=== PATIENT | female | born 1995 | race Caucasian/White ===

== ENCOUNTER 2019-04-23 22:15 | Inpatient (IN) | payer OTHER, SELFPAY ==
--- NOTE | ~2019-04-23 | US_ITS ---
EXAMINATION: US pelvic complete w TV DATE: 04/24/2019 02:03 INDICATION: Left adnexal pain, possible tubo-ovarian abscess on CT TECHNIQUE: Multiple transabdominal and endovaginal sonographic images of the pelvis were obtained. COMPARISON: 04/21/2019 FINDINGS: The uterus measures 8.2 x 3.7 x 5.3 cm. The endometrial complex measures 4 mm. The right ov misbah measures 3.0 x 1.6 x 1.6 cm. The left ovary measures 3.6 x 2.1 x 2.2 cm. There is an approximatel y 5.3 x 3.5 cm complex cystic and solid area in the region of the left ovary which has an appearance similar to the recent comparison ultrasound and CT from today. There is a moderate amount of free fl uid in the pelvis. IMPRESSION: 1. Complex cystic and solid lesion in the left adnexa not significantly changed since the recent comp arison. Findings likely reflect tubo-ovarian abscess given the patient's clinical presentation. Reviewed, dictated and finalized at location A. SURGEON IMPRESSION: 1. Complex cystic and solid lesion in the left adnexa not significantly changed since the recent comparison. Findings likely reflect tubo-ovarian abscess give n the patient's clinical presentation.
--- NOTE | ~2019-04-23 | CT_ITS ---
EXAMINATION: CT abdomen pelvis w con INDICATION: Left lower quadrant pelvic pain TECHNIQUE: Computed tomographic images of the abdomen and pelvis were obtained after the administrati on of 100 cc of Omnipaque 350 intravenous contrast. The dose-length product (DLP) was 288.27 mGy-cm. Automated exposure control and iterative reconstruction technique were employed. COMPARISON: 06/17/2016 FINDINGS: The lung bases are clear. The heart size is normal. The liver, spleen, pancreas, gallbladde r, and adrenal glands are normal. The kidneys are unremarkable. No pathologically enlarged abdominal or pelvic lymph nodes are identified. There is an approximately 7.0 x 3.0 cm complex cystic area of t he left adnexa which appears to enhance at its anterior aspect. A small volume of free fluid is prese nt in the pelvis. There is a curvilinear metallic density in the cecum of unclear origin, possibly in gested foreign body. There is no free intraperitoneal gas or evidence of bowel obstruction. There is mild lumbar spondylosis at L5-S1 with bilateral L5 pars defects. IMPRESSION: 1. Complex cystic area of the left adnexa with some contrast enhancement in the anterior portion whic h could reflect tubo-ovarian abscess given patient's clinical presentation and leukocytosis. These findings were discussed with Dr. Gilberto Noyola MD in the Emergency Department at 0118 hour s on 04/24/2019 by the [employer] Radiologist. Reviewed, dictated and finalized at location A. A SALES CONSULTANT IMPRESSION: 1. Complex cystic area of the left adnexa with some contrast enhancement in the anterior portion which could reflect tubo-ovarian abscess given patient's clin ical presentation and leukocytosis. These findings were discussed with Dr. Gilberto Noyola MD in the Emergency D epartment at 0118 hours on 04/24/2019 by the [employer] Radiologist.
[2019-04-23 22:21] VITALS: BP 132/62; PULSE 116; RESP 16; TEMP 36.4; O2SAT 100
--- NOTE | 2019-04-23 22:45 | PC.NURSE ---
[facility] [employer] CALLED TO LET US KNOW THAT THE PATIENTS BOYFRIEND CALLED, STATED WE WOULD NOT SEE HER AND WANTED TRANSPORT TO [facility]. I EXPLAINED TO THEM THAT WE HAVE A WAIT AT THIS TIME, PATIENT WAS INFORMED AND THAT SHE IS NEXT TO GO BACK, BUT AFTER SHE WAS TRIAGED, SHE WAS PLACED BACK INTO THE WAITING ROOM. WE WILL SEE HER WHEN WE HAVE AN AVAILABLE ROOM. PATIENT IS IN THE WAITING ROOM CRYING.
--- NOTE | 2019-04-23 23:39 | ED.ABDPAIN ---
HPI - Abdominal Pain General Chief Complaint: Abdominal Pain Stated Complaint: ovary problems Time Seen by Provider: 04/23/19 23:08 Source: patient and RN notes reviewed Mode of arrival: ambulatory Limitations: no limitations History of Present Illness HPI narrative: Pt is a 23 y/o female who presents to the ED with c/o LLQ ABD pain which radiates to her epigastric ABD. She states she was seen at the ED 2 days ago and was diagnosed with PID. She states she has been taking antibiotics as it has been prescribed to her. She reports she was sitting when the pain suddenly worsened. She reports the pain worsened 30 minutes ago. Pt states her Hydrocodone medication has not been alleviating her pain. She reports diaphoresis, dizziness, and vaginal discharge, but denies a fever, chills, nausea, vomiting, chest pain, or chest pressure. She states her test was negative the last time she was seen in the ED. MD elicited complaint: abdominal pain (LLQ) Pertinent past history: other (PID) Onset (ago): day(s) (2 days ago) Pain Consistency: constant Location: LLQ Radiation: epigastric Migration to: no migration Relieving factors: nothing (has tried pain medication with no relief) Associated symptoms: other (diaphoresis; dizziness; vaginal discharge) Related Data Home Medications Medication Instructions Recorded Confirmed escitalopram oxalate 10 mg HS 02/24/19 04/24/19 lamotrigine 200 mg PO BID 02/24/19 04/24/19 trazodone 50 mg HS 02/24/19 04/24/19 hydroxyzine HCl 25 mg PO TID 04/24/19 04/24/19 Allergies Allergy/AdvReac Type Severity Reaction Status Date / Time No Known Allergies Allergy Verified 04/21/19 14:43 Review of Systems Review of Systems: All systems reviewed & are unremarkable except as noted in HPI and below Constitutional: Constitutional: Denies chills and Denies fever(s) Cardiovascular: Cardiovascular: Denies chest pain (chest pressure) and Reports diaphoresis Gastrointestinal: Gastrointestinal: Reports abdominal pain (LLQ ABD pain), Denies nausea and Denies vomiting Genitourinary: Genitourinary: Reports vaginal discharge Neurologic: Reports dizziness PMFSH Past Medical History Medical History (Updated 04/24/19 @ 06:32 by Gilberto Noyola MD) ADD (attention deficit disorder) Anxiety Asthma Bipolar disorder Depression Ovarian cyst 2014 with week-long hospitalization before resolving, no surgery Schizoaffective disorder, unspecified condition Tonsillitis Surgical History Surgical History (Updated 04/21/19 @ 13:05 by Mary Carmen Barrera) History of adenoidectomy History of tonsillectomy Social History Social History Smoking packs per day: 0.1 Smoking cigarettes per day: 2.0 Years smoked: 8 Smoking pack-years: 0.80 Smoking status: Current every day smoker Tobacco type: cigarettes Second hand tobacco smoke exposure: Yes Alcohol intake: never Substance use: current Substance use type: marijuana Gender identity (if verbalized by the patient): Female Spiritual care concerns: No Agree to blood products: Yes Exam Narrative: Exam Narrative: GENERAL: Uncomfortable-appearing, tearful, well-nourished, and in mild distress. HEAD: Normocephalic, atraumatic. ENT: Mucous membranes moist. NECK: Supple. CHEST: Clear to auscultation. No respiratory distress. HEART: Tachycardic and regular normal peripheral pulses. ABDOMEN: Soft, tender palpation left lower quadrant with guarding, nondistended, normal active bowel sounds. EXTREMITIES: Normal range of motion. No edema. SKIN: Warm, dry, no rash. NEURO: Alert and oriented x3. Course Course Emergency Course: Admit to gynecology. We will started on IV doxycycline. Regarding the metallic object on the CT scan, patient lost her septal nose ring and it is likely that she swallowed it. Vital Signs Vital signs: Vital Signs Temperature 97.6 F 04/23/19 22:21 Pulse Rate 116
[2019-04-23] MEDS: SODIUM CHLORIDE 0.9% IV 1,000 ML 999 ML IV CONT (23:54)
[2019-04-23] MEDS: ONDANSETRON INJ 4 MG/2 ML VIAL IV PUSH (23:55)
[2019-04-23] MEDS: MORPHINE SULFATE 4 MG/ML INJ IV PUSH (23:55)
[2019-04-23 23:57] VITALS: BP 127/74; PULSE 94; RESP 20; O2SAT 98
[2019-04-23 23:58] LABS: Basophils Absolute Auto 0.1 K/mm3 (0.0-0.1); Basophils Percent Auto 0.5 % (0.2-1.2); Eosinophils Absolute Auto 0.2 K/mm3 (0-0.3); Eosinophils Percent Auto 1.2 % (0-4.4); Hematocrit 40.9 % (37.0-47.0); Hemoglobin 13.2 g/dL (12.0-15.0); Immature Granulocyte Absolute 0.07 K/mm3 (0.00-0.031); Immature Granulocyte Percent A 0.5 % (0-0.5); Lymphocytes Percent Auto 28.5 % (18.3-44.2); Mean Corpuscular HGB Conc 32.3 g/dl (32-36); Mean Corpuscular Hemoglobin 28.6 pg (26-34); Mean Corpuscular Volume 88.7 fl (80-100); Mean Platelet Volume 9.9 fl (7.4-10.4); Monocytes Absolute Auto 1.1 K/mm3 (0.1-0.6); Monocytes Percent Auto 8.7 % (2.6-8.5); Neutrophils Absolute Auto 7.9 K/mm3 (1.3-6.7); Neutrophils Percent Auto 60.6 % (45.5-73.1); Platelet Count Result 437 k/mm3 (150-375); Red Blood Count 4.61 M/mm3 (4.2-5.4); Red Cell Distribution Width 13.2 % (11.5-14.5)
--- NOTE | 2019-04-24 | PC.NURSE ---
Before administering medications, pt was crying, hyperventilating and very restless in bed. When administering IV zofran pt stopped and stated wow, this pain medication works fast . At that point pt stopped crying and relaxed.
[2019-04-24 00:08] LABS: Alanine Aminotransferase 16 U/L (4-35); Albumin Level 4.6 g/dL (3.5-5.1); Alkaline Phosphatase 83 U/L (38-126); Aspartate Amino Transferase 27 U/L (14-36); Bilirubin,Total 0.1 mg/dL (0.2-1.3); Blood Urea Nitrogen 15 mg/dL (7-17); Calcium 9.7 mg/dL (8.4-10.2); Carbon Dioxide 27 mmol/L (22-30); Chloride 102 mmol/L (98-107); Estimated Glomerular Filt Rate > 60; Glucose 94 mg/dL (65-105); Lipase 71 U/L (23-300); Potassium 4.2 mmol/L (3.4-5.0); Sodium 141 mmol/L (137-145)
[2019-04-24 00:53] LABS: Add Urine Microscopic? YES; Appearance Urine Clear (Clear); Bilirubin Urine Negative (Negative); Blood Urine 1+ (Negative); Color Urine Yellow (Yellow); Glucose Urine UA Negative (Negative); Ketones Urine Trace mg/dL (Negative); Leukocyte Esterase Ur 1+ LEU/UL (Negative); Mucus Urine Rare /lpf; Nitrate Urine Negative (Negative); Protein Urine 1+ mg/dL (Negative); RBC Urine 21-50 /hpf (0-2); Specific Grav Ur 1.027 (1.001-1.035); Squamous Epithelial Cell Urine Many /hpf (Few); Urobilinogen Urine Negative mg/dL (<2.0)
[2019-04-24 01:16] VITALS: BP 110/71; PULSE 78; RESP 18; O2SAT 99
[2019-04-24] MEDS: MORPHINE SULFATE 4 MG/ML INJ IV PUSH ×4 (03:12→08:30)
[2019-04-24 03:13] VITALS: BP 114/76; PULSE 84; RESP 18; O2SAT 99
[2019-04-24 03:50] VITALS: BP 106/64; PULSE 72; RESP 16; TEMP 36.6; O2SAT 99; BMI 23.3
[2019-04-24] MEDS: SODIUM CHLORIDE 0.9% IV 1,000 ML 125 ML IV CONT ×3 (04:51→23:28)
[2019-04-24 09:53] LABS: Beta HCG Quantitative < 2.39 mIU/ML
--- NOTE | 2019-04-24 12:00 | PM.IMHP ---
H&P: HPI History of Present Illness Chief complaint: pid left pelvic pain Narrative: Chief complaint: Abdominal pain. (the chief complaint listed above is not accurate, but cannot be changed by me) 23 y/o nulligravida with a 3 day history of crampy, intermittent pain in the low abdomen, worse on the left than the right. She describes the pain as shooting. Her last menstrual period began 04/12/2019. She does not practice contraception. Her last sexual contact was 04/05/2019. She typically has monthly menses lasting 3 days each. She felt feverish on the day of admission, but has not documented a fever. She had been seen a couple of days previously in the emergency department. She had been diagnosed with pelvic inflammatory disease and was given antibiotics. She was sent home on Flagyl and doxycycline. She says she did fill those prescriptions and has been taking them. She says this pain is intermittent and resembles the pain she had that was associated with an ovarian cyst several years ago. She has no dysuria. She has no hematuria. She has no increasing urinary frequency. She has no urinary hesitancy. She has no constipation or diarrhea and says her last bowel movement was on the last day or so. She has had no sick contacts. Testing for gonorrhea and chlamydia from the first ED visit is still pending. She does not have a reliable place to live at this moment. A male friend is with her today. She says she just ended a relationship with a boyfriend last week. Review of Systems Review of Systems: All systems reviewed & are unremarkable except as noted in HPI and below PMFSH Past Medical History Medical History ADD (attention deficit disorder) Anxiety Asthma Bipolar disorder Depression Ovarian cyst 2014 with week-long hospitalization before resolving, no surgery Tonsillitis Surgical History Surgical History History of adenoidectomy History of tonsillectomy Family History Family History Mother Hypertension Family history of type 2 diabetes mellitus Other Diabetes mellitus Family history of arthritis Family history of kidney disease Ovarian cancer Social History Social History Smoking packs per day: 0.1 Smoking cigarettes per day: 2.0 Years smoked: 8 Smoking pack-years: 0.80 Smoking status: Current every day smoker Tobacco type: cigarettes Second hand tobacco smoke exposure: Yes Alcohol intake: never Substance use: current Substance use type: marijuana Gender identity (if verbalized by the patient): Female Spiritual care concerns: No Agree to blood products: Yes Comments Past OB History: None 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 Menarche at 14 y/o. Social History: Currently homeless. 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 Tells me she smokes 3-5 cigarettes a day and smokes marijuana. Additional Family History: Father and maternal grandmother with schizophrenia. Allergies: NKDA Additional medication information: She says the hydroxyzine is actually dosed at 10 mg in the morning, 10 in afternoon, 25 mg at bedtime. Meds Home Medications and Allergies Home Medications Medication Instructions Recorded Confirmed Type escitalopram oxalate 10 mg HS 02/24/19 04/24/19 History lamotrigine 200 mg PO BID 02/24/19 04/24/19 History trazodone 50 mg HS 02/24/19 04/24/19 History doxycycline monohydrate 100 mg PO BID #28 cap 04/21/19 04/24/19 Rx hydrocodone-acetaminophen [[place]] 1 tablet PO Q6H PRN #20 tablet 04/21/19 04/24/19 Rx metronidazole [Flagyl] 500 mg PO Q12H #28 tablet 04/21/19 04/24/19 Rx hydroxyzine HCl 25 mg PO TID 04/24/19 04/24/19 History Allergies Allergy/AdvReac Type Severity Reaction Status Date / Time No Known Allergies Allergy Verified 04/21/19 14
[2019-04-24] MEDS: cefoTEtan DISODIUM INJ 2 GM in DEXTROSE 5% IN WATER 50 ML IVPB ×2 (13:00→20:13)
[2019-04-24] MEDS: KETOROLAC 30 MG/ML VIAL (*BKC) IV PUSH (13:58)
[2019-04-24] MEDS: MORPHINE SULFATE 2 MG/ML INJ IV PUSH ×3 (14:58→20:07)
[2019-04-24 15:31] VITALS: BP 121/72; PULSE 82; RESP 18; TEMP 36.3; O2SAT 98
[2019-04-24] MEDS: DOXYCYCLINE HYCLATE 100 MG TABLET PO (18:34)
[2019-04-24] MEDS: lamoTRIgine 100 MG TABLET 200 MG PO (20:15)
[2019-04-24] MEDS: TRAZODONE HCL 50 MG TABLET 100 MG PO (20:16)
[2019-04-24] MEDS: ESCITALOPRAM OXALATE 10 MG TABLET PO (20:17)
[2019-04-24 22:00] VITALS: BP 131/64; PULSE 83; RESP 18; TEMP 36.4; O2SAT 100
[2019-04-25] MEDS: MORPHINE SULFATE 2 MG/ML INJ IV PUSH ×4 (04:59→14:59)
[2019-04-25 05:56] VITALS: BP 100/64; PULSE 67; RESP 18; TEMP 37; O2SAT 97
[2019-04-25] MEDS: SODIUM CHLORIDE 0.9% IV 1,000 ML 125 ML IV CONT ×2 (08:13→16:35)
[2019-04-25] MEDS: DOXYCYCLINE HYCLATE 100 MG TABLET PO ×2 (08:14→16:45)
[2019-04-25] MEDS: lamoTRIgine 100 MG TABLET 200 MG PO ×2 (08:14→21:12)
[2019-04-25] MEDS: cefoTEtan DISODIUM INJ 2 GM in DEXTROSE 5% IN WATER 50 ML IVPB ×2 (08:44→21:13)
[2019-04-25 11:11] LABS: Basophils Percent Auto 0.4 % (0.2-1.2); Eosinophils Absolute Auto 0.4 K/mm3 (0-0.3); Eosinophils Percent Auto 4.2 % (0-4.4); Hematocrit 34.7 % (37.0-47.0); Hemoglobin 11.3 g/dL (12.0-15.0); Immature Granulocyte Absolute 0.03 K/mm3 (0.00-0.031); Immature Granulocyte Percent A 0.4 % (0-0.5); Lymphocytes Absolute Auto 3.33 K/mm3 (0.9-3.2); Lymphocytes Percent Auto 40.3 % (18.3-44.2); Mean Corpuscular HGB Conc 32.6 g/dl (32-36); Mean Corpuscular Hemoglobin 29.2 pg (26-34); Mean Corpuscular Volume 89.7 fl (80-100); Mean Platelet Volume 9.8 fl (7.4-10.4); Monocytes Absolute Auto 0.7 K/mm3 (0.1-0.6); Neutrophils Absolute Auto 3.9 K/mm3 (1.3-6.7); Neutrophils Percent Auto 46.7 % (45.5-73.1); Platelet Count Result 361 k/mm3 (150-375); Red Blood Count 3.87 M/mm3 (4.2-5.4); Red Cell Distribution Width 13.5 % (11.5-14.5); White Blood Count 8.3 K/mm3 (4.5-10.0)
--- NOTE | 2019-04-25 11:50 | PM.GYNPNOP ---
TROMMEL TENDER - A/P Assessment and plan (1) Acute pelvic inflammatory disease (PID): Code(s): N73.0 - Acute parametritis and pelvic cellulitis Status: Acute Assessment and Plan: A: Clinically, she seems to be getting better. She has remained afebrile. Her white blood cell count, which has returned since I spoke with her this morning, has normalized. Her abdominal exam has improved. She still complains of pain intermittently. P: When she asked about another test, I told her that the next test would be a laparoscopy. My concern in this situation is that laparoscopy sometimes leads to salpingo-oophorectomy. In her case, I think it is much better if antibiotics and pain medication can be allowed to work, in an effort to avoid surgery. The patient indicates understanding and would like to hold off on surgery for now. She agreed to a CBC, as above. I agreed to let her keep having a regular diet. We also agreed to try oral pain medications today. Our goal will be to get her home perhaps tomorrow on oral antibiotics and oral pain medications. Time Spent With Patient Time with patient: 15 - 25 minutes TROMMEL TENDER- PN:Jaye Post-Op Subjective Date/time seen: 04/25/19 11:50 Interval history: She continues to have intermittent pain. We tried using Percocet and Motrin on an alternating basis yesterday. However, I received several phone calls from nursing informing me that the patient was having pain and was tearful. We wound up giving her parenteral morphine and Toradol. Overnight she says she had times when she was pain-free and other times when she had a stabbing pain in the left lower quadrant. She has not had a bowel movement since arrival. She says she is passing flatus. She is eating a muffin at the time of my interview this morning. She has no dysuria. She has not felt feverish. She tells me she thinks she needs another test. She refused a blood draw this morning. However, after I explained that I was wanting to keep an eye on her white blood cell count, she says it would be okay. Review of Systems Review of Systems: All systems reviewed & are unremarkable except as noted in HPI and below Exam Narrative: Exam Narrative: AVSS GEN: She has a hard time keeping her eyes open and is slurring her speech a little. ABD: Soft, nondistended. Bowel sounds normoactive in all 4 quadrants. There is some mild tenderness on deep palpation in the left lower quadrant. There is no guarding or rebound tenderness. EXT: Nontender, no edema. TROMMEL TENDER - PN: Obj Data Vital Signs Vital Signs: Vital Signs - 24 hr 04/24/19 15:31 04/24/19 22:00 04/25/19 05:56 Temperature 36.3 C L 36.4 C 37.0 C Pulse Rate 82 83 67 Respiratory Rate 18 18 18 Blood Pressure 121/72 131/64 100/64 Pulse Oximetry 98 100 97 Intake/Output Intake/Output: Intake & Output 04/22/19 04/23/19 04/24/19 04/25/19 23:59 23:59 23:59 23:59 Intake Total 3940 1760 Output Total 0 Balance 3940 1760 Meds/Results Medications: Active Medications Generic Name Dose Route Start Last Admin Trade Name Freq PRN Reason Stop Dose Admin Doxycycline Hyclate 100 mg 04/24/19 17:00 04/25/19 08:14 Vibramycin Tab PO 100 mg BID OREN Administration Escitalopram Oxalate 10 mg 04/24/19 21:00 04/24/19 20:17 Lexapro PO 10 mg HS OREN Administration Sodium Chloride 1,000 mls @ 125 mls/hr 04/24/19 03:15 04/25/19 08:13 Normal Saline Iv IV CONT 125 mls/hr .Q8H OREN Administration Cefotetan Disodium 2 gm/ 50 mls @ 100 mls/hr 04/24/19 12:00 04/25/19 08:44 Dextrose IVPB 100 mls/hr Q12HR OREN Administration Ketorolac Tromethamine 30 mg 04/24/19 13:46 04/24/19 13:58 Toradol Inj IV PUSH 30 mg Q6H PRN Administration Pain Rated 4-6 Lamotrigine 200 mg 04/24/19 21:00 04/25/19 08:14 Lamictal PO 200 mg Q12HR OREN Administration Morphine Sulfate 2 mg 04/24/19 14:48 04/25/19 08:16 Morphine Sulfate Inj IV PUSH 2 mg Q
[2019-04-25 14:21] VITALS: BP 112/62; PULSE 82; RESP 18; TEMP 37.1; O2SAT 99
[2019-04-25] MEDS: ESCITALOPRAM OXALATE 10 MG TABLET PO (21:12)
[2019-04-25] MEDS: TRAZODONE HCL 50 MG TABLET 100 MG PO (21:12)
[2019-04-25] MEDS: DOCUSATE SODIUM 100 MG CAPSULE PO (21:12)
[2019-04-25 22:00] VITALS: BP 124/70; PULSE 77; RESP 18; TEMP 36.9; O2SAT 97
[2019-04-26] VITALS (9 sets, daily range): BP systolic 106–124; BP diastolic 53–78; PULSE 73–119; RESP 12–21; TEMP 36.1–37.3; O2SAT 91–100
[2019-04-26] MEDS: SODIUM CHLORIDE 0.9% IV 1,000 ML 125 ML IV CONT ×2 (01:17→09:08)
[2019-04-26 06:27] LABS: Basophils Absolute Auto 0.1 K/mm3 (0.0-0.1); Basophils Percent Auto 0.5 % (0.2-1.2); Eosinophils Absolute Auto 0.3 K/mm3 (0-0.3); Eosinophils Percent Auto 3.4 % (0-4.4); Hematocrit 35.4 % (37.0-47.0); Hemoglobin 11.4 g/dL (12.0-15.0); Immature Granulocyte Absolute 0.04 K/mm3 (0.00-0.031); Immature Granulocyte Percent A 0.4 % (0-0.5); Lymphocytes Absolute Auto 3.28 K/mm3 (0.9-3.2); Lymphocytes Percent Auto 34.5 % (18.3-44.2); Mean Corpuscular HGB Conc 32.2 g/dl (32-36); Mean Corpuscular Hemoglobin 28.8 pg (26-34); Mean Corpuscular Volume 89.4 fl (80-100); Mean Platelet Volume 9.8 fl (7.4-10.4); Monocytes Absolute Auto 0.9 K/mm3 (0.1-0.6); Monocytes Percent Auto 9.3 % (2.6-8.5); Neutrophils Absolute Auto 4.9 K/mm3 (1.3-6.7); Neutrophils Percent Auto 51.9 % (45.5-73.1); Platelet Count Result 374 k/mm3 (150-375); Red Blood Count 3.96 M/mm3 (4.2-5.4); Red Cell Distribution Width 13.4 % (11.5-14.5); White Blood Count 9.5 K/mm3 (4.5-10.0)
[2019-04-26] MEDS: cefoTEtan DISODIUM INJ 2 GM in DEXTROSE 5% IN WATER 50 ML IVPB ×2 (09:06→21:50)
[2019-04-26] MEDS: DOXYCYCLINE HYCLATE 100 MG TABLET PO (09:07)
[2019-04-26] MEDS: DOCUSATE SODIUM 100 MG CAPSULE PO ×2 (09:07→21:50)
[2019-04-26] MEDS: lamoTRIgine 100 MG TABLET 200 MG PO ×2 (09:07→21:50)
--- NOTE | 2019-04-26 11:34 | WPDANESEPP ---
Anes - Eval Pre Procedure Procedure: Operation Date: 04/26/19 15:30 Proposed Procedures p Diagnostic Laparoscopy, Possible Left Salpingo-Oophorectomy - Wayne Ruano MD Date/Time: 04/26/19 11:34 Pre Op Diagnosis: pid left pelvic pain Patient Data Age: 23 Gender: F Height: 1.63 m Weight: 61.7 kg Last Vital Signs Temp 37.2 C 04/26/19 06:00 Pulse 73 04/26/19 06:00 Resp 18 04/26/19 06:00 BP 110/53 L 04/26/19 06:00 Pulse Ox 96 04/26/19 06:00 Allergies Allergy/AdvReac Type Severity Reaction Status Date / Time No Known Allergies Allergy Verified 04/21/19 14:43 Home Medications Medication Instructions Recorded Confirmed Type escitalopram oxalate 10 mg HS 02/24/19 04/24/19 History lamotrigine 200 mg PO BID 02/24/19 04/24/19 History trazodone 50 mg HS 02/24/19 04/24/19 History doxycycline monohydrate 100 mg PO BID #28 cap 04/21/19 04/24/19 Rx hydrocodone-acetaminophen [[place]] 1 tablet PO Q6H PRN #20 tablet 04/21/19 04/24/19 Rx metronidazole [Flagyl] 500 mg PO Q12H #28 tablet 04/21/19 04/24/19 Rx hydroxyzine HCl 25 mg PO TID 04/24/19 04/24/19 History Laboratory Tests 04/26/19 06:10 WBC 9.5 K/mm3 K/mm3 (4.5-10.0) RBC 3.96 M/mm3 L M/mm3 (4.2-5.4) Hgb 11.4 g/dL L g/dL (12.0-15.0) Hct 35.4 % L % (37.0-47.0) MCV 89.4 fl fl (80-100) MCH 28.8 pg pg (26-34) MCHC 32.2 g/dl g/dl (32-36) RDW 13.4 % % (11.5-14.5) Plt Count 374 k/mm3 k/mm3 (150-375) MPV 9.8 fl fl (7.4-10.4) Immature Gran % (Auto) 0.4 % % (0-0.5) Neut % (Auto) 51.9 % % (45.5-73.1) Lymph % (Auto) 34.5 % % (18.3-44.2) [place] % (Auto) 9.3 % H % (2.6-8.5) Eos % (Auto) 3.4 % % (0-4.4) Baso % (Auto) 0.5 % % (0.2-1.2) Lymph # (Auto) 3.28 K/mm3 H K/mm3 (0.9-3.2) [place] # (Auto) 0.9 K/mm3 H K/mm3 (0.1-0.6) Eos # (Auto) 0.3 K/mm3 K/mm3 (0-0.3) Baso # (Auto) 0.1 K/mm3 K/mm3 (0.0-0.1) Abs Immat Gran (auto) 0.04 K/mm3 H K/mm3 (0.00-0.031) Absolute Neuts (auto) 4.9 K/mm3 K/mm3 (1.3-6.7) Absolute Nucleated RBC 0.0 K/mm3 K/mm3 (0.0-0.012) Nucleated RBC % 0.0 % % (0.0-0.2) Patient hx anesthesia problems: none Family hx anesthesia problems: none PMFSH Past Medical History Medical History (Updated 04/26/19 @ 11:36 by Patel Armenta MD) ADD (attention deficit disorder) Anxiety Asthma Attention deficit disorder Bipolar disorder Depression Ovarian cyst 2014 with week-long hospitalization before resolving, no surgery Tobacco abuse Tonsillitis Surgical History Surgical History History of adenoidectomy History of tonsillectomy Family History Family History Mother Hypertension Family history of type 2 diabetes mellitus Other Diabetes mellitus Family history of arthritis Family history of kidney disease Ovarian cancer Social History Social History Smoking packs per day: 0.1 Smoking cigarettes per day: 2.0 Years smoked: 8 Smoking pack-years: 0.80 Smoking status: Current every day smoker Tobacco type: cigarettes Second hand tobacco smoke exposure: Yes Alcohol intake: never Substance use: current Substance use type: marijuana Gender identity (if verbalized by the patient): Female Spiritual care concerns: No Agree to blood products: Yes Exam Day of Procedure 04/26/19 11:34
--- NOTE | 2019-04-26 12:03 | PM.GYNPNOP ---
MANAGER SALES AND MARKETING - A/P Postoperative Procedures: Procedures Operation Date: 04/26/19 15:30 <No data on this case meets the specified criteria> A: Left-sided tuboovarian abscess. Her WBC has normalized and she is afebrile, but her pain has been difficult to control. She is requesting surgical management. P: Offered diagnostic laparoscopy with possible LSO. She understands risks of surgery to include risks of anesthesia, risks of pain, infection, bleeding, blood products, thromboembolic phenomena and damage to adjacent structures such as bowel, bladder, ureters, blood vessels and nerves. She understands that, should LSO prove necessary, there could be an impact on her fertility. She understands there is a risk of conversion to laparotomy. She understands all these risks and elects to proceed with surgery. Time Spent With Patient Time with patient: 15 - 25 minutes MANAGER SALES AND MARKETING- PN:Subj Post-Op Subjective Date/time seen: 04/26/19 12:03 Interval history: Nursing phoned yesterday reporting pain poorly controlled. 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 She has used 8 mg of morphine in the last 5 hours, for a total of 45 mg in the last 20 hours. The patient is requesting surgical evaluation and treatment. Also she is hungry. The man who was in the room previously is lying in the bed next to her today. His name is Jn and she now identifies him as her boyfriend. I am instructed to talk with him after the surgery with an update. Review of Systems Review of Systems: All systems reviewed & are unremarkable except as noted in HPI and below Exam Narrative: Exam Narrative: ABD soft, tender in LLQ. No guarding or rebound tenderness. Nondistended. MANAGER SALES AND MARKETING - PN: Obj Data Vital Signs Vital Signs: Vital Signs - 24 hr 04/25/19 14:21 04/25/19 22:00 04/26/19 06:00 Temperature 37.1 C 36.9 C 37.2 C Pulse Rate 82 77 73 Respiratory Rate 18 18 18 Blood Pressure 112/62 124/70 110/53 L Pulse Oximetry 99 97 96 Intake/Output Intake/Output: Intake & Output 04/23/19 04/24/19 04/25/19 04/26/19 23:59 23:59 23:59 23:59 Intake Total 3940 3700 3030 Output Total 0 Balance 3940 3700 3030 Meds/Results Medications: Active Medications Generic Name Dose Route Start Last Admin Trade Name Freq PRN Reason Stop Dose Admin Docusate Sodium 100 mg 04/25/19 21:00 04/26/19 09:07 Colace Capsule PO 100 mg Q12HR OREN Administration Doxycycline Hyclate 100 mg 04/24/19 17:00 04/26/19 09:07 Vibramycin Tab PO 100 mg BID OREN Administration Escitalopram Oxalate 10 mg 04/24/19 21:00 04/25/19 21:12 Lexapro PO 10 mg HS OREN Administration Fentanyl Citrate 25 mcg 04/26/19 09:38 Sublimaze IV PUSH Q2M PRN Pain Hydromorphone HCl 0.25 mg 04/26/19 09:38 Dilaudid Inj IV PUSH Q5M PRN Pain Sodium Chloride 1,000 mls @ 125 mls/hr 04/24/19 03:15 04/26/19 09:08 Normal Saline Iv IV CONT 125 mls/hr .Q8H [facility] Administration Cefotetan Disodium 2 gm/ 50 mls @ 100 mls/hr 04/24/19 12:00 04/26/19 10:00 Dextrose IVPB Infused Q12HR [facility] Infusion Morphine Sulfate 30 mg in 30 mls @ 1 mls/hr 04/25/19 16:17 04/26/19 10:00 Morphine Sulfate Security Operations Analyst IV CONT 1 mls/hr .Q24H PRN Titration BEAMING MACHINE OPERATOR Management Protocol Lactated Ringer's 1,000 mls @ 30 mls/hr 04/26/19 09:40 Lr - Lactated Ringers Iv IV CONT .Q24H [facility] Lactated Ringer's 1,000 mls @ 30 mls/hr 04/26/19 09:40 Lr - Lactated Ringers Iv IV CONT .Q24H [facility] Ketorolac Tromethamine 30 mg 04/24/19 13:46 04/24/19 13:58 Toradol Inj IV PUSH 30 mg Q6H PRN Administration Pain Rated 4-6 Lamotrigine 200 mg 04/24/19 21:00 04/26/19 09:07 Lamictal PO 200 mg Q12HR OREN Administration Morphine Sulfate 2 mg 04/24/19 14:48 04/25/19 14:59 Morphine Sulfate Inj IV PUSH 2 mg Q2H PRN Administration Pain Rated 7-10 Ondansetron HCl 4 mg 04/26/19 09:38 Zofran Inj IV PUSH ONCE PRN Nausea Oxy
[2019-04-26] MEDS: LACTATED RINGERS 1,000 ML 30 ML IV CONT ×2 (14:35→16:57)
--- NOTE | 2019-04-26 15:03 | P.PNAN_ITS ---
Anes - Eval Final PreProcedure Day of Procedure 04/26/19 15:03 Patient weight: normal Heart: regular rate and rhythm Lungs: clear to auscultation and normal air movement Airway: Mallampati scale class II Neurological: alert and oriented Last oral intake: >/= 8 hours ASA classification: III Emergent: no Anesthetic plan: proceed Anesthesia type and monitoring: general ETT Informed Consent: The patient's anesthetic plan and its attendant risks and b enefits were discussed with the patient/family/POA. Questions were solicited and answers provided to the satisfaction of the patient/family/POA.
--- NOTE | 2019-04-26 15:18 | SUR.PREOP ---
1420-ARRIVED PER BED TO PREOP AREA, BOYFRIEND WITH PT. 1440-PT VERY AGITATED, CURSING WHILE STAFF ATTEMPTING TO CARE FOR PT AND EXPLAINING PRE, INTRA, AND POST OP ROUTINE. REQUESTED PT REMOVE EAR PIERCING AND/OR SIGN REFUSAL WAIVER. 1450-WAIVER SIGNED AFTER BOYFRIEND UNABLE TO REMOVE PIERCING. 1500-PT REMOVED PIERCING HERSELF, WAIVER DISCARDED. MOM AND STEP DAD NOW HERE WITH PT.
--- NOTE | 2019-04-26 16:53 | PM.PROC ---
Procedure Note - Detailed Date of procedure: 04/26/19 Pre-op diagnosis: pid left pelvic pain Preop Diagnosis: Left tubo-ovarian abscess Pain Post-op diagnosis: same Procedure performed: Laparoscopic left salpingectomy Description of procedure: The patient was taken to the operating room where she was prepared and draped in the usual sterile fashion in the dorsal lithotomy position. The bladder was drained with a red rubber catheter. A sterile speculum was placed in the vagina and the anterior lip of the cervix was grasped with a single-tooth tenaculum. The acorn uterine manipulator was placed. The speculum was withdrawn. Gloves were changed and attention was turned to the abdomen. An infraumbilical skin incision was made with a scalpel. The abdomen was tented and a 5mm bladeless trocar was advanced under direct laparoscopic visualization. Pneumoperitoneum was administered using carbon dioxide gas. A 2nd 5mm skin incision was made in the right lower quadrant and bladeless trocar was advanced here as well. An 11/12 mm port was placed in the left lower quadrant similarly. A survey of the pelvis and abdomen revealed the findings noted above. The left fallopian tube was bluntly dissected off the bowel. The tube was then transected using LigaSure. The tube was placed in an endobag and passed off to be sent to pathology. The pelvis was irrigated copiously with warmed normal saline. Hemostasis was excellent. The fascial incision in the left lower quadrant was reapproximated with a single interrupted suture of 0 Vicryl. The ports were withdrawn and the gas was allowed to escape. Skin incisions were reapproximated using 4 0 Vicryl in interrupted subcuticular fashion. Dermaflex was applied externally. The vaginal instrumentation was withdrawn and hemostasis was excellent here as well. Sponge, lap, needle and instrument counts were correct. The patient was awakened and taken to recovery room in stable condition. I was present and scrubbed for the entire procedure. Implants: None Anesthesia: GETA Surgeon: Wayne Ruano MD Estimated blood loss (mL): 5 Drains: No Packing: No Pathology: yes (Left Fallopian tube) Complications: None Condition: stable Disposition: PACU Findings: Uterus, right tube and bilateral ovaries unremarkable. The left Fallopian tube was distally dilated and adherent to surrounding bowel. The anterior and posterior cul de sac were unremarkable. The right upper quadrant anatomy was unremarkable. The vermiform appendix was partially visualized and appeared unremarkable.
[2019-04-26] MEDS: HYDROMORPHONE HCL 1 MG/ML INJ 0.25 MG IV PUSH ×4 (17:30→17:52)
[2019-04-26] MEDS: hydrOXYzine HCL 25 MG TABLET PO (18:34)
[2019-04-26] MEDS: DEXTROSE 5%/LACTATED RINGERS 1,000 ML 125 ML IV CONT (18:34)
[2019-04-26] MEDS: metroNIDAZOLE 250 MG TABLET 500 MG PO (21:00)
[2019-04-26] MEDS: TRAZODONE HCL 50 MG TABLET 100 MG PO (21:50)
[2019-04-26] MEDS: ESCITALOPRAM OXALATE 10 MG TABLET PO (21:50)
[2019-04-27 04:00] VITALS: BP 105/57; PULSE 86; RESP 16; TEMP 36.8; O2SAT 97
[2019-04-27 06:00] VITALS: BP 111/60; PULSE 78; RESP 16; TEMP 37; O2SAT 99
[2019-04-27] MEDS: DEXTROSE 5%/LACTATED RINGERS 1,000 ML 125 ML IV CONT (06:17)
[2019-04-27 08:00] VITALS: PULSE 78; RESP 16; O2SAT 99
--- NOTE | 2019-04-27 08:12 | PM.GYNPNOP ---
LAP MAKER - A/P Postoperative Procedures: Procedures Operation Date: 04/26/19 15:30 Actual Procedures Side Surgeon p Diagnostic Laparoscopy, Possible Left Salpingo-Oophorectomy Left Wyane Ruano MD Postoperative day: 1 Postoperative status: doing well Postoperative plan: ambulate, advance diet and discharge (plan for d/c later today) Time Spent With Patient Time: Total time spent is greater than 50% in coordination of care (as documented) at patient's floor/unit and/or counseling patient: Time with patient: less than 15 minutes LAP MAKER- PN:Subj Post-Op Subjective Date/time seen: 04/27/19 08:12 Interval history: patient resting in bed with boyfriend lying next to year. pt comfortable when I entered the room. 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 pt states she was tearful for several hours befor her pain was controlled. She ambulated minimally. She denies N/V. she reports minimal spotting after her procedure. She is tolerating PO. Discussed plan for d/c home today. 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 Exam Const: General: no acute distress Resp: Auscultation: clear to auscultation bilaterally Cardio: Rate: regular rate Rhythm: regular rhythm GI: Inspection: non-distended Auscultation: normal bowel sounds Other: Tender to palpation throughout the abdomen, no rebound, no guarding Extrem: General: normal to inspection and full ROM Psych: Affect: normal affect LAP MAKER - PN: Obj Data Vital Signs Vital Signs: Vital Signs - 24 hr 04/26/19 15:02 04/26/19 16:56 04/26/19 17:10 Temperature 37.3 C 36.1 C L Pulse Rate 77 99 84 Respiratory Rate 16 21 H 18 Blood Pressure 121/78 110/63 109/70 Pulse Oximetry 100 99 100 04/26/19 17:25 04/26/19 17:40 04/26/19 17:55 Temperature Pulse Rate 89 91 91 Respiratory Rate 18 15 12 Blood Pressure 116/67 106/66 106/71 Pulse Oximetry 100 100 100 04/26/19 18:10 04/26/19 21:00 04/27/19 04:00 Temperature 37.2 C 36.8 C Pulse Rate 88 119 H 86 Respiratory Rate 12 20 16 Blood Pressure 106/67 124/72 105/57 L Pulse Oximetry 100 91 97 Intake/Output Intake/Output: Intake & Output 04/24/19 04/25/19 04/26/19 04/27/19 23:59 23:59 23:59 23:59 Intake Total 3940 3700 3555 1520 Output Total 0 1500 Balance 3940 3700 3555 20 Meds/Results Medications: Active Medications Generic Name Dose Route Start Last Admin Trade Name Freq PRN Reason Stop Dose Admin Hydrocodone Bitart/Acetaminophen 1 tab 04/26/19 18:20 [place] 5-325 Mg PO Q3H PRN Pain Rated 5 or Less Hydrocodone Bitart/Acetaminophen 1 tab 04/26/19 18:20 04/26/19 22:28 [place] 10-325 Mg PO 1 tab Q3H PRN Administration Pain Rated 6 or Greater Docusate Sodium 100 mg 04/25/19 21:00 04/26/19 21:50 Colace Capsule PO 100 mg Q12HR OREN Administration Doxycycline Hyclate 100 mg 04/24/19 17:00 04/26/19 18:47 Vibramycin Tab PO Not Given BID OREN Escitalopram Oxalate 10 mg 04/24/19 21:00 04/26/19 21:50 Lexapro PO 10 mg HS OREN Administration Hydroxyzine HCl 25 mg 04/26/19 18:20 04/26/19 18:34 Atarax Tablet PO 25 mg TID OREN Administration Cefotetan Disodium 2 gm/ 50 mls @ 100 mls/hr 04/24/19 12:00 04/26/19 22:20 Dextrose IVPB Infused Q12HR OREN Infusion Dextrose/Lactated Ringer's 1,000 mls @ 125 mls/hr 04/26/19 18:20 04/27/19 06:17 Dextrose 5%/Lactated Ringers IV CONT 125 mls/hr .Q8H OREN Administration Ibuprofen 600 mg 04/26/19 18:20 Motrin PO Q6H PRN Cramping Lamotrigine 200 mg 04/24/19 21:00 04/26/19 21:50 Lamictal PO 200 mg Q12HR OREN Administration Metronidazole 500 mg 04/26/19 21:00 04/26/19 21:00 Flagyl PO 500 mg Q12HR OREN Administration Naloxone HCl 0.1 mg 04/26/19 18:20 Narcan IV PUSH Q2M PRN Respiratory rate less than 10 Ondansetron HCl 4 mg 04/26/19 20:51 Zofran Inj IV PUSH Q8H PRN Nausea
[2019-04-27] MEDS: cefoTEtan DISODIUM INJ 2 GM in DEXTROSE 5% IN WATER 50 ML IVPB (09:00)
[2019-04-27] MEDS: metroNIDAZOLE 250 MG TABLET 500 MG PO (09:46)
[2019-04-27] MEDS: lamoTRIgine 100 MG TABLET 200 MG PO (09:49)
[2019-04-27] MEDS: DOCUSATE SODIUM 100 MG CAPSULE PO (09:49)
[2019-04-27] MEDS: DOXYCYCLINE HYCLATE 100 MG TABLET PO (09:49)
[2019-04-27] MEDS: hydrOXYzine HCL 25 MG TABLET PO ×2 (09:54→13:34)
--- NOTE | 2019-04-27 09:57 | WPDANESPN ---
Anes - Prog Note Post-Op Date/Time: 04/27/19 09:57 Cardiovascular status: normal Respiratory status: normal Airway patency: baseline Mental status: baseline Post-Op hydration status: normal Vital Signs: Last Vital Signs Temp 37.0 C 04/27/19 06:00 Pulse 78 04/27/19 06:00 Resp 16 04/27/19 06:00 BP 111/60 04/27/19 06:00 Pulse Ox 99 04/27/19 06:00 I/O: Intake & Output 04/26/19 04/27/19 04/27/19 23:59 07:59 15:59 Intake Total 500 1520 Output Total 1500 Balance 500 20 Laboratory Tests 04/26/19 06:10 04/23/19 23:51 Post-procedural complaints: none Patient Feedback: Patient satisfied with anesthetic care.
--- NOTE | 2019-04-27 11:24 | P.DS_ITS ---
DS: Diagnosis Admitting Diagnosis Admitting Diagnosis: Acute parametritis and pelvic cellulitis DS: Summary Hospital Course Reason for hospitalization: patient is a 23 yo F who presented with acute onset lower abdominal pain. CT imaging showed a left pelvic mass suspicious for tubal ovarian abscess. Pt was treated with antibiotics and pain medications. Pt leukocytosis improved but her pain symptoms worsened. Pt then underwent diagnostic laparoscopic with left salpingectomy for TOA. The procedure was uncomplicated. Pt was doing well post operatively. Her pain was adequately controlled this AM. She was able to ambulated and void spontaneously. She is tolerating PO without N/V. Status at Discharge Functional status at discharge: independent ambulation Overall status at discharge: patient is progressing back to baseline Time Spent with Patient Time attestation: Total time spent providing and/or coordinating discharge services: Time spent: Less than 30 minutes Exam Const: General: comfortable and no acute distress Eyes: General: appearance normal, both eyes and all related structures Resp: Effort & Inspection: normal respiratory effort Auscultation: clear to auscultation bilaterally Cardio: Rate: regular rate Rhythm: regular rhythm GI: Inspection: non-distended GI Palp: Yes Soft to palpation, Yes Tenderness to palpation present (GI) (mildly tender to palpation throughout) and No Guarding due to palpation present (GI) Other: Incisions C/D/I, no erythema or induration Skin: General skin exam: normal color Extrem: General: normal to inspection Psych: Mental Status: mental status grossly normal Affect: normal affect DS: Data Data Completed and Pending Pending studies at discharge: Pending at discharge 04/26/19 16:29 Surgical [PTH] Routine Discharge Plan Discharge Attending physician on discharge: Wayne Ruano Discharging Clinician: Eduar Warner Anticipated Discharge Date/Time: 04/27/19 11:28 Patient Disposition: Home, Self-Care Activity: may shower, may drive after 2 weeks and pelvic rest Diet: regular Wound Care Instructions: incision open to air Discharge Instructions: Call or return if temperature above 100.4? F, increased abdominal pain, increased vaginal bleeding or any new problems. Patient Instructions: Antibiotic Form, How to Stop Smoking (DC) Stand Alone Forms: General Discharge Information Follow-up/Referrals: Wayne Ruano MD [Physician] - (2 weeks) Discharge Medications: New hydrocodone-acetaminophen [[place]] 10-325 mg Tablet 1 tablet PO Q6H PRN (Reason: Pain Rated 6 Or Greater) Qty: 30 RF: 0 ibuprofen 600 mg Tablet 600 mg PO Q6H PRN (Reason: Cramping) Qty: 30 RF: 0 Continued lamotrigine 200 mg tablet 200 mg PO BID RF: 0 trazodone 50 mg tablet 50 mg HS RF: 0 escitalopram oxalate 10 mg tablet 10 mg HS RF: 0 doxycycline monohydrate 100 mg capsule 100 mg PO BID Qty: 28 RF: 0 metronidazole [Flagyl] 500 mg tablet 500 mg PO Q12H Qty: 28 RF: 0 hydroxyzine HCl 25 mg tablet 25 mg PO TID RF: 0 Discontinued hydrocodone-acetaminophen [[place]] 5-325 mg tablet 1 tablet PO Q6H PRN (Reason: pain) Qty: 20 RF: 0 Date of admission: 04/24/19 09:58 Primary Care Provider: UNKNOWN,DOCTOR Admitting Provider: Wayne Ruano Attending physician on admission: Wayne Ruano Condition: Stable
--- NOTE | 2019-05-02 13:43 | P.DS_ITS ---
DS: Diagnosis Admitting Diagnosis Admitting Diagnosis: Pelvic inflammatory disease Discharge Diagnosis (1) Acute pelvic inflammatory disease (PID): Code(s): N73.0 - Acute parametritis and pelvic cellulitis Status: Acute DS: Data Data Completed and Pending Completed studies during hospitalization: Pending at discharge 04/26/19 16:29 Surgical [PTH] Routine Discharge Plan Discharge Attending physician on discharge: Wayne Ruano Consulting providers: Gigi Tinajero Discharging Clinician: Eduar Warner Anticipated Discharge Date/Time: 04/27/19 11:28 Patient Disposition: Home, Self-Care Activity: may shower, may drive after 2 weeks and pelvic rest Diet: regular Wound Care Instructions: incision open to air Discharge Instructions: Call or return if temperature above 100.4? F, increased abdominal pain, increased vaginal bleeding or any new problems. Patient Instructions: Antibiotic Form, How to Stop Smoking (DC) Stand Alone Forms: General Discharge Information Follow-up/Referrals: Wayne Ruaon MD [Physician] - (2 weeks) Discharge Medications: New hydrocodone-acetaminophen [[place]] 10-325 mg Tablet 1 tablet PO Q6H PRN (Reason: Pain Rated 6 Or Greater) Qty: 30 RF: 0 ibuprofen 600 mg Tablet 600 mg PO Q6H PRN (Reason: Cramping) Qty: 30 RF: 0 Continued lamotrigine 200 mg tablet 200 mg PO BID RF: 0 trazodone 50 mg tablet 50 mg HS RF: 0 escitalopram oxalate 10 mg tablet 10 mg HS RF: 0 doxycycline monohydrate 100 mg capsule 100 mg PO BID Qty: 28 RF: 0 metronidazole [Flagyl] 500 mg tablet 500 mg PO Q12H Qty: 28 RF: 0 hydroxyzine HCl 25 mg tablet 25 mg PO TID RF: 0 Discontinued hydrocodone-acetaminophen [[place]] 5-325 mg tablet 1 tablet PO Q6H PRN (Reason: pain) Qty: 20 RF: 0 Date of admission: 04/24/19 09:58 Primary Care Provider: UNKNOWN,DOCTOR Admitting Provider: Wayne Ruano Discharge Date/Time: 04/27/19 14:15 Attending physician on admission: Eduar Warner Condition: Stable
== END 2019-04-27 14:15 | disposition home or self-care (01) | DRG 743 ==
LOC: ANHED 23:24 → ANH3MEDSUR 04-24 04:10
PROVIDERS: Admitting Provider Obstetrics & Gynecology; Emergency Provider Emergency Medicine; Visit Provider Student in an Organized Health Care Education/Training Program
PROC: 0UT64ZZ Resection of Left Fallopian Tube, Percutaneous Endoscopic Approach (ICD-10-PCS; CPT 49320; principal; 2019-04-26 15:30)
DX: N70.93 Salpingitis and oophoritis, unspecified (principal); F98.8 Other specified behavioral and emotional disorders with onset usually occurring in childhood and adolescence; F41.8 Other specified anxiety disorders; F17.210 Nicotine dependence, cigarettes, uncomplicated
CPT/HCPCS: 36415; 74177; 76830; 76856; 80053; 81001; 81025; 83690; 84702; 85025; 87086; 88302; 96361; 96365; 96374; 96375; 96376; 99285; A9270; G0378; J0131; J1170; J1885; J2250; J2270; J2405; J2704; J3010; J7030; J7120; J7121; Q9967; Q9968

== ENCOUNTER 2019-05-09 01:01 | Observation (INO) | payer OTHER, SELFPAY ==
[2019-05-09] VITALS (10 sets, daily range): BP systolic 101–158; BP diastolic 53–98; PULSE 51–104; RESP 16–25; TEMP 36.5–37.1; O2SAT 97–100; BMI 23.5
--- NOTE | ~2019-05-09 | US_ITS ---
EXAMINATION: US pelvic complete w TV DATE: 05/09/2019 05:17 INDICATION: Severe left pelvic pain TECHNIQUE: Multiple transabdominal and endovaginal sonographic images of the pelvis were obtained. COMPARISON: Ultrasound dated 04/24/[address] dated 05/09/2019 FINDINGS: The uterus measures 8.1 x 5.8 x 3.8 cm. Small anechoic Nabothian cysts at the cervix. The endometrial complex measures 13 mm in thickness. The right ovary measures 3.6 x 3.1 x 2.3 cm. The left ovary rogelio sures 2.5 x 2.6 x 3.0 cm. 2.7 x 1.4 x 1.3 cm thick-walled centrally hypoechoic likely corpus luteum c yst in the left ovary. There a few small anechoic follicles in both ovaries, the largest in the right ovary measuring up to 11 mm. Normal vascular flow with both arterial and venous waveforms identified at both ovaries on color Doppler. Small amount of hypoechoic likely hemoperitoneum in the cul-de-sac with subtle layering hematocrit level evident on the prior CT likely related to recent left salpinge ctomy. The fluid collection measures 3.7 x 1.8 cm. IMPRESSION: 1. Small amount of likely hemoperitoneum at the cul-de-sac, likely related to recent left salpingecto my. Reviewed, dictated and finalized at location A. UP MACHINE OPERATOR IMPRESSION: 1. Small amount of likely hemoperitoneum at the cul-de-sac, likely related to r ecent left salpingectomy.
--- NOTE | ~2019-05-09 | CT_ITS ---
EXAMINATION: CT abdomen pelvis w con DATE: 05/09/2019 03:16 INDICATION: Low abdominal pain. TECHNIQUE: Computed tomography (CT) of the abdomen and pelvis was performed with 100 mL Omnipaque 350 intravenous contrast. Automated exposure control and iterative reconstruction technique were employe d. The dose-length product was 331.36 mGy-cm. COMPARISON: CT abdomen and pelvis 04/24/2019 FINDINGS: The visualized portions of the lung bases demonstrate minimal atelectasis. No pleural effus ion. The heart size is normal. No pericardial effusion. The liver, gallbladder, spleen, pancreas, adr enal glands, and kidneys are normal. There are no dilated loops of bowel. The appendix is normal. The re are no pathologically enlarged lymph nodes. There is trace ascites in the pelvis and inferior to t he liver. There are chronic bilateral L5 pars defects. There is 3 mm anterolisthesis of L5 on S1. The re is mild lumbar spondylosis. IMPRESSION: 1. Trace ascites, which may be physiologic. Reviewed, dictated and finalized at location A. IGERATING ENGINEER HEAD
--- NOTE | 2019-05-09 01:26 | ED.ABDPAIN ---
HPI - Abdominal Pain General Chief Complaint: Abdominal Pain Stated Complaint: abd pain Time Seen by Provider: 05/09/19 01:22 Source: patient and RN notes reviewed Mode of arrival: other Limitations: no limitations History of Present Illness HPI narrative: Pt is a 23 y/o female who presents to the ED with c/o severe LLQ tenderness that began yesterday (05/08/19), but has worsened today. Pt had a normal BM yesterday. She denies the BM alleviating her sx. Pt notes that she ran out of pain medication she was prescribed last week while seen at the ED. Pt took an Ibuprofen an hour ago, but with no relief of her sx. She notes that she planned to call today to make a follow up appointment for her recent surgery. Pt reports dizziness and sharp pinching back pain, but denies vaginal bleeding, vaginal discharge, nausea, and vomiting. MD elicited complaint: abdominal pain Onset (ago): day(s) (1) Pain Consistency: other (progressively worsening) Location: LLQ Severity: severe Relieving factors: nothing Context: confirms recent surgery/procedure Associated symptoms: other (dizziness, sharp pinching back pain) Treatments prior to arrival: NSAIDs (Ibuprofen) Related Data Home Medications Medication Instructions Recorded Confirmed escitalopram oxalate 10 mg HS 02/24/19 04/24/19 lamotrigine 200 mg PO BID 02/24/19 04/24/19 trazodone 50 mg HS 02/24/19 04/24/19 hydroxyzine HCl 25 mg PO TID 04/24/19 04/24/19 Allergies Allergy/AdvReac Type Severity Reaction Status Date / Time No Known Allergies Allergy Verified 04/21/19 14:43 Review of Systems Review of Systems: All systems reviewed & are unremarkable except as noted in HPI and below Gastrointestinal: Gastrointestinal: Reports abdominal pain (LLQ), Denies nausea and Denies vomiting Genitourinary: Genitourinary: Denies abnormal vaginal bleeding and Denies vaginal discharge Musculoskeletal: Musculoskeletal: Reports back pain (sharp pinching) Neurologic: Reports dizziness PMFSH Past Medical History Medical History (Updated 05/09/19 @ 06:42 by Margo Cedeno MD) ADD (attention deficit disorder) Anxiety Asthma Attention deficit disorder Bipolar disorder Depression Ovarian cyst 2014 with week-long hospitalization before resolving, no surgery Tobacco abuse Tonsillitis Surgical History Surgical History History of adenoidectomy History of tonsillectomy Social History Social History Smoking packs per day: 0.1 Smoking cigarettes per day: 2.0 Years smoked: 8 Smoking pack-years: 0.80 Smoking status: Current every day smoker Tobacco type: cigarettes Second hand tobacco smoke exposure: Yes Alcohol intake: never Substance use: current Substance use type: marijuana Gender identity (if verbalized by the patient): Female Spiritual care concerns: No Agree to blood products: Yes Exam Narrative: Exam Narrative: GENERAL:well-nourished, patient crying and screaming in pain HEAD: Normocephalic, atraumatic EYES: PERRLA and EOMI, conjunctiva clear without discharge THROAT:Mucous membranes moist, Oropharynx normal without erythema, exudate, peritonsillar swelling or fluctuance NECK: Supple, without lymphadenopathy or mass RESPIRATORY: No respiratory distress, Airway patent, Respirations non-labored, Clear to auscultation without rales, rhonchi or wheeze HEART: Regular rate and rhythm. No murmur heard. Normal peripheral pulses. ABDOMEN: Soft, Diffuse with worse in left lower, nondistended, normal active bowel sounds. No masses. No rebound or guarding, No organomegaly. EXTREMITIES: No edema, normal strength with full range of motion. SKIN: Warm, dry, normal color without rash NEURO: Alert and oriented x3. CN 2-12 grossly intact. No focal deficits. PSYCH: patient crying. : Speculum Exam - Vagina: abnormal vaginal discharge (brown discha
[2019-05-09] MEDS: ONDANSETRON INJ 4 MG/2 ML VIAL IV PUSH ×2 (01:42→08:17)
[2019-05-09] MEDS: LACTATED RINGERS 1,000 ML 999 ML IV CONT (01:42)
[2019-05-09] MEDS: HYDROMORPHONE HCL 1 MG/ML INJ IV PUSH ×2 (01:42→04:45)
[2019-05-09 01:52] LABS: Basophils Absolute Auto 0.1 K/mm3 (0.0-0.1); Basophils Percent Auto 0.8 % (0.2-1.2); Eosinophils Absolute Auto 0.3 K/mm3 (0-0.3); Eosinophils Percent Auto 2.3 % (0-4.4); Hematocrit 38.6 % (37.0-47.0); Hemoglobin 12.8 g/dL (12.0-15.0); Immature Granulocyte Absolute 0.03 K/mm3 (0.00-0.031); Immature Granulocyte Percent A 0.3 % (0-0.5); Lymphocytes Absolute Auto 3.92 K/mm3 (0.9-3.2); Lymphocytes Percent Auto 33.5 % (18.3-44.2); Mean Corpuscular HGB Conc 33.2 g/dl (32-36); Mean Corpuscular Hemoglobin 29.1 pg (26-34); Mean Corpuscular Volume 87.7 fl (80-100); Mean Platelet Volume 10.8 fl (7.4-10.4); Monocytes Absolute Auto 1.1 K/mm3 (0.1-0.6); Monocytes Percent Auto 9.6 % (2.6-8.5); Neutrophils Absolute Auto 6.3 K/mm3 (1.3-6.7); Neutrophils Percent Auto 53.5 % (45.5-73.1); Platelet Count Result 399 k/mm3 (150-375); Red Cell Distribution Width 13.9 % (11.5-14.5); White Blood Count 11.7 K/mm3 (4.5-10.0)
[2019-05-09 01:57] LABS: Alanine Aminotransferase 24 U/L (4-35); Albumin Level 4.5 g/dL (3.5-5.1); Alkaline Phosphatase 64 U/L (38-126); Aspartate Amino Transferase 33 U/L (14-36); Bilirubin,Total 0.4 mg/dL (0.2-1.3); Blood Urea Nitrogen 12 mg/dL (7-17); Calcium 9.3 mg/dL (8.4-10.2); Carbon Dioxide 25 mmol/L (22-30); Chloride 103 mmol/L (98-107); Estimated CRCL calculation 95 ml/min; Estimated Glomerular Filt Rate > 60; Glucose 80 mg/dL (65-105); Lipase 151 U/L (23-300); Potassium 4.1 mmol/L (3.4-5.0); Sodium 139 mmol/L (137-145)
[2019-05-09 03:01] LABS: Add Urine Microscopic? YES; Appearance Urine Clear (Clear); Bacteria Urine Trace /hpf; Bilirubin Urine Negative (Negative); Blood Urine Negative (Negative); Color Urine Yellow (Yellow); Glucose Urine UA Negative (Negative); Ketones Urine Negative (Negative); Leukocyte Esterase Ur 1+ LEU/UL (Negative); Mucus Urine Rare /lpf; Nitrate Urine Negative (Negative); Protein Urine Negative (Negative); Specific Grav Ur 1.023 (1.001-1.035); Squamous Epithelial Cell Urine Occasional /hpf (Few); Urobilinogen Urine Negative mg/dL (<2.0)
[2019-05-09] MEDS: KETOROLAC 30 MG/ML VIAL (*BKC) IV PUSH (04:27)
--- NOTE | 2019-05-09 04:27 | PC.NURSE ---
pt states that toradol isnt going to do anything for me md notified. no new orders.
--- NOTE | 2019-05-09 04:50 | PC.NURSE ---
pt refusing to go to ultrasound until she receives more pain medication. md notified. 1 mg of dilaudid ordered.
--- NOTE | 2019-05-09 05:30 | PC.NURSE ---
pt back from ultrasound at this time.
--- NOTE | 2019-05-09 07:59 | ADMGEN ---
This patient, Mariam Rivera, was admitted to Medical Room 261-01. Patient/family oriented to hospital policies and general routines including ID bracelet, bed and alarms, visiting hours, pain management, procedures, bathroom and other care routines, personal items, smoking policy, room service/diet, and visiting hours. Valuables list has been completed. Information on how to activate the Rapid Response Team has been discussed. Patient/Family are encouraged to report perceived risks to care and to ask questions if they do not understand what they are told or what they should do.
[2019-05-09] MEDS: MORPHINE SULFATE 4 MG/ML INJ IV PUSH ×2 (08:17→10:48)
[2019-05-09] MEDS: LACTATED RINGERS 1,000 ML 125 ML IV CONT ×2 (10:19→18:40)
--- NOTE | 2019-05-09 13:27 | PCCCNOTE ---
On 05/09/19, the student, [Sonia Portillo ], provided care and completed [facility] on this patient. I have reviewed the student's documentation and agree with the findings.
--- NOTE | 2019-05-09 14:41 | PM.IMHP ---
H&P: HPI History of Present Illness Chief complaint: Left adnexal pain/left ovarion cyst PID Narrative: 23 y/o nulligravida who was hospitalized for PID / TOA two weeks ago. She is POD#13 after laparoscopic left salpingectomy. Pathology report showed a tubal abscess. She was sent home to finish a two week course of doxycycline and metronidazole, though she says she has a week of medication left to take. She felt fine until last night when her pain really increased. She had been taking ibuprofen for pain. ED physician said she was crying and writhing in the ED, and we decided it would be best to admit her for observation and pain control. Of note, she displayed intermittent crying and writhing during her last hospitalization. She does not have a steady place to live, and is sleeping at her friend, Joesph, house currently. She has no fever, no dysuria. Loose bowel movements, last BM yesterday. No nausea or vomiting. She indicates her pain is bilateral, along the lower abdomen, worse on the left. She says she just tries to sleep in between pain medication doses. Review of Systems Review of Systems: All systems reviewed & are unremarkable except as noted in HPI and below Constitutional: Constitutional: Reports as per HPI PMFSH Past Medical History Medical History (Updated 05/09/19 @ 14:58 by Wayne Ruano MD) Acute pelvic inflammatory disease (PID) ADD (attention deficit disorder) Anxiety Asthma Attention deficit disorder Bipolar disorder Cyst of left ovary Depression Left tubo-ovarian abscess Treated with antibiotics, laparoscopic left salpingectomy Ovarian cyst 2014 with week-long hospitalization before resolving, no surgery Tobacco abuse Tonsillitis Upper respiratory infection Surgical History Surgical History (Updated 05/09/19 @ 14:58 by Wayne Ruano MD) History of adenoidectomy History of tonsillectomy History of unilateral salpingectomy Laparoscopic left salpingectomy for tuboovarian abscess / PID. Family History Family History Mother Family history of type 2 diabetes mellitus Hypertension Bipolar 1 disorder Father Schizophrenia Other Diabetes mellitus Family history of arthritis Family history of kidney disease Ovarian cancer Social History Social History Smoking packs per day: 0.25 Smoking cigarettes per day: 5.0 Years smoked: 9 Smoking pack-years: 2.25 Smoking status: Current every day smoker Tobacco type: cigarettes Second hand tobacco smoke exposure: Yes Alcohol intake: current Substance use: current Substance use type: marijuana Other substance usage details: rare alcohol use, marijuana weekly Gender identity (if verbalized by the patient): Female Spiritual care concerns: No Agree to blood products: Yes Meds Home Medications and Allergies Home Medications Medication Instructions Recorded Confirmed Type escitalopram oxalate 10 mg HS 02/24/19 05/09/19 History lamotrigine 200 mg PO BID 02/24/19 05/09/19 History trazodone 50 - 100 mg PO HS 02/24/19 05/09/19 History doxycycline monohydrate 100 mg PO BID #28 cap 04/21/19 05/09/19 Rx metronidazole [Flagyl] 500 mg PO Q12H #28 tablet 04/21/19 05/09/19 Rx hydroxyzine HCl 25 mg PO TID 04/24/19 05/09/19 History hydrocodone-acetaminophen [[place]] 1 tablet PO Q6H PRN #30 tablet 04/27/19 05/09/19 Rx ibuprofen 600 mg PO Q6H PRN #30 tablet 04/27/19 05/09/19 Rx Allergies Allergy/AdvReac Type Severity Reaction Status Date / Time No Known Allergies Allergy Verified 04/21/19 14:43 Vital Signs Vital Signs - 24 hr 05/09/19 01:05 05/09/19 01:26 05/09/19 02:11 Temperature 36.8 C 37.0 C Pulse Rate 104 H 104 H 64 Respiratory Rate 20 25 H 18 Blood Pressure 119/90 158/98 H 116/78 Pulse Oximetry 98 100 100 05/09/19 04:17 05/09/19 06:40 05/09/19 07:20 Temperature 36.8 C 36.8 C
--- NOTE | 2019-05-09 15:05 | PM.DS ---
DS: Diagnosis Admitting Diagnosis Admitting Diagnosis: Pelvic pain, POD#13 after laparoscopic left salpingectomy for tuboovarian abscess. Discharge Diagnosis (1) Pelvic pain: Code(s): R10.2 - Pelvic and perineal pain Status: Acute Assessment and Plan: Finish antibiotic course. Home on oral pain medication. DS: Data Data Completed and Pending Labs on day of discharge: Labs from last 24 hours 05/09/19 05/09/19 05/09/19 02:39 01:36 01:36 WBC 11.7 H RBC 4.40 Hgb 12.8 Hct 38.6 MCV 87.7 MCH 29.1 MCHC 33.2 RDW 13.9 Plt Count 399 H MPV 10.8 H Immature Gran % (Auto) 0.3 Neut % (Auto) 53.5 Lymph % (Auto) 33.5 [place] % (Auto) 9.6 H Eos % (Auto) 2.3 Baso % (Auto) 0.8 Lymph # (Auto) 3.92 H [place] # (Auto) 1.1 H Eos # (Auto) 0.3 Baso # (Auto) 0.1 Abs Immat Gran (auto) 0.03 Absolute Neuts (auto) 6.3 Absolute Nucleated RBC 0.0 Nucleated RBC % 0.0 Sodium 139 Potassium 4.1 Chloride 103 Carbon Dioxide 25 BUN 12 Creatinine 0.70 Estim Creat Clear Calc 95 Estimated GFR > 60 Glucose 80 Calcium 9.3 Total Bilirubin 0.4 AST 33 ALT 24 Alkaline Phosphatase 64 Total Protein 8.0 Albumin 4.5 Lipase 151 Urine Color Yellow Urine Appearance Clear Urine pH 6.0 Ur Specific [place] 1.023 Urine Protein Negative Urine Glucose (UA) Negative Urine Ketones Negative Ur Blood (Man) Negative Urine Nitrate Negative Urine Bilirubin Negative Urine Urobilinogen Negative Leukocyte Esterase Rfl 1+ H Urine RBC 3-5 H Urine WBC 7-9 H Ur Squamous Epith Cells Occasional Urine Bacteria Trace Urine Mucus Rare Discharge Plan Discharge Attending physician on discharge: Wayne Ruano Discharging Clinician: Wayne Ruano Patient Disposition: Home, Self-Care Activity: pelvic rest Diet: regular Wound Care Instructions: incision open to air Discharge Instructions: Call or return if temperature above 100.4? F, increased abdominal pain, increased vaginal bleeding or any new problems. Patient Instructions: Antibiotic Form, Pain Management (DC) Stand Alone Forms: General Discharge Information Follow-up/Referrals: Wayne Ruano MD [Physician] - (follow up 1 week) Discharge Medications: New oxycodone-acetaminophen [[place]] 5-325 mg tablet 1 - 2 tablet PO Q4H PRN (Reason: pain) Qty: 30 RF: 0 Continued ibuprofen 600 mg Tablet 600 mg PO Q6H PRN (Reason: Cramping) Qty: 30 RF: 0 No Action lamotrigine 200 mg tablet 200 mg PO BID RF: 0 trazodone 50 mg tablet 50 - 100 mg PO HS RF: 0 escitalopram oxalate 10 mg tablet 10 mg HS RF: 0 doxycycline monohydrate 100 mg capsule 100 mg PO BID Qty: 28 RF: 0 metronidazole [Flagyl] 500 mg tablet 500 mg PO Q12H Qty: 28 RF: 0 hydroxyzine HCl 25 mg tablet 25 mg PO TID RF: 0 hydrocodone-acetaminophen [[place]] 10-325 mg Tablet 1 tablet PO Q6H PRN (Reason: Pain Rated 6 Or Greater) Qty: 30 RF: 0 Date of admission: 05/09/19 06:18 Primary Care Provider: UNKNOWN,DOCTOR Admitting Provider: Wayne Ruano Attending physician on admission: Wayne Ruano Condition: Stable
[2019-05-09] MEDS: IBUPROFEN 600 MG TABLET PO (16:39)
[2019-05-09] MEDS: hydrOXYzine HCL 25 MG TABLET PO (18:41)
--- NOTE | 2019-05-09 19:42 | PC.NURSE ---
PT STATES IM IN TERRIBLE PAIN YOURE FELICITA IM NOT SCREAMING. PERCOCET GIVEN
[2019-05-09] MEDS: DOXYCYCLINE HYCLATE 100 MG TABLET PO (21:26)
[2019-05-09] MEDS: lamoTRIgine 100 MG TABLET 200 MG PO (21:26)
[2019-05-09] MEDS: ESCITALOPRAM OXALATE 10 MG TABLET PO (21:26)
[2019-05-10 06:00] VITALS: BP 104/48; PULSE 67; RESP 20; TEMP 36.1; O2SAT 98
[2019-05-10] MEDS: lamoTRIgine 100 MG TABLET 200 MG PO (09:27)
[2019-05-10] MEDS: DOXYCYCLINE HYCLATE 100 MG TABLET PO (09:28)
[2019-05-10] MEDS: hydrOXYzine HCL 25 MG TABLET PO (09:28)
--- NOTE | 2019-05-10 11:18 | P.PNOB_ITS ---
BEVERAGE MANAGER - A/P Assessment and plan (1) Pelvic pain: Code(s): R10.2 - Pelvic and perineal pain Status: Acute Assessment and Plan: A: Pain much improved. P: Home to finish course of doxycycline, metronidazole. Switch to Percocet / ibuprofen for pain. F/u 1-2 weeks with me as scheduled. Time Spent With Patient Time with patient: less than 15 minutes BEVERAGE MANAGER- PN:Subj Post-Op Subjective Date/time seen: 05/10/19 11:18 Interval history: Pain much better today. Tolerating diet. Would like to go home. Review of Systems Review of Systems: All systems reviewed & are unremarkable except as noted in HPI and below Exam GI: Other: Abdomen soft, nontender, nondistended. Incisions c/d/i. Extrem: Other: Nontender, no edema BEVERAGE MANAGER - PN: Obj Data Vital Signs Vital Signs: Vital Signs - 24 hr 05/09/19 14:00 05/09/19 22:00 05/10/19 06:00 Temperature 37.1 C 36.8 C 36.1 C L Pulse Rate 64 58 L 67 Respiratory Rate 16 18 20 Blood Pressure 113/63 106/53 L 104/48 L Pulse Oximetry 100 100 98 Intake/Output Intake/Output: Intake & Output 05/07/19 05/08/19 05/09/19 05/10/19 23:59 23:59 23:59 23:59 Intake Total 2440 510 Output Total 800 Balance 2440 -290 Meds/Results Medications: Active Medications Generic Name Dose Route Start Last Admin Trade Name Freq PRN Reason Stop Dose Admin Doxycycline Hyclate 100 mg 05/09/19 21:00 05/10/19 09:28 Vibramycin Tab PO 100 mg Q12HR OREN Administration Escitalopram Oxalate 10 mg 05/09/19 21:00 05/09/19 21:26 Lexapro PO 10 mg HS OREN Administration Hydroxyzine HCl 25 mg 05/09/19 17:00 05/10/19 09:28 Atarax Tablet PO 25 mg TID OREN Administration Lactated Ringer's 1,000 mls @ 125 mls/hr 05/09/19 06:20 05/09/19 18:40 Lr - Lactated Ringers Iv IV CONT 125 mls/hr .Q8H OREN Administration Ibuprofen 600 mg 05/09/19 15:04 05/09/19 16:39 Motrin PO 600 mg Q6H PRN Administration Cramping Lamotrigine 200 mg 05/09/19 21:00 05/10/19 09:27 Lamictal PO 200 mg Q12HR OREN Administration Morphine Sulfate 4 mg 05/09/19 06:17 05/09/19 10:48 Morphine Sulfate Inj IV PUSH 4 mg Q2H PRN Administration Pain Rated 7-10 Oxycodone/Acetaminophen 1 tablet 05/09/19 17:27 05/10/19 03:00 Percocet 5-325 Mg PO 1 tablet Q4H PRN Administration Pain Rated 7-10 Trazodone HCl 100 mg 05/09/19 21:00 05/10/19 03:04 Desyrel PO Not Given HS OREN Radiology Results: ITS Impressions Abdomen/Pelvis CT 05/09/19 08:21 IMPRESSION: 1. Trace ascites, which may be physiologic. Pelvic/Transvag US 05/09/19 08:24 IMPRESSION: 1. Small amount of likely hemoperitoneum at the cul-de-sac, likely related to recent left salpingectomy. Labs CBC & Chem 7: 05/09/19 01:36 05/09/19 01:36
== END 2019-05-10 15:12 | disposition home or self-care (01) ==
LOC: ANHED 06:42 → ANH2MED 06:55
PROVIDERS: Admitting Provider Obstetrics & Gynecology; Emergency Provider General Practice; Visit Provider Obstetrics & Gynecology
DX: R10.2 Pelvic and perineal pain (principal); Z90.79 Acquired absence of other genital organ(s); Z98.890 Other specified postprocedural states; N83.202 Unspecified ovarian cyst, left side; F17.210 Nicotine dependence, cigarettes, uncomplicated
CPT/HCPCS: 36415; 74177; 76830; 76856; 80053; 81001; 81025; 83690; 85025; 87086; 96361; 96365; 96375; 96376; 99285; A9270; G0378; J0131; J1170; J1885; J2270; J2405; J7120; Q9967

== ENCOUNTER 2019-09-06 16:53 | Emergency (ER) | payer OTHER, SELFPAY ==
--- NOTE | ~2019-09-06 | CT_ITS ---
EXAMINATION: CT abdomen pelvis w con DATE: 09/06/2019 18:32 INDICATION: Right lower quadrant abdominal pain. TECHNIQUE: Computed tomography (CT) of the abdomen and pelvis was performed with 100 mL Omnipaque 350 intravenous contrast. Automated exposure control and iterative reconstruction technique were employe d. The dose-length product was 345.49 mGy-cm. COMPARISON: CT abdomen and pelvis 05/09/2019 FINDINGS: The visualized portions of the lung bases are clear without pneumonia or pleural effusion. The heart size is normal. No pericardial effusion. The liver, gallbladder, spleen, pancreas, adrenal glands, and kidneys are normal. There are no dilated loops of bowel. The appendix is normal. There ar e no pathologically enlarged lymph nodes. There is a small volume of pelvic ascites, likely physiolog ic. There are chronic bilateral L5 pars defects. No spondylolisthesis. IMPRESSION: 1. No etiology for the patient's symptoms. Reviewed, dictated and finalized at location A.
--- NOTE | ~2019-09-06 | US_ITS ---
EXAMINATION: US pelvic complete w TV DATE: 09/06/2019 21:12 INDICATION: Pelvic pain. TECHNIQUE: Multiple transabdominal and transvaginal sonographic images of the pelvis were obtained. COMPARISON: Pelvis ultrasound 05/09/2019, CT abdomen and pelvis 09/06/2019 FINDINGS: TRANSABDOMINAL ULTRASOUND: There is trace free fluid in the pelvis. TRANSVAGINAL ULTRASOUND: The uterus measures 7.2 x 3.4 x 4.0 cm. The endometrial complex measures 7 mm in thickness. The right ovary measures 2.9 x 2.0 x 1.9 cm. The left ovary measures 3.0 x 1.8 x 1.9 cm. There is normal vascu lar flow in the ovaries. IMPRESSION: 1. Normal pelvis. Reviewed, dictated and finalized at location A. IMPRESSION: 1. Normal pelvis.
[2019-09-06 16:58] VITALS: BP 153/120; PULSE 87; RESP 16; TEMP 36.1; O2SAT 100
--- NOTE | 2019-09-06 17:02 | ED.GENADULT ---
HPI - General Adult General Chief complaint: Abdominal Pain Stated complaint: ABD PAIN Time Seen by Provider: 09/06/19 17:02 Source: patient Mode of arrival: ambulatory Limitations: no limitations History of Present Illness HPI narrative: 23-year-old female patient [facility] of abdominal pain. Patient states that the pain is been going on for the past 2 weeks however got significantly worse today. Patient states that she did call her primary doctor and they did order her a CT of her abdomen. Patient states that her doctor thinks it could be cysts on her ovaries. Patient states that she was in so much pain down in radiology and she was not able to do the CT. Radiology brought her up to the ER for evaluation. Patient denies stating that she is not sexually active. Patient states that she is currently being treated for BV. Patient denies any nausea, vomiting or diarrhea but states that the pain in her abdomen is gotten increasingly worse and feels very cramping. Patient rates her pain 10 out of 10. Patient states that her last period was earlier this month and started on August 28. Patient denies any low back pain. Patient states she does have pain with urination at times. Related Data Home Medications Medication Instructions Recorded Confirmed escitalopram oxalate 10 mg HS 02/24/19 09/06/19 lamotrigine 200 mg PO BID 02/24/19 09/06/19 trazodone 50 - 100 mg PO HS 02/24/19 09/06/19 hydroxyzine HCl 25 mg PO TID 04/24/19 09/06/19 Allergies Allergy/AdvReac Type Severity Reaction Status Date / Time No Known Allergies Allergy Verified 09/06/19 17:03 Review of Systems Review of Systems: Narrative: CONSTITUTIONAL: Denies fever, chills, or sweats. EYES: Denies visual changes, redness, or discharge. ENT: Denies rhinorrhea, congestion, sore throat, or otalgia. CARDIOVASCULAR: Denies chest pain, palpitations, or edema. RESPIRATORY: Denies cough or dyspnea. GASTROINTESTINAL: Positive abdominal pain, nausea, denies vomiting, or diarrhea. GENITOURINARY: Denies dysuria or hematuria. Positive pain with urination SKIN: Denies rash or itching. MUSCULOSKELETAL: Denies back pain, joint pain, or myalgia. NEUROLOGIC: Denies headache, numbness, or weakness. PSYCHIATRIC: Denies anxiety or depression. [facility] Past Medical History Medical History Acute pelvic inflammatory disease (PID) ADD (attention deficit disorder) Anxiety Asthma Attention deficit disorder Bipolar disorder Cyst of left ovary Depression Left tubo-ovarian abscess Treated with antibiotics, laparoscopic left salpingectomy Ovarian cyst 2014 with week-long hospitalization before resolving, no surgery Tobacco abuse Tonsillitis Upper respiratory infection Surgical History Surgical History History of adenoidectomy History of tonsillectomy History of unilateral salpingectomy Laparoscopic left salpingectomy for tuboovarian abscess / PID. Family History Family History Mother Family history of type 2 diabetes mellitus Hypertension Bipolar 1 disorder Father Schizophrenia Other Diabetes mellitus Family history of arthritis Family history of kidney disease Ovarian cancer Social History Social History Smoking packs per day: 0.25 Smoking cigarettes per day: 5.0 Years smoked: 9 Smoking pack-years: 2.25 Smoking status: Current every day smoker Tobacco type: cigarettes Second hand tobacco smoke exposure: Yes Alcohol intake: current Substance use: current Substance use type: marijuana Other substance usage details: rare alcohol use, marijuana weekly Gender identity (if verbalized by the patient): Female Spiritual care concerns: No Agree to blood products: Yes Comments At the
[2019-09-06 17:19] LABS: Basophils Absolute Auto 0.1 K/mm3 (0.0-0.1); Basophils Percent Auto 0.5 % (0.2-1.2); Eosinophils Absolute Auto 0.2 K/mm3 (0-0.3); Eosinophils Percent Auto 1.2 % (0-4.4); Hematocrit 40.8 % (37.0-47.0); Hemoglobin 13.4 g/dL (12.0-15.0); Immature Granulocyte Absolute 0.06 K/mm3 (0.00-0.031); Immature Granulocyte Percent A 0.5 % (0-0.5); Lymphocytes Absolute Auto 4.31 K/mm3 (0.9-3.2); Mean Corpuscular HGB Conc 32.8 g/dl (32-36); Mean Corpuscular Hemoglobin 28.5 pg (26-34); Mean Corpuscular Volume 86.6 fl (80-100); Mean Platelet Volume 10.1 fl (7.4-10.4); Monocytes Absolute Auto 0.8 K/mm3 (0.1-0.6); Monocytes Percent Auto 6.4 % (2.6-8.5); Neutrophils Absolute Auto 7.6 K/mm3 (1.3-6.7); Neutrophils Percent Auto 58.4 % (45.5-73.1); Platelet Count Result 322 k/mm3 (150-375); Red Blood Count 4.71 M/mm3 (4.2-5.4); Red Cell Distribution Width 13.9 % (11.5-14.5); White Blood Count 13.1 K/mm3 (4.5-10.0)
[2019-09-06 17:30] LABS: Alanine Aminotransferase 13 U/L (4-35); Albumin Level 4.9 g/dL (3.5-5.1); Alkaline Phosphatase 74 U/L (38-126); Aspartate Amino Transferase 29 U/L (14-36); Bilirubin,Total 0.3 mg/dL (0.2-1.3); Blood Urea Nitrogen 11 mg/dL (7-17); Calcium 9.5 mg/dL (8.4-10.2); Carbon Dioxide 31 mmol/L (22-30); Chloride 100 mmol/L (98-107); Estimated Glomerular Filt Rate > 60; Glucose 80 mg/dL (65-105); Lipase 87 U/L (23-300); Potassium 3.8 mmol/L (3.4-5.0); Sodium 138 mmol/L (137-145)
[2019-09-06] MEDS: ONDANSETRON INJ 4 MG/2 ML VIAL IV PUSH (17:32)
[2019-09-06] MEDS: SODIUM CHLORIDE 0.9% IV 1,000 ML 999 ML IV CONT ×2 (17:33→20:29)
[2019-09-06] MEDS: MORPHINE SULFATE 4 MG/ML INJ IV PUSH (17:33)
[2019-09-06 18:15] LABS: Add Urine Microscopic? YES; Appearance Urine Clear (Clear); Bilirubin Urine Negative (Negative); Blood Urine Negative (Negative); Color Urine Red (Yellow); Glucose Urine UA Negative (Negative); Ketones Urine Negative (Negative); Leukocyte Esterase Ur 2+ LEU/UL (Negative); Mucus Urine Rare /lpf; Nitrate Urine Negative (Negative); Protein Urine Negative (Negative); RBC Urine 0-2 /hpf (0-2); Squamous Epithelial Cell Urine Many /hpf (Few); Urobilinogen Urine Negative mg/dL (<2.0)
[2019-09-06] MEDS: KETOROLAC 30 MG/ML VIAL (*BKC) IV PUSH (19:02)
[2019-09-06] MEDS: NITROFURANTOIN MONOHYD MACROCR 100 MG CAP PO (19:02)
[2019-09-06 19:07] VITALS: BP 122/64; RESP 65; O2SAT 100
[2019-09-06] MEDS: PHENAZOPYRIDINE HCL 100 MG TABLET 200 MG PO (19:29)
[2019-09-06 19:33] VITALS: BP 134/88; PULSE 89; RESP 22; O2SAT 98
--- NOTE | 2019-09-06 20:28 | PC.NURSE ---
2020*-carlito fuentes xy notified of us, she will call us in.
[2019-09-06 21:59] VITALS: BP 122/75; PULSE 66; RESP 16; TEMP 37; O2SAT 100
== END 2019-09-06 22:07 | disposition home or self-care (01) ==
PROVIDERS: General Practice; Emergency Provider Nurse Practitioner Family; PCP Family Medicine
DX: N30.01 Acute cystitis with hematuria (principal); J45.909 Unspecified asthma, uncomplicated; F98.8 Other specified behavioral and emotional disorders with onset usually occurring in childhood and adolescence; F41.9 Anxiety disorder, unspecified; F31.9 Bipolar disorder, unspecified; F17.210 Nicotine dependence, cigarettes, uncomplicated
CPT/HCPCS: 36415; 74177; 76830; 76856; 80053; 81001; 81025; 83690; 85025; 96361; 96365; 96375; 99284; A9270; J0696; J1885; J2270; J2405; J3010; J7030; Q9967

== ENCOUNTER 2019-12-19 19:38 | Emergency (ER) | payer OTHER, SELFPAY ==
--- NOTE | ~2019-12-19 | US_ITS ---
EXAMINATION: US pelvic complete w TV DATE: 12/19/2019 23:15 INDICATION: Pelvic pain during first trimester , concern for ectopic TECHNIQUE: Real-time pelvic transabdominal and transvaginal ultrasound was performed. COMPARISON: 09/06/2019 FINDINGS: The uterus measures 8.1 x 4.2 x 6.3 cm. There is a nabothian cyst of the cervix. The endome trial thickness measures 13 mm. There is a 3 mm fluid collection in the endometrial canal. The right ovary is not visualized however no right adnexal abnormality is seen. The left ovary measures 1.8 x 1.7 x 1.4 cm. There is normal vascular flow to the left ovary. There is a small amount of free fluid in the pelvis. IMPRESSION: 1. Small fluid collection in the endometrial canal which could reflect an early gestational sac. If t he patient is clinically stable, recommend followup with serial beta-hCG and ultrasound. 2. No ectopic identified. Reviewed, dictated and finalized at location A. IMPRESSION: 1. Small fluid collection in the endometrial canal which could reflect an early gestational sac. If the patient is clinically stable, recommend followup with serial beta-hCG and ultrasound. 2. No ectopic identified.
[2019-12-19 19:39] VITALS: BP 132/80; PULSE 90; RESP 19; TEMP 36.7; O2SAT 100
[2019-12-19 20:20] LABS: Basophils Absolute Auto 0.1 K/mm3 (0.0-0.1); Basophils Percent Auto 0.4 % (0.2-1.2); Eosinophils Absolute Auto 0.2 K/mm3 (0-0.3); Eosinophils Percent Auto 1.5 % (0-4.4); Hematocrit 38.6 % (37.0-47.0); Hemoglobin 13.2 g/dL (12.0-15.0); Immature Granulocyte Absolute 0.05 K/mm3 (0.00-0.031); Immature Granulocyte Percent A 0.4 % (0-0.5); Lymphocytes Absolute Auto 3.04 K/mm3 (0.9-3.2); Lymphocytes Percent Auto 22.5 % (18.3-44.2); Mean Corpuscular HGB Conc 34.2 g/dl (32-36); Mean Corpuscular Hemoglobin 29.3 pg (26-34); Mean Corpuscular Volume 85.8 fl (80-100); Mean Platelet Volume 10.7 fl (7.4-10.4); Monocytes Absolute Auto 1.1 K/mm3 (0.1-0.6); Monocytes Percent Auto 7.9 % (2.6-8.5); Neutrophils Absolute Auto 9.1 K/mm3 (1.3-6.7); Neutrophils Percent Auto 67.3 % (45.5-73.1); Platelet Count Result 295 k/mm3 (150-375); Red Cell Distribution Width 13.9 % (11.5-14.5); White Blood Count 13.5 K/mm3 (4.5-10.0)
[2019-12-19 20:31] LABS: Alanine Aminotransferase 14 U/L (4-35); Albumin Level 4.6 g/dL (3.5-5.1); Alkaline Phosphatase 55 U/L (38-126); Anion Gap 6 mmol/L (8-16); Aspartate Amino Transferase 26 U/L (14-36); Bilirubin,Total 0.1 mg/dL (0.2-1.3); Blood Urea Nitrogen 10 mg/dL (7-17); Calcium 9.1 mg/dL (8.4-10.2); Carbon Dioxide 27 mmol/L (22-30); Chloride 102 mmol/L (98-107); Estimated Glomerular Filt Rate > 60; Glucose 88 mg/dL (65-105); Potassium 3.8 mmol/L (3.4-5.0); Sodium 135 mmol/L (137-145)
--- NOTE | 2019-12-19 20:36 | ED.GENADULT ---
HPI - General Adult General Chief complaint: Unspecified Stated complaint: possible ? Time Seen by Provider: 12/19/19 20:05 Source: patient Mode of arrival: ambulatory History of Present Illness HPI narrative: 23 years old white female presents with intermittent suprapubic cramps started yesterday, with frequent urination. Last menstrual period less than 4 weeks ago. Patient denies any vaginal bleeding or discharge. History of Fallopian tube removal with chronic intermittent pain left lower quadrant. Patient denies any fever, chills, nausea, vomiting, or any previous . Related Data Home Medications Medication Instructions Recorded Confirmed trazodone 50 - 100 mg PO HS 02/24/19 09/06/19 Allergies Allergy/AdvReac Type Severity Reaction Status Date / Time No Known Allergies Allergy Verified 09/06/19 17:03 Review of Systems Review of Systems: Narrative: CONSTITUTIONAL: Denies fever, chills, or sweats. EYES: Denies visual changes, redness, or discharge. ENT: Denies rhinorrhea, congestion, sore throat, or otalgia. CARDIOVASCULAR: Denies chest pain, palpitations, or edema. RESPIRATORY: Denies cough or dyspnea. GASTROINTESTINAL: Denies abdominal pain, nausea, vomiting, or diarrhea. GENITOURINARY: Denies dysuria or hematuria. SKIN: Denies rash or itching. MUSCULOSKELETAL: Denies back pain, joint pain, or myalgia. NEUROLOGIC: Denies headache, numbness, or weakness. PSYCHIATRIC: Denies anxiety or depression. [facility] Past Medical History Medical History Acute pelvic inflammatory disease (PID) ADD (attention deficit disorder) Anxiety Asthma Attention deficit disorder Bipolar disorder Cyst of left ovary Depression Left tubo-ovarian abscess Treated with antibiotics, laparoscopic left salpingectomy Ovarian cyst 2014 with week-long hospitalization before resolving, no surgery Tobacco abuse Tonsillitis Upper respiratory infection Surgical History Surgical History History of adenoidectomy History of tonsillectomy History of unilateral salpingectomy Laparoscopic left salpingectomy for tuboovarian abscess / PID. Family History Family History Mother Family history of type 2 diabetes mellitus Hypertension Bipolar 1 disorder Father Schizophrenia Other Diabetes mellitus Family history of arthritis Family history of kidney disease Ovarian cancer Social History Social History Smoking packs per day: 0.25 Smoking cigarettes per day: 5.0 Years smoked: 9 Smoking pack-years: 2.25 Smoking status: Current every day smoker Tobacco type: cigarettes Second hand tobacco smoke exposure: Yes Alcohol intake: current Substance use: current Substance use type: marijuana Other substance usage details: rare alcohol use, marijuana weekly Gender identity (if verbalized by the patient): Female Spiritual care concerns: No Agree to blood products: Yes Exam Narrative: Exam Narrative: General appearance: Well-developed, well-nourished Skin: Normal color Head: Normocephalic, nontraumatic Eyes: Clear conjunctiva ENT: Oropharynx normal, ears normal, nose normal Neck: Supple, nontender Chest and respiratory: Airway patent, no respiratory distress, no accessory muscle use Heart: Regular rate/rhythm Abdomen: Soft, nontender, no organomegaly, quiet bowel sounds Vascular: Normal peripheral pulses, normal capillary refill. 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
[2019-12-19 20:49] LABS: Add Urine Microscopic? NO; Appearance Urine Clear (Clear); Bilirubin Urine Negative (Negative); Blood Urine Negative (Negative); Color Urine Colorless (Yellow); Glucose Urine UA Negative (Negative); Ketones Urine Negative (Negative); Leukocyte Esterase Ur Negative LEU/UL (Negative); Nitrate Urine Negative (Negative); Protein Urine Negative (Negative); Urobilinogen Urine Negative mg/dL (<2.0)
[2019-12-19 20:58] LABS: Specific Grav Ur 1.002 (1.001-1.035)
[2019-12-19 21:00] LABS: SPREG INTERNAL CONTROL Positive; Serum Qual hCG Positive
[2019-12-19 23:08] VITALS: BP 127/63; PULSE 72; RESP 18; O2SAT 99
[2019-12-19 23:58] VITALS: BP 118/75; PULSE 74; RESP 16; TEMP 36.8; O2SAT 98
== END 2019-12-20 | disposition home or self-care (01) ==
PROVIDERS: Emergency Medicine Emergency Medical Services; Emergency Provider Emergency Medicine; PCP Family Medicine
DX: O26.891 Other specified pregnancy related conditions, first trimester (principal); R10.2 Pelvic and perineal pain; O99.330 Smoking (tobacco) complicating pregnancy, unspecified trimester; F17.210 Nicotine dependence, cigarettes, uncomplicated; Z3A.01 Less than 8 weeks gestation of pregnancy
CPT/HCPCS: 36415; 76830; 76856; 80053; 81003; 81025; 84702; 84703; 85025; 99284

== ENCOUNTER 2020-02-12 19:06 | Observation (INO) | payer OTHER, SELFPAY ==
[2020-02-12] VITALS (7 sets, daily range): BP systolic 105–143; BP diastolic 62–76; PULSE 71–102; RESP 14–16; TEMP 37.7; O2SAT 96–100
--- NOTE | ~2020-02-12 | US_ITS ---
EXAMINATION: US pelvic complete w TV DATE: 02/12/2020 22:23 INDICATION: Right ovarian cyst with possible torsion presenting with right pelvic pain TECHNIQUE: Multiple transabdominal and endovaginal sonographic images of the pelvis were obtained. COMPARISON: None. FINDINGS: The uterus measures 8.0 x 4.1 x 5.7 cm. 5 mm anechoic nabothian cyst at the cervix. The endometrial c omplex measures 5 mm in thickness. The right ovary measures 5.9 x 5.4 x 4.8 cm and contains a 4.8 cm nearly anechoic right ovarian cyst which measured simple fluid attenuation on prior CT. Both arterial and venous waveforms are identified in the right ovary at the periphery of the cyst. The left ovary is not visualized. There is a small amount of free fluid in the pelvis. IMPRESSION: 1. Normal arterial and venous waveforms are seen in the right ovary at the periphery of a 4.8 cm cyst . Reviewed, dictated and finalized at [facility]. RVISOR SOAKERS IMPRESSION: 1. Normal arterial and venous waveforms are seen in the right ovary at the gissell phery of a 4.8 cm cyst.
--- NOTE | ~2020-02-12 | XR_ITS ---
EXAMINATION: XR chest 1V portable DATE: 02/12/2020 22:29 INDICATION: Fever. Possible ovarian torsion. TECHNIQUE: frontal view of the chest was obtained. COMPARISON: None FINDINGS: The lungs are clear with no focal airspace opacities, pulmonary edema, pleural effusion or pneumothor ax. The cardiomediastinal silhouette is normal. Visualized bones and soft tissues are unremarkable. IMPRESSION: 1. Normal chest radiograph. Reviewed, dictated and finalized at location H. UCT DEVELOPMENT WORKER IMPRESSION: 1. Normal chest radiograph.
--- NOTE | ~2020-02-12 | CT_ITS ---
EXAMINATION: CT abdomen pelvis w con DATE: 02/12/2020 21:09 INDICATION: Right lower quadrant abdominal pain and fever TECHNIQUE: Computed tomography (CT) of the abdomen and pelvis was performed without intravenous contr ast. Automated exposure control and iterative reconstruction technique were employed. The dose-length product was 420.18 mGy-cm. COMPARISON: 09/06/2019 FINDINGS: Lung bases are clear. Heart size is normal. No pericardial or pleural effusion. Focal hepatic steatos is at the ligamentum teres. Gallbladder, spleen with a couple small anterior splenules, pancreas and bilateral adrenal glands are normal. A couple 1-2 mm stones at lower pole calyces of the right kidney . No ureteral stones. Bowels including the appendix are normal. 4.9 cm cyst in the right ovary which is displaced from previously posterolateral to the right uterus to currently anterolateral raising co ncern for ovarian torsion. Bladder, uterus and left adnexa are unremarkable. Small amount of likely p hysiologic free fluid in the pelvis. No pathologically enlarged abdominal or pelvic lymphadenopathy. Bones are unremarkable. IMPRESSION: 1. 4.9 cm right ovarian cyst with interval anterior displacement of the ovary which raises concern fo r ovarian torsion. Dr. Vallecillo discussed these findings with Dr. Gutierrez at 9:27 PM. 2. Couple nonobstructing 1-2 mm right renal stones. Reviewed, dictated and finalized at [facility]. ERY SUPERVISOR IMPRESSION: 1. 4.9 cm right ovarian cyst with interval anterior displacement of the ovary w hich raises concern for ovarian torsion. Dr. Vallecillo discussed these findings with Dr. Gutierrez at 9:27 PM. 2. Couple nonobstructing 1-2 mm right renal stones.
[2020-02-12 19:27] LABS: Basophils Percent Auto 0.3 % (0.2-1.2); Eosinophils Absolute Auto 0.2 K/mm3 (0-0.3); Hematocrit 39.7 % (37.0-47.0); Hemoglobin 13.3 g/dL (12.0-15.0); Immature Granulocyte Absolute 0.01 K/mm3 (0.00-0.031); Immature Granulocyte Percent A 0.1 % (0-0.5); Lymphocytes Absolute Auto 2.66 K/mm3 (0.9-3.2); Lymphocytes Percent Auto 29.5 % (18.3-44.2); Mean Corpuscular HGB Conc 33.5 g/dl (32-36); Mean Corpuscular Hemoglobin 29.7 pg (26-34); Mean Corpuscular Volume 88.6 fl (80-100); Mean Platelet Volume 10.5 fl (7.4-10.4); Monocytes Absolute Auto 0.8 K/mm3 (0.1-0.6); Monocytes Percent Auto 8.3 % (2.6-8.5); Neutrophils Absolute Auto 5.4 K/mm3 (1.3-6.7); Neutrophils Percent Auto 59.8 % (45.5-73.1); Platelet Count Result 263 k/mm3 (150-375); Red Blood Count 4.48 M/mm3 (4.2-5.4); Red Cell Distribution Width 13.6 % (11.5-14.5)
[2020-02-12 19:38] LABS: Alanine Aminotransferase 15 U/L (4-35); Albumin Level 4.1 g/dL (3.5-5.1); Alkaline Phosphatase 43 U/L (38-126); Anion Gap 6 mmol/L (8-16); Aspartate Amino Transferase 25 U/L (14-36); Bilirubin,Total 0.2 mg/dL (0.2-1.3); Blood Urea Nitrogen 10 mg/dL (7-17); Calcium 8.7 mg/dL (8.4-10.2); Carbon Dioxide 26 mmol/L (22-30); Chloride 108 mmol/L (98-107); Estimated Glomerular Filt Rate > 60; Glucose 102 mg/dL (65-105); Lipase 109 U/L (23-300); Potassium 4.5 mmol/L (3.4-5.0); Sodium 140 mmol/L (137-145)
[2020-02-12 19:45] LABS: Add Urine Microscopic? NO; Appearance Urine Clear (Clear); Bilirubin Urine Negative (Negative); Blood Urine Negative (Negative); Color Urine Yellow (Yellow); Glucose Urine UA Negative (Negative); Ketones Urine Negative (Negative); Leukocyte Esterase Ur Negative LEU/UL (Negative); Nitrate Urine Negative (Negative); Protein Urine Negative (Negative); Specific Grav Ur 1.028 (1.001-1.035); Urobilinogen Urine Negative mg/dL (<2.0)
--- NOTE | 2020-02-12 19:56 | ED.ABDPAIN ---
HPI - Abdominal Pain General Chief Complaint: Abdominal Pain Stated Complaint: abd pain Time Seen by Provider: 02/12/20 19:54 Source: patient Mode of arrival: wheelchair Limitations: no limitations History of Present Illness HPI narrative: Patient is a 24-year-old female who presents for evaluation of abdominal pain. Patient reports onset of right lower quadrant abdominal pain this morning, has worsened in nature, initially was dull and aching this morning, currently sharp and stabbing. Pain is rated as severe. Patient has had associated nausea and vomiting. She denies diarrhea, dysuria or hematuria. No vaginal discharge or bleeding. No recent sick contacts. Patient denies fever or chills. Patient denied any back pain. No current rhinorrhea, congestion, chest pain or shortness of breath. Related Data Allergies Allergy/AdvReac Type Severity Reaction Status Date / Time No Known Allergies Allergy Verified 02/12/20 19:16 Review of Systems Review of Systems: Narrative: CONSTITUTIONAL: Denies fever, chills, or sweats. EYES: Denies visual changes, redness, or discharge. ENT: Denies rhinorrhea, congestion, sore throat, or otalgia. CARDIOVASCULAR: Denies chest pain, palpitations, or edema. RESPIRATORY: Denies cough or dyspnea. GASTROINTESTINAL: Reports right-sided abdominal pain, nausea and vomiting GENITOURINARY: Denies dysuria or hematuria. SKIN: Denies rash or itching. MUSCULOSKELETAL: Denies back pain, joint pain, or myalgia. NEUROLOGIC: Denies headache, numbness, or weakness. COUNT INCLUDES THE [facility] Past Medical History Medical History (Updated 02/12/20 @ 23:39 by Silvana Gutierrez MD) Acute pelvic inflammatory disease (PID) ADD (attention deficit disorder) Anxiety Asthma Attention deficit disorder Bipolar disorder Cyst of left ovary Depression Left tubo-ovarian abscess Treated with antibiotics, laparoscopic left salpingectomy Ovarian cyst 2014 with week-long hospitalization before resolving, no surgery Tobacco abuse Tonsillitis Upper respiratory infection Surgical History Surgical History History of adenoidectomy History of tonsillectomy History of unilateral salpingectomy Laparoscopic left salpingectomy for tuboovarian abscess / PID. Family History Family History Mother Family history of type 2 diabetes mellitus Hypertension Bipolar 1 disorder Father Schizophrenia Other Diabetes mellitus Family history of arthritis Family history of kidney disease Ovarian cancer Social History Social History Smoking packs per day: 0.25 Smoking cigarettes per day: 5.0 Years smoked: 9 Smoking pack-years: 2.25 Smoking status: Current every day smoker Tobacco type: cigarettes Second hand tobacco smoke exposure: Yes Alcohol intake: current Substance use: current Substance use type: marijuana Other substance usage details: rare alcohol use, marijuana weekly Gender identity (if verbalized by the patient): Female Spiritual care concerns: No Agree to blood products: Yes Exam Narrative: Exam Narrative: GENERAL: Awake, alert, tearful, screaming HEAD: Normocephalic, atraumatic. EYES: PERRLA and EOMI. ENT: Nares clear, no rhinorrhea or epistaxis. Mucous membranes moist. NECK: Supple. CHEST: No respiratory distress, breathing even and non labored HEART: Tachycardic rate, sinus rhythm ABDOMEN:Non distended, tender in the right lower quadrant, guarding present : Labia majora and minora normal without lesions. Vagina without blood. No cervical motion tenderness. Mild erythema of the cervix. No adnexal tenderness or fullness bilaterally. No purulent discharge present. EXTREMITIES: Normal range of motion. No edema. SKIN: Warm, dry, no rash. NEURO:No focal deficits. Alert and oriented x3 Course Vital Signs Vital signs: Vital Signs Te
[2020-02-12] MEDS: ONDANSETRON INJ 4 MG/2 ML VIAL IV PUSH (20:11)
[2020-02-12] MEDS: MORPHINE SULFATE (*CRX) 4 MG/ML INJ IV PUSH ×2 (20:13→22:17)
[2020-02-12] MEDS: diphenhydrAMINE HCl INJ 50 MG/ML VIAL IV PUSH (20:14)
[2020-02-12] MEDS: SODIUM CHLORIDE 0.9% IV 1,000 ML 999 ML IV CONT (20:17)
[2020-02-12] MEDS: SODIUM CHLORIDE 0.9% IV 1,000 ML 150 ML IV CONT (22:30)
[2020-02-12 23:45] LABS: Lactic Acid Reflex < 0.5 mmol/L (0.7-2.1)
[2020-02-13] VITALS (8 sets, daily range): BP systolic 99–128; BP diastolic 48–76; PULSE 77–92; RESP 16; TEMP 36.6–37.1; O2SAT 97–99; BMI 26.4
[2020-02-13] MEDS: MORPHINE SULFATE (*CRX) 4 MG/ML INJ IV PUSH ×9 (00:14→20:15)
--- NOTE | 2020-02-13 01:31 | ADMGEN ---
This patient, Mariam Rivera, was admitted to [facility] Surg Room 319-01. Patient/family oriented to hospital policies and general routines including ID bracelet, bed and alarms, visiting hours, pain management, procedures, bathroom and other care routines, personal items, smoking policy, room service/diet, and visiting hours. Information on how to activate the Rapid Response Team has been discussed. Patient/Family are encouraged to report perceived risks to care and to ask questions if they do not understand what they are told or what they should do.
[2020-02-13] MEDS: SODIUM CHLORIDE 0.9% IV 1,000 ML 125 ML IV CONT ×3 (06:09→20:04)
[2020-02-13 06:49] LABS: Basophils Percent Auto 0.3 % (0.2-1.2); Eosinophils Absolute Auto 0.2 K/mm3 (0-0.3); Eosinophils Percent Auto 1.4 % (0-4.4); Hematocrit 33.1 % (37.0-47.0); Hemoglobin 10.9 g/dL (12.0-15.0); Immature Granulocyte Absolute 0.03 K/mm3 (0.00-0.031); Immature Granulocyte Percent A 0.3 % (0-0.5); Lymphocytes Absolute Auto 2.98 K/mm3 (0.9-3.2); Mean Corpuscular HGB Conc 32.9 g/dl (32-36); Mean Corpuscular Hemoglobin 29.8 pg (26-34); Mean Corpuscular Volume 90.4 fl (80-100); Mean Platelet Volume 11.1 fl (7.4-10.4); Monocytes Absolute Auto 0.8 K/mm3 (0.1-0.6); Monocytes Percent Auto 7.5 % (2.6-8.5); Neutrophils Absolute Auto 6.7 K/mm3 (1.3-6.7); Neutrophils Percent Auto 62.5 % (45.5-73.1); Platelet Count Result 219 k/mm3 (150-375); Red Blood Count 3.66 M/mm3 (4.2-5.4); Red Cell Distribution Width 13.3 % (11.5-14.5); White Blood Count 10.6 K/mm3 (4.5-10.0)
[2020-02-13 07:08] LABS: Alanine Aminotransferase 11 U/L (4-35); Albumin Level 3.1 g/dL (3.5-5.1); Alkaline Phosphatase 35 U/L (38-126); Anion Gap 2 mmol/L (8-16); Aspartate Amino Transferase 21 U/L (14-36); Bilirubin,Total 0.1 mg/dL (0.2-1.3); Blood Urea Nitrogen 6 mg/dL (7-17); Calcium 7.3 mg/dL (8.4-10.2); Carbon Dioxide 27 mmol/L (22-30); Chloride 107 mmol/L (98-107); Estimated CRCL calculation 94 ml/min; Estimated Glomerular Filt Rate > 60; Glucose 88 mg/dL (65-105); Potassium 3.3 mmol/L (3.4-5.0); Sodium 136 mmol/L (137-145)
--- NOTE | 2020-02-13 07:21 | PM.IMHP ---
H&P: HPI History of Present Illness Date/Time: 02/13/20 07:21 Chief complaint: RLQ abdominal pain, intermittent ovarian torsion Narrative: Mariam Rivera is a 24 year old female was admitted through the ER with complaints of total right sided pain which increased to severe. She CT and shows a 4.8cm probable hemorrhagic cyst. Significantly she has a history of pelvic inflammatory disease with a tubo-ovarian abscess. She underwent previous laparoscopic left salpingectomy secondary to infection after receiving IV antibiotics. She states she had a fever at home has a white count here. She is admitted for observation. Review of Systems Review of Systems: All systems reviewed & are unremarkable except as noted in HPI and below PMFSH Past Medical History Medical History Acute pelvic inflammatory disease (PID) ADD (attention deficit disorder) Anxiety Asthma Attention deficit disorder Bipolar disorder Cyst of left ovary Depression Left tubo-ovarian abscess Treated with antibiotics, laparoscopic left salpingectomy Ovarian cyst 2014 with week-long hospitalization before resolving, no surgery Tobacco abuse Tonsillitis Upper respiratory infection Surgical History Surgical History History of adenoidectomy History of tonsillectomy History of unilateral salpingectomy Laparoscopic left salpingectomy for tuboovarian abscess / PID. Family History Family History Mother Family history of type 2 diabetes mellitus Bipolar 1 disorder Hypertension Diabetes mellitus Family history of arthritis Father Schizophrenia Family history of arthritis Grandparent Diabetes mellitus Family history of arthritis Other Family history of kidney disease Ovarian cancer Social History Social History Smoking packs per day: 0.25 Smoking cigarettes per day: 5.0 Years smoked: 7 Smoking pack-years: 1.75 Smoking status: Smoker, status unknown Tobacco type: cigarettes Second hand tobacco smoke exposure: Yes Alcohol intake: current Drinks per week: 1 Substance use: current Substance use type: marijuana Other substance usage details: marijuana once in a while Last use: 1 week ago Gender identity (if verbalized by the patient): Female Spiritual care concerns: No Agree to blood products: Yes Meds Home Medications and Allergies Home Medications Medication Instructions Recorded Confirmed Type escitalopram oxalate 10 mg tablet 10 mg PO HS #90 tablet 01/25/20 02/13/20 Rx lamotrigine 200 mg tablet 200 mg PO BID #180 tablet 01/25/20 02/13/20 Rx hydroxyzine HCl 25 mg PO QID 02/13/20 02/13/20 History trazodone 150 mg PO HS 02/13/20 02/13/20 History Allergies Allergy/AdvReac Type Severity Reaction Status Date / Time No Known Allergies Allergy Verified 02/12/20 19:16 Vital Signs Vital Signs - 24 hr 02/12/20 19:13 02/12/20 20:25 02/12/20 20:43 Temperature 99.8 F H 99.8 F H Pulse Rate 102 H 82 Respiratory Rate 15 16 Blood Pressure 143/76 H 107/62 Pulse Oximetry 100 100 02/12/20 20:48 02/12/20 22:30 02/12/20 22:47 Temperature 99.8 F H 99.8 F H Pulse Rate 71 Respiratory Rate 16 Blood Pressure 105/67 Pulse Oximetry 96 02/12/20 23:06 02/13/20 00:21 02/13/20 01:25 Temperature 98.5 F 97.8 F Pulse Rate 73 78 81 Respiratory Rate 14 16 16 Blood Pressure 107/64 99/67 L 106/76 Pulse Oximetry 97 99 99 02/13/20 01:31 02/13/20 04:00 Temperature 98.8 F 97.8 F Pulse Rate 83 77 Respiratory Rate 16 16 Blood Pressure 107/55 L 108/60 Pulse Oximetry 97 97 Exam Const: General: no acute distress Eyes: General: appearance normal, both eyes and all related structures Neck: Neck: supple and no JVD Thyroid: thyroid normal Resp: Effort & I
--- NOTE | 2020-02-13 08:19 | PC.NURSE ---
[id number] Care coordination was notified about previous suicide attempt.
[2020-02-13] MEDS: AMPICILLIN SULB 3 GM/NS 100 ML 3 GM/100 ML VIAL IVPB ×3 (08:24→20:02)
--- NOTE | 2020-02-13 08:25 | PC.NURSE ---
Please add Mal saunders for emergency contact [phone]
[2020-02-13] MEDS: metroNIDAZOLE 500 MG/ISO 100ML 500 MG/100 ML BAG 100 MG IVPB ×2 (09:49→17:25)
--- NOTE | 2020-02-13 14:01 | WPDANESEPPF ---
Anes - Initial Pre Proc Eval Procedure: Operation Date: 02/14/20 10:00 Proposed Procedures p Laparoscopic Right Ovarian Cystectomy, Possible Right Salpingo-Oophorectomy - Keven Drummond MD <Deven Aleman, DO - Last Filed: 02/19/20 10:20> Date/Time: 02/13/20 14:01 <Deven Aleman, DO - Last Filed: 02/19/20 10:20> Surgeon: Keven Drummond MD <Deven Aleman, DO - Last Filed: 02/19/20 10:20> Pre Op Diagnosis: RLQ abdominal pain, intermittent ovarian torsion <Deven Aleman DO - Last Filed: 02/19/20 10:20> Patient Data Age: 24 Gender: F Height: 1.63 m Weight: 69.8 kg <Deven Aleman DO - Last Filed: 02/19/20 10:20> Last Vital Signs Temp 36.7 C 02/13/20 12:00 Pulse 80 02/13/20 12:00 Resp 16 02/13/20 12:00 BP 109/48 L 02/13/20 12:00 Pulse Ox 99 02/13/20 12:00 <Deven Aleman, DO - Last Filed: 02/19/20 10:20> Allergies Allergy/AdvReac Type Severity Reaction Status Date / Time No Known Allergies Allergy Verified 02/12/20 19:16 <Deven Aleman, DO - Last Filed: 02/19/20 10:20> Home Medications Medication Instructions Recorded Confirmed Type escitalopram oxalate 10 mg tablet 10 mg PO HS #90 tablet 01/25/20 02/13/20 Rx lamotrigine 200 mg tablet 200 mg PO BID #180 tablet 01/25/20 02/13/20 Rx hydroxyzine HCl 25 mg PO QID 02/13/20 02/13/20 History trazodone 150 mg PO HS 02/13/20 02/13/20 History hydrocodone-acetaminophen [[place]] 1 tablet PO Q4H PRN #30 tablet 02/15/20 Rx <Deven Aleman DO - Last Filed: 02/19/20 10:20> Laboratory Tests 02/12/20 02/12/20 02/12/20 19:20 19:20 19:32 WBC 9.0 K/mm3 K/mm3 (4.5-10.0) RBC 4.48 M/mm3 M/mm3 (4.2-5.4) Hgb 13.3 g/dL g/dL (12.0-15.0) Hct 39.7 % % (37.0-47.0) MCV 88.6 fl fl (80-100) MCH 29.7 pg pg (26-34) MCHC 33.5 g/dl g/dl (32-36) RDW 13.6 % % (11.5-14.5) Plt Count 263 k/mm3 k/mm3 (150-375) MPV 10.5 fl H fl (7.4-10.4) Immature Gran % (Auto) 0.1 % % (0-0.5) Neut % (Auto) 59.8 % % (45.5-73.1) Lymph % (Auto) 29.5 % % (18.3-44.2) [place] % (Auto) 8.3 % % (2.6-8.5) Eos % (Auto) 2.0 % % (0-4.4) Baso % (Auto) 0.3 % % (0.2-1.2) Lymph # (Auto) 2.66 K/mm3 K/mm3 (0.9-3.2) [place] # (Auto) 0.8 K/mm3 H K/mm3 (0.1-0.6) Eos # (Auto) 0.2 K/mm3 K/mm3 (0-0.3) Baso # (Auto) 0.0 K/mm3 K/mm3 (0.0-0.1) Abs Immat Gran (auto) 0.01 K/mm3 K/mm3 (0.00-0.031) Absolute Neuts (auto) 5.4 K/mm3 K/mm3 (1.3-6.7) Absolute Nucleated RBC 0.0 K/mm3 K/mm3 (0.0-0.012) Nucleated RBC % 0.0 % % (0.0-0.2) Sodium 140 mmol/L mmol/L (137-145) Potassium 4.5 mmol/L mmol/L (3.4-5.0) Chloride 108 mmol/L H mmol/L (98-107) Carbon Dioxide 26 mmol/L mmol/L (22-30) Anion Gap 6 mmol/L L mmol/L (8-16) BUN 10 mg/dL mg/dL (7-17) Creatinine 0.70 mg/dL mg/dL (0.7-1.0) Estim Creat Clear Calc Not Reportable Estimated GFR > 60 (59 - ) Glucose 102 mg/dL mg/dL (65-105) Lactic Acid Calcium 8.7 mg/dL mg/dL (8.4-10.2) Total Bilirubin 0.2 mg/dL mg/dL (0.2-1.3) AST 25 U/L U/L (14-36) ALT 15 U/L U/L (4-35) Alkaline Phosphatase 43 U/L U/L (38-126) Total Protein 7.0 g/dL g/dL (6.3-8.2) Albumin 4.1 g/dL g/dL (3.5-5.1) Lipase 109 U/L U/L (23-300) Urine Color Yellow (Yellow) Urine Appearance Clear (Clear) Urine pH 6.0 (5.0-9.0) Ur Specific [place] 1.028 (1.001-1.035) Urine Protein Negative mg/dL mg/dL (Negative) Urine Glucose (UA) Negative m
[2020-02-13 14:04] LABS: SARS-CoV-2 RNA PCR Negative
[2020-02-13] MEDS: hydrOXYzine HCL 25 MG TABLET PO ×2 (15:23→18:54)
[2020-02-13 16:51] LABS: Beta HCG Quantitative < 2.39 mIU/ML
[2020-02-13] MEDS: lamoTRIgine 100 MG TABLET 200 MG PO (18:54)
[2020-02-13] MEDS: ESCITALOPRAM OXALATE 10 MG TABLET PO (18:55)
--- NOTE | 2020-02-13 19:00 | PC.NURSE ---
Patient crying, grabbing her head, screaming The voices are so loud, I can not hear you. I need my meds! I can't hear anything Medications given early per request. See MAR.
--- NOTE | 2020-02-13 19:03 | PC.NURSE ---
Patient's mother, Kim on the phone. Kim states I work in the physicians office in the hospital and the doctor and I both know Jm Verdugo. My daughter needs to be taken care of. She needs her psych meds. This RN reassured her that I am taking care of the patient and the medications were given. Kim verbalized no other concerns at this time.
[2020-02-13] MEDS: traZODone HCL 50 MG TABLET 150 MG PO (20:06)
[2020-02-14] VITALS (14 sets, daily range): BP systolic 94–129; BP diastolic 50–84; PULSE 82–109; RESP 11–21; TEMP 36.6–37.8; O2SAT 92–100
[2020-02-14] MEDS: metroNIDAZOLE 500 MG/ISO 100ML 500 MG/100 ML BAG 100 MG IVPB (01:27)
[2020-02-14] MEDS: AMPICILLIN SULB 3 GM/NS 100 ML 3 GM/100 ML VIAL IVPB ×2 (02:27→07:38)
[2020-02-14] MEDS: SODIUM CHLORIDE 0.9% IV 1,000 ML 125 ML IV CONT (03:13)
[2020-02-14] MEDS: MORPHINE SULFATE (*CRX) 4 MG/ML INJ IV PUSH ×3 (03:13→21:11)
--- NOTE | 2020-02-14 06:15 | PC.NURSE ---
Relocated to room 306. Belongings sent.
[2020-02-14] MEDS: hydrOXYzine HCL 25 MG TABLET PO ×4 (07:00→20:32)
[2020-02-14] MEDS: lamoTRIgine 100 MG TABLET 200 MG PO ×2 (07:38→16:45)
--- NOTE | 2020-02-14 07:54 | WPDHPUPDATE1 ---
History and Physical Update Update Date/Time: 02/14/20 07:54 History and Physical has been reviewed, including an updated exam of the patient. There are NO changes in the patient's condition. Risks, benefits, and alternatives have been discussed and questions answered. Patient agrees to proceed with procedure. pain still intense discussed lscope proceed today
--- NOTE | 2020-02-14 08:51 | PC.NURSE ---
To OR per stretcher @ [id number].
[2020-02-14] MEDS: LACTATED RINGERS 1,000 ML 30 ML IV CONT ×2 (09:09→11:29)
[2020-02-14] MEDS: fentaNYL CITRATE INJ (*CRX) 100 MCG/2 ML VIAL 50 MCG IV PUSH ×4 (09:38→12:25)
--- NOTE | 2020-02-14 09:48 | SUR.PREOP ---
PT STATES PAIN BETTER NOW. UP TO BATHROOM. GAIT STEADY. AWAKE AND ALERT.
--- NOTE | 2020-02-14 10:40 | WPDHPUPDATE1 ---
History and Physical Update Update Date/Time: 02/14/20 10:40 History and Physical has been reviewed, including an updated exam of the patient. There are NO changes in the patient's condition. Risks, benefits, and alternatives have been discussed and questions answered. Patient agrees to proceed with procedure. plan lscope r cystectomy/possible rso
--- NOTE | 2020-02-14 11:14 | P.OP_ITS ---
Procedure Note - Detailed Date of procedure: 02/14/20 Pre-op diagnosis: RLQ abdominal pain, intermittent ovarian torsion Surgeon: Keven Drummond MD Postop diagnosis right lower quadrant pain / ovarian cyst Procedure: Laparoscopic destruction of right ovarian cyst EBL: 5cc Anesthesia: General endotracheal Complications: None Findings: Large right ovarian cyst with about 100cc of clear fluid normal- appearing right tube normal-appearing left ovary. Normal-appearing uterus normal-appearing gallbladder and liver edge Description of procedure: Patient was prepped and draped in the normal sterile fashion placed in the dorsal lithotomy position. Under excellent general trach anesthesia weighted speculum was placed posterior fornix vagina. Anterior lip of the cervix grasped with a single-tooth tenaculum. Meléndez's cannula was inserted the cervix and attached to the single-tooth to be used later for ut ilization. The bladder was drained of clear urine. The remainder the instruments removed. The gloves were changed. An infra Colon still umbilical incision made. The Veress needle passed in the abdomen. Abdomen was filled with CO2 gas [id number]. 5Mm trocar was advanced under the optic view under direct visualization assuring no injury. The patient placed in Trendelenburg and a right central incision was made the 5mm trocar advanced and and to the suprapubic area. No injury was seen. The large ovarian cyst was seen in photo documentation undertaken. This was opened in linear fashion and drained of a serous fluid. This was suction and removed and irrigated. The remainder of the pelvis appeared within normal limits and for documentation was undertaken. The lower site removed after gas removed from the abdomen. The incisions closed with 4 Monocryl and glue. The instruments removed from the vagina. The patient went to recovery in satisfactory condition. All sponge, needle, instrument counts were correct. There were no immediate complications
[2020-02-14] MEDS: fentaNYL CITRATE INJ (*CRX) 100 MCG/2 ML VIAL 25 MCG IV PUSH ×8 (11:30→12:01)
[2020-02-14] MEDS: HYDROcodone/acetaminophen (*CRX) 5-325 MG TABLET 1 TAB PO (13:02)
[2020-02-14] MEDS: ALPRAZolam (*CRX) 0.5 MG TABLET 1 MG PO ×2 (14:50→15:54)
[2020-02-14] MEDS: KETOROLAC 30 MG/ML VIAL (*BKC) IV PUSH ×2 (16:02→23:25)
[2020-02-14] MEDS: DOCUSATE SODIUM 100 MG CAPSULE PO (16:46)
[2020-02-14] MEDS: traZODone HCL 50 MG TABLET 150 MG PO (20:32)
[2020-02-14] MEDS: SENNA/DOCUSATE SODIUM TABLET 2 TAB PO (20:32)
[2020-02-14] MEDS: ESCITALOPRAM OXALATE 10 MG TABLET PO (20:53)
[2020-02-14] MEDS: IBUPROFEN 600 MG TABLET PO (20:55)
[2020-02-15 04:45] VITALS: BP 102/56; PULSE 60; RESP 16; TEMP 36.7; O2SAT 98
[2020-02-15] MEDS: MORPHINE SULFATE (*CRX) 4 MG/ML INJ IV PUSH (04:55)
--- NOTE | 2020-02-15 07:07 | P.PNOB_ITS ---
OB - PN: Subj Subjective Date/time seen: 02/15/20 07:07 Patient comments: no complaints and pain well controlled OB - PN: Obj Data Labs CBC & Chem 7: 02/13/20 06:11 02/13/20 06:11 Labs: Laboratory Results - last 24 hr 02/14/20 08:43 Blood Type A Positive Antibody Screen Negative OB - PN A/P Plan day: 1 Plan: discharge home and follow up 6 weeks (2) Time Spent With Patient Time: Total time spent is greater than 50% in coordination of care (as documented) at patient's floor/unit and/or counseling patient: Time with patient: less than 15 minutes Review of Systems Review of Systems: All systems reviewed & are unremarkable except as noted in HPI and below Exam Const: General: no acute distress Eyes: General: appearance normal, both eyes and all related structures Neck: Neck: supple and no JVD Thyroid: thyroid normal Resp: Effort & Inspection: normal respiratory effort Auscultation: clear to auscultation bilaterally Cardio: Rate: regular rate Rhythm: regular rhythm GI: Inspection: non-distended GI Palp: Yes Soft to palpation, No Tenderness to palpation present (GI) and No Guarding due to palpation present (GI) Auscu ltation: normal bowel sounds : General: Yes bladder normal to palpation External Female Exam: normal external appearance Speculum Exam - Vagina: normal vaginal discharge and No vaginal bleeding Speculum Exam - Cervix: nontender Bimanual exam- vagina & uterus: bladder normal to palpation and No Cervical tenderness present OB/external & speculum: No vaginal bleeding Skin: General skin exam: no rashes or lesions noted Extrem: General: normal to inspection and no edema Psych: Mental Status: mental status grossly normal Affect: normal affect
--- NOTE | 2020-02-15 07:27 | P.DS_ITS ---
DS: Admitting Diagnosis Admitting Diagnosis Admitting Diagnosis: RLQ abdominal pain, intermittent ovarian torsion DS: Summary Time Spent with Patient Time attestation: Total time spent providing and/or coordinating discharge services: Patient was admitted with a large right ovarian cyst. She had had history of PID and had a mildly elevated temperature. Her white count however was normal. She was placed on IV antibiotics for 36 hours and then underwent laparoscopic destruction of a large benign appearing cyst. Her hospital course was unremarkable. She remained afebrile. She was up, went in without difficulty, ambulating, eating a regular diet, and generally without complaints. Her wounds were clean drain intact. Exam Const: General: no acute distress Eyes: General: appearance normal, both eyes and all related structures Neck: Neck: supple and no JVD Thyroid: thyroid normal Resp: Effort & Inspection: normal respiratory effort Auscultation: clear to auscultation bilaterally Cardio: Rate: regular rate Rhythm: regular rhythm GI: Inspection: non-distended GI Palp: Yes Soft to palpation, No Tenderness to palpation present (GI) and No Guarding due to palpation present (GI) Auscultation: normal bowel sounds : General: Yes bladder normal to palpation External Female Exam: normal external appearance Speculum Exam - Vagina: normal vaginal discharge and No vaginal bleeding Speculum Exam - Cervix: nontender Bimanual exam- vagina & uterus: bladder normal to palpation and No Cervical tenderness present OB/external & speculum: No vaginal bleeding Skin: General skin exam: no rashes or lesions noted Extrem: General: normal to inspection and no edema Psych: Mental Status: mental status grossly normal Affect: normal affect DS: Data Data Completed and Pending Labs on day of discharge: Labs from last 24 hours 02/14/20 08:43 Blood Type A Positive Antibody Screen Negative Preliminary micro results at discharge 02/12/20 22:45 Blood Culture - Preliminary Blood 02/12/20 22:46 Blood Culture - Preliminary Blood Discharge Plan Discharge Attending physician on discharge: Keven Drummond Discharging Clinician: Keven Drummond Patient Disposition: Home, Self-Care Activity: may shower, no straining, may drive after 2 weeks and pelvic rest Diet: heart healthy Wound Care Instructions: follow printed instructions Patient Instructions: Antibiotic Form, Ovarian Cyst (DC), Pain Management (GEN) Stand Alone Forms: General Discharge Information Follow-up/Referrals: Keven Drummond MD [Physician] - Discharge Medications: New hydrocodone-acetaminophen [[place]] 5-325 mg tablet 1 tablet PO Q4H PRN (Reason: pain) Qty: 30 RF: 0 No Action trazodone 50 mg tablet 150 mg PO HS RF: 0 hydroxyzine HCl 25 mg tablet 25 mg PO QID RF: 0 escitalopram oxalate 10 mg tablet 10 mg PO HS Qty: 90 RF: 0 lamotrigine 200 mg tablet 200 mg PO BID Qty: 180 RF: 0 Date of admission: 02/12/20 23:37 Primary Care Provider: Yehuda Ivy Admitting Provider: Keven Drummond Attending physician on admission: Keven Drummond Condition: Stable
[2020-02-15] MEDS: hydrOXYzine HCL 25 MG TABLET PO (07:28)
[2020-02-15] MEDS: HYDROcodone/acetaminophen (*CRX) 10-325 MG TABLET 1 TAB PO (07:29)
[2020-02-15] MEDS: DOCUSATE SODIUM 100 MG CAPSULE PO (07:30)
[2020-02-15 08:00] VITALS: BP 108/63; PULSE 64; RESP 18; TEMP 36.7; O2SAT 99
== END 2020-02-15 09:15 | disposition home or self-care (01) ==
LOC: ANHED 23:39 → ANH3MEDSUR 02-13 01:04
PROVIDERS: Anesthesiology; Emergency Medicine; Admitting Provider Obstetrics & Gynecology; Emergency Provider Emergency Medicine; PCP Family Medicine; Visit Provider Obstetrics & Gynecology
PROC: (CPT 49320; principal; 2020-02-14 10:00)
DX: N83.511 Torsion of right ovary and ovarian pedicle (principal); N83.201 Unspecified ovarian cyst, right side; R10.31 Right lower quadrant pain; Z20.828 Contact with and (suspected) exposure to other viral communicable diseases; N73.9 Female pelvic inflammatory disease, unspecified; N94.89 Other specified conditions associated with female genital organs and menstrual cycle; N72 Inflammatory disease of cervix uteri; N20.0 Calculus of kidney; Z90.79 Acquired absence of other genital organ(s); Z87.42 Personal history of other diseases of the female genital tract
CPT/HCPCS: 58662; 36415; 71045; 74177; 76830; 76856; 80053; 81003; 81025; 83605; 83690; 84702; 85025; 86850; 86900; 86901; 87040; 87070; 87491; 87591; 87635; 87808; 96361; 96365; 96374; 96375; 96376; 99285; A9270; C9803; G0378; J0131; J0295; J1100; J1200; J1885; J2250; J2270; J2405; J2704; J3010; J7030; J7120; Q9967; U0003

== ENCOUNTER 2020-05-18 13:15 | Emergency (ER) | payer OTHER, SELFPAY ==
--- NOTE | ~2020-05-18 | US_ITS ---
EXAMINATION: US pelvic complete w TV EXAM DATE: 05/18/2020 15:29 INDICATION: Right lower quadrant pain. Abnormal CT. TECHNIQUE: Pelvic transabdominal and transvaginal sonogram was performed. There are multiple graysca le and Doppler images available for interpretation. Comparison is made to prior examination from 01/26. FINDINGS: Uterus measures 7.0 x 4.4 x 4.7 cm, and is morphologically normal. Endometrial stripe rogelio sures 5 mm, within normal limits. There is small free pelvic fluid. Right adnexa: The ovary measures 3.1 x 1.6 x 1.6 cm and is morphologically normal. Ovarian vascular f low confirmed. Left adnexa: The ovary measures 3.3 x 1.9 x 1.7 cm and is morphologically normal. Ovarian vascular fl ow confirmed. IMPRESSION: 1. Unremarkable pelvic ultrasound exam. Reviewed, dictated and finalized at location A. K BONER
--- NOTE | ~2020-05-18 | CT_ITS ---
EXAMINATION: CT abdomen pelvis w con EXAM DATE: 05/18/2020 14:42 INDICATION: Right lower quadrant abdominal pain. TECHNIQUE: Spiral CT of the abdomen and pelvis was performed following intravenous injection of 100 m L Omnipaque 350. Axial, coronal and sagittal images were reviewed. The dose-length product (DLP) fo r this examination was 342.52 mGy-cm. The exposure was tailored according to patient size (auto mA e xposure control), and iterative reconstruction (ASIR) was used as additional dose reduction technique . Comparison is made to prior examination from 02/12/2020. FINDINGS: The liver, spleen, adrenal glands and pancreas are unremarkable. Splenules. Gallbladder is unremarkable. No biliary obstruction. Portal and splenic veins are patent. Kidneys enhance symmetr ically. There is no hydronephrosis. The uterus is retroverted and morphologically normal. The bl adder is unremarkable. There is no retroperitoneal or pelvic lymphadenopathy. The appendix is normal. The stomach and small bowel are unremarkable. There is moderate amount of c olonic stool. No free intraperitoneal gas. The heart is normal in size. There are no pericardial or pleural effusions. The lung bases are unremarkable. Chronic bilateral L5 spondylolysis with a fe w millimeters anterolisthesis L5 on S1. IMPRESSION: 1. No acute intra-abdominal findings. Normal appendix. 2. Moderate amount of colonic stool. 3. Chronic L5 spondylolysis, grade 1 anterolisthesis. Reviewed, dictated and finalized at location A. KEEPER RECEPTIONIST
[2020-05-18 13:19] VITALS: BP 135/77; PULSE 115; RESP 24; TEMP 38.8; O2SAT 99
[2020-05-18] MEDS: KETOROLAC 30 MG/ML VIAL (*BKC) 15 MG IV PUSH (13:55)
[2020-05-18] MEDS: LORazepam INJ (*CRX) 2 MG/ML VIAL 1 MG IV PUSH (13:55)
[2020-05-18 14:03] LABS: Basophils Absolute Auto 0.1 K/mm3 (0.0-0.1); Basophils Percent Auto 0.4 % (0.2-1.2); Eosinophils Absolute Auto 0.2 K/mm3 (0-0.3); Eosinophils Percent Auto 1.8 % (0-4.4); Hematocrit 40.7 % (37.0-47.0); Hemoglobin 13.5 g/dL (12.0-15.0); Immature Granulocyte Absolute 0.06 K/mm3 (0.00-0.031); Immature Granulocyte Percent A 0.4 % (0-0.5); Lymphocytes Absolute Auto 2.39 K/mm3 (0.9-3.2); Lymphocytes Percent Auto 17.4 % (18.3-44.2); Mean Corpuscular HGB Conc 33.2 g/dl (32-36); Mean Corpuscular Hemoglobin 29.6 pg (26-34); Mean Corpuscular Volume 89.3 fl (80-100); Mean Platelet Volume 10.4 fl (7.4-10.4); Monocytes Absolute Auto 0.9 K/mm3 (0.1-0.6); Monocytes Percent Auto 6.4 % (2.6-8.5); Neutrophils Absolute Auto 10.1 K/mm3 (1.3-6.7); Neutrophils Percent Auto 73.6 % (45.5-73.1); Platelet Count Result 326 k/mm3 (150-375); Red Blood Count 4.56 M/mm3 (4.2-5.4); Red Cell Distribution Width 13.5 % (11.5-14.5); White Blood Count 13.7 K/mm3 (4.5-10.0)
[2020-05-18 14:11] LABS: Alanine Aminotransferase 20 U/L (4-35); Albumin Level 4.5 g/dL (3.5-5.1); Alkaline Phosphatase 50 U/L (38-126); Anion Gap 8 mmol/L (8-16); Aspartate Amino Transferase 33 U/L (14-36); Bilirubin,Total 0.4 mg/dL (0.2-1.3); Blood Urea Nitrogen 8 mg/dL (7-17); Calcium 9.2 mg/dL (8.4-10.2); Carbon Dioxide 26 mmol/L (22-30); Chloride 108 mmol/L (98-107); Estimated CRCL calculation 94 ml/min; Estimated Glomerular Filt Rate > 60; Glucose 97 mg/dL (65-105); Lipase 75 U/L (23-300); Potassium 4.2 mmol/L (3.4-5.0); Sodium 142 mmol/L (137-145)
[2020-05-18 14:38] LABS: Add Urine Microscopic? NO; Appearance Urine Clear (Clear); Bilirubin Urine Negative (Negative); Blood Urine Negative (Negative); Color Urine Straw (Yellow); Glucose Urine UA Negative (Negative); Ketones Urine Negative (Negative); Leukocyte Esterase Ur Negative LEU/UL (Negative); Nitrate Urine Negative (Negative); Protein Urine Negative (Negative); Specific Grav Ur 1.012 (1.001-1.035); Urobilinogen Urine Negative mg/dL (<2.0)
--- NOTE | 2020-05-18 14:46 | ED.ABDPAIN ---
HPI - Abdominal Pain General Chief Complaint: Abdominal Pain Stated Complaint: RLQ pain Time Seen by Provider: 05/18/20 13:30 Source: patient Mode of arrival: ambulatory Limitations: no limitations History of Present Illness HPI narrative: A 24-year-old female comes into the emergency department today with complaints of severe right lower quadrant pain. Patient states that she has a history of ovarian cyst. States that this feels like one of her cysts ruptured. Patient is very tearful, difficult to obtain history from. She states that she had a normal period for her just a couple of weeks ago. She denies any vaginal discharge. Related Data Home Medications Medication Instructions Recorded Confirmed hydroxyzine HCl 25 mg PO QID 02/13/20 02/13/20 trazodone 150 mg PO HS 02/13/20 02/13/20 Allergies Allergy/AdvReac Type Severity Reaction Status Date / Time No Known Allergies Allergy Verified 05/18/20 13:25 Review of Systems Review of Systems: Narrative: CONSTITUTIONAL: Denies fever, chills, or sweats. EYES: Denies visual changes, redness, or discharge. ENT: Denies rhinorrhea, congestion, sore throat, or otalgia. CARDIOVASCULAR: Denies chest pain, palpitations, or edema. RESPIRATORY: Denies cough or dyspnea. GASTROINTESTINAL: Denies nausea, vomiting, or diarrhea. Endorses right lower quadrant abdominal pain GENITOURINARY: Denies dysuria or hematuria. SKIN: Denies rash or itching. MUSCULOSKELETAL: Denies back pain, joint pain, or myalgia. NEUROLOGIC: Denies headache, numbness, dizziness, or weakness. PSYCHIATRIC: Denies anxiety or depression. [facility] Past Medical History Medical History (Updated 05/18/20 @ 16:03 by Jimmy Meadows DO) Acute pelvic inflammatory disease (PID) ADD (attention deficit disorder) Anxiety Asthma Attention deficit disorder Bipolar disorder Cyst of left ovary Depression Left tubo-ovarian abscess Treated with antibiotics, laparoscopic left salpingectomy Ovarian cyst 2014 with week-long hospitalization before resolving, no surgery Tobacco abuse Tonsillitis Upper respiratory infection Surgical History Surgical History History of adenoidectomy History of tonsillectomy History of unilateral salpingectomy Laparoscopic left salpingectomy for tuboovarian abscess / PID. Family History Family History Mother Family history of type 2 diabetes mellitus Bipolar 1 disorder Hypertension Diabetes mellitus Family history of arthritis Father Schizophrenia Family history of arthritis Grandparent Diabetes mellitus Family history of arthritis Other Family history of kidney disease Ovarian cancer Social History Social History Smoking packs per day: 0.25 Smoking cigarettes per day: 5.0 Years smoked: 7 Smoking pack-years: 1.75 Smoking status: Smoker, status unknown Tobacco type: cigarettes Second hand tobacco smoke exposure: Yes Alcohol intake: current Drinks per week: 1 Substance use: current Substance use type: marijuana Other substance usage details: marijuana once in a while Last use: 1 week ago Gender identity (if verbalized by the patient): Female Spiritual care concerns: No Agree to blood products: Yes Exam Narrative: Exam Narrative: GENERAL: Well-appearing, well-nourished, and tearful and anxious. HEAD: Normocephalic, atraumatic. EYES: PERRLA and EOMI. ENT: Nares clear, no rhinorrhea or epistaxis. Mucous membranes moist. NECK: Supple. No adenopathy or masses. No carotid bruits or JVD CHEST: Clear to auscultation. No respiratory distress. No wheezes rales or rhonchi HEART: Regular rate and rhythm. No murmur heard. Normal peripheral pulses. ABDOMEN: Soft, nondistended, normal active bowel sounds. Right lower quadrant tenderness EXTREMITIES: Normal range of motion. No edema.
[2020-05-18] MEDS: MORPHINE SULFATE (*CRX) 4 MG/ML INJ IV PUSH (15:12)
[2020-05-18 15:13] VITALS: BP 122/77; PULSE 196; RESP 22; O2SAT 98
--- NOTE | 2020-05-18 16:15 | PC.NURSE ---
pt crying and writhing on bed stating that she needs more pain meds for continued abd pain. md just spoke at length with pt and visitor regarding negative work-up. md reviewed ct and ultrasound on computer screen with pt and visitor. iv d/c intact and instructions given. pt quite upset that she is not being medicated further and being d/c home. 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
[2020-05-18 16:22] VITALS: BP 132/90; PULSE 98; RESP 20; O2SAT 100
== END 2020-05-18 16:31 | disposition home or self-care (01) ==
PROVIDERS: Emergency Provider Emergency Medicine; PCP Family Medicine
DX: R10.2 Pelvic and perineal pain (principal); K59.1 Functional diarrhea; F98.8 Other specified behavioral and emotional disorders with onset usually occurring in childhood and adolescence; F41.9 Anxiety disorder, unspecified; J45.909 Unspecified asthma, uncomplicated; F31.9 Bipolar disorder, unspecified; F17.210 Nicotine dependence, cigarettes, uncomplicated; M43.06 Spondylolysis, lumbar region
CPT/HCPCS: 36415; 74177; 76830; 76856; 80053; 81003; 81025; 83690; 85025; 96374; 96375; 99284; J1885; J2060; J2270; Q9967

== ENCOUNTER 2023-08-14 16:51 | Emergency (ER) | payer BC, SELFPAY ==
--- NOTE | ~2023-08-14 | CT_ITS ---
EXAMINATION: CT abdomen pelvis w con DATE: 08/14/2023 18:32 INDICATION: abdominal pain TECHNIQUE: Computed tomography (CT) of the abdomen and pelvis was performed with 100 mL Omnipaque-350 intravenous contrast. Automated exposure control and iterative reconstruction technique were employe d. The dose-length product was 478.97 mGy-cm. COMPARISON: 05/18/2020. FINDINGS: Lower thorax: Unremarkable Liver: Normal. Biliary/Gallbladder: Gallbladder is normal. No bile duct dilation. Pancreas: No mass or duct dilation. Spleen: Normal. Adrenals:No mass. Kidneys: No suspicious mass, obstructing stone, or hydronephrosis. GI tract: Mild distal esophageal and gastric wall edema. No small or large bowel dilation. Normal neli endix. Mesentery/Peritoneum: No ascites, mass, or free air. Retroperitoneum: No mass. Pelvis: Pelvic organs are within normal limits. Simple 2.4 cm left ovarian cyst. Soft Tissues: Soft tissues and body wall unremarkable. Bones: No acute osseous finding. Chronic bilateral L5-S1 pars defects. IMPRESSION: Mild esophagitis/gastritis. Otherwise, no acute abdominopelvic process detected. Reviewed, dictated and finalized at location K.
[2023-08-14 16:52] VITALS: BP 112/65; PULSE 88; RESP 18; TEMP 36.8; O2SAT 99
[2023-08-14 17:40] LABS: Basophils Absolute Auto 0.1 K/mm3 (0.0-0.1); Basophils Percent Auto 0.5 % (0.2-1.2); Eosinophils Absolute Auto 0.3 K/mm3 (0-0.3); Eosinophils Percent Auto 2.7 % (0-4.4); Hematocrit 40.5 % (37.0-47.0); Hemoglobin 12.8 g/dL (12.0-15.0); Immature Granulocyte Absolute 0.04 K/mm3 (0.00-0.031); Immature Granulocyte Percent A 0.3 % (0-0.5); Lymphocytes Absolute Auto 2.68 K/mm3 (0.9-3.2); Lymphocytes Percent Auto 22.3 % (18.3-44.2); Mean Corpuscular HGB Conc 31.6 g/dl (32-36); Mean Corpuscular Hemoglobin 26.1 pg (26-34); Mean Corpuscular Volume 82.7 fl (80-100); Monocytes Absolute Auto 0.8 K/mm3 (0.1-0.6); Monocytes Percent Auto 6.6 % (2.6-8.5); Neutrophils Absolute Auto 8.1 K/mm3 (1.3-6.7); Neutrophils Percent Auto 67.6 % (45.5-73.1); Platelet Count Result 350 k/mm3 (150-375); Red Cell Distribution Width 16.7 % (11.5-14.5)
[2023-08-14 17:40] LABS: Appearance Urine Clear (Clear); Bilirubin Urine Negative (Negative); Blood Urine Negative (Negative); Color Urine Yellow (Yellow); Glucose Urine UA Negative (Negative); Ketones Urine Negative (Negative); Leukocyte Esterase Ur Negative LEU/UL (Negative); Nitrate Urine Negative (Negative); Protein Urine Negative (Negative); Specific Grav Ur 1.009 (1.001-1.035); Urobilinogen Urine 0.2 mg/dL (<2.0)
[2023-08-14] MEDS: ONDANSETRON INJ 4 MG/2 ML VIAL IV PUSH (17:44)
[2023-08-14] MEDS: SODIUM CHLORIDE 0.9% IV 1,000 ML 150 ML IV CONT (17:44)
[2023-08-14] MEDS: MORPHINE SULFATE (*CRX) 4 MG/ML INJ IV PUSH (17:44)
[2023-08-14 17:52] LABS: Alanine Aminotransferase 17 U/L (6-35); Albumin Level 4.6 g/dL (3.5-5.1); Alkaline Phosphatase 87 U/L (38-126); Anion Gap 8 mmol/L (4-12); Aspartate Amino Transferase 34 U/L (14-36); Bilirubin,Total 0.5 mg/dL (0.2-1.3); Blood Urea Nitrogen 8 mg/dL (7-17); Carbon Dioxide 22 mmol/L (22-30); Chloride 108 mmol/L (98-107); Estimated CRCL calculation 124 ml/min; Estimated Glomerular Filt Rate > 60; Glucose 92 mg/dL (65-110); Lipase 53 U/L (23-300); Potassium 4.3 mmol/L (3.4-5.0); Sodium 138 mmol/L (137-145)
[2023-08-14 17:57] LABS: Add Urine Microscopic? NO
--- NOTE | 2023-08-14 19:20 | ED.ABDPAIN ---
HPI - Abdominal Pain General Chief Complaint: Abdominal Pain Stated Complaint: bed ridden with abd pain x 3 days Time Seen by Provider: 08/14/23 17:30 Source: patient Mode of arrival: ambulatory Limitations: no limitations History of Present Illness HPI narrative: 27-year-old with a history of ovarian cyst presents to the ER with a complaint of lower abdominal pain for past 3 days. Patient states that pain is radiating from right to left at times. She denies any nausea or vomiting. Denies any vaginal bleeding or discharge. Patient states that she had to have surgery for ovarian cyst. MD elicited complaint: abdominal pain Onset (ago): day(s) (3) Pain Consistency: constant Location: suprapubic Severity: moderate Quality: aching Radiation: none Migration to: no migration Exacerbating factors: nothing Relieving factors: nothing Associated symptoms: denies other symptoms Related Data Allergies Allergy/AdvReac Type Severity Reaction Status Date / Time No Known Allergies Allergy Verified 05/18/20 13:25 Review of Systems Review of Systems: All systems reviewed & are unremarkable except as noted in HPI and below Constitutional: Constitutional: Reports no additional constitutional complaints Eyes: Eyes: Reports no additional eye complaints ENT: Reports system reviewed and no additional complaints, except as documented Cardiovascular: Cardiovascular: Reports no additional cardiovascular complaints Respiratory: Respiratory: Reports no additional respiratory complaints Gastrointestinal: Gastrointestinal: Reports as per HPI Musculoskeletal: Musculoskeletal: Reports no additional musculoskeletal complaints Neurologic: Reports system reviewed and no additional complaints, except as documented Psychiatric: Psychiatric: Reports no additional psychiatric complaints [facility] Past Medical History Medical History (Updated 08/14/23 @ 19:25 by Sridhar Ferguson MD) Acute pelvic inflammatory disease (PID) ADD (attention deficit disorder) Anxiety Asthma Attention deficit disorder Bipolar disorder Cyst of left ovary Depression Left tubo-ovarian abscess Treated with antibiotics, laparoscopic left salpingectomy Ovarian cyst 2014 with week-long hospitalization before resolving, no surgery Tobacco abuse Tonsillitis Upper respiratory infection Surgical History Surgical History History of adenoidectomy History of tonsillectomy History of unilateral salpingectomy Laparoscopic left salpingectomy for tuboovarian abscess / PID. Family History Family History Mother Family history of type 2 diabetes mellitus Bipolar 1 disorder Hypertension Diabetes mellitus Family history of arthritis Father Schizophrenia Family history of arthritis Grandparent Diabetes mellitus Family history of arthritis Other Family history of kidney disease Ovarian cancer Social History Social History Smoking packs per day: 0.25 Smoking cigarettes per day: 5.0 Years smoked: 7 Smoking pack-years: 1.75 Smoking status: Smoker, status unknown Tobacco type: cigarettes Second hand tobacco smoke exposure: Yes Alcohol intake: current Drinks per week: 1 Substance use: current Substance use type: marijuana Other substance usage details: marijuana once in a while Last use: 1 week ago Gender identity (if verbalized by the patient): Female Spiritual care concerns: No Agree to blood products: Yes Exam Narrative: GENERAL: Well-appearing, well-nourished, and in no acute distress. HEAD: Normocephalic, atraumatic. EYES: PERRLA and EOMI. ENT: Nares clear, no rhinorrhea or epistaxis. Mucous membranes moist. NECK: Supple. CHEST: Clear to auscultation. No respiratory distress. HEART: Regular rate and rhythm. No murmur heard. Normal peripheral pulses. ABDOM
[2023-08-14] MEDS: KETOROLAC 15 MG/ML VIAL (*BKC) IV PUSH (19:58)
[2023-08-14 20:10] VITALS: BP 110/73; PULSE 77; RESP 20; O2SAT 98
== END 2023-08-14 20:10 | disposition home or self-care (01) ==
PROVIDERS: Emergency Medicine; Emergency Provider Family Medicine
DX: R10.2 Pelvic and perineal pain (principal); F17.210 Nicotine dependence, cigarettes, uncomplicated; F98.8 Other specified behavioral and emotional disorders with onset usually occurring in childhood and adolescence; F41.9 Anxiety disorder, unspecified; F32.A Depression, unspecified
CPT/HCPCS: 36415; 74177; 80053; 81003; 81025; 83690; 85025; 96361; 96374; 96375; 99284; J1885; J2270; J2405; J7030; Q9967

== ENCOUNTER 2023-08-18 12:47 | Outpatient (CLI) | payer BC, SELFPAY | END 2023-08-18 12:48 | disposition home or self-care (01) | PROVIDERS: Visit Provider Obstetrics & Gynecology | DX: N83.209 Unspecified ovarian cyst, unspecified side (principal); Z01.818 Encounter for other preprocedural examination | CPT/HCPCS: 36415; 86850; 86900; 86901 ==

== ENCOUNTER 2023-08-19 02:45 | Day surgery (SDC) | payer BC, SELFPAY ==
[2023-08-18 08:38] VITALS: BMI 29.9
--- NOTE | 2023-08-18 08:43 | PC.NURSE ---
Report to the Outpatient Waiting Room, entrance under the green pavilion located off [facility], at time _1pm_ on date _[id number]_. Planned Procedure Time: _3pm_. Time changes happen often and if your time is changed the preop area will call you the afternoon before. - You and your visitor will be asked to self-screen and do not enter if you have any COVID symptoms. - A mask is optional within the hospital at this time. Patients may have clear liquids (water, carbonated beverages, clear teas, apple juice) until 3 hours prior to surgery with a maximum of 20 ounces. - No food from midnight until time of surgery Take the following medications with a SIP of water the morning of surgery: __None DO NOT STOP ANY OF YOUR OTHER PRESCRIPTION MEDICATIONS PRIOR TO SURGERY ?EXCEPT THE FOLLOWING Medications to discontinue per physician None Date to take last dose Please no make-up, nail setswana, hairspray, perfume, deodorant, or body powder the day of surgery. No jewelry (including any body piercings) or valuables the day of surgery, leave them at home. Please take a shower or bath the night before, or the morning of, surgery with an antibacterial soap. Wear comfortable, loose fitting clothing. - Jewelry must be removed prior to entering the operating room. Rings and piercings that are not removed may be cut off. - The hospital will not accept responsibility for valuables. - Please leave all valuables, including medications, at home the day of surgery. If you are going home after surgery, a licensed taxi cab driver must drive you home. - NO public transportation without another adult if you receive anesthesia. - We recommend that an adult stay with you for 24 hours following discharge. - We also recommend that you do not drive, make important decision, drink alcoholic beverages, or take any drugs that were not prescribed by your health care provider for at least 24 hours after your discharge time. Follow any additional instructions given to you from your surgeon. If you or anyone in your household have experienced Covid symptoms in the past week, please notify your surgeon or the nurse liaison at the phone number below for possible testing. Telephone instructions given to _[email or web address]_and asked if any additional questions and then verbalized understanding. Patient advised to call surgeon office or pre surgery nurse liaison [phone] if any additional questions.
--- NOTE | 2023-08-18 16:21 | PM.IMHP ---
H&P: HPI History of Present Illness Date/Time: 08/18/23 16:21 Chief Complaint: pelvic pain and ovarian cyst Narrative: 27-year-old 0 admitted for laparoscopy and bilateral cystectomy secondary to pelvic pain this patient has had 2 previous surgeries she had. Early in torsion before the past she has severe discomfort she has had negative STD testing and imaging which showed 2.4cm cyst on the left risks and benefits reviewed including but not exclusive of aspiration bleeding transfusion infection perforation injury to bowel bladder ureters or other internal organs with need for open laparotomy she received the ACOG handout entitled laparoscopy had all questions answered and she was to proceed PMFSH Past Medical History Medical History Acute pelvic inflammatory disease (PID) ADD (attention deficit disorder) Anxiety Asthma Attention deficit disorder Bipolar disorder Cyst of left ovary Depression Left tubo-ovarian abscess Treated with antibiotics, laparoscopic left salpingectomy Ovarian cyst 2014 with week-long hospitalization before resolving, no surgery Tobacco abuse Tonsillitis Upper respiratory infection Surgical History Surgical History History of adenoidectomy History of tonsillectomy History of unilateral salpingectomy Laparoscopic left salpingectomy for tuboovarian abscess / PID. Family History Family History Mother Family history of type 2 diabetes mellitus Bipolar 1 disorder Hypertension Diabetes mellitus Family history of arthritis Father Schizophrenia Family history of arthritis Grandparent Diabetes mellitus Family history of arthritis Other Family history of kidney disease Ovarian cancer Social History Social History Smoking packs per day: 0.25 Smoking cigarettes per day: 5.0 Years smoked: 10 Smoking pack-years: 2.50 Smoking status: Current every day smoker Tobacco type: cigarettes Second hand tobacco smoke exposure: Yes Alcohol intake: current Drinks per week: 4 Substance use: current Substance use type: marijuana Other substance usage details: every other day at night to help sleep. Last use: 1 week ago Living arrangements: with family Gender identity (if verbalized by the patient): Female Spiritual care concerns: No Agree to blood products: Yes Meds Home Medications and Allergies Home Medications Medication Instructions Recorded Confirmed Type hydrocodone 5 mg-acetaminophen 325 1 tablet PO Q4H PRN pain #30 tabs 02/15/20 08/18/23 Rx mg tablet ([place]) trazodone 50 mg tablet 150 mg PO HS #180 tabs 10/20/20 08/18/23 Rx escitalopram oxalate 20 mg tablet 20 mg PO HS 08/18/23 08/18/23 History lamotrigine 100 mg tablet 100 mg PO HS 08/18/23 08/18/23 History lamotrigine 200 mg tablet 200 mg PO HS 08/18/23 08/18/23 History polyethylene glycol 3350 17 34 g PO BID PRN Constipation 08/18/23 08/18/23 History gram/dose oral powder (Miralax) prazosin 2 mg capsule mg 08/18/23 History quetiapine 300 mg tablet,extended 300 mg PO HS 08/18/23 08/18/23 History release 24 hr Allergies Allergy/AdvReac Type Severity Reaction Status Date / Time No Known Allergies Allergy Verified 08/18/23 08:33 Exam Const: General: cooperative, healthy appearing and comfortable Nutritional Appearance: average body habitus Orientation/consciousness: oriented to person, oriented to place and oriented to time HENMT: Head: normal to inspection Resp: Effort & Inspection: normal respiratory effort Cardio: Rate: regular rate Rhythm: regular rhythm Heart sounds: S1 normal heart sound present and S2 normal heart sound present GI: Inspection: normal to inspection : External Female Exam: normal external appearan
[2023-08-19] VITALS (8 sets, daily range): BP systolic 108–134; BP diastolic 7–93; PULSE 77–98; RESP 12–20; TEMP 36.5–37.3; O2SAT 94–100; BMI 29.5
--- NOTE | 2023-08-19 06:57 | WPDHPUPDATE1 ---
History and Physical Update Update Date/Time: 08/19/23 06:57 History and Physical has been reviewed, including an updated exam of the patient. There are NO changes in the patient's condition. Risks, benefits, and alternatives have been discussed and questions answered. Patient agrees to proceed with procedure.
--- NOTE | 2023-08-19 13:05 | WPDANESEPPF ---
Anes - Initial Pre Proc Eval Procedure: Operation Date: 08/19/23 15:00 Proposed Procedures p Laparoscopy with Bilateral Ovarian Cystectomy - Keven Foster MD Date/Time: 08/19/23 13:05 Surgeon: Keven Foster MD Pre Op Diagnosis: Fili Ovarian Cyst Patient Data Age: 27 Gender: F Height: 1.63 m Weight: 79 kg Allergies Allergy/AdvReac Type Severity Reaction Status Date / Time No Known Allergies Allergy Verified 08/18/23 08:33 Home Medications Medication Instructions Recorded Confirmed Type hydrocodone 5 mg-acetaminophen 325 1 tablet PO Q4H PRN pain #30 tabs 02/15/20 08/18/23 Rx mg tablet ([place]) trazodone 50 mg tablet 150 mg PO HS #180 tabs 10/20/20 08/18/23 Rx escitalopram oxalate 20 mg tablet 20 mg PO HS 08/18/23 08/18/23 History lamotrigine 100 mg tablet 100 mg PO HS 08/18/23 08/18/23 History lamotrigine 200 mg tablet 200 mg PO HS 08/18/23 08/18/23 History polyethylene glycol 3350 17 34 g PO BID PRN Constipation 08/18/23 08/18/23 History gram/dose oral powder (Miralax) prazosin 2 mg capsule mg 08/18/23 History quetiapine 300 mg tablet,extended 300 mg PO HS 08/18/23 08/18/23 History release 24 hr hydrocodone 5 mg-acetaminophen 325 1 tablet PO Q4H PRN pain #20 tabs 08/19/23 Rx mg tablet Patient hx anesthesia problems: other (wakes up aggressive) Family hx anesthesia problems: none Results Review: All pre-operative results and documents have been reviewed as part of the pre-operative evaluation. [facility] Past Medical History Medical History Acute pelvic inflammatory disease (PID) ADD (attention deficit disorder) Anxiety Asthma Attention deficit disorder Bipolar disorder Cyst of left ovary Depression Left tubo-ovarian abscess Treated with antibiotics, laparoscopic left salpingectomy Ovarian cyst 2014 with week-long hospitalization before resolving, no surgery Tobacco abuse Tonsillitis Upper respiratory infection Surgical History Surgical History History of adenoidectomy History of tonsillectomy History of unilateral salpingectomy Laparoscopic left salpingectomy for tuboovarian abscess / PID. Family History Family History Mother Family history of type 2 diabetes mellitus Bipolar 1 disorder Hypertension Diabetes mellitus Family history of arthritis Father Schizophrenia Family history of arthritis Grandparent Diabetes mellitus Family history of arthritis Other Family history of kidney disease Ovarian cancer Social History Social History Smoking packs per day: 0.25 Smoking cigarettes per day: 5.0 Years smoked: 10 Smoking pack-years: 2.50 Smoking status: Current every day smoker Tobacco type: cigarettes Second hand tobacco smoke exposure: Yes Alcohol intake: current Drinks per week: 4 Substance use: current Substance use type: marijuana Other substance usage details: every other day at night to help sleep. Last use: 1 week ago Living arrangements: with family Gender identity (if verbalized by the patient): Female Spiritual care concerns: No Agree to blood products: Yes Anes - Eval Final PreProcedure Day of Procedure 08/19/23 13:05 Patient weight: overweight Heart: regular rate and rhythm Lungs: clear to auscultation Airway: Mallampati scale class II Neurological: alert and oriented Last oral intake: >/= 8 hours ASA classification: III Emergent: no Anesthetic plan: proceed Anesthesia type and monitoring: general ETT and standard monitoring Results Review: All pre-operative results and documents have been reviewed as part of the pre-operative evaluation. Informed Consent: The patient's anesthetic plan and its attendant risks and benefits were discussed with the crow
[2023-08-19] MEDS: ACETAMINOPHEN 500 MG TABLET 1000 MG PO (13:37)
[2023-08-19] MEDS: KETOROLAC 15 MG/ML VIAL (*BKC) IV PUSH (13:37)
[2023-08-19] MEDS: LACTATED RINGERS 1,000 ML 30 ML IV CONT (13:46)
--- NOTE | 2023-08-19 14:51 | W.PM.PROC2 ---
Procedure Note - Detailed Date of Procedure 08/19/23 Pre-op Diagnosis Fili Ovarian Cyst Post-op Diagnosis Other ( pelvic pain /left ovarian cyst) Procedure Performed laparoscopy with destruction of left ovarian cyst. 60cc of serous fluid Surgeon Keven Foster MD Anesthesia General Indications 27-year-old with the severe pelvic pain and left ovarian cyst Findings benign-appearing left cyst. 60cc of serosanguineous fluid cul-de-sac. Description of Procedure Patient was prepped draped in sterile placed in dorsal in general tracheal anesthesia weighted speculum placed posterior vagina. Anterior lip of the cervix grasped with single-tooth tenaculum. Meléndez's cannula inserted attached to the single-tooth to be used later for uterine manipulation. After emptying the bladder clear urine, the weighted speculum was removed the gloves were changed. Infraumbilical incision Veress needle passed in the abdomen. Abdomen filled with CO2 gas to 15mm Hg. The 5mm trocar advanced in the abdomen. Downside visualized no injury seen. Patient placed in Trendelenburg and a suprapubic incision made. The 5mm trocar advanced in the abdomen direct visualization assuring injury. The above findings were seen. [id number] of serosanguineous fluid in the cul-de-sac. This was suction removed. Moderate size left ovarian cyst was seen and this was opened in linear fashion. Irrigation undertaken once again and no other abnormalities were seen. Photo documentation was undertaken. The lower site removed. The gas removed from the abdomen. The upper site removed and the incisions closed with 4-0 Monocryl glue. Patient went to come satisfactory condition. All sponge, needle, instrument counts were correct. There were no immediate complications Estimated Blood Loss 5 Drains No Packing No Pathology Yes ( cul-de-sac fluid sent for culture) Complications No immediate complications Condition Stable Disposition PACU
[2023-08-19] MEDS: fentaNYL CITRATE INJ (*CRX) 100 MCG/2 ML VIAL 25 MCG IV PUSH ×8 (15:11→15:51)
[2023-08-19] MEDS: oxyCODONE HCL (*CRX) 5 MG TAB IR PO (16:34)
== END 2023-08-19 16:38 | disposition home or self-care (01) ==
PROVIDERS: Visit Provider Obstetrics & Gynecology
PROC: (CPT 49320; principal; 2023-08-19 15:00)
DX: N83.202 Unspecified ovarian cyst, left side (principal); F41.9 Anxiety disorder, unspecified; J45.909 Unspecified asthma, uncomplicated; F31.9 Bipolar disorder, unspecified; F17.210 Nicotine dependence, cigarettes, uncomplicated; F12.90 Cannabis use, unspecified, uncomplicated; F98.8 Other specified behavioral and emotional disorders with onset usually occurring in childhood and adolescence; Z98.890 Other specified postprocedural states; Z79.891 Long term (current) use of opiate analgesic; Z80.41 Family history of malignant neoplasm of ovary
CPT/HCPCS: 58662; 87070; 87075; 87205; A9270; J1885; J2250; J3010; J7120

== ENCOUNTER 2024-03-21 23:31 | Inpatient (IN) | payer SELFPAY ==
--- NOTE | ~2024-03-21 | XR_ITS ---
EXAMINATION: XR chest ET placement DATE: 03/22/2024 00:21 INDICATION: Intubation. Overdose. TECHNIQUE: A single frontal view of the chest was obtained. COMPARISON: Chest single view 02/12/2020, CT abdomen and pelvis 08/14/2023 FINDINGS: There are airspace opacities with volume loss in right upper lobe. There are airspace opaci ties in left perihilar region. No pleural effusion or pneumothorax. The heart size is normal. The end otracheal tube tip is 3.7 cm above the art. The nasogastric tube tip is in the stomach. IMPRESSION: 1. Airspace opacities with volume loss in right lung upper lobe and airspace opacities in left perihi lar region, consistent with atelectasis versus pneumonia. Reviewed, dictated and finalized at location A. AINABILITY MANAGER IMPRESSION: 1. Airspace opacities with volume loss in right lung upper lobe and airspace op acities in left perihilar region, consistent with atelectasis versus pneumonia.
--- NOTE | ~2024-03-21 | XR_ITS ---
EXAMINATION: XR chest 1V portable DATE: 03/23/2024 06:23 INDICATION: Intubated. TECHNIQUE: A single frontal view of the chest was obtained. COMPARISON: Chest single view 03/22/2024, CT abdomen and pelvis 08/14/2023 FINDINGS: There is no pneumonia, pleural effusion, or pneumothorax. The heart size is normal. The end otracheal tube tip is 5.2 cm above the art. The nasogastric tube tip is in the stomach. IMPRESSION: 1. No acute cardiopulmonary disease. Reviewed, dictated and finalized at location A. EL ENGINEER
[2024-03-21 23:31] VITALS: BP 133/65; PULSE 133; RESP 16; TEMP 36.9; O2SAT 100
--- NOTE | 2024-03-21 23:35 | ECG_ITS ---
Test Date: 2024-03-22 00:23:54 Measurements Intervals [place] Rate: 150 P: 75 AK: 133 QRS: 83 QRSD: 97 T: 28 QT: 328 QTc: 518 Interpretive Statements SINUS TACHYCARDIA NONSPECIFIC ST & T-WAVE ABNORMALITY ABNORMAL ECG Electronically Signed On 03-22-2024 08:43:03 FOLDER SEAMER by Tucker Berkowitz M.D.
[2024-03-21] MEDS: MIDAZOLAM HCL (*CRX) 2 MG/2 ML VIAL 4 MG IV PUSH (23:52)
[2024-03-22] VITALS (64 sets, daily range): BP systolic 86–150; BP diastolic 48–96; PULSE 77–144; RESP 14–26; TEMP 36.3–37.2; O2SAT 94–100; BMI 28.0
[2024-03-22] MEDS: SODIUM CHLORIDE 0.9% IV 1,000 ML 999 ML IV CONT ×2 (00:05→03:20)
--- NOTE | 2024-03-22 00:08 | ED.GENADULT ---
HPI - General Adult General Chief complaint: Overdose Stated complaint: si, drug overdose Time Seen by Provider: 03/21/24 23:34 History of Present Illness HPI narrative: Patient 28-year-old female who presents emergency department with chief complaint of overdose. Patient took trazodone Seroquel hand Lexapro head around 2250 the patient also was drinking alcohol the patient was extremely noncooperative upon arrival fighting staff Related Data Home Medications ?Medication ?Instructions ?Recorded ?Confirmed ?Last Taken ?Type escitalopram oxalate 20 mg tablet 20 mg PO HS 08/18/23 03/22/24 08/18/23 History lamotrigine 100 mg tablet 100 mg PO HS 08/18/23 03/22/24 08/18/23 History lamotrigine 200 mg tablet 200 mg PO HS 08/18/23 03/22/24 08/18/23 History quetiapine 300 mg tablet,extended 300 mg PO HS 08/18/23 03/22/24 08/18/23 History release 24 hr escitalopram oxalate 10 mg tablet 10 mg PO HS 03/22/24 03/22/24 Unknown History trazodone 100 mg tablet 200 mg PO HS 03/22/24 03/22/24 Unknown History Allergies Allergy/AdvReac Type Severity Reaction Status Date / Time No Known Allergies Allergy Verified 08/19/23 13:57 Review of Systems Review of Systems: A 10 system review of systems was completed on the patient and is negative except for what is stated in the HPI. Nursing and ancillary documentation was reviewed. FOR[facility]LY [facility] Past Medical History Medical History (Updated 03/22/24 @ 05:53 by Quentin Shane MD) Left tubo-ovarian abscess Treated with antibiotics, laparoscopic left salpingectomy Cyst of left ovary Attention deficit disorder Tobacco abuse Acute pelvic inflammatory disease (PID) Depression ADD (attention deficit disorder) Anxiety Bipolar disorder Asthma Tonsillitis Ovarian cyst 2014 with week-long hospitalization before resolving, no surgery Upper respiratory infection Surgical History Surgical History History of unilateral salpingectomy Laparoscopic left salpingectomy for tuboovarian abscess / PID. History of adenoidectomy History of tonsillectomy Family History Family History Mother Family history of type 2 diabetes mellitus Bipolar 1 disorder Hypertension Diabetes mellitus Family history of arthritis Father Schizophrenia Family history of arthritis Grandparent Diabetes mellitus Family history of arthritis Other Family history of kidney disease Ovarian cancer Social History Social History Smoking packs per day: 0.25 Smoking cigarettes per day: 5.0 Years smoked: 10 Smoking pack-years: 2.50 Smoking status: Current every day smoker Tobacco type: cigarettes Second hand tobacco smoke exposure: Yes Alcohol intake: current Drinks per week: 4 Substance use: current Substance use type: unknown Other substance usage details: every other day at night to help sleep. Last use: 1 week ago Living arrangements: with family Gender identity (if verbalized by the patient): Female Spiritual care concerns: No Agree to blood products: Yes Exam Narrative: GENERAL: Combative, acutely intoxicated. HEAD: Normocephalic, atraumatic. EYES: PERRLA and EOMI. ENT: Nares clear, no rhinorrhea or epistaxis. Mucous membranes moist. NECK: Supple. CHEST: Clear to auscultation. No respiratory distress. HEART: Regular rate and rhythm. No murmur heard. Normal peripheral pulses. ABDOMEN: Soft, nontender, nondistended, normal active bowel sounds. EXTREMITIES: Normal range of motion. No edema. SKIN: Warm, dry, no rash. NEURO: No focal deficits. Alert and oriented x3. PSYCH: Normal mood and affect. Course Vital Signs Vital signs: Vital Signs Temperature 36.9 C 03/21/24 23:31 Pulse Rate 133 H 03/21/24 23:31 Respiratory Rate 16 03/21/24 23:31 Blood Pressure 133/65 03/21/24 23:31 Pulse Oximetry 100 03/21/24 23:31 Oxygen Delivery Room Air 03/21/24 23:31 Temperature 37.0 C 03/22/24 06:04 Pulse Rate 129 H 03/22/24 06:04 Respiratory Rate 19 03/22/24 06:04 Blood Pressure 128/66 03/22/24 06:04 Pulse Oximetry 100 03/22/24 06:04 Oxygen Delivery Mechanical Ventilation 03/22/24 04:00 Fraction of Inspired Oxygen 30 03/22/24 04:00 Procedures Intubation Intubation #1: Intubation Date: 03/22/24 Intubation Time: 00:09 Time out performed: Yes sedative: Etomidate Mg Given: 20 paralytic: Succinylcholine Mg Given: 100 Laryngoscope: fiber optic video scope Tube Size (cm): 7.5 Method of Intubation: orotracheal Number of Attempts: 1 Tube Secured Depth (cm): 21 Tube Secured Location: lips Tube Placement Confirmation: visualized tube passing through cords, equal breath sounds bilaterally, no breath sounds over epigastrium and confirmation by capnometry Patient Tolerated Procedure: well and no complications Intubation Complications: none Medical Decision Making Vital Signs Vital Signs: Vital Signs Temperature 36.9 C 03/21/24 23:31 Pulse Rate 133 H 03/21/24 23:31 Respiratory Rate 16 03/21/24 23:31 Blood Pressure 133/65 03/21/24 23:31 Pulse Oximetry 100 03/21/24 23:31 Oxygen Delivery Room Air 03/21/24 23:31 Temperature 37.0 C 03/22/24 06:04 Pulse Rate 129 H 03/22/24 06:04 Respiratory Rate 19 03/22/24 06:04 Blood Pressure 128/66 03/22/24 06:04 Pulse Oximetry 100 03/22/24 06:04 Oxygen Delivery Mechanical Ventilation 03/22/24 04:00 Fraction of Inspired Oxygen 30 03/22/24 04:00 Lab Data 03/21/24 00:56 03/21/24 00:56 Labs: Lab Results 03/21/24 03/22/24 Range/Units 00:56 00:56 WBC 6.9 (4.5-10.0) K/mm3 RBC 4.40 (4.2-5.4) M/mm3 Hgb 12.8 (12.0-15.0) g/dL Hct 39.2 (37.0-47.0) % MCV 89.1 (80-100) fl MCH 29.1 (26-34) pg MCHC 32.7 (32-36) g/dl RDW 14.5 (11.5-14.5) % Plt Count 316 (150-375) k/mm3 MPV 10.6 H (7.4-10.4) fl Immature Gran % (Auto) 0.3 (0-0.5) % Neut % (Auto) 58.4 (45.5-73.1) % Lymph % (Auto) 35.3 (18.3-44.2) % [place] % (Auto) 4.0 (2.6-8.5) % Eos % (Auto) 1.6 (0-4.4) % Baso % (Auto) 0.4 (0.2-1.2) % Lymph # (Auto) 2.45 (0.9-3.2) K/mm3 [place] # (Auto) 0.3 (0.1-0.6) K/mm3 Eos # (Auto) 0.1 (0-0.3) K/mm3 Baso # (Auto) 0.0 (0.0-0.1) K/mm3 Abs Immat Gran (auto) 0.02 (0.00-0.031) K/mm3 Absolute Neuts (auto) 4.1 (1.3-6.7) K/mm3 Absolute Nucleated RBC 0.000 (0.0-0.012) K/mm3 Nucleated RBC % 0.0 (0.0-0.2) % Sodium 145 (137-145) mmol/L Potassium 3.9 (3.4-5.0) mmol/L Chloride 111 H (98-107) mmol/L Carbon Dioxide 25 (22-30) mmol/L Anion Gap 9 (4-12) mmol/L BUN 9 (7-17) mg/dL Creatinine 0.50 L (0.7-1.0) mg/dL Estim Creat Clear Calc 123 ml/min Estimated GFR > 60 (59 - ) Glucose 111 H (65-110) mg/dL Calcium 8.3 L (8.4-10.2) mg/dL Magnesium 1.9 (1.6-2.3) mg/dL Total Bilirubin 0.3 (0.2-1.3) mg/dL AST 30 (14-36) U/L ALT 15 (6-35) U/L Alkaline Phosphatase 76 (38-126) U/L Total Protein 7.0 (6.3-8.2) g/dL Albumin 4.6 (3.5-5.1) g/dL Triglycerides 213 H (<150) mg/dL TSH 3.840 (0.465-4.680) uIU/mL Urine Color Yellow (Yellow) Urine Appearance Clear (Clear) Urine pH 5.5 (5.0-9.0) Ur Specific [place] 1.006 (1.001-1.035) Urine Protein Negative (Negative) mg/dL Urine Glucose (UA) Negative (Negative) mg/dL Urine Ketones Negative (Negative) mg/dL Ur Blood (Man) Negative (Negative) Urine Nitrate Negative (Negative) Urine Bilirubin Negative (Negative) Urine Urobilinogen 0.2 (<2.0) mg/dL Leukocyte Esterase Rfl Negative (Negative) LUCIA/UL Salicylates < 1.0 L (2-20) mg/dL Urine Opiates Screen Negative (Negative) Urine Methadone Screen Negative (Negative) Acetaminophen < 10 L (10-30) ug/mL Ur Barbiturates Screen Negative (Negative) Lamotrigine Pending Ur Phencyclidine Scrn Negative (Negative) Ur Amphetamine Screen Negative (Negative) U Benzodiazepines Scrn Positive A (Negative) Urine Cocaine Screen Negative (Negative) U Cannabinoids Screen Negative (Negative) Ethyl Alcohol 116 (<10) mg/dL Influenza A (RT-PCR) Negative (Negative) Influenza B (RT-PCR) Negative (Negative) RSV (RT-PCR) Negative (Negative) SARS-CoV-2 RNA (RT-PCR) Negative (Negative) Critical Care Time Critical Care Time Critical Care Time: Yes Total Critical Care Time: 75 Restraint Face to Face Eval ED Reason for Restraint Aggressive/Violent Evaluation Findings Date Seen by EDP: 03/22/24 Time Seen by EDP: 00:11 Pt's immediate situation:: Combative intoxicated status post overdose Pt's reaction to intervention:: Attempted redirection IV anxiolysis Pt's med/behavioral condition:: Fighting staff taking Restraint or Seclusion Need Need to continue or terminate:: The patient is cooperative and not a threat soft or others Discharge Plan Discharge Clinical Impression: Drug overdose Patient Disposition: Still a Patient Condition: Stable
[2024-03-22] MEDS: PROPOFOL IV EMULSION 100 ML 1.98 MG IV CONT (00:30)
[2024-03-22 01:07] LABS: Add Urine Microscopic? NO; Appearance Urine Clear (Clear); Bilirubin Urine Negative (Negative); Blood Urine Negative (Negative); Color Urine Yellow (Yellow); Glucose Urine UA Negative (Negative); Ketones Urine Negative (Negative); Leukocyte Esterase Ur Negative LEU/UL (Negative); Nitrate Urine Negative (Negative); Protein Urine Negative (Negative); Specific Grav Ur 1.006 (1.001-1.035); Urobilinogen Urine 0.2 mg/dL (<2.0); pH Urine 5.5 (5.0-9.0)
--- NOTE | 2024-03-22 01:11 | PC.NURSE ---
2340 Pt thrashing around in the stretcher, kicking, biting, and acting belligerent. Dr. Shane at bedside with this RN, Madhavi RN, and Angel PCT. 4 mg versed IV vorb Dr. Shane. 2352 4 mg versed administered via IV push. 2358 Pt's o2 sats drop to 60s, BVM applied and in use, RT and EDP called to bedside. Decision to intubate is made. 0000 Second 18 g IV started in the pt's L forearm. 1 L bolus of NS started vorb Dr. Shane. 0005 20 mg of etomidate administered IV push, 100 mg succinylcholine administered IV push. 0006 Pt is intubated with 7.5 ET tube, 21 cm at the lip, positive color change noted, bilateral breath sounds heard. 0010 Meraz catheter and OG tube placed.
[2024-03-22 01:15] LABS: Alanine Aminotransferase 15 U/L (6-35); Albumin Level 4.6 g/dL (3.5-5.1); Alkaline Phosphatase 76 U/L (38-126); Anion Gap 9 mmol/L (4-12); Aspartate Amino Transferase 30 U/L (14-36); Bilirubin,Total 0.3 mg/dL (0.2-1.3); Blood Urea Nitrogen 9 mg/dL (7-17); Calcium 8.3 mg/dL (8.4-10.2); Carbon Dioxide 25 mmol/L (22-30); Chloride 111 mmol/L (98-107); Estimated CRCL calculation 123 ml/min; Estimated Glomerular Filt Rate > 60; Glucose 111 mg/dL (65-110); Potassium 3.9 mmol/L (3.4-5.0); Sodium 145 mmol/L (137-145)
[2024-03-22 01:16] LABS: Acetaminophen < 10 ug/mL (10-30); Ethanol 116 mg/dL (<10); Salicylate < 1.0 mg/dL (2-20)
[2024-03-22 01:17] LABS: Basophils Percent Auto 0.4 % (0.2-1.2); Eosinophils Absolute Auto 0.1 K/mm3 (0-0.3); Eosinophils Percent Auto 1.6 % (0-4.4); Hematocrit 39.2 % (37.0-47.0); Hemoglobin 12.8 g/dL (12.0-15.0); Immature Granulocyte Absolute 0.02 K/mm3 (0.00-0.031); Immature Granulocyte Percent A 0.3 % (0-0.5); Lymphocytes Absolute Auto 2.45 K/mm3 (0.9-3.2); Lymphocytes Percent Auto 35.3 % (18.3-44.2); Mean Corpuscular HGB Conc 32.7 g/dl (32-36); Mean Corpuscular Hemoglobin 29.1 pg (26-34); Mean Corpuscular Volume 89.1 fl (80-100); Mean Platelet Volume 10.6 fl (7.4-10.4); Monocytes Absolute Auto 0.3 K/mm3 (0.1-0.6); Neutrophils Absolute Auto 4.1 K/mm3 (1.3-6.7); Neutrophils Percent Auto 58.4 % (45.5-73.1); Platelet Count Result 316 k/mm3 (150-375); Red Cell Distribution Width 14.5 % (11.5-14.5); White Blood Count 6.9 K/mm3 (4.5-10.0)
[2024-03-22 01:23] LABS: Amphetamine Screen Urine Negative (Negative); Barbiturate Screen Urine Negative (Negative); Benzodiazepines Screen Urine Positive (Negative); Cannabinoid Screen Urine Negative (Negative); Cocaine Screen Urine Negative (Negative); Methadone Screen Urine Negative (Negative); Opiate Screen Urine Negative (Negative); Phencyclidine Screen Urine Negative (Negative)
[2024-03-22 01:42] LABS: Influenza A QL RT-PCR Negative (Negative); Influenza B QL RT-PCR Negative (Negative); RSV RNA, RT-PCR Negative (Negative); SARS-CoV-2 RNA PCR Negative (Negative)
[2024-03-22 01:42] LABS: Triglycerides 213 mg/dL (<150)
[2024-03-22 03:37] LABS: Magnesium 1.9 mg/dL (1.6-2.3)
--- NOTE | 2024-03-22 04:00 | ADMGEN ---
This patient, Mariam Quintana, was admitted to Intensive Care Unit-2. Patient/family oriented to hospital policies and general routines including ID bracelet, bed and alarms, visiting hours, pain management, procedures, bathroom and other care routines, personal items, smoking policy, room service/diet, and visiting hours. Information on how to activate the Rapid Response Team has been discussed. Patient/Family are encouraged to report perceived risks to care and to ask questions if they do not understand what they are told or what they should do.
[2024-03-22 05:44] LABS: Alveolar/Arterial O2 Gradient 43.4 mmHg; Base Excess ABG -3.7 mEq/l (+/-2.0); Carboxyhemoglobin 0.9 % THb (0-2.0); Fractional Inspired Oxygen 30 %; HCO3 ABG 22.9 mEq/l (22.0-26.0); Methemoglobin ABG 0.3 %THb (0-1.5); Oxygen Content ABG 16.2 %vol (16.0-22.0); Oxygen Saturation ABG 97.7 % (95.0-100.0); Oxyhemoglobin 96.8 % THb (90.0-100.0); PCO2 ABG 47.7 mmHg (35.0-45.0); PO2 ABG 114.5 mmHg (80.0-100.0); PO2 FiO2 Ratio Arterial Blood 3.82 %; Total Hemoglobin 11.8 g/dL (12.0-18.0); pH ABG 7.299 (7.350-7.450)
[2024-03-22 05:46] LABS: Arterial Blood Gas Ventilator rate 16 /MIN; Device VENTILATOR; Modified Allen's Test Pass; Site Drawn RIGHT RADIAL
[2024-03-22 05:47] LABS: Arterial Blood Gas PEEP 5 cmH2O; Arterial Blood Gas Tidal Volume 350 ml; Arterial Blood Gas Vent Mode CMV
[2024-03-22 06:02] LABS: Glucose Point of Care 97 mg/dl (65-105)
[2024-03-22] MEDS: SODIUM CHLORIDE 0.9% IV 1,000 ML 125 ML IV CONT (06:05)
[2024-03-22] MEDS: PROPOFOL IV EMULSION 100 ML 20.01 MG IV CONT (06:25)
[2024-03-22 07:28] LABS: MRSA (PCR) NOT DETECTED (NOT DETECTE)
[2024-03-22] MEDS: ENOXAPARIN 40 MG/0.4 ML SYRINGE SUB-Q (08:11)
[2024-03-22] MEDS: LACTATED RINGERS 1,000 ML 999 ML IV CONT (08:11)
[2024-03-22] MEDS: PANTOPRAZOLE SODIUM IV 40 MG VIAL IV PUSH (08:11)
[2024-03-22] MEDS: MINERAL OIL/WHITE PETROLATUM OINTMENT 1 APPLIC EACH EYE ×3 (08:11→21:22)
--- NOTE | 2024-03-22 08:29 | P.CONIN_ITS ---
Assessment and Plan Assessment and plan (1) Respiratory failure: Code(s): J96.90 - Respiratory failure, unspecified, unspecified whether with hypoxia or hypercapnia Status: Acute Assessment and Plan: Patient presented with multiple medication drug overdose, was combative and agitated and fighting with the staff in the ED. Received multiple doses of Ativan, was intubated for aggressive behavior -currently on CMV mode of ventilation, 30% FiO2 and peep 5 -chest x-ray and ABGs reviewed, will increase tidal volume 380 mL and respiratory rate to 18/min -history of asthma, will add bronchodilators p.r.n. -patient currently on propofol infusion, will switch to Precedex, once patient is more awake will trying place her on SBT and evaluate for extubation (2) Drug overdose: Code(s): T50.901A - Poisoning by unspecified drugs, medicaments and biological substances, accidental (unintentional), initial encounter Status: Acute Assessment and Plan: 03/22: Patient presented to the ED with drug overdose. According the records she took unknown amounts of Lamictal trazodone, Seroquel and Lexapro. Patient had also a alcohol to drink per records. Patient was aggressive and fighting the ER staff -currently intubated and sedated -poison control was notified -lamotrigine levels are pending -will give additional IV fluid bolus, monitor urine output -continue maintenance IV fluid (3) Suicidal behavior: Code(s): R45.89 - Other symptoms and signs involving emotional state Status: Acute Assessment and Plan: According the ER triage nurse patient did complain of suicide attempt by drug overdose and that she did this to harm herself and stated she was hearing voices -continue suicide precautions -once extubated will have a bedside sitter and close -when she is medically stable will have care coordination and crisis management evaluate her (4) Attention deficit disorder: Code(s): F98.8 - Other specified behavioral and emotional disorders with onset usually occurring in childhood and adolescence Status: Acute Assessment and Plan: History of ADD, on Lamictal, Seroquel, trazodone Lexapro, continue to hold for now (5) Asthma: Code(s): J45.909 - Unspecified asthma, uncomplicated Status: Acute Assessment and Plan: Will add p.r.n. bronchodilators (6) Bipolar disorder: Code(s): F31.9 - Bipolar disorder, unspecified Status: Acute Assessment and Plan: Multiple medications as above, continue to hold for now (7) Tobacco abuse: Code(s): Z72.0 - Tobacco use Status: Acute Assessment and Plan: Will director of counseling patient on tobacco cessation once she is extubated (8) Alcohol use: Code(s): F10.90 - Alcohol use, unspecified, uncomplicated Status: Acute Assessment and Plan: Will director of counseling patient on alcohol cessation once she is extubated, will have care coordination sister with resource is for alcohol cessation Plan DVT prophylaxis: Enoxaparin Stress ulcer prophylaxis: Protonix Nutrition: NPO for now, if he does not get extubated will start tube feed Code Status: Full code Critical Care Time Spent: 49 minutes Due to a high probability of clinically significant, life threatening deterioration, the patient required my highest level of preparedness to intervene emergently and I personally spent this critical care time directly and personally managing the patient. This critical care time included obtaining a history; examining the patient; pulse oximetry; ordering and review of studies; arranging urgent treatment with development of a management plan; evaluation of patient's response to treatment; frequent reassessment; and discussions with other providers. It was exclusive of separately billable procedures and treating other patients and teaching time. Please see Assessment and Plan section and the rest of the note for further information on patient assessment and treatment This dictation may have been done utilizing a voice recognition system. Attempts have been made to correct errors. However, there may be uncorrected grammatical, spelling, and recognitions errors present. Senior Accounting Specialist Consult Note Consult date: 03/22/24 Reason for consult: Respiratory failure, medication overdose, suicidal behavior HPI: Mariam Quintana is a 28 year old female with past medical history of attention deficit disorder, tobacco abuse, pelvic inflammatory disease, depression, anxiety, bipolar, asthma, history of bilateral ovarian cysts removal presented the ED on 03/22/2024 with complaints of overdose, patient apparently took unknown amount of Lamictal, trazodone, Seroquel and Lexapro. She was also drinking alcohol. History has been obtained from medical records there is no family available at bedside. Patient was also non cooperative and fighting with the staff on arrival. Patient was given Ativan in the ER, and was intubated for aggressive behavior. Patient received 2 L of IV fluid bolus, started on maintenance fluids and transferred to the ICU for further management -in the ER WBC was 6.9, hemoglobin 12.8 and platelet counts of 316. Cm a was unremarkable, LFTs were within normal limits, chest x-ray showed: Airspace opacities with volume loss in right lung upper lobe and airspace opacities in left perihilar region, consistent with atelectasis versus pneumonia. -urine drug screen was positive for benzodiazepine. Salicylate, acetaminophen was negative. Alcohol levels 116 Patient seen and examined this morning in the ICU, remains intubated on CMV mode of ventilation, peep of 5, 30% FiO2. Sedated with propofol infusion. Does not open her eyes or follow simple commands. Withdraws to pain in all extremity Hemodynamically stable, tachycardic. Review of Systems 2 Review of Systems: ROS unobtainable: Yes unobtainable due to endotracheal tube, unobtainable due to medical condition and unobtainable due to mental status PMFSH Past Medical History Medical History (Updated 03/22/24 @ 08:40 by Jaycee Menchaca MD) Left tubo-ovarian abscess Treated with antibiotics, laparoscopic left salpingectomy Cyst of left ovary Attention deficit disorder Tobacco abuse Acute pelvic inflammatory disease (PID) Depression ADD (attention deficit disorder) Anxiety Bipolar disorder Asthma Tonsillitis Ovarian cyst 2014 with week-long hospitalization before resolving, no surgery Upper respiratory infection Surgical History Surgical History History of unilateral salpingectomy Laparoscopic left salpingectomy for tuboovarian abscess / PID. History of adenoidectomy History of tonsillectomy Family History Family History Mother Family history of type 2 diabetes mellitus Bipolar 1 disorder Hypertension Diabetes mellitus Family history of arthritis Father Schizophrenia Family history of arthritis Grandparent Diabetes mellitus Family history of arthritis Other Family history of kidney disease Ovarian cancer Social History Social History Smoking packs per day: 0.25 Smoking cigarettes per day: 5.0 Years smoked: 10 Smoking pack-years: 2.50 Smoking status: Current every day smoker Tobacco type: cigarettes Second hand tobacco smoke exposure: Yes Alcohol intake: current Drinks per week: 4 Substance use: current Substance use type: unknown Other substance usage details: every other day at night to help sleep. Last use: 1 week ago Living arrangements: with family Gender identity (if verbalized by the patient): Female Spiritual care concerns: No Agree to blood products: Yes Meds Home Medications and Allergies Home Medications ?Medication ?Instructions ?Recorded ?Confirmed ?Type escitalopram oxalate 20 mg tablet 20 mg PO HS 08/18/23 03/22/24 History lamotrigine 100 mg tablet 100 mg PO HS 08/18/23 03/22/24 History lamotrigine 200 mg tablet 200 mg PO HS 08/18/23 03/22/24 History quetiapine 300 mg tablet,extended 300 mg PO HS 08/18/23 03/22/24 History release 24 hr escitalopram oxalate 10 mg tablet 10 mg PO HS 03/22/24 03/22/24 History trazodone 100 mg tablet 200 mg PO HS 03/22/24 03/22/24 History Allergies Allergy/AdvReac Type Severity Reaction Status Date / Time No Known Allergies Allergy Verified 08/19/23 13:57 Vital Signs Vital Signs - 24 hr 03/21/24 23:31 03/22/24 00:05 03/22/24 00:15 Temperature 98.4 F Pulse Rate 133 H 139 H Respiratory Rate 16 23 H Blood Pressure 133/65 Pulse Oximetry 100 96 Oxygen Delivery Room Air Mechanical Ventilation Fraction of Inspired Oxygen 30 03/22/24 00:15 03/22/24 00:30 03/22/24 00:36 Temperature Pulse Rate 128 H 137 H Respiratory Rate 19 14 Blood Pressure Pulse Oximetry 94 Oxygen Delivery Room Air Fraction of Inspired Oxygen 03/22/24 01:00 03/22/24 01:30 03/22/24 02:00 Temperature 97.4 F L Pulse Rate 121 H 114 H Respiratory Rate 20 26 H Blood Pressure 117/56 L Pulse Oximetry 94 Oxygen Delivery Fraction of Inspired Oxygen 03/22/24 02:00 03/22/24 02:15 03/22/24 02:30 Temperature 97.6 F 97.7 F Pulse Rate 133 H Respiratory Rate Blood Pressure Pulse Oximetry 96 Oxygen Delivery Mechanical Ventilation Fraction of Inspired Oxygen 30 03/22/24 02:45 03/22/24 02:47 03/22/24 03:15 Temperature 97.9 F 98.3 F Pulse Rate 108 H Respiratory Rate 16 Blood Pressure Pulse Oximetry Oxygen Delivery Fraction of Inspired Oxygen 03/22/24 03:16 03/22/24 03:28 03/22/24 03:45 Temperature 98.5 F Pulse Rate 110 H 107 H Respiratory Rate 16 15 Blood Pressure 86/48 L 94/58 L Pulse Oximetry 98 100 Oxygen Delivery Fraction of Inspired Oxygen 03/22/24 04:00 03/22/24 04:00 03/22/24 04:05 Temperature Pulse Rate 109 H 109 H 135 H Respiratory Rate 16 Blood Pressure Pulse Oximetry 100 Oxygen Delivery Mechanical Ventilation Fraction of Inspired Oxygen 30 03/22/24 04:15 03/22/24 04:20 03/22/24 04:30 Temperature Pulse Rate 140 H 139 H 144 H Respiratory Rate 25 H 24 H 26 H Blood Pressure Pulse Oximetry Oxygen Delivery Fraction of Inspired Oxygen 03/22/24 04:42 03/22/24 05:13 03/22/24 05:23 Temperature 98.6 F Pulse Rate 128 H 124 H 139 H Respiratory Rate 24 H 20 25 H Blood Pressure 126/76 Pulse Oximetry 100 Oxygen Delivery Fraction of Inspired Oxygen 03/22/24 05:45 03/22/24 06:00 03/22/24 06:00 Temperature Pulse Rate 125 H 125 H 131 H Respiratory Rate 26 H 20 Blood Pressure Pulse Oximetry Oxygen Delivery Fraction of Inspired Oxygen 03/22/24 06:04 03/22/24 06:25 03/22/24 06:25 Temperature 98.6 F Pulse Rate 129 H 126 H 125 H Respiratory Rate 19 19 19 Blood Pressure 128/66 Pulse Oximetry 100 Oxygen Delivery Fraction of Inspired Oxygen 03/22/24 08:00 03/22/24 08:14 Temperature 98.5 F Pulse Rate 120 H 122 H Respiratory Rate 18 19 Blood Pressure 122/64 Pulse Oximetry 100 Oxygen Delivery Fraction of Inspired Oxygen Exam 2 Narrative: General: Young female, intubated, sedated in no acute distress HEENT:? Pupils equal and reactive, sclera is clear, ETT in place Neck:? Supple Respiratory:? Clear to auscultation bilaterally, no wheezing, adequate air entry Cardiac:? S1-S2 is normal, tachycardic Abdomen:? Soft, nontender, nondistended Extremities:? No edema, palpable pedal pulses Neuro:? Patient is intubated, sedated, does not open her eyes or follow simple commands. Withdraws to pain in all extremities Skin:? Tattoos noted, no other skin lesions Psych:? Unable to assess Results Labs 03/21/24 00:56 03/21/24 00:56 Labs: Short CBC 03/21/24 Range/Units 00:56 WBC 6.9 (4.5-10.0) K/mm3 Hgb 12.8 (12.0-15.0) g/dL Hct 39.2 (37.0-47.0) % Plt Count 316 (150-375) k/mm3 BMP 03/21/24 00:56 Sodium 145 Potassium 3.9 Chloride 111 H Carbon Dioxide 25 BUN 9 Creatinine 0.50 L Glucose 111 H Calcium 8.3 L Liver Function 03/21/24 Range/Units 00:56 Total Bilirubin 0.3 (0.2-1.3) mg/dL AST 30 (14-36) U/L ALT 15 (6-35) U/L Alkaline Phosphatase 76 (38-126) U/L Albumin 4.6 (3.5-5.1) g/dL Urine 03/21/24 Range/Units 00:56 Urine Color Yellow (Yellow) Urine Appearance Clear (Clear) Urine pH 5.5 (5.0-9.0) Ur Specific [place] 1.006 (1.001-1.035) Urine Protein Negative (Negative) mg/dL Urine Glucose (UA) Negative (Negative) mg/dL Quality VTE Prophylaxis VTE prophylaxis: pharmacologic ordered Hospitalist MIPS Advance Care Plan I have confirmed that the patient's Advanced Care Plan is present, code status is documented, or surrogate decision maker is listed in patient medical record.: Yes Medication Reconciliation I have utilized all available resources to obtain, update and review the patients current medications (includes all prescriptions, OTC, herbals, cannabis, and nutritional supplements).: Yes
[2024-03-22 08:35] LABS: Hematocrit 35.7 % (37.0-47.0); Hemoglobin 11.5 g/dL (12.0-15.0); Mean Corpuscular HGB Conc 32.2 g/dl (32-36); Mean Corpuscular Hemoglobin 29.3 pg (26-34); Mean Corpuscular Volume 90.8 fl (80-100); Mean Platelet Volume 10.3 fl (7.4-10.4); Platelet Count Result 288 k/mm3 (150-375); Red Blood Count 3.93 M/mm3 (4.2-5.4); Red Cell Distribution Width 14.8 % (11.5-14.5); White Blood Count 22.2 K/mm3 (4.5-10.0)
--- NOTE | 2024-03-22 08:46 | P.PNIM_ITS ---
Progress Note: A&P Assessment and Plan (1) Drug overdose: Code(s): T50.901A - Poisoning by unspecified drugs, medicaments and biological substances, accidental (unintentional), initial encounter Status: Acute Assessment and Plan: 03/22: Patient presented to the ED with drug overdose. According the records she took unknown amounts of Lamictal trazodone, Seroquel and Lexaproamount. Patient was also (2) Attention deficit disorder: Code(s): F98.8 - Other specified behavioral and emotional disorders with onset usually occurring in childhood and adolescence Status: Acute (3) Anxiety: Code(s): F41.9 - Anxiety disorder, unspecified Status: Acute (4) Asthma: Code(s): J45.909 - Unspecified asthma, uncomplicated Status: Acute (5) Bipolar disorder: Code(s): F31.9 - Bipolar disorder, unspecified Status: Acute (6) Tobacco abuse: Code(s): Z72.0 - Tobacco use Status: Acute (7) Alcohol use: Code(s): F10.90 - Alcohol use, unspecified, uncomplicated Status: Acute Subjective Date/time seen: 03/22/24 08:46 Review of Systems Review of Systems: ROS unobtainable: Yes unobtainable due to endotracheal tube, unobtainable due to medical condition and unobtainable due to mental status Exam Narrative: General: Young female, intubated, sedated in no acute distress HEENT:? Pupils equal and reactive, sclera is clear, ETT in place Neck:? Supple Respiratory:? Clear to auscultation bilaterally, no wheezing, adequate air entry Cardiac:? S1-S2 is normal, tachycardic Abdomen:? Soft, nontender, nondistended Extremities:? No edema, palpable pedal pulses Neuro:? Patient is intubated, sedated, does not open her eyes or follow simple commands. Withdraws to pain in all extremities Skin:? Tattoos noted, no other skin lesions Psych:? Unable to assess Objective Data Vital Signs Vital Signs: Vital Signs - 24 hr 03/21/24 23:31 03/22/24 00:05 03/22/24 00:15 Temperature 36.9 C Pulse Rate 133 H 139 H Respiratory Rate 16 23 H Blood Pressure 133/65 Pulse Oximetry 100 96 Oxygen Delivery Room Air Mechanical Ventilation Fraction of Inspired Oxygen 30 03/22/24 00:15 03/22/24 00:30 03/22/24 00:36 Temperature Pulse Rate 128 H 137 H Respiratory Rate 19 14 Blood Pressure Pulse Oximetry 94 Oxygen Delivery Room Air Fraction of Inspired Oxygen 03/22/24 01:00 03/22/24 01:30 03/22/24 02:00 Temperature 36.3 C L Pulse Rate 121 H 114 H Respiratory Rate 20 26 H Blood Pressure 117/56 L Pulse Oximetry 94 Oxygen Delivery Fraction of Inspired Oxygen 03/22/24 02:00 03/22/24 02:15 03/22/24 02:30 Temperature 36.4 C 36.5 C Pulse Rate 133 H Respiratory Rate Blood Pressure Pulse Oximetry 96 Oxygen Delivery Mechanical Ventilation Fraction of Inspired Oxygen 30 03/22/24 02:45 03/22/24 02:47 03/22/24 03:15 Temperature 36.6 C 36.8 C Pulse Rate 108 H Respiratory Rate 16 Blood Pressure Pulse Oximetry Oxygen Delivery Fraction of Inspired Oxygen 03/22/24 03:16 03/22/24 03:28 03/22/24 03:45 Temperature 36.9 C Pulse Rate 110 H 107 H Respiratory Rate 16 15 Blood Pressure 86/48 L 94/58 L Pulse Oximetry 98 100 Oxygen Delivery Fraction of Inspired Oxygen 03/22/24 04:00 03/22/24 04:00 03/22/24 04:05 Temperature Pulse Rate 109 H 109 H 135 H Respiratory Rate 16 Blood Pressure Pulse Oximetry 100 Oxygen Delivery Mechanical Ventilation Fraction of Inspired Oxygen 30 03/22/24 04:15 03/22/24 04:20 03/22/24 04:30 Temperature Pulse Rate 140 H 139 H 144 H Respiratory Rate 25 H 24 H 26 H Blood Pressure Pulse Oximetry Oxygen Delivery Fraction of Inspired Oxygen 03/22/24 04:42 03/22/24 05:13 03/22/24 05:23 Temperature 37.0 C Pulse Rate 128 H 124 H 139 H Respiratory Rate 24 H 20 25 H Blood Pressure 126/76 Pulse Oximetry 100 Oxygen Delivery Fraction of Inspired Oxygen 03/22/24 05:45 03/22/24 06:00 03/22/24 06:00 Temperature Pulse Rate 125 H 125 H 131 H Respiratory Rate 26 H 20 Blood Pressure Pulse Oximetry Oxygen Delivery Fraction of Inspired Oxygen 03/22/24 06:04 03/22/24 06:25 03/22/24 06:25 Temperature 37.0 C Pulse Rate 129 H 126 H 125 H Respiratory Rate 19 19 19 Blood Pressure 128/66 Pulse Oximetry 100 Oxygen Delivery Fraction of Inspired Oxygen 03/22/24 08:00 03/22/24 08:14 Temperature 36.9 C Pulse Rate 120 H 122 H Respiratory Rate 18 19 Blood Pressure 122/64 Pulse Oximetry 100 Oxygen Delivery Fraction of Inspired Oxygen Intake/Output Intake/Output: Intake & Output 03/19/24 03/20/24 03/21/24 03/22/24 23:59 23:59 23:59 23:59 Intake Total 2354.6 Output Total 1000 Balance 1354.6 Meds/Results Medications: Active Medications Generic Name Dose Route Start Last Admin Trade Name Freq PRN Reason Stop Dose Admin Albuterol/Ipratropium 3 ml 03/22/24 08:43 Ipratropium 0.5 Mg/Albuterol Sulfate 2.5 Mg Ampul.Neb 3 Ml INHALATION Q6HRT PRN Wheezing Enoxaparin Sodium 40 mg 03/22/24 09:00 03/22/24 08:11 Enoxaparin 40 Mg/0.4 Ml Syringe SUB-Q 40 mg DAILY OREN Administration Sodium Chloride 1,000 mls @ 100 mls/hr 03/22/24 02:20 03/22/24 08:14 Normal Saline Iv IV CONT 100 mls/hr .Q10H OREN Infusion Propofol 100 mls @ 22.23 mls/hr 03/22/24 06:40 03/22/24 08:14 Diprivan IV CONT 50 mcg/kg/min .Q4H30M OREN 22.23 mls/hr Titration Protocol 50 MCG/KG/MIN Dexmedetomidine HCl 400 mcg in 100 mls @ 3.705 mls/hr 03/22/24 08:20 Precedex 400 Mcg/100 Ml IV CONT .Q27H OREN Protocol 0.2 MCG/KG/HR Multi-Ingred Cream/Lotion/Oil/Oint 1 applic 03/22/24 09:00 Mineral Oil/White Petrolatum Ointment EACH EYE Q12HR OREN Pantoprazole Sodium 40 mg 03/22/24 09:00 03/22/24 08:11 Pantoprazole Sodium Iv 40 Mg Vial IV PUSH 40 mg QAM OREN Administration Radiology Results: ITS Impressions Chest X-Ray 03/22/24 06:14 IMPRESSION: 1. Airspace opacities with volume loss in right lung upper lobe and airspace opacities in left perihilar region, consistent with atelectasis versus pneumonia. Labs Labs: Laboratory Results - last 24 hr 03/21/24 03/22/24 03/22/24 00:56 00:56 05:36 WBC 6.9 RBC 4.40 Hgb 12.8 Hct 39.2 MCV 89.1 MCH 29.1 MCHC 32.7 RDW 14.5 Plt Count 316 MPV 10.6 H Immature Gran % (Auto) 0.3 Neut % (Auto) 58.4 Lymph % (Auto) 35.3 [place] % (Auto) 4.0 Eos % (Auto) 1.6 Baso % (Auto) 0.4 Lymph # (Auto) 2.45 [place] # (Auto) 0.3 Eos # (Auto) 0.1 Baso # (Auto) 0.0 Abs Immat Gran (auto) 0.02 Absolute Neuts (auto) 4.1 Absolute Nucleated RBC 0.000 Nucleated RBC % 0.0 Puncture Site Right radial ABG pH 7.299 L ABG pCO2 47.7 H ABG pO2 114.5 H ABG PO2/FiO2 Ratio 3.82 ABG HCO3 22.9 ABG O2 Saturation 97.7 ABG O2 Content 16.2 ABG Base Excess -3.7 A-a Gradient 43.4 Oxyhemoglobin 96.8 Carboxyhemoglobin 0.9 Methemoglobin 0.3 Reduced Hemoglobin 2.0 Total Hemoglobin 11.8 L O2 Delivery Device Ventilator O2 Liters/Min Not Reportable Minute Volume Not Reportable Vent Rate 16 Vent Mode Cmv FiO2 30 Tidal Volume 350 PEEP 5 Peak Inspir Pressure Not Reportable Pressure Support Not Reportable Sodium 145 Potassium 3.9 Chloride 111 H Carbon Dioxide 25 Anion Gap 9 BUN 9 Creatinine 0.50 L Estim Creat Clear Calc 123 Estimated GFR > 60 Glucose 111 H POC Capillary Glucose Calcium 8.3 L Magnesium 1.9 Total Bilirubin 0.3 AST 30 ALT 15 Alkaline Phosphatase 76 Total Protein 7.0 Albumin 4.6 Triglycerides 213 H TSH 3.840 Urine Color Yellow Urine Appearance Clear Urine pH 5.5 Ur Specific [place] 1.006 Urine Protein Negative Urine Glucose (UA) Negative Urine Ketones Negative Ur Blood (Man) Negative Urine Nitrate Negative Urine Bilirubin Negative Urine Urobilinogen 0.2 Leukocyte Esterase Rfl Negative Nasal MRSA (PCR) Salicylates < 1.0 L Urine Opiates Screen Negative Urine Methadone Screen Negative Acetaminophen < 10 L Ur Barbiturates Screen Negative Ur Phencyclidine Scrn Negative Ur Amphetamine Screen Negative U Benzodiazepines Scrn Positive A Urine Cocaine Screen Negative U Cannabinoids Screen Negative Ethyl Alcohol 116 Influenza A (RT-PCR) Negative Influenza B (RT-PCR) Negative RSV (RT-PCR) Negative SARS-CoV-2 RNA (RT-PCR) Negative 03/22/24 03/22/24 05:56 06:08 WBC RBC Hgb Hct MCV MCH MCHC RDW Plt Count MPV Immature Gran % (Auto) Neut % (Auto) Lymph % (Auto) [place] % (Auto) Eos % (Auto) Baso % (Auto) Lymph # (Auto) [place] # (Auto) Eos # (Auto) Baso # (Auto) Abs Immat Gran (auto) Absolute Neuts (auto) Absolute Nucleated RBC Nucleated RBC % Puncture Site ABG pH ABG pCO2 ABG pO2 ABG PO2/FiO2 Ratio ABG HCO3 ABG O2 Saturation ABG O2 Content ABG Base Excess A-a Gradient Oxyhemoglobin Carboxyhemoglobin Methemoglobin Reduced Hemoglobin Total Hemoglobin O2 Delivery Device O2 Liters/Min Minute Volume Vent Rate Vent Mode FiO2 Tidal Volume PEEP Peak Inspir Pressure Pressure Support Sodium Potassium Chloride Carbon Dioxide Anion Gap BUN Creatinine Estim Creat Clear Calc Estimated GFR Glucose POC Capillary Glucose 97 Calcium Magnesium Total Bilirubin AST ALT Alkaline Phosphatase Total Protein Albumin Triglycerides TSH Urine Color Urine Appearance Urine pH Ur Specific [place] Urine Protein Urine Glucose (UA) Urine Ketones Ur Blood (Man) Urine Nitrate Urine Bilirubin Urine Urobilinogen Leukocyte Esterase Rfl Nasal MRSA (PCR) Not detected Salicylates Urine Opiates Screen Urine Methadone Screen Acetaminophen Ur Barbiturates Screen Ur Phencyclidine Scrn Ur Amphetamine Screen U Benzodiazepines Scrn Urine Cocaine Screen U Cannabinoids Screen Ethyl Alcohol Influenza A (RT-PCR) Influenza B (RT-PCR) RSV (RT-PCR) SARS-CoV-2 RNA (RT-PCR)
[2024-03-22] MEDS: dexmedeTOMIDine 400 MCG/100 ML 400 MCG/100 ML BAG IV CONT (08:48)
[2024-03-22 08:49] LABS: Alanine Aminotransferase 14 U/L (6-35); Albumin Level 4.1 g/dL (3.5-5.1); Alkaline Phosphatase 76 U/L (38-126); Anion Gap 2 mmol/L (4-12); Aspartate Amino Transferase 31 U/L (14-36); Bilirubin,Total 0.3 mg/dL (0.2-1.3); Blood Urea Nitrogen 8 mg/dL (7-17); Calcium 7.7 mg/dL (8.4-10.2); Carbon Dioxide 27 mmol/L (22-30); Chloride 114 mmol/L (98-107); Estimated CRCL calculation 119 ml/min; Estimated Glomerular Filt Rate > 60; Glucose 104 mg/dL (65-110); Magnesium 1.7 mg/dL (1.6-2.3); Phosphorus 3.4 mg/dL (2.5-4.5); Potassium 3.9 mmol/L (3.4-5.0); Sodium 143 mmol/L (137-145)
--- NOTE | 2024-03-22 08:52 | PM.IMHP ---
H&P: HPI History of Present Illness Date/Time: 03/22/24 08:52 Chief Complaint: Drug overdose Narrative: 28 years old female with history of chronic depression present in the emergency room last night with complaints of disruptive behavior and would dose of medications. According to the ER note patient has taken multiple pills of Lexapro and Seroquel. Patient was also drinking. Patient was confused and agitated. Patient was given Ativan to stabilize her behavior. To prevent aspiration patient was intubated and transferred to ICU for further management. At present time patient is intubated and sedated. No new overnight complaints were noted. Review of Systems Review of Systems: All systems reviewed & are unremarkable except as noted in HPI and below (Patient is intubated and sedated, review of systems cannot be assessed. ) [facility] Past Medical History Medical History Left tubo-ovarian abscess Treated with antibiotics, laparoscopic left salpingectomy Cyst of left ovary Attention deficit disorder Tobacco abuse Acute pelvic inflammatory disease (PID) Depression ADD (attention deficit disorder) Anxiety Bipolar disorder Asthma Tonsillitis Ovarian cyst 2014 with week-long hospitalization before resolving, no surgery Upper respiratory infection Surgical History Surgical History History of unilateral salpingectomy Laparoscopic left salpingectomy for tuboovarian abscess / PID. History of adenoidectomy History of tonsillectomy Family History Family History Mother Family history of type 2 diabetes mellitus Bipolar 1 disorder Hypertension Diabetes mellitus Family history of arthritis Father Schizophrenia Family history of arthritis Grandparent Diabetes mellitus Family history of arthritis Other Family history of kidney disease Ovarian cancer Social History Social History Smoking packs per day: 0.25 Smoking cigarettes per day: 5.0 Years smoked: 10 Smoking pack-years: 2.50 Smoking status: Current every day smoker Tobacco type: cigarettes Second hand tobacco smoke exposure: Yes Alcohol intake: current Drinks per week: 4 Substance use: current Substance use type: unknown Other substance usage details: every other day at night to help sleep. Last use: 1 week ago Living arrangements: with family Gender identity (if verbalized by the patient): Female Spiritual care concerns: No Agree to blood products: Yes Meds Home Medications and Allergies Home Medications ?Medication ?Instructions ?Recorded ?Confirmed ?Type escitalopram oxalate 20 mg tablet 20 mg PO HS 08/18/23 03/22/24 History lamotrigine 100 mg tablet 100 mg PO HS 08/18/23 03/22/24 History lamotrigine 200 mg tablet 200 mg PO HS 08/18/23 03/22/24 History quetiapine 300 mg tablet,extended 300 mg PO HS 08/18/23 03/22/24 History release 24 hr escitalopram oxalate 10 mg tablet 10 mg PO HS 03/22/24 03/22/24 History trazodone 100 mg tablet 200 mg PO HS 03/22/24 03/22/24 History Allergies Allergy/AdvReac Type Severity Reaction Status Date / Time No Known Allergies Allergy Verified 08/19/23 13:57 Vital Signs Vital Signs - 24 hr 03/21/24 23:31 03/22/24 00:05 03/22/24 00:15 Temperature 36.9 C Pulse Rate 133 H 139 H Respiratory Rate 16 23 H Blood Pressure 133/65 Pulse Oximetry 100 96 Oxygen Delivery Room Air Mechanical Ventilation Fraction of Inspired Oxygen 30 03/22/24 00:15 03/22/24 00:30 03/22/24 00:36 Temperature Pulse Rate 128 H 137 H Respiratory Rate 19 14 Blood Pressure Pulse Oximetry 94 Oxygen Delivery Room Air Fraction of Inspired Oxygen 03/22/24 01:00 03/22/24 01:30 03/22/24 02:00 Temperature 36.3 C L Pulse Rate 121 H 114 H Respiratory Rate 20 26 H Blood Pressure 117/56 L Pulse Oximetry 94 Oxygen Delivery Fraction of Inspired Oxygen 03/22/24 02:00 03/22/24 02:15 03/22/24 02:30 Temperature 36.4 C 36.5 C Pulse Rate 133 H Respiratory Rate Blood Pressure Pulse Oximetry 96 Oxygen Delivery Mechanical Ventilation Fraction of Inspired Oxygen 30 03/22/24 02:45 03/22/24 02:47 03/22/24 03:15 Temperature 36.6 C 36.8 C Pulse Rate 108 H Respiratory Rate 16 Blood Pressure Pulse Oximetry Oxygen Delivery Fraction of Inspired Oxygen 03/22/24 03:16 03/22/24 03:28 03/22/24 03:45 Temperature 36.9 C Pulse Rate 110 H 107 H Respiratory Rate 16 15 Blood Pressure 86/48 L 94/58 L Pulse Oximetry 98 100 Oxygen Delivery Fraction of Inspired Oxygen 03/22/24 04:00 03/22/24 04:00 03/22/24 04:05 Temperature Pulse Rate 109 H 109 H 135 H Respiratory Rate 16 Blood Pressure Pulse Oximetry 100 Oxygen Delivery Mechanical Ventilation Fraction of Inspired Oxygen 30 03/22/24 04:15 03/22/24 04:20 03/22/24 04:30 Temperature Pulse Rate 140 H 139 H 144 H Respiratory Rate 25 H 24 H 26 H Blood Pressure Pulse Oximetry Oxygen Delivery Fraction of Inspired Oxygen 03/22/24 04:42 03/22/24 05:13 03/22/24 05:23 Temperature 37.0 C Pulse Rate 128 H 124 H 139 H Respiratory Rate 24 H 20 25 H Blood Pressure 126/76 Pulse Oximetry 100 Oxygen Delivery Fraction of Inspired Oxygen 03/22/24 05:45 03/22/24 06:00 03/22/24 06:00 Temperature Pulse Rate 125 H 125 H 131 H Respiratory Rate 26 H 20 Blood Pressure Pulse Oximetry Oxygen Delivery Fraction of Inspired Oxygen 03/22/24 06:04 03/22/24 06:25 03/22/24 06:25 Temperature 37.0 C Pulse Rate 129 H 126 H 125 H Respiratory Rate 19 19 19 Blood Pressure 128/66 Pulse Oximetry 100 Oxygen Delivery Fraction of Inspired Oxygen 03/22/24 08:00 03/22/24 08:14 03/22/24 08:40 Temperature 36.9 C Pulse Rate 120 H 122 H Respiratory Rate 18 19 Blood Pressure 122/64 Pulse Oximetry 100 100 Oxygen Delivery Mechanical Ventilation Fraction of Inspired Oxygen 30 03/22/24 08:40 03/22/24 08:48 Temperature Pulse Rate 117 H 114 H Respiratory Rate 18 Blood Pressure Pulse Oximetry 100 Oxygen Delivery Mechanical Ventilation Fraction of Inspired Oxygen 30 Exam Narrative: General: Young female, intubated, sedated in no acute distress HEENT:? Pupils equal and reactive, sclera is clear, ETT in place Neck:? Supple Respiratory:? Clear to auscultation bilaterally, no wheezing, adequate air entry Cardiac:? S1-S2 is normal, tachycardic Abdomen:? Soft, nontender, nondistended Extremities:? No edema, palpable pedal pulses Neuro:? Patient is intubated, sedated, does not open her eyes or follow simple commands. Withdraws to pain in all extremities Skin:? Tattoos noted, no other skin lesions Psych:? Unable to assess H&P: Results Labs Labs: Short CBC 03/21/24 Range/Units 00:56 WBC 6.9 (4.5-10.0) K/mm3 Hgb 12.8 (12.0-15.0) g/dL Hct 39.2 (37.0-47.0) % Plt Count 316 (150-375) k/mm3 BMP 03/21/24 03/22/24 00:56 08:25 Sodium 145 143 Potassium 3.9 3.9 Chloride 111 H 114 H Carbon Dioxide 25 27 BUN 9 8 Creatinine 0.50 L 0.60 L Glucose 111 H 104 Calcium 8.3 L 7.7 L Liver Function 03/21/24 03/22/24 Range/Units 00:56 08:25 Total Bilirubin 0.3 0.3 (0.2-1.3) mg/dL AST 30 31 (14-36) U/L ALT 15 14 (6-35) U/L Alkaline Phosphatase 76 76 (38-126) U/L Albumin 4.6 4.1 (3.5-5.1) g/dL Urine 03/21/24 Range/Units 00:56 Urine Color Yellow (Yellow) Urine Appearance Clear (Clear) Urine pH 5.5 (5.0-9.0) Ur Specific [place] 1.006 (1.001-1.035) Urine Protein Negative (Negative) mg/dL Urine Glucose (UA) Negative (Negative) mg/dL Assessment and Plan Assessment and plan (1) Respiratory failure: Code(s): J96.90 - Respiratory failure, unspecified, unspecified whether with hypoxia or hypercapnia Status: Acute Assessment and Plan: Plan is to continue with ventilator support at present time. Consult ICU Critical Care Team. (2) Suicidal behavior: Code(s): R45.89 - Other symptoms and signs involving emotional state Status: Acute Assessment and Plan: Will provide counseling and one-to-one observation. Psych consult when patient is stable. (3) Drug overdose: Code(s): T50.901A - Poisoning by unspecified drugs, medicaments and biological substances, accidental (unintentional), initial encounter Status: Acute Assessment and Plan: Will provide counseling and one-to-one observation. Psych consult when patient is stable. Plan Patient is admitted in intensive care unit as a full admission. Patient is full code at present time. Will consult psych once patient is extubated. One-to-one sitter. For the evaluation and treatment will be done according to the lab data available and recommendation by the specialist. grounds worker consult. Quality VTE Prophylaxis VTE prophylaxis: pharmacologic ordered
[2024-03-22 08:53] LABS: Triglycerides 136 mg/dL (<150)
[2024-03-22 09:13] LABS: Anisocytosis 1+; Band Neutrophils Percent 10 % (0-6); Lymphocytes Absolute Manual 1.55 K/mm3 (1.1-4.5); Lymphocytes Percent Manual 7 % (18-44); Monocytes Absolute Manual 0.22 K/mm3 (0.1-0.90); Monocytes Percent Manual 1 % (3-9); Neutrophils Absolute Manual 21.53 K/mm3 (1.7-7.2); Neutrophils Percent Manual 87 % (46-73); Platelet Estimate Adequate (Adequate); Schistocytes None Seen; Total Cells Counted 100
--- NOTE | 2024-03-22 09:39 | ECG_ITS ---
Test Date: 2024-03-22 02:37:33 Measurements Intervals [place] Rate: 108 P: 48 MO: 154 QRS: 77 QRSD: 93 T: 50 QT: 413 QTc: 554 Interpretive Statements SINUS TACHYCARDIA NONSPECIFIC T-WAVE ABNORMALITY ABNORMAL ECG Electronically Signed On 03-22-2024 12:05:24 [employer] SALES CONSULTANT by Tucker Berkowitz M.D.
--- NOTE | 2024-03-22 10:55 | PC.NURSE ---
Spoke with [place] [facility] they have no further recommendations at this time will continue to monitor her case.
[2024-03-22] MEDS: PROPOFOL IV EMULSION 100 ML 15.56 MG IV CONT (11:10)
[2024-03-22] MEDS: MIDAZOLAM HCL (*CRX) 2 MG/2 ML VIAL IV PUSH (14:28)
[2024-03-22] MEDS: dexmedeTOMIDine 400 MCG/100 ML 400 MCG/100 ML BAG 18.53 MCG IV CONT (16:00)
[2024-03-22] MEDS: SODIUM CHLORIDE 0.9% IV 1,000 ML 100 ML IV CONT (16:00)
[2024-03-22] MEDS: dexmedeTOMIDine 400 MCG/100 ML 400 MCG/100 ML BAG 25.94 MCG IV CONT (20:42)
--- NOTE | 2024-03-22 21:43 | PC.NURSE ---
Call received from Brandie at [place] [facility]. Updated on current vital signs, patient status, and requested lab results. No further recommendations at this time. States to call with any concerns.
[2024-03-23] VITALS (29 sets, daily range): BP systolic 103–138; BP diastolic 58–97; PULSE 74–108; RESP 14–22; TEMP 36.6–37.6; O2SAT 94–100
[2024-03-23] MEDS: dexmedeTOMIDine 400 MCG/100 ML 400 MCG/100 ML BAG 25.94 MCG IV CONT ×2 (01:11→05:41)
[2024-03-23] MEDS: SODIUM CHLORIDE 0.9% IV 1,000 ML 100 ML IV CONT (01:12)
[2024-03-23] MEDS: PROPOFOL IV EMULSION 100 ML 13.34 MG IV CONT (01:46)
[2024-03-23 04:44] LABS: Basophils Percent Auto 0.3 % (0.2-1.2); Eosinophils Absolute Auto 0.3 K/mm3 (0-0.3); Eosinophils Percent Auto 1.8 % (0-4.4); Hematocrit 33.2 % (37.0-47.0); Hemoglobin 10.5 g/dL (12.0-15.0); Immature Granulocyte Absolute 0.05 K/mm3 (0.00-0.031); Immature Granulocyte Percent A 0.3 % (0-0.5); Lymphocytes Absolute Auto 2.33 K/mm3 (0.9-3.2); Lymphocytes Percent Auto 15.6 % (18.3-44.2); Mean Corpuscular HGB Conc 31.6 g/dl (32-36); Mean Corpuscular Hemoglobin 28.8 pg (26-34); Mean Platelet Volume 10.5 fl (7.4-10.4); Monocytes Percent Auto 6.9 % (2.6-8.5); Neutrophils Absolute Auto 11.2 K/mm3 (1.3-6.7); Neutrophils Percent Auto 75.1 % (45.5-73.1); Platelet Count Result 240 k/mm3 (150-375); Red Blood Count 3.65 M/mm3 (4.2-5.4); White Blood Count 14.9 K/mm3 (4.5-10.0)
[2024-03-23 04:56] LABS: Alanine Aminotransferase 22 U/L (6-35); Albumin Level 3.2 g/dL (3.5-5.1); Alkaline Phosphatase 70 U/L (38-126); Anion Gap 1 mmol/L (4-12); Aspartate Amino Transferase 57 U/L (14-36); Bilirubin,Total 0.3 mg/dL (0.2-1.3); Blood Urea Nitrogen 8 mg/dL (7-17); Calcium 7.7 mg/dL (8.4-10.2); Carbon Dioxide 28 mmol/L (22-30); Chloride 112 mmol/L (98-107); Estimated CRCL calculation 103 ml/min; Estimated Glomerular Filt Rate > 60; Glucose 109 mg/dL (65-110); Magnesium 2.1 mg/dL (1.6-2.3); Phosphorus 3.1 mg/dL (2.5-4.5); Potassium 3.4 mmol/L (3.4-5.0); Sodium 141 mmol/L (137-145)
[2024-03-23 06:02] LABS: Alveolar/Arterial O2 Gradient 21.6 mmHg; Base Excess ABG -2.4 mEq/l (+/-2.0); Carboxyhemoglobin 0.7 % THb (0-2.0); Device VENTILATOR; Fractional Inspired Oxygen 30 %; HCO3 ABG 24.1 mEq/l (22.0-26.0); Methemoglobin ABG 0.1 %THb (0-1.5); Modified Allen's Test Pass; Oxygen Content ABG 20.9 %vol (16.0-22.0); Oxygen Saturation ABG 98.5 % (95.0-100.0); PCO2 ABG 47.6 mmHg (35.0-45.0); PO2 ABG 136.4 mmHg (80.0-100.0); PO2 FiO2 Ratio Arterial Blood 4.55 %; Reduced Hemoglobin 1.2 %THb (0-5.0); Site Drawn RIGHT RADIAL; pH ABG 7.322 (7.350-7.450)
[2024-03-23 06:03] LABS: Arterial Blood Gas PEEP 5 cmH2O; Arterial Blood Gas Tidal Volume 380 ml; Arterial Blood Gas Vent Mode CMV; Arterial Blood Gas Ventilator rate 18 /MIN
[2024-03-23] MEDS: PANTOPRAZOLE SODIUM IV 40 MG VIAL IV PUSH (08:41)
[2024-03-23] MEDS: POTASSIUM CHLORIDE 20 MEQ PACKET (FOR LIQUID) 40 MEQ FEED TUBE (08:41)
[2024-03-23] MEDS: MINERAL OIL/WHITE PETROLATUM OINTMENT 1 APPLIC EACH EYE (08:42)
[2024-03-23] MEDS: dexmedeTOMIDine 400 MCG/100 ML 400 MCG/100 ML BAG 27.8 MCG IV CONT (09:16)
[2024-03-23] MEDS: ONDANSETRON INJ 4 MG/2 ML VIAL IV PUSH (09:17)
--- NOTE | 2024-03-23 10:56 | PCNFU ---
Nutrition Follow-Up Complete: Increased protein energy needs related to mechanical ventilation as evidenced by need for full tube feeding - RESOLVED. Pt extubated today Meet estimated protein energy needs. - Not progressing yet, diet to be ordered and try PO intake at lunch Goal: Pt current nutrition is NPO awaiting bedside swallow evaluation. Nutrition recommendation: Advance diet as medically able. Order PO supplement if needed. Last recorded weight is 76.3 kg. Bowel Motility: No BMs are charted Labs Reviewed: Hgb 10.5, Hct 33.2, Alb 3.2 Meds Noted: Coming down on precedex. Propofol off Skin: WNL Additional Notes: Pt extubated this morning before rounds. Diet to advance to regular after cleared with bedside swallow eval. Continue to monitor. Monitoring tube feeding tolerance, plan of care, meds, weights, labs, output Following daily in rounds, follow up Tuesday and Fridays.
--- NOTE | 2024-03-23 11:43 | P.PNINT_ITS ---
Progress Note: A&P Assessment and Plan (1) Respiratory failure: Code(s): J96.90 - Respiratory failure, unspecified, unspecified whether with hypoxia or hypercapnia Status: Acute Assessment and Plan: Patient presented with multiple medication drug overdose, was combative and agitated and fighting with the staff in the ED. Received multiple doses of Ativan, was intubated for aggressive behavior -currently on CMV mode of ventilation, 30% FiO2 and peep 5 -chest x-ray and ABGs reviewed, will increase tidal volume 380 mL and respiratory rate to 18/min -history of asthma, continue bronchodilators p.r.n. -propofol was discontinued this morning, patient is on Precedex, awake, alert, nods to questions and gagging on the ET tube -03/23: patient was successfully extubated (2) Drug overdose: Code(s): T50.901A - Poisoning by unspecified drugs, medicaments and biological substances, accidental (unintentional), initial encounter Status: Acute Assessment and Plan: 03/22: Patient presented to the ED with drug overdose. According the records she took unknown amounts of Lamictal trazodone, Seroquel and Lexapro. Patient had also a alcohol to drink per records. Patient was aggressive and fighting the ER staff -currently intubated and sedated -poison control has signed off -lamotrigine levels are pending -will discontinue maintain IV fluids when patient starts taking oral diet (3) Suicidal behavior: Code(s): R45.89 - Other symptoms and signs involving emotional state Status: Acute Assessment and Plan: According the ER triage nurse patient did complain of suicide attempt by drug overdose and that she did this to harm herself and stated she was hearing voices -continue suicide precautions -bedside sitter -patient may be able to downgrade from ICU standpoint as she is medically stable, will have crisis management evaluate the patient (4) Attention deficit disorder: Code(s): F98.8 - Other specified behavioral and emotional disorders with onset usually occurring in childhood and adolescence Status: Acute Assessment and Plan: History of ADD, on Lamictal, Seroquel, trazodone Lexapro, continue to hold for now (5) Asthma: Code(s): J45.909 - Unspecified asthma, uncomplicated Status: Acute Assessment and Plan: Will add p.r.n. bronchodilators (6) Bipolar disorder: Code(s): F31.9 - Bipolar disorder, unspecified Status: Acute Assessment and Plan: Multiple medications as above, continue to hold for now (7) Tobacco abuse: Code(s): Z72.0 - Tobacco use Status: Acute Assessment and Plan: Will vp & general counsel patient on tobacco cessation once she is extubated (8) Alcohol use: Code(s): F10.90 - Alcohol use, unspecified, uncomplicated Status: Acute Assessment and Plan: Will vp & general counsel patient on alcohol cessation once she is extubated, will have care coordination sister with resource is for alcohol cessation Plan DVT prophylaxis: Enoxaparin Stress ulcer prophylaxis: Protonix Nutrition: Once she is extubated will start regular diet Code Status: Full code Critical Care Time Spent: 33 minutes Due to a high probability of clinically significant, life threatening deterioration, the patient required my highest level of preparedness to intervene emergently and I personally spent this critical care time directly and personally managing the patient. This critical care time included obtaining a history; examining the patient; pulse oximetry; ordering and review of studies; arranging urgent treatment with development of a management plan; evaluation of patient's response to treatment; frequent reassessment; and discussions with other providers. It was exclusive of separately billable procedures and treating other patients and teaching time. Please see Assessment and Plan section and the rest of the note for further information on patient assessment and treatment This dictation may have been done utilizing a voice recognition system. Attempts have been made to correct errors. However, there may be uncorrected grammatical, spelling, and recognitions errors present. Subjective Date/time seen: 03/23/24 11:43 Interval history: Reason for consult: Respiratory failure, medication overdose, suicidal behavior 03/22/2024: Intubated 03/23/2024: Patient seen and examined the ICU, remains intubated on CMV mode of ventilation, peep of 5, 30% FiO2. Sedated with Precedex and propofol infusion. Patient is awake, alert, gagging on the tube. Propofol was turned off this morning, patient only on Precedex infusion. I asked the RT and bedside RN to extubate the patient she is awake, follows simple commands. Patient was successfully extubated. Hemodynamically stable, afebrile, adequate urine output Review of Systems Review of Systems: ROS unobtainable: Yes unobtainable due to endotracheal tube, unobtainable due to medical condition and unobtainable due to mental status Exam Narrative: General: Young female, intubated, awake, gagging on the ET tube. HEENT:? Pupils equal and reactive, sclera is clear, ETT in place Neck:? Supple Respiratory:? Clear to auscultation bilaterally, no wheezing, adequate air entry Cardiac:? S1-S2 is normal, regular rate and rhythm Abdomen:? Soft, nontender, nondistended, normoactive bowel sound Extremities:? No edema, palpable pedal pulses Neuro:? Patient is intubated, on Precedex infusion, is awake, alert, follows simple commands and nods to questions Skin:? Tattoos noted, no other skin lesions Psych:? Unable to assess Objective Data Vital Signs Vital Signs: Vital Signs - 24 hr 03/22/24 11:47 03/22/24 12:00 03/22/24 12:00 Temperature 97.9 F Pulse Rate 110 H 99 99 Respiratory Rate 18 18 18 Blood Pressure 150/89 H Pulse Oximetry 100 Oxygen Delivery Oxygen Flow Rate Fraction of Inspired Oxygen 03/22/24 12:00 03/22/24 12:00 03/22/24 12:00 Temperature Pulse Rate 99 99 Respiratory Rate 18 18 Blood Pressure Pulse Oximetry 100 Oxygen Delivery Mechanical Ventilation Oxygen Flow Rate 30 Fraction of Inspired Oxygen 30 03/22/24 12:00 03/22/24 12:32 03/22/24 12:50 Temperature Pulse Rate 97 92 90 Respiratory Rate 18 18 Blood Pressure Pulse Oximetry Oxygen Delivery Oxygen Flow Rate Fraction of Inspired Oxygen 03/22/24 12:55 03/22/24 13:01 03/22/24 13:20 Temperature Pulse Rate 88 88 99 Respiratory Rate 18 18 18 Blood Pressure Pulse Oximetry Oxygen Delivery Oxygen Flow Rate Fraction of Inspired Oxygen 03/22/24 13:37 03/22/24 14:00 03/22/24 14:00 Temperature 98.3 F Pulse Rate 108 H 94 94 Respiratory Rate 18 Blood Pressure 138/81 Pulse Oximetry 100 100 Oxygen Delivery Mechanical Ventilation Oxygen Flow Rate Fraction of Inspired Oxygen 30 03/22/24 14:00 03/22/24 14:34 03/22/24 16:00 Temperature Pulse Rate 94 115 H 96 Respiratory Rate 18 22 H 19 Blood Pressure Pulse Oximetry Oxygen Delivery Oxygen Flow Rate Fraction of Inspired Oxygen 03/22/24 16:00 03/22/24 16:00 03/22/24 16:00 Temperature 98.6 F Pulse Rate 96 96 96 Respiratory Rate 19 19 18 Blood Pressure 136/83 Pulse Oximetry 100 100 Oxygen Delivery Mechanical Ventilation Oxygen Flow Rate 30 Fraction of Inspired Oxygen 03/22/24 16:00 03/22/24 16:00 03/22/24 16:31 Temperature Pulse Rate 89 86 Respiratory Rate Blood Pressure Pulse Oximetry 100 Oxygen Delivery Mechanical Ventilation Oxygen Flow Rate Fraction of Inspired Oxygen 30 30 03/22/24 17:15 03/22/24 17:30 03/22/24 18:00 Temperature 98.8 F Pulse Rate 86 86 85 Respiratory Rate 18 18 18 Blood Pressure 134/82 Pulse Oximetry 100 Oxygen Delivery Oxygen Flow Rate Fraction of Inspired Oxygen 03/22/24 18:00 03/22/24 18:00 03/22/24 18:00 Temperature Pulse Rate 84 84 84 Respiratory Rate 18 18 Blood Pressure Pulse Oximetry Oxygen Delivery Oxygen Flow Rate Fraction of Inspired Oxygen 03/22/24 18:25 03/22/24 19:30 03/22/24 19:30 Temperature Pulse Rate 101 H 86 86 Respiratory Rate 18 20 20 Blood Pressure Pulse Oximetry Oxygen Delivery Oxygen Flow Rate Fraction of Inspired Oxygen 03/22/24 19:35 03/22/24 19:45 03/22/24 20:00 Temperature 98.9 F Pulse Rate 84 81 84 Respiratory Rate 19 18 19 Blood Pressure 132/92 H Pulse Oximetry 100 Oxygen Delivery Oxygen Flow Rate Fraction of Inspired Oxygen 03/22/24 20:00 03/22/24 20:00 03/22/24 20:00 Temperature Pulse Rate 84 84 Respiratory Rate 19 19 Blood Pressure Pulse Oximetry Oxygen Delivery Oxygen Flow Rate Fraction of Inspired Oxygen 30 03/22/24 20:00 03/22/24 20:00 03/22/24 20:30 Temperature Pulse Rate 87 82 Respiratory Rate 18 Blood Pressure Pulse Oximetry 100 Oxygen Delivery Mechanical Ventilation Oxygen Flow Rate 30 Fraction of Inspired Oxygen 03/22/24 20:30 03/22/24 20:42 03/22/24 20:42 Temperature Pulse Rate 82 82 82 Respiratory Rate 18 18 18 Blood Pressure Pulse Oximetry Oxygen Delivery Oxygen Flow Rate Fraction of Inspired Oxygen 03/22/24 20:42 03/22/24 20:49 03/22/24 21:04 Temperature Pulse Rate 82 80 Respiratory Rate 18 Blood Pressure Pulse Oximetry 100 100 Oxygen Delivery Mechanical Ventilation Mechanical Ventilation Oxygen Flow Rate Fraction of Inspired Oxygen 30 30 03/22/24 22:00 03/22/24 22:00 03/22/24 22:00 Temperature Pulse Rate 78 77 77 Respiratory Rate 18 18 Blood Pressure Pulse Oximetry Oxygen Delivery Oxygen Flow Rate Fraction of Inspired Oxygen 03/22/24 22:00 03/22/24 23:44 03/23/24 00:00 Temperature 98.8 F Pulse Rate 77 77 76 Respiratory Rate 18 18 Blood Pressure 139/96 H Pulse Oximetry 100 100 Oxygen Delivery Mechanical Ventilation Oxygen Flow Rate Fraction of Inspired Oxygen 30 03/23/24 00:00 03/23/24 00:00 03/23/24 00:00 Temperature Pulse Rate 76 Respiratory Rate 18 Blood Pressure Pulse Oximetry 100 Oxygen Delivery Mechanical Ventilation Oxygen Flow Rate 30 Fraction of Inspired Oxygen 30 03/23/24 00:00 03/23/24 00:00 03/23/24 01:11 Temperature 98.7 F Pulse Rate 76 76 77 Respiratory Rate 18 18 Blood Pressure 138/97 H Pulse Oximetry 100 Oxygen Delivery Oxygen Flow Rate Fraction of Inspired Oxygen 03/23/24 01:11 03/23/24 01:46 03/23/24 01:46 Temperature Pulse Rate 77 81 81 Respiratory Rate 18 19 19 Blood Pressure Pulse Oximetry Oxygen Delivery Oxygen Flow Rate Fraction of Inspired Oxygen 03/23/24 02:00 03/23/24 02:00 03/23/24 02:00 Temperature 98.4 F Pulse Rate 77 77 77 Respiratory Rate 18 18 Blood Pressure 129/86 Pulse Oximetry 100 Oxygen Delivery Oxygen Flow Rate Fraction of Inspired Oxygen 03/23/24 02:00 03/23/24 03:19 03/23/24 04:00 Temperature Pulse Rate 77 77 75 Respiratory Rate 18 20 Blood Pressure Pulse Oximetry 100 Oxygen Delivery Mechanical Ventilation Oxygen Flow Rate Fraction of Inspired Oxygen 30 03/23/24 04:00 03/23/24 04:00 03/23/24 04:00 Temperature Pulse Rate 75 Respiratory Rate 20 Blood Pressure Pulse Oximetry 100 Oxygen Delivery Mechanical Ventilation Oxygen Flow Rate 30 Fraction of Inspired Oxygen 30 03/23/24 04:00 03/23/24 04:00 03/23/24 04:15 Temperature 98.1 F Pulse Rate 75 75 75 Respiratory Rate 20 21 H Blood Pressure 129/88 Pulse Oximetry 100 Oxygen Delivery Oxygen Flow Rate Fraction of Inspired Oxygen 03/23/24 04:50 03/23/24 05:00 03/23/24 05:05 Temperature Pulse Rate 75 76 75 Respiratory Rate 19 19 Blood Pressure Pulse Oximetry 100 Oxygen Delivery Mechanical Ventilation Oxygen Flow Rate Fraction of Inspired Oxygen 30 03/23/24 05:15 03/23/24 05:41 03/23/24 05:41 Temperature Pulse Rate 75 74 74 Respiratory Rate 20 18 18 Blood Pressure Pulse Oximetry Oxygen Delivery Oxygen Flow Rate Fraction of Inspired Oxygen 03/23/24 06:00 03/23/24 06:00 03/23/24 06:00 Temperature 97.9 F Pulse Rate 78 78 78 Respiratory Rate 18 18 18 Blood Pressure 112/75 Pulse Oximetry 100 Oxygen Delivery Oxygen Flow Rate Fraction of Inspired Oxygen 03/23/24 06:00 03/23/24 06:15 03/23/24 08:00 Temperature Pulse Rate 78 78 76 Respiratory Rate 18 22 H Blood Pressure Pulse Oximetry Oxygen Delivery Oxygen Flow Rate Fraction of Inspired Oxygen 03/23/24 08:00 03/23/24 08:00 03/23/24 08:00 Temperature 98.2 F Pulse Rate 76 76 Respiratory Rate 20 Blood Pressure 135/93 H Pulse Oximetry 100 Oxygen Delivery Mechanical Ventilation Oxygen Flow Rate Fraction of Inspired Oxygen 30 03/23/24 08:48 03/23/24 09:00 03/23/24 09:16 Temperature Pulse Rate 96 90 Respiratory Rate 21 H 16 Blood Pressure Pulse Oximetry 96 Oxygen Delivery Nasal Cannula Oxygen Flow Rate 2 Fraction of Inspired Oxygen 03/23/24 09:16 03/23/24 09:17 03/23/24 10:00 Temperature Pulse Rate 90 93 91 Respiratory Rate 16 16 16 Blood Pressure Pulse Oximetry Oxygen Delivery Oxygen Flow Rate Fraction of Inspired Oxygen 03/23/24 10:00 03/23/24 10:00 03/23/24 10:05 Temperature 99.5 F Pulse Rate 89 90 Respiratory Rate 19 Blood Pressure 106/61 Pulse Oximetry 99 96 Oxygen Delivery Room Air Oxygen Flow Rate Fraction of Inspired Oxygen 03/23/24 10:30 Temperature Pulse Rate 92 Respiratory Rate 21 H Blood Pressure Pulse Oximetry Oxygen Delivery Oxygen Flow Rate Fraction of Inspired Oxygen Intake/Output Intake/Output: Intake & Output 03/20/24 03/21/24 03/22/24 03/23/24 23:59 23:59 23:59 23:59 Intake Total 4522.5 1782.2 Output Total 1850 250 Balance 2672.5 1532.2 Meds/Results Medications: Active Medications Generic Name Dose Route Start Last Admin Trade Name Freq PRN Reason Stop Dose Admin Acetaminophen 650 mg 03/23/24 10:59 Acetaminophen 325 Mg Tablet PO Q6H PRN Mild Pain (1-3) or Fever Albuterol/Ipratropium 3 ml 03/22/24 08:43 Ipratropium 0.5 Mg/Albuterol Sulfate 2.5 Mg Ampul.Neb 3 Ml INHALATION Q6HRT PRN Wheezing Enoxaparin Sodium 40 mg 03/22/24 09:00 03/23/24 09:03 Enoxaparin 40 Mg/0.4 Ml Syringe SUB-Q Not Given DAILY OREN Sodium Chloride 1,000 mls @ 100 mls/hr 03/22/24 02:20 03/23/24 01:12 Normal Saline Iv IV CONT 100 mls/hr .Q10H OREN Administration Propofol 100 mls @ 0 mls/hr 03/22/24 06:40 03/23/24 09:17 Diprivan IV CONT Infused .Q0M OREN Titration Protocol Dexmedetomidine HCl 400 mcg in 100 mls @ 11.115 mls/hr 03/22/24 08:20 03/23/24 10:30 Precedex 400 Mcg/100 Ml IV CONT 0.6 mcg/kg/hr .Q9H OREN 11.12 mls/hr Titration Protocol 0.6 MCG/KG/HR Multi-Ingred Cream/Lotion/Oil/Oint 1 applic 03/22/24 09:00 03/23/24 08:42 Mineral Oil/White Petrolatum Ointment EACH EYE 1 applic Q12HR OREN Administration Ondansetron HCl 4 mg 03/23/24 09:01 03/23/24 09:17 Ondansetron Inj 4 Mg/2 Ml Vial IV PUSH 4 mg Q6H PRN Administration Nausea And Vomiting Pantoprazole Sodium 40 mg 03/22/24 09:00 03/23/24 08:41 Pantoprazole Sodium Iv 40 Mg Vial IV PUSH 40 mg QAM OREN Administration Radiology Results: ITS Impressions Chest X-Ray 03/23/24 06:29 IMPRESSION: 1. No acute cardiopulmonary disease. Labs Labs: Laboratory Results - last 24 hr 03/23/24 03/23/24 04:22 04:54 WBC 14.9 H RBC 3.65 L Hgb 10.5 L Hct 33.2 L MCV 91.0 MCH 28.8 MCHC 31.6 L RDW 15.0 H Plt Count 240 MPV 10.5 H Immature Gran % (Auto) 0.3 Neut % (Auto) 75.1 H Lymph % (Auto) 15.6 L Sharp % (Auto) 6.9 Eos % (Auto) 1.8 Baso % (Auto) 0.3 Lymph # (Auto) 2.33 Sharp # (Auto) 1.0 H Eos # (Auto) 0.3 Baso # (Auto) 0.0 Abs Immat Gran (auto) 0.05 H Absolute Neuts (auto) 11.2 H Absolute Nucleated RBC 0.000 Nucleated RBC % 0.0 Puncture Site Right radial ABG pH 7.322 L ABG pCO2 47.6 H ABG pO2 136.4 H ABG PO2/FiO2 Ratio 4.55 ABG HCO3 24.1 ABG O2 Saturation 98.5 ABG O2 Content 20.9 ABG Base Excess -2.4 A-a Gradient 21.6 Oxyhemoglobin 98.0 Carboxyhemoglobin 0.7 Methemoglobin 0.1 Reduced Hemoglobin 1.2 Total Hemoglobin 15.0 O2 Delivery Device Ventilator O2 Liters/Min Not Reportable Minute Volume Not Reportable Vent Rate 18 Vent Mode Cmv FiO2 30 Tidal Volume 380 PEEP 5 Peak Inspir Pressure Not Reportable Pressure Support Not Reportable Sodium 141 Potassium 3.4 Chloride 112 H Carbon Dioxide 28 Anion Gap 1 L BUN 8 Creatinine 0.70 Estim Creat Clear Calc 103 Estimated GFR > 60 Glucose 109 Calcium 7.7 L Phosphorus 3.1 Magnesium 2.1 Total Bilirubin 0.3 AST 57 H ALT 22 Alkaline Phosphatase 70 Total Protein 6.0 L Albumin 3.2 L Quality VTE Prophylaxis VTE prophylaxis: pharmacologic ordered
[2024-03-23] MEDS: ACETAMINOPHEN 325 MG TABLET 650 MG PO ×2 (12:14→21:06)
[2024-03-23] MEDS: HYDROcodone/acetaminophen (*CRX) 5-325 MG TABLET 1 TAB PO (13:41)
--- NOTE | 2024-03-23 14:06 | PCSTNOTE ---
Please refer to the Bedside Swallow Evaluation in the EMR. Please note, silent aspiration cannot be ruled out at bedside. This 28 year old female patient was evaluated at bedside to ensure swallowing safety during oral intake. The pt arrived in the emergency room on the night of 03/21/24 and presented with a multiple medication drug overdose, was combative and agitated and fighting with the staff in the ED. The pt was intubated and sedated on 03/22/24 for aggressive behavior and was successfully extubated on 03/23/24. The pt complains of throat pain. ST and RNs verbalized that some throat pain is normal following extubation. Per Koki and Ramya Hall, the pt did well taking her medicine with a small sip of water upon extubation. There were no s/s of aspiration (wet/gurgly voice, coughing). Trials of thin liquid via cup edge, pudding, and mixed consistency (fruit cocktail) were administered this date. ST fed the pt but encouraged self-feeding. Throughout all trials of different consistencies, the pt demonstrated no s/s of aspiration. The pt?s vocal quality remained clear after all trials and the pt did not cough/throat clear. Oral transit was timely. No oral residue observed. Laryngeal elevation was adequate and timely for all swallows. The pt verbalized discomfort when swallowing on each consistency, and refused another a second trial of fruit and would not try any kaitlin crackers. Upon refusal, the pt stated ?It will hurt my throat?. Pt verbalized that her diet was regular before hospitalization (Level 7: Regular Solids; Level 1: Thin liquids). Please note that silent aspiration cannot be ruled out at bedside. Given the results of this assessment, it is recommended this pt receive an oral diet of Soft and Bite-Sized (IDDSI Level 6) and thin liquids (IDDSI Level 1). A repeat BSE should be completed once the pt is able to tolerate more solid consistencies. It is additionally recommended that the pt follow these standard swallowing precautions: Small bites/sips, sit upright during meals, and alternate solids/liquids with 1:1 supervision during meals to assist with set-up. No further ST is warranted at this time. Thank you for this referral. Koki Burris, ROBERT, and ROBERT Hall were notified of BSE results and recommendations. Thank you for this referral.
[2024-03-23] MEDS: KETOROLAC 15 MG/ML VIAL (*BKC) IV PUSH ×2 (16:56→21:07)
--- NOTE | 2024-03-23 17:31 | P.PNIM_ITS ---
Progress Note: A&P Assessment and Plan (1) Respiratory failure: Code(s): J96.90 - Respiratory failure, unspecified, unspecified whether with hypoxia or hypercapnia Status: Acute (2) Drug overdose: Code(s): T50.901A - Poisoning by unspecified drugs, medicaments and biological substances, accidental (unintentional), initial encounter Status: Acute (3) Suicidal behavior: Code(s): R45.89 - Other symptoms and signs involving emotional state Status: Acute (4) Attention deficit disorder: Code(s): F98.8 - Other specified behavioral and emotional disorders with onset usually occurring in childhood and adolescence Status: Acute (5) Asthma: Code(s): J45.909 - Unspecified asthma, uncomplicated Status: Acute (6) Bipolar disorder: Code(s): F31.9 - Bipolar disorder, unspecified Status: Acute (7) Tobacco abuse: Code(s): Z72.0 - Tobacco use Status: Acute (8) Alcohol use: Code(s): F10.90 - Alcohol use, unspecified, uncomplicated Status: Acute Plan This is 28-year-old female who presented to the ED with drug overdose. According the records she took unknown amounts of Lamictal trazodone, Seroquel and Lexapro. Patient had also a alcohol to drink per records. Patient was aggressive and fighting the ER staff. She received multiple doses of Ativan. Subsequently was intubated in the ER. She was admitted to the ICU for further treatment. Poison control was contacted. since admission to the ICU she was extubated on 03/23/2024 to room air. She admits to taking multiple medications impulsively as she was kicked out of her friend's house and had no where to go. Will continue suicide precautions. History of EGD on Lamictal Seroquel trazodone Lexapro History of asthma not in exacerbation p.r.n. bronchodilators Bipolar disorder multiple medications overall Tobacco abuse Alcohol use DVT prophylaxis Lovenox Code status full code Subjective Date/time seen: 03/23/24 17:31 Interval history: Patient was extubated earlier today. Has sore throat. Complains of generalized body aches. States she took all her medications. Review of Systems Review of Systems: All systems reviewed & are unremarkable except as noted in HPI and below Exam Narrative: General: Young female, Awake but drowsy not in acute distress HEENT:? Pupils equal and reactive, sclera is clear Neck:? Supple Respiratory:? Clear to auscultation bilaterally, no wheezing, adequate air entry Cardiac:? S1-S2 is normal, regular rate and rhythm Abdomen:? Soft, nontender, nondistended, normoactive bowel sound Extremities:? No edema, palpable pedal pulses Neuro:? patient awake but drowsy moving all extremities Skin:? Tattoos noted, no other skin lesions Psych:? calm , cooperative Objective Data Vital Signs Vital Signs: Vital Signs - 24 hr 03/22/24 18:00 03/22/24 18:00 03/22/24 18:00 Temperature 98.8 F Pulse Rate 85 84 84 Respiratory Rate 18 18 Blood Pressure 134/82 Pulse Oximetry 100 Oxygen Delivery Oxygen Flow Rate Fraction of Inspired Oxygen 03/22/24 18:00 03/22/24 18:25 03/22/24 19:30 Temperature Pulse Rate 84 101 H 86 Respiratory Rate 18 18 20 Blood Pressure Pulse Oximetry Oxygen Delivery Oxygen Flow Rate Fraction of Inspired Oxygen 03/22/24 19:30 03/22/24 19:35 03/22/24 19:45 Temperature Pulse Rate 86 84 81 Respiratory Rate 20 19 18 Blood Pressure Pulse Oximetry Oxygen Delivery Oxygen Flow Rate Fraction of Inspired Oxygen 03/22/24 20:00 03/22/24 20:00 03/22/24 20:00 Temperature 98.9 F Pulse Rate 84 84 84 Respiratory Rate 19 19 19 Blood Pressure 132/92 H Pulse Oximetry 100 Oxygen Delivery Oxygen Flow Rate Fraction of Inspired Oxygen 03/22/24 20:00 03/22/24 20:00 03/22/24 20:00 Temperature Pulse Rate 87 Respiratory Rate Blood Pressure Pulse Oximetry 100 Oxygen Delivery Mechanical Ventilation Oxygen Flow Rate 30 Fraction of Inspired Oxygen 30 03/22/24 20:30 03/22/24 20:30 03/22/24 20:42 Temperature Pulse Rate 82 82 82 Respiratory Rate 18 18 18 Blood Pressure Pulse Oximetry Oxygen Delivery Oxygen Flow Rate Fraction of Inspired Oxygen 03/22/24 20:42 03/22/24 20:42 03/22/24 20:49 Temperature Pulse Rate 82 82 80 Respiratory Rate 18 18 Blood Pressure Pulse Oximetry 100 Oxygen Delivery Mechanical Ventilation Oxygen Flow Rate Fraction of Inspired Oxygen 30 03/22/24 21:04 03/22/24 22:00 03/22/24 22:00 Temperature Pulse Rate 78 77 Respiratory Rate 18 18 Blood Pressure Pulse Oximetry 100 Oxygen Delivery Mechanical Ventilation Oxygen Flow Rate Fraction of Inspired Oxygen 30 03/22/24 22:00 03/22/24 22:00 03/22/24 23:44 Temperature 98.8 F Pulse Rate 77 77 77 Respiratory Rate 18 Blood Pressure 139/96 H Pulse Oximetry 100 100 Oxygen Delivery Mechanical Ventilation Oxygen Flow Rate Fraction of Inspired Oxygen 30 03/23/24 00:00 03/23/24 00:00 03/23/24 00:00 Temperature Pulse Rate 76 76 Respiratory Rate 18 18 Blood Pressure Pulse Oximetry 100 Oxygen Delivery Mechanical Ventilation Oxygen Flow Rate 30 Fraction of Inspired Oxygen 03/23/24 00:00 03/23/24 00:00 03/23/24 00:00 Temperature 98.7 F Pulse Rate 76 76 Respiratory Rate 18 Blood Pressure 138/97 H Pulse Oximetry 100 Oxygen Delivery Oxygen Flow Rate Fraction of Inspired Oxygen 30 03/23/24 01:11 03/23/24 01:11 03/23/24 01:46 Temperature Pulse Rate 77 77 81 Respiratory Rate 18 18 19 Blood Pressure Pulse Oximetry Oxygen Delivery Oxygen Flow Rate Fraction of Inspired Oxygen 03/23/24 01:46 03/23/24 02:00 03/23/24 02:00 Temperature 98.4 F Pulse Rate 81 77 77 Respiratory Rate 19 18 Blood Pressure 129/86 Pulse Oximetry 100 Oxygen Delivery Oxygen Flow Rate Fraction of Inspired Oxygen 03/23/24 02:00 03/23/24 02:00 03/23/24 03:19 Temperature Pulse Rate 77 77 77 Respiratory Rate 18 18 Blood Pressure Pulse Oximetry 100 Oxygen Delivery Mechanical Ventilation Oxygen Flow Rate Fraction of Inspired Oxygen 30 03/23/24 04:00 03/23/24 04:00 03/23/24 04:00 Temperature Pulse Rate 75 75 Respiratory Rate 20 20 Blood Pressure Pulse Oximetry 100 Oxygen Delivery Mechanical Ventilation Oxygen Flow Rate 30 Fraction of Inspired Oxygen 03/23/24 04:00 03/23/24 04:00 03/23/24 04:00 Temperature 98.1 F Pulse Rate 75 75 Respiratory Rate 20 Blood Pressure 129/88 Pulse Oximetry 100 Oxygen Delivery Oxygen Flow Rate Fraction of Inspired Oxygen 30 03/23/24 04:15 03/23/24 04:50 03/23/24 05:00 Temperature Pulse Rate 75 75 76 Respiratory Rate 21 H 19 Blood Pressure Pulse Oximetry 100 Oxygen Delivery Mechanical Ventilation Oxygen Flow Rate Fraction of Inspired Oxygen 30 03/23/24 05:05 03/23/24 05:15 03/23/24 05:41 Temperature Pulse Rate 75 75 74 Respiratory Rate 19 20 18 Blood Pressure Pulse Oximetry Oxygen Delivery Oxygen Flow Rate Fraction of Inspired Oxygen 03/23/24 05:41 03/23/24 06:00 03/23/24 06:00 Temperature Pulse Rate 74 78 78 Respiratory Rate 18 18 18 Blood Pressure Pulse Oximetry Oxygen Delivery Oxygen Flow Rate Fraction of Inspired Oxygen 03/23/24 06:00 03/23/24 06:00 03/23/24 06:15 Temperature 97.9 F Pulse Rate 78 78 78 Respiratory Rate 18 18 Blood Pressure 112/75 Pulse Oximetry 100 Oxygen Delivery Oxygen Flow Rate Fraction of Inspired Oxygen 03/23/24 08:00 03/23/24 08:00 03/23/24 08:00 Temperature Pulse Rate 76 76 Respiratory Rate 22 H Blood Pressure Pulse Oximetry Oxygen Delivery Mechanical Ventilation Oxygen Flow Rate Fraction of Inspired Oxygen 30 03/23/24 08:00 03/23/24 08:48 03/23/24 09:00 Temperature 98.2 F Pulse Rate 76 96 Respiratory Rate 20 21 H Blood Pressure 135/93 H Pulse Oximetry 100 96 Oxygen Delivery Nasal Cannula Oxygen Flow Rate 2 Fraction of Inspired Oxygen 03/23/24 09:16 03/23/24 09:16 03/23/24 09:17 Temperature Pulse Rate 90 90 93 Respiratory Rate 16 16 16 Blood Pressure Pulse Oximetry Oxygen Delivery Oxygen Flow Rate Fraction of Inspired Oxygen 03/23/24 10:00 03/23/24 10:00 03/23/24 10:00 Temperature 99.5 F Pulse Rate 91 89 90 Respiratory Rate 16 19 Blood Pressure 106/61 Pulse Oximetry 99 Oxygen Delivery Oxygen Flow Rate Fraction of Inspired Oxygen 03/23/24 10:05 03/23/24 10:30 03/23/24 11:30 Temperature Pulse Rate 92 89 Respiratory Rate 21 H 18 Blood Pressure Pulse Oximetry 96 Oxygen Delivery Room Air Oxygen Flow Rate Fraction of Inspired Oxygen 03/23/24 12:00 03/23/24 12:00 03/23/24 12:00 Temperature 99.7 F H Pulse Rate 90 90 Respiratory Rate 14 Blood Pressure 105/72 Pulse Oximetry 97 Oxygen Delivery Room Air Oxygen Flow Rate Fraction of Inspired Oxygen 03/23/24 12:23 03/23/24 14:00 03/23/24 14:00 Temperature Pulse Rate 88 108 H 107 H Respiratory Rate 20 18 Blood Pressure 104/58 L Pulse Oximetry 94 Oxygen Delivery Oxygen Flow Rate Fraction of Inspired Oxygen 03/23/24 16:00 03/23/24 16:00 Temperature 98.9 F Pulse Rate 99 96 Respiratory Rate 21 H Blood Pressure 112/95 H Pulse Oximetry 95 Oxygen Delivery Oxygen Flow Rate Fraction of Inspired Oxygen Intake/Output Intake/Output: Intake & Output 03/20/24 03/21/24 03/22/24 03/23/24 23:59 23:59 23:59 23:59 Intake Total 4522.5 3278.2 Output Total 1850 1200 Balance 2672.5 2078.2 Meds/Results Medications: Active Medications Generic Name Dose Route Start Last Admin Trade Name Freq PRN Reason Stop Dose Admin Acetaminophen 650 mg 03/23/24 10:59 03/23/24 12:14 Acetaminophen 325 Mg Tablet PO 650 mg Q6H PRN Administration Mild Pain (1-3) or Fever Albuterol/Ipratropium 3 ml 03/22/24 08:43 Ipratropium 0.5 Mg/Albuterol Sulfate 2.5 Mg Ampul.Neb 3 Ml INHALATION Q6HRT PRN Wheezing Enoxaparin Sodium 40 mg 03/22/24 09:00 03/23/24 09:03 Enoxaparin 40 Mg/0.4 Ml Syringe SUB-Q Not Given DAILY OREN Ketorolac Tromethamine 15 mg 03/23/24 16:43 03/23/24 16:56 Ketorolac 15 Mg/Ml Vial (*Bkc) IV PUSH 15 mg Q6H PRN Administration Pain Rated 4-6 Ondansetron HCl 4 mg 03/23/24 09:01 03/23/24 09:17 Ondansetron Inj 4 Mg/2 Ml Vial IV PUSH 4 mg Q6H PRN Administration Nausea And Vomiting Pantoprazole Sodium 40 mg 03/22/24 09:00 03/23/24 08:41 Pantoprazole Sodium Iv 40 Mg Vial IV PUSH 40 mg QAM OREN Administration Phenol 1 spray 03/23/24 16:43 Phenol/Sod Pheno [place] Kemp (*Bkc) MUCOUS MEM PRN PRN Sore Throat Radiology Results: ITS Impressions Chest X-Ray 03/23/24 06:29 IMPRESSION: 1. No acute cardiopulmonary disease. Labs Labs: Laboratory Results - last 24 hr 03/23/24 03/23/24 04:22 04:54 WBC 14.9 H RBC 3.65 L Hgb 10.5 L Hct 33.2 L MCV 91.0 MCH 28.8 MCHC 31.6 L RDW 15.0 H Plt Count 240 MPV 10.5 H Immature Gran % (Auto) 0.3 Neut % (Auto) 75.1 H Lymph % (Auto) 15.6 L [place] % (Auto) 6.9 Eos % (Auto) 1.8 Baso % (Auto) 0.3 Lymph # (Auto) 2.33 [place] # (Auto) 1.0 H Eos # (Auto) 0.3 Baso # (Auto) 0.0 Abs Immat Gran (auto) 0.05 H Absolute Neuts (auto) 11.2 H Absolute Nucleated RBC 0.000 Nucleated RBC % 0.0 Puncture Site Right radial ABG pH 7.322 L ABG pCO2 47.6 H ABG pO2 136.4 H ABG PO2/FiO2 Ratio 4.55 ABG HCO3 24.1 ABG O2 Saturation 98.5 ABG O2 Content 20.9 ABG Base Excess -2.4 A-a Gradient 21.6 Oxyhemoglobin 98.0 Carboxyhemoglobin 0.7 Methemoglobin 0.1 Reduced Hemoglobin 1.2 Total Hemoglobin 15.0 O2 Delivery Device Ventilator O2 Liters/Min Not Reportable Minute Volume Not Reportable Vent Rate 18 Vent Mode Cmv FiO2 30 Tidal Volume 380 PEEP 5 Peak Inspir Pressure Not Reportable Pressure Support Not Reportable Sodium 141 Potassium 3.4 Chloride 112 H Carbon Dioxide 28 Anion Gap 1 L BUN 8 Creatinine 0.70 Estim Creat Clear Calc 103 Estimated GFR > 60 Glucose 109 Calcium 7.7 L Phosphorus 3.1 Magnesium 2.1 Total Bilirubin 0.3 AST 57 H ALT 22 Alkaline Phosphatase 70 Total Protein 6.0 L Albumin 3.2 L
[2024-03-23] MEDS: PHENOL/SOD PHENO SPRAY CHERRY (*BKC) 1 SPRAY MUCOUS MEM (18:09)
--- NOTE | 2024-03-23 19:37 | PC.NURSE ---
Pt's lozano taken out at 1212. Pt has tried urinating twice on the [facility] between 1730 - 1830 without any success. Bladder scan shows [address] Juarez ordered straight cath once. This RN and Rylee Bass RN attempted to straight cath patient. Pt was inconsolably crying and anxious. She would not allow the cath to be performed. It was decided that we would stop and contact the doctor for further orders. This RN stayed with pt to attempt to console her. Pt wanted to attempt to try urinating again. This RN left her on the C with sitter and mother in room. [ End ]
[2024-03-24] MEDS: KETOROLAC 15 MG/ML VIAL (*BKC) IV PUSH ×2 (03:07→10:04)
[2024-03-24 04:02] LABS: Basophils Percent Auto 0.2 % (0.2-1.2); Eosinophils Absolute Auto 0.3 K/mm3 (0-0.3); Eosinophils Percent Auto 2.6 % (0-4.4); Hematocrit 31.7 % (37.0-47.0); Hemoglobin 10.4 g/dL (12.0-15.0); Immature Granulocyte Absolute 0.03 K/mm3 (0.00-0.031); Immature Granulocyte Percent A 0.3 % (0-0.5); Mean Corpuscular HGB Conc 32.8 g/dl (32-36); Mean Corpuscular Hemoglobin 29.8 pg (26-34); Mean Corpuscular Volume 90.8 fl (80-100); Mean Platelet Volume 10.4 fl (7.4-10.4); Monocytes Absolute Auto 0.9 K/mm3 (0.1-0.6); Monocytes Percent Auto 9.2 % (2.6-8.5); Neutrophils Absolute Auto 5.8 K/mm3 (1.3-6.7); Neutrophils Percent Auto 59.7 % (45.5-73.1); Platelet Count Result 231 k/mm3 (150-375); Red Blood Count 3.49 M/mm3 (4.2-5.4); Red Cell Distribution Width 15.1 % (11.5-14.5); White Blood Count 9.7 K/mm3 (4.5-10.0)
[2024-03-24 04:14] LABS: Alanine Aminotransferase 30 U/L (6-35); Albumin Level 3.2 g/dL (3.5-5.1); Alkaline Phosphatase 66 U/L (38-126); Anion Gap 1 mmol/L (4-12); Aspartate Amino Transferase 72 U/L (14-36); Bilirubin,Total 0.2 mg/dL (0.2-1.3); Blood Urea Nitrogen 6 mg/dL (7-17); Calcium 8.2 mg/dL (8.4-10.2); Carbon Dioxide 27 mmol/L (22-30); Chloride 110 mmol/L (98-107); Estimated CRCL calculation 105 ml/min; Estimated Glomerular Filt Rate > 60; Glucose 115 mg/dL (65-110); Phosphorus 2.9 mg/dL (2.5-4.5); Potassium 3.8 mmol/L (3.4-5.0); Sodium 138 mmol/L (137-145)
[2024-03-24] MEDS: ENOXAPARIN 40 MG/0.4 ML SYRINGE SUB-Q (07:47)
[2024-03-24] MEDS: PANTOPRAZOLE SODIUM IV 40 MG VIAL IV PUSH (07:47)
[2024-03-24] MEDS: ACETAMINOPHEN 325 MG TABLET 650 MG PO ×2 (07:47→15:52)
[2024-03-24 08:00] VITALS: BP 116/72; PULSE 80; RESP 24; TEMP 36.3; O2SAT 97
[2024-03-24] MEDS: PHENOL/SOD PHENO SPRAY CHERRY (*BKC) 1 SPRAY MUCOUS MEM (10:05)
--- NOTE | 2024-03-24 12:54 | P.PNIM_ITS ---
Progress Note: A&P Assessment and Plan (1) Respiratory failure: Code(s): J96.90 - Respiratory failure, unspecified, unspecified whether with hypoxia or hypercapnia Status: Acute (2) Drug overdose: Code(s): T50.901A - Poisoning by unspecified drugs, medicaments and biological substances, accidental (unintentional), initial encounter Status: Acute (3) Suicidal behavior: Code(s): R45.89 - Other symptoms and signs involving emotional state Status: Acute (4) Attention deficit disorder: Code(s): F98.8 - Other specified behavioral and emotional disorders with onset usually occurring in childhood and adolescence Status: Acute (5) Asthma: Code(s): J45.909 - Unspecified asthma, uncomplicated Status: Acute (6) Bipolar disorder: Code(s): F31.9 - Bipolar disorder, unspecified Status: Acute (7) Tobacco abuse: Code(s): Z72.0 - Tobacco use Status: Acute (8) Alcohol use: Code(s): F10.90 - Alcohol use, unspecified, uncomplicated Status: Acute Plan This is 28-year-old female who presented to the ED with drug overdose. According the records she took unknown amounts of Lamictal trazodone, Seroquel and Lexapro. Patient had also a alcohol to drink per records. Patient was aggressive and fighting the ER staff. She received multiple doses of Ativan. Subsequently was intubated in the ER. She was admitted to the ICU for further treatment. Poison control was contacted. since admission to the ICU she was extubated on 03/23/2024 to room air. She admits to taking multiple medications impulsively as she was kicked out of her friend's house and had no where to go. Will continue suicide precautions. medically stable for crisis team evaluation Throat pain likely due related to intubation. Chloraseptic spray ibuprofen p.r.n. History of EGD on Lamictal Seroquel trazodone Lexapro History of asthma not in exacerbation p.r.n. bronchodilators Bipolar disorder multiple medications overall Tobacco abuse Alcohol use DVT prophylaxis Lovenox Code status full code Subjective Date/time seen: 03/24/24 12:54 Interval history: no overnight events. Complains of generalized body aches. On suicide watch Review of Systems Review of Systems: All systems reviewed & are unremarkable except as noted in HPI and below Exam Narrative: General: Young female, Awake and alert not in acute distress HEENT:? Pupils equal and reactive, sclera is clear Neck:? Supple Respiratory:? Clear to auscultation bilaterally, no wheezing, adequate air entry Cardiac:? S1-S2 is normal, regular rate and rhythm Abdomen:? Soft, nontender, nondistended, normoactive bowel sound Extremities:? No edema, palpable pedal pulses Neuro:? patient awake and alert oriented x3 moving all extremities Skin:? Tattoos noted, no other skin lesions Psych:? calm , cooperative Objective Data Vital Signs Vital Signs: Vital Signs - 24 hr 03/23/24 14:00 03/23/24 14:00 03/23/24 16:00 Temperature 98.9 F Pulse Rate 108 H 107 H 99 Respiratory Rate 18 21 H Blood Pressure 104/58 L 112/95 H Pulse Oximetry 94 95 Oxygen Delivery 03/23/24 16:00 03/23/24 18:00 03/23/24 20:00 Temperature Pulse Rate 96 103 H 98 Respiratory Rate 15 Blood Pressure Pulse Oximetry 99 Oxygen Delivery Room Air 03/23/24 20:00 03/24/24 07:53 03/24/24 08:00 Temperature 98.0 F 97.4 F L Pulse Rate 98 80 Respiratory Rate 15 24 H Blood Pressure 103/68 116/72 Pulse Oximetry 99 97 Oxygen Delivery Room Air Intake/Output Intake/Output: Intake & Output 03/21/24 03/22/24 03/23/24 03/24/24 23:59 23:59 23:59 23:59 Intake Total 4522.5 4472.2 714 Output Total 1850 2500 1600 Balance 2672.5 1972.2 -886 Meds/Results Medications: Active Medications Generic Name Dose Route Start Last Admin Trade Name Freq PRN Reason Stop Dose Admin Acetaminophen 650 mg 03/23/24 10:59 03/24/24 07:47 Acetaminophen 325 Mg Tablet PO 650 mg Q6H PRN Administration Mild Pain (1-3) or Fever Albuterol/Ipratropium 3 ml 03/22/24 08:43 Ipratropium 0.5 Mg/Albuterol Sulfate 2.5 Mg Ampul.Neb 3 Ml INHALATION Q6HRT PRN Wheezing Enoxaparin Sodium 40 mg 03/22/24 09:00 12/28/24 07:47 Enoxaparin 40 Mg/0.4 Ml Syringe SUB-Q 40 mg DAILY OREN Administration Ketorolac Tromethamine 15 mg 03/23/24 16:43 03/24/24 10:04 Ketorolac 15 Mg/Ml Vial (*Bkc) IV PUSH 15 mg Q6H PRN Administration Pain Rated 4-6 Ondansetron HCl 4 mg 03/23/24 09:01 03/23/24 09:17 Ondansetron Inj 4 Mg/2 Ml Vial IV PUSH 4 mg Q6H PRN Administration Nausea And Vomiting Pantoprazole Sodium 40 mg 03/22/24 09:00 03/24/24 07:47 Pantoprazole Sodium Iv 40 Mg Vial IV PUSH 40 mg QAM OREN Administration Phenol 1 spray 03/23/24 16:43 03/24/24 10:05 Phenol/Sod Pheno [place] Kemp (*Bkc) MUCOUS MEM 1 spray PRN PRN Administration Sore Throat Radiology Results: ITS Impressions Chest X-Ray 03/23/24 06:29 IMPRESSION: 1. No acute cardiopulmonary disease. Labs Labs: Laboratory Results - last 24 hr 03/24/24 03:57 WBC 9.7 RBC 3.49 L Hgb 10.4 L Hct 31.7 L MCV 90.8 MCH 29.8 MCHC 32.8 RDW 15.1 H Plt Count 231 MPV 10.4 Immature Gran % (Auto) 0.3 Neut % (Auto) 59.7 Lymph % (Auto) 28.0 [place] % (Auto) 9.2 H Eos % (Auto) 2.6 Baso % (Auto) 0.2 Lymph # (Auto) 2.70 [place] # (Auto) 0.9 H Eos # (Auto) 0.3 Baso # (Auto) 0.0 Abs Immat Gran (auto) 0.03 Absolute Neuts (auto) 5.8 Absolute Nucleated RBC 0.000 Nucleated RBC % 0.0 Sodium 138 Potassium 3.8 Chloride 110 H Carbon Dioxide 27 Anion Gap 1 L BUN 6 L Creatinine 0.70 Estim Creat Clear Calc 105 Estimated GFR > 60 Glucose 115 H Calcium 8.2 L Phosphorus 2.9 Magnesium 2.0 Total Bilirubin 0.2 AST 72 H ALT 30 Alkaline Phosphatase 66 Total Protein 6.0 L Albumin 3.2 L
--- NOTE | 2024-03-24 13:17 | PCSTNOTE ---
Please refer to the Bedside Swallow Evaluation in the EMR. This 28-year-old female patient was re-evaluated at bedside to ensure that a diet upgrade to include solids is appropriate at this time. Trials of water, puree (apple sauce), mixed consistency (fruit cocktail), and solids (kaitlin cracker) via spoon and cup edge were administered at bedside. The pt verbalized discomfort when swallowing but RN and pt agree that it is most likely d/t extubation yesterday, 03/23. Pt was able to independently self feed this date. Oral transit was timely with no oral residue noted. Laryngeal elevation was adequate and timely for all swallows. Vocal quality remained clear and no s/s aspiration were noted. Please note that silent aspiration cannot be ruled out at bedside. Given the results of this assessment, it is recommended this pt is upgraded and receive an oral diet of regular solids and thin liquids. No further ST is warranted at this time. Thank you for this referral.
--- NOTE | 2024-03-24 14:56 | PM.DS ---
DS: Admitting Diagnosis Discharge Date 03/24/2024 Admitting Diagnosis drug overdose DS: Discharge Diagnosis Discharge Diagnosis (1) Respiratory failure: Code(s): J96.90 - Respiratory failure, unspecified, unspecified whether with hypoxia or hypercapnia Status: Acute (2) Drug overdose: Code(s): T50.901A - Poisoning by unspecified drugs, medicaments and biological substances, accidental (unintentional), initial encounter Status: Acute (3) Suicidal behavior: Code(s): R45.89 - Other symptoms and signs involving emotional state Status: Acute (4) Attention deficit disorder: Code(s): F98.8 - Other specified behavioral and emotional disorders with onset usually occurring in childhood and adolescence Status: Acute (5) Asthma: Code(s): J45.909 - Unspecified asthma, uncomplicated Status: Acute (6) Bipolar disorder: Code(s): F31.9 - Bipolar disorder, unspecified Status: Acute (7) Tobacco abuse: Code(s): Z72.0 - Tobacco use Status: Acute (8) Alcohol use: Code(s): F10.90 - Alcohol use, unspecified, uncomplicated Status: Acute DS: Summary Hospital Course Hospital Course: This is 28-year-old female who presented to the ED with drug overdose. According the records she took unknown amounts of Lamictal trazodone, Seroquel and Lexapro. Patient had also a alcohol to drink per records. Patient was aggressive and fighting the ER staff. She received multiple doses of Ativan. Subsequently was intubated in the ER. She was admitted to the ICU for further treatment. Poison control was contacted. since admission to the ICU she was extubated on 03/23/2024 to room air. She admits to taking multiple medications impulsively as she was kicked out of her friend's house and had no where to go. patient continued suicide precautions. crisis team was contacted and they made a safety contract with the patient. she will follow up with her regular psychiatirst next week for further treatment. Throat pain likely due related to intubation. Chloraseptic spray ibuprofen p.r.n. History of EGD on Lamictal Seroquel trazodone Lexapro History of asthma not in exacerbation p.r.n. bronchodilators Bipolar disorder multiple medications overall Tobacco abuse Alcohol use DVT prophylaxis Lovenox Code status full code Time Spent with Patient Time attestation: Total time spent providing and/or coordinating discharge services: 45 minutes Exam Narrative: General: Young female, Awake and alert not in acute distress HEENT:? Pupils equal and reactive, sclera is clear Neck:? Supple Respiratory:? Clear to auscultation bilaterally, no wheezing, adequate air entry Cardiac:? S1-S2 is normal, regular rate and rhythm Abdomen:? Soft, nontender, nondistended, normoactive bowel sound Extremities:? No edema, palpable pedal pulses Neuro:? patient awake and alert oriented x3 moving all extremities Skin:? Tattoos noted, no other skin lesions Psych:? calm , cooperative DS: Data Data Completed and Pending Labs on day of discharge: Labs from last 24 hours 03/24/24 03:57 WBC 9.7 RBC 3.49 L Hgb 10.4 L Hct 31.7 L MCV 90.8 MCH 29.8 MCHC 32.8 RDW 15.1 H Plt Count 231 MPV 10.4 Immature Gran % (Auto) 0.3 Neut % (Auto) 59.7 Lymph % (Auto) 28.0 [place] % (Auto) 9.2 H Eos % (Auto) 2.6 Baso % (Auto) 0.2 Lymph # (Auto) 2.70 [place] # (Auto) 0.9 H Eos # (Auto) 0.3 Baso # (Auto) 0.0 Abs Immat Gran (auto) 0.03 Absolute Neuts (auto) 5.8 Absolute Nucleated RBC 0.000 Nucleated RBC % 0.0 Sodium 138 Potassium 3.8 Chloride 110 H Carbon Dioxide 27 Anion Gap 1 L BUN 6 L Creatinine 0.70 Estim Creat Clear Calc 105 Estimated GFR > 60 Glucose 115 H Calcium 8.2 L Phosphorus 2.9 Magnesium 2.0 Total Bilirubin 0.2 AST 72 H ALT 30 Alkaline Phosphatase 66 Total Protein 6.0 L Albumin 3.2 L Imaging Radiologist's impression: ITS Impressions Chest X-Ray 03/22/24 06:14 IMPRESSION: 1. Airspace opacities with volume loss in right lung upper lobe and airspace opacities in left perihilar region, consistent with atelectasis versus pneumonia. Chest X-Ray 03/23/24 06:29 IMPRESSION: 1. No acute cardiopulmonary disease. Discharge Plan Discharge Attending physician on discharge: Jerry Juarez Consulting providers: Jaycee Menchaca Discharging Clinician: Jerry Juarez Anticipated Discharge Date/Time: 03/24/24 14:51 Patient Disposition: Home, Self-Care Activity: as tolerated Diet: regular Discharge Instructions: Overdose. fu with your psychiatrist next week. call for appointment Patient Instructions: Antibiotic Form, Adult Overdose (ED), Suicide Prevention (GEN) Patient Language: Kosovan Stand Alone Forms: General Discharge Information Follow-up/Referrals: PHYSICIAN,PROJECT PORTFOLIO ANALYST [Primary Care Provider] - 1 Week Discharge Medications: Continued lamotrigine 200 mg tablet 200 mg PO HS Qty: 7 0RF escitalopram oxalate 10 mg tablet 10 mg PO HS Qty: 7 0RF Patient Comments: Total dose 30mg at HS escitalopram oxalate 20 mg tablet 20 mg PO HS Qty: 7 0RF Patient Comments: For total dose of 30mg HS lamotrigine 100 mg tablet 100 mg PO HS Qty: 7 0RF quetiapine 300 mg tablet extended release 24 hr 300 mg PO HS Qty: 7 0RF trazodone 100 mg tablet 200 mg PO HS Qty: 14 0RF Date of admission: 03/22/24 11:36 Primary Care Provider: PHYSICIAN,PROJECT PORTFOLIO ANALYST Admitting Provider: Yudy Canchola V. Attending physician on admission: Yudy Canchola V. Condition: Stable
[2024-03-25 12:23] LABS: Lamotrigine Lamictal 32.7 mcg/mL (2.5-15.0)
--- OUTSIDE RECORDS SUMMARY | 2024-03-29 00:20 | XMS_ITS | Clinical Summary ---
Author Organization [facility] Address [address] [place] [address] Phone Care Team Providers Care Obstetrics Gynecology Physician Name Role Phone Provider, None Primary Care Provider Unavailabl e Provider, None Unavailable Unavailable Allergies No known active allergies Medications LORazepam (ATIVAN) 2 MG TabletIndicatio ns:Bipolar 2 disorder (HCC) Take 1 Tablet by mouth every 2 hours as needed for Other or Anxiety (agitation). 30 Tablet 3 Active escitalopram (LEXAPRO) 20 MG Tablet Take 1 Tablet by mouth daily. 90 Tablet 3 Active lamoTRIgine (LaMICtal) 100 MG Tablet Take 1 Tablet by mouth daily. Take along with Lamotrigine 200mg to equal 300mg daily. 30 Tablet 3 Active lamoTRIgine (LaMICtal) 200 MG Tablet Take 1 Tablet by mouth daily. Take along with Lamotrigine 100mg to equal 300mg daily. 30 Tablet 3 Active nicotine (NICODERM CQ) 21 MG/24HR PATCH 24 HR 1 Patch by Transdermal route daily as needed for Other (Nicotine dependency). 30 Patch 3 Active QUEtiapine Fumarate 300 MG Tablet Take 1 Tablet by mouth daily. 60 Tablet 3 Active traZODone (DESYREL) 150 MG Tablet Take 1 Tablet by mouth nightly. 30 Tablet 3 Active Active Problems Problem Noted Date Diagnosed Date Drug overdose of undetermined intent, initial en counter 11/02/2022 Acute encephalopathy 11/02/2022 Aspiration pneumonia 11/02/2022 Polysubstance abuse 11/02/2022 Bipolar 2 disorder Social History Tobacco Use Types Packs/Day Years Used Date Smoking Tobacco: Every Day Cigarettes Smokeless Tobacco: Never Tobacco Cessation:Ready to Q uit: Not Asked; Counseling Given: Not Answered Alcohol Use Standard Drinks/Week Comments Yes 0 (1 standard drink = 0.6 oz pur e alcohol) socially Comments No Sex and Gender Information Value Date Recorded Sex Assigned at Not on file Legal Sex Female 3:33 PM CDT Gender Identity Not on file Sexual Orientation Not on file Last Filed Vital Signs Vital Sign Reading Time Taken Comments Blood Pressure 109/54 11/10/2022 10:40 AM CDT Pulse 87 11/10/2022 10:40 AM CDT Temperature 36.4 ??C (97.5 ??F) 11/10/2022 10:40 AM C DT Respiratory Rate 20 11/10/2022 10:40 AM CDT Oxygen Saturation 99% 11/10/2022 10:40 AM CDT Inhaled Oxygen Concentration - - Weight 68 kg (150 lb) 11/02/2022 6:01 AM CDT Height 162.6 cm (5' 4 ) 11/02/2022 6:01 AM CDT Body Mass Index 25.75 11/02/2022 6:01 AM CDT Plan of Treatment Health Maintenance Due Date Last Done Comments Hepatitis C Virus (HCV) Screening 1997 Human Papillomavirus (HPV) Immunization (1 - 3-dose series) 2012 Pneumococcal Immunization Combined (1 of 2 - PCV) 2016 10/19/1999 Pap Smear 2018 Influenza Immunization (#1) 2023 SARS-COV-2 Immunization (3 - 2023- season) 2023 03/16/2021, 02/16/2021 Respiratory Syncytial Virus (RSV) Immunization (Adult) (1 - 1-dose 75+ series) 2072 Hepatitis B Immunization Completed 999, 03/19/1998, 1997 DTaP/Tdap/Td Immunization Discontinued 2009, 12/18/2002, 11/17/2002, Additional history exists TdaP Immunization Completed 12/04/2009 Meningococcal Immunization (ACWY) Completed 10/09/2015 Rotavirus Immunization Aged Out No lo nger eligible based on patient's age to complete this topic Advance Directives * Full Code (Latest Code Status on File) Date Activated Date Inactivated Comments 11/02/2022 11:38 AM 11/10/2022 12:48 PM CPR-Full Tr eatment: FULL ARREST: Attempt Resuscitation/CPR wit intubation and mechanical ventilation. PRE-ARREST: Use entire range of life support measures to stabilize the patient. Care Teams Obstetrics Gynecology Physician Relationship Specialty Start Date End Date Provider, None [place] PCP - General 09/18/22 Provider, None [place] 09/18/22
--- OUTSIDE RECORDS SUMMARY | 2024-03-29 00:20 | XMS_ITS | Encounter Summary ---
Author Organization [facility] Address [address] [place] [address] Phone Care Team Providers Care Cloth Wire Weaver Name Role Phone Provider, None Primary Care Provider Unavailabl e Reason for Visit * Reason Comments Abdominal Pain Encounter Details Date Type Department Care Team (Late st Contact Info) Description 02/20/2021 10:50 PM DATA PROCESSING MECHANIC - 02/21/2021 3:50 AM DATA PROCESSING MECHANIC Emergency [facility] [address] [place] [address] Onesimo Farr MD [address] [place] [address] Nephrolithiasis Discharge Disposition: Discharged to home or Selfcare Social History Tobacco Use Types Packs/Day Years Used Date Smoking Tobacco: Every Day Cigarettes Smokeless Tobacco: Never Alcohol Use Standard Drinks/Week Comments Yes 0 (1 standard drink = 0.6 oz pur e alcohol) 7 drinks Comments No Sex and Gender Information Value Date Recorded Sex Assigned at Not on file Legal Sex Female 3:33 PM CDT Gender Identity Not on file Sexual Orientation Not on file COVID-19 Exposure Response Date Recorded In the last month, have you been in contact with someone who was confirmed or suspected to have Coronavirus / COVID-19? No / Unsure 02/20/2021 10:44 PM DATA PROCESSING MECHANIC documented as of this encounter Last Filed Vital Signs Vital Sign Reading Time Taken Comments Blood Pressure 105/53 02/21/2021 3:30 AM DATA PROCESSING MECHANIC Pulse 81 02/21/2021 3:45 AM DATA PROCESSING MECHANIC Temperature 36.9 ??C (98.5 ??F) 02/20/2021 10:44 PM C Respiratory Rate 16 02/20/2021 10:44 PM DATA PROCESSING MECHANIC Oxygen Saturation 100% 02/21/2021 3:45 AM DATA PROCESSING MECHANIC Inhaled Oxygen Concentration - - Weight 63.5 kg (140 lb) 02/20/2021 10:44 PM DATA PROCESSING MECHANIC Height 162.6 cm (5' 4 ) 02/20/2021 10:44 PM DATA PROCESSING MECHANIC Body Mass Index 24.03 02/20/2021 10:44 PM DATA PROCESSING MECHANIC documented in this encounter Medications at Time of Discharge Escitalopram Oxalate (LEXAPRO PO) Take by mouth nightly. 11/06/2022 HYDROcodone-acet aminophen (NORCO) 5-325 MG TabletIndication s:Nephrolithiasi s Take 1-2 Tablets by mouth every 4 hours as needed for Moderate or more severe pain. 20 Tablet 02/21/2021 11/06/2022 hydrOXYzine (ATARAX) 10 MG Tablet Take 25 mg by mouth 4 times daily as needed for Anxiety. 11/06/2022 LAMOTRIGINE PO Take by mouth 2 times daily. 11/06/2022 polyethylene glycol (MiraLax) 17 GM/SCOOP Powder Take 17 g by mouth daily. 17 g = 1 scoop. Dissolve in 4 -8 oz of water or other liquid. 1 Bottle 09/27/2020 11/06/2022 tamsulosin (FLOMAX) 0.4 MG Capsule Take 1 Capsule by mouth daily. 10 Capsule 02/21/2021 11/06/2022 traZODone (DESYREL) 50 MG Tablet Take 50 mg by mouth nightly. 11/06/2022 documented as of this encounter ED Notes * Tata Wharton RN - 02/21/2021 3:50 AM CST Patient discharged. Discharge instructions and patient educational material reviewed with patient; questions and concerns addressed; patient verbalizes understanding, using teach back. Patient was given 2 prescriptions. Patient was informed no drinking alcohol, driving or operating heavy machinery while taking narcotics or muscle relaxants. Patient discharged per ambulation with a steady gait. PROCESSING MECHANIC * Tata Wharton RN - 02/21/2021 3:42 AM CST Pt medicated per provider orders. Pt educated on intended effects and side effects of medication and verbalized understanding, able to provide teach back of education. PROCESSING MECHANIC * Audrey Farris RN - 02/21/2021 3:05 AM CST Patient is resting in room with call light at bedside. Patient informed about wait time and verbalizes understanding. Patient denies needs at this time and verbalizes understanding that RN will complete hourly rounding. * Audrey Farris RN - 02/21/2021 2:05 AM CST Patient is resting in room with call light at bedside. Patient informed about wait time and verbalizes understanding. Patient denies needs at this time and verbalizes understanding that RN will complete hourly rounding. PROCESSING MECHANIC * Tata Wharton RN - 02/21/2021 1:05 AM CST Pt medicated per provider orders. Pt educated on intended effects and side effects of medication and verbalized understanding, able to provide teach back of education. PROCESSING MECHANIC * Onesimo Farr MD - 02/21/2021 12:43 AM CST Images from the original note were not included. Chief Complaint Patient presents with ??? Abdominal Pain Patient presents emergency room with left lower abdominal pain as worsened over the past 3 weeks. Patient apparently has had history of abdominal pain for quite some time with history of ovarian cyst. She apparently was seen at [facility] where she had a CT scan done was told she had cyst at that time. She has history of surgery with a taken out her flow pin to related to removal of cyst in the past. She has not had any fever chills. She has not had no nausea vomiting or diarrhea. Current Facility-Administered Medications Medication Dose Route Frequency Provider Last Rate Last Admin ??? tamsulosin (FLOMAX) capsule 0.4 mg 0.4 mg Oral Once Onesimo Farr MD Current Outpatient Medications Medication Sig Dispense Refill ??? Escitalopram Oxalate (LEXAPRO PO) Take by mouth nightly. ??? HYDROcodone-acetaminophen (NORCO) 5-325 MG Tablet Take 1-2 Tablets by mouth every 4 hours as needed for Moderate or more severe pain. 20 Tablet 0 ??? hydrOXYzine (ATARAX) 10 MG Tablet Take 25 mg by mouth 4 times daily as needed for Anxiety. ??? LAMOTRIGINE PO Take by mouth 2 times daily. ??? polyethylene glycol (MiraLax) 17 GM/SCOOP Powder Take 17 g by mouth daily. 17 g = 1 scoop. Dissolve in 4 -8 oz of water or other liquid. 1 Bottle 0 ??? tamsulosin (FLOMAX) 0.4 MG Capsule Take 1 Capsule by mouth daily. 10 Capsule 0 ??? traZODone (DESYREL) 50 MG Tablet Take 50 mg by mouth nightly. No Known Allergies Past Medical History Positives Diagnosis Date ??? Ovarian cyst Past Surgical History: Procedure Laterality Date ??? REMOVAL OF FALLOPIAN TUBE Left 2020 Social History Socioeconomic History ??? Marital status: Single Spouse name: Not on file ??? Number of children: Not on file ??? Years of education: Not on file ??? Highest education level: Not on file Occupational History ??? Not on file Tobacco Use ??? Smoking status: Current Every Day Smoker Packs/day: 0.50 Types: Cigarettes ??? Smokeless tobacco: Never Used Substance and Sexual Activity ??? Alcohol use: Yes Comment: 7 drinks ??? Drug use: Yes Types: Marijuana ??? Sexual activity: Not on file Other Topics Concern ??? Not on file Social History Narrative ??? Not on file Social Determinants of Health Social determinant risk not applicable to this patient. BP 107/71 Pulse 72 Temp 98.5 ??F (36.9 ??C) (Tympanic) Resp 16 Ht 5' 4 (1.626 m) Wt 140 lb (63.5 kg) LMP 01/29/2021 SpO2 99% BMI 24.03 kg/m?? Review of Systems Constitutional: Negative for chills and fever. HENT: Negative for congestion, ear pain, rhinorrhea and sore throat. Eyes: Negative for discharge. Respiratory: Negative for cough, chest tightness, shortness of breath and wheezing. Cardiovascular: Negative for chest pain and palpitations. Gastrointestinal: Positive for abdominal pain. Negative for diarrhea, nausea and vomiting. Genitourinary: Positive for pelvic pain. Negative for difficulty urinating, dysuria, frequency and menstrual problem. Musculoskeletal: Negative for arthralgias and myalgias. Skin: Negative for rash and wound. Neurological: Negative for dizziness, syncope and headaches. All other systems reviewed and are negative. Physical Exam Vitals and nursing note reviewed. Constitutional: General: She is not in acute distress. Appearance: She is well-developed. She is not diaphoretic. HENT: Head: Normocephalic and atraumatic. Right Ear: External ear normal. Left Ear: External ear normal. Eyes: Conjunctiva/sclera: Conjunctivae normal. Pupils: Pupils are equal, round, and reactive to light. Neck: Trachea: No tracheal deviation. Cardiovascular: Rate and Rhythm: Normal rate and regular rhythm. Heart sounds: Normal heart sounds. No murmur heard. Pulmonary: Effort: Pulmonary effort is normal. No respiratory distress. Breath sounds: Normal breath sounds. No wheezing or rales. Abdominal: General: Bowel sounds are normal. There is no distension. Palpations: Abdomen is soft. There is no hepatomegaly or splenomegaly. Tenderness: There is abdominal tenderness in the right lower quadrant, suprapubic area and left lower quadrant. There is no right CVA tenderness, left CVA tenderness, guarding or rebound. Hernia: No hernia is present. Musculoskeletal: General: Normal range of motion. Cervical back: Normal range of motion. Skin: General: Skin is warm and dry. Neurological: Mental Status: She is alert and oriented to person, place, and time. Cranial Nerves: No cranial nerve deficit. Procedures Imaging Results CT ABDOMEN PELVIS W/ CONTRAST (Final result) Result time 02/21/21 03:04:54 Final result by Gilbert Garcia MD (02/21/21 03:04:54) Impression: IMPRESSION: 1. 3 mm obstructing left ureteropelvic junction stone with mild hydronephrosis. Narrative: EXAM DESCRIPTION: CT ABDOMEN PELVIS W/ CONTRAST REASON FOR STUDY: Left lower quadrant abdominal pain x3 weeks. TECHNIQUE: CT scan of the abdomen and pelvis performed with intravenous and without oral contrast using helical scanning technique with dynamic intravenous contrast injection. Reconstructed coronal and sagittal MPR images reviewed. All images stored on PACS. Automated exposure control was used as a dose optimization technique for this examination. CONTRAST TYPE/DOSE: Isovue 370 70 cc injected via left antecubital vein COMPARISON: None FINDINGS: LOWER CHEST: No significant pulmonary abnormalities. No effusion. LIVER: Normal size. No identified cystic or solid masses. GALLBLADDER: Normal BILE DUCTS: No intrahepatic or extrahepatic ductal dilatation. SPLEEN: Normal size. No focal lesions. PANCREAS: No identified cystic or solid masses. No significant calcifications. No adjacent inflammation or peripancreatic fluid collections. Pancreatic duct not dilated. ADRENALS: Normal. KIDNEYS/URINARY TRACT: Kidneys enhance symmetrically. Excretory phase of contrast is seen. 3 mm obstructing stone in the left ureteropelvic junction is seen. There is mild left hydronephrosis. Urinary bladder is unremarkable. GI: The appendix is normal. The stomach and small bowel are normal in course and caliber without evidence of obstruction. The colon is normal. Tiny fat containing periumbilical hernia is seen. PERITONEUM: No ascites or free air. RETROPERITONEUM: No mass or adenopathy. REPRODUCTIVE: No significant abnormality. VASCULATURE: No abdominal aortic aneurysm. The mesenteric veins and arteries are poorly opacified. This limits interpretation evaluation. MUSCULOSKELETAL: No significant abnormality. OTHER: No other abnormality. THIS IS AN ELECTRONICALLY VERIFIED FINAL REPORT 02/21/2021 3:01 AM - Electronically signed by Gilbert Garcia M.D. BB: NILTON Report ID: [id number] Reading Location: [id number] Labs Reviewed URINALYSIS REFLEX IF INDICATED BY ABNORMAL RESULTS - Abnormal; Notable for the following components: Result Value WBC ESTERASE 25 /uL (*) PROTEIN, RANDOM URINE 15 mg/dL (*) WBC (Urine) 6-10 (*) BACTERIA, URINE Few (*) All other components within normal limits CMP (COMPREHENSIVE METABOLIC PANEL) - Abnormal; Notable for the following components: SODIUM 133 (*) BUN/CREATININE RATIO 10 (*) All other components within normal limits LIPASE - Normal CULTURE, URINE COMPLETE BLOOD COUNT (CBC) WITH DIFF Narrative: The following orders were created for panel order Complete Blood Count (CBC) WITH Diff. Procedure Abnormality Status --------- ------ CBC with Auto Differential[[id number]] Final result Please view results for these tests on the individual orders. POCT URINE HCG () CBC WITH AUTO DIFFERENTIAL MDM Number of Diagnoses or Management Options Amount and/or Complexity of Data Reviewed Clinical lab tests: ordered and reviewed Tests in the radiology section of CPT??: ordered and reviewed Risk of Complications, Morbidity, and/or Mortality Presenting problems: moderate Diagnostic procedures: moderate Management options: moderate Patient Progress Patient progress: stable Reviewed: previous chart, nursing note and vitals Interpretation: labs and CT scan Clinical Impression 1. Nephrolithiasis on left with mild hydronephrosis Patient presents emergency room with left-sided abdominal pain. She was concerned about having cyst. Labs were obtained came back with normal lipase, CMP, and CBC. test was negative. Urinalysis was unremarkable CT scan of the abdomen pelvis came back showing a 3 mm stone noted at the leftUPJ with mild hydronephrosis. Patient will be given a prescription for Flomax had [place] she has he at this will help her passed a stone. If not she can follow-up with a local neurologist for recheck. PROCESSING MECHANIC * Tata Wharton RN - 02/20/2021 11:51 PM CST Pt medicated per provider orders. Pt educated on intended effects and side effects of medication and verbalized understanding, able to provide teach back of education. PROCESSING MECHANIC * Audrey Farris RN - 02/20/2021 11:32 PM CST Report received from ROBERT Gamez. PROCESSING MECHANIC * Koby Gilmore RN - 02/20/2021 10:48 PM CST Pt ambulatory to ED with c/o lower left abdominal pain x 3 weeks. Pt states she was told she had a cluster of ovarian cysts on her right side but showed evidence of spreading. Pt has had her left fallopian tube removed due to a cyst. Pt denies N/V/D, VSS. No distress noted. PROCESSING MECHANIC documented in this encounter Plan of Treatment Not on file documented as of this encounter Procedures Procedure Name Priority Date/Time Associated Diagnosis Comments CT ABDOMEN PELVIS W/ CONTRAST STAT 02/21/2021 1:44 AM DATA PROCESSING MECHANIC CBC WITH AUTO DIFFERENTIAL STAT 02/20/2021 11:44 PM DATA PROCESSING MECHANIC LIPASE STAT 02/20/2021 11:44 PM DATA PROCESSING MECHANIC CMP (COMPREHENSIVE METABOLIC PANEL) STAT 02/20/2021 11:44 PM DATA PROCESSING MECHANIC COMPLETE BLOOD COUNT (CBC) WITH DIFF STAT 02/20/2021 11:44 PM DATA PROCESSING MECHANIC POCT URINE HCG () STAT 02/20/2021 11:06 PM DATA PROCESSING MECHANIC URINALYSIS REFLEX IF INDICATED BY ABNORMAL RESULTS STAT 02/20/2021 11:04 PM DATA PROCESSING MECHANIC CULTURE, URINE STAT 02/20/2021 11:04 PM DATA PROCESSING MECHANIC documented in this encounter Results * CT ABDOMEN PELVIS W/ CONTRAST (02/21/2021 1:44 AM DATA PROCESSING MECHANIC) Anatomical Region Laterality Modality Abdomen N/A Computed Tomogra phy 02/21/2021 3:01 AM DATA PROCESSING MECHANIC Impressions 02/21/2021 3:04 AM DATA PROCESSING MECHANIC IMPRESSION: ?? 1. ?? 3 mm obstructing left ureteropelvic junction stone with mild hydronephrosis. Narrative 02/21/2021 3:04 AM DATA PROCESSING MECHANIC EXAM DESCRIPTION: ?? CT ABDOMEN PELVIS W/ CONTRAST REASON FOR STUDY: ?? Left lower quadrant abdominal pain x3 weeks. TECHNIQUE: CT scan of the abdomen and pelvis performed with intravenous and ?? without ??oral contrast using helical scanning technique with dynamic intravenous contrast injection. Reconstructed coronal and sagittal MPR images reviewed. All images stored on PACS. Automated exposure control was used as a dose optimization technique for this examination. CONTRAST TYPE/DOSE: ?? Isovue 370 70 cc ??injected via ?? left antecubital vein COMPARISON: ?? None FINDINGS: LOWER CHEST: ?? No significant pulmonary abnormalities. No effusion. LIVER: ?? Normal size. ??No identified cystic or solid masses. GALLBLADDER: ?? Normal BILE DUCTS: ?? No intrahepatic or extrahepatic ductal dilatation. SPLEEN: ?? Normal size. ??No focal lesions. PANCREAS: ?? No identified cystic or solid masses. No significant calcifications. No adjacent inflammation or peripancreatic fluid collections. Pancreatic duct not dilated. ?? ADRENALS: ?? Normal. KIDNEYS/URINARY TRACT: ?? Kidneys enhance symmetrically. ??Excretory phase of contrast is seen. ??3 mm obstructing stone in the left ureteropelvic junction is seen. ??There is mild left hydronephrosis. ?Urinary bladder is unremarkable. GI: ?? The appendix is normal. ??The stomach and small bowel are normal in course and caliber without evidence of obstruction. ??The colon is normal. ??Tiny fat containing periumbilical hernia is seen. PERITONEUM: ?? No ascites or free air. RETROPERITONEUM: ?? No mass or adenopathy. REPRODUCTIVE: ?? No significant abnormality. VASCULATURE: ?? No abdominal aortic aneurysm. ?? The mesenteric veins and arteries are poorly opacified. ??This limits interpretation evaluation. MUSCULOSKELETAL: ?? No significant abnormality. OTHER: ?? No other abnormality. THIS IS AN ELECTRONICALLY VERIFIED FINAL REPORT 02/21/2021 3:01 AM - Electronically signed by ??Gilbert Garcia M.D. BB: NILTON D: ??02/21/2021 3:01 AM T: ??02/21/2021 3:01 AM Report ID: [id number] Reading Location: ??[id number] Procedure Note Gilbert Garcia MD - 02/21/2021 EXAM DESCRIPTION: CT ABDOMEN PELVIS W/ CONTRAST REASON FOR STUDY: Left lower quadrant abdominal pain x3 weeks. TECHNIQUE: CT scan of the abdomen and pelvis performed with intravenous and without oral contrast using helical scanning technique with dynamic intravenous contrast injection. Reconstructed coronal and sagittal MPR images reviewed. All images stored on PACS. Automated exposure control was used as a dose optimization technique for this examination. CONTRAST TYPE/DOSE: Isovue 370 70 cc injected via left antecubital vein COMPARISON: None FINDINGS: LOWER CHEST: No significant pulmonary abnormalities. No effusion. LIVER: Normal size. No identified cystic or solid masses. GALLBLADDER: Normal BILE DUCTS: No intrahepatic or extrahepatic ductal dilatation. SPLEEN: Normal size. No focal lesions. PANCREAS: No identified cystic or solid masses. No significant calcifications. No adjacent inflammation or peripancreatic fluid collections. Pancreatic duct not dilated. ADRENALS: Normal. KIDNEYS/URINARY TRACT: Kidneys enhance symmetrically. Excretory phase of contrast is seen. 3 mm obstructing stone in the left ureteropelvic junction is seen. There is mild left hydronephrosis. Urinary bladder is unremarkable. GI: The appendix is normal. The stomach and small bowel are normal in course and caliber without evidence of obstruction. The colon is normal. Tiny fat containing periumbilical hernia is seen. PERITONEUM: No ascites or free air. RETROPERITONEUM: No mass or adenopathy. REPRODUCTIVE: No significant abnormality. VASCULATURE: No abdominal aortic aneurysm. The mesenteric veins and arteries are poorly opacified. This limits interpretation evaluation. MUSCULOSKELETAL: No significant abnormality. OTHER: No other abnormality. THIS IS AN ELECTRONICALLY VERIFIED FINAL REPORT 02/21/2021 3:01 AM - Electronically signed by Gilbert Garcia M.D. BB: NILTON Report ID: [id number] Reading Location: [id number] IMPRESSION: 1. 3 mm obstructing left ureteropelvic junction stone with mild hydronephrosis. Onesimo Farr MD IMG CT ORDERABLES Final R esult * Lipase (02/20/2021 11:44 PM DATA PROCESSING MECHANIC) Pathologist [facility] LIPASE 25.5 13 - 60 U/L 02/21/2021 12:16 AM DATA PROCESSING MECHANIC [facility] Blood Venipuncture / Unknown 02/20/2021 11:44 PM DATA PROCESSING MECHANIC 02/20/2021 11:48 PM DATA PROCESSING MECHANIC Onesimo Farr MD CHEMISTRY ORDERABLES Sarita l Result [facility] [address] [place] [address] * CBC with Auto Differential (02/20/2021 11:44 PM DATA PROCESSING MECHANIC) [facility] WBC 8.32 4.00 - 12.00 10(3)/mcL 02/20/2021 11:51 PM DATA PROCESSING MECHANIC [facility] RBC 4.33 3.80 - 5.30 10(6)/[facility] 02/20/2021 11:51 PM DATA PROCESSING MECHANIC [facility] HEMOGLOBIN (HGB) 12.8 12.0 - 15.8 g/dL 02/20/2021 11:51 PM DATA PROCESSING MECHANIC [facility] HEMATOCRIT (HCT) 39.9 36.0 - 47.0 % 02/20/2021 11:51 PM DATA PROCESSING MECHANIC [facility] MCV 92.1 82.0 - 96.0 fL 02/20/2021 11:51 PM DATA PROCESSING MECHANIC [facility] MCH 29.6 26.0 - 34.0 pg 02/20/2021 11:51 PM DATA PROCESSING MECHANIC [facility] MCHC 32.1 31.0 - 36.0 g/dL 02/20/2021 11:51 PM DATA PROCESSING MECHANIC [facility] PLATELET COUNT 307 140 - 440 10(3)/mcL 02/20/2021 11:51 PM DATA PROCESSING MECHANIC [facility] RDW 13.1 11.8 - 15.5 % 02/20/2021 11:51 PM [facility] MPV 10.4 9.7 - 12.4 fL 02/20/2021 11:51 PM DATA PROCESSING MECHANIC [facility] NEUTROPHILS 52.7 47.0 - 73.0 % 02/20/2021 11:51 PM DATA PROCESSING MECHANIC [facility] LYMPHOCYTES 31.6 18.0 - 42.0 % 02/20/2021 11:51 PM DATA PROCESSING MECHANIC [facility] MONOCYTES 11.8 4.0 - 12.0 % 02/20/2021 11:51 PM DATA PROCESSING MECHANIC [facility] EOSINOPHILS 3.4 0.0 - 5.0 % 02/20/2021 11:51 PM DATA PROCESSING MECHANIC [facility] BASOPHILS 0.5 0.0 - 1.0 % 02/20/2021 11:51 PM DATA PROCESSING MECHANIC [facility] ABSOLUTE NEUTROPHILS 4.39 1.60 - 7.70 10(3)/[facility] 02/20/2021 11:51 PM DATA PROCESSING MECHANIC [facility] ABSOLUTE LYMPHOCYTES 2.63 1.30 - 3.20 10(3)/[facility] 02/20/2021 11:51 PM DATA PROCESSING MECHANIC [facility] ABSOLUTE MONOCYTES 0.98 0.20 - 1.00 10(3)/[facility] 02/20/2021 11:51 PM DATA PROCESSING MECHANIC [facility] ABSOLUTE EOSINOPHIL 0.28 0.00 - 0.40 10(3)/[facility] 02/20/2021 11:51 PM DATA PROCESSING MECHANIC [facility] ABSOLUTE BASOPHILS 0.04 0.00 - 0.10 10(3)/[facility] 02/20/2021 11:51 PM [facility] NRBC PER 100 WBC 0 02/21/20 11:51 PM [facility] Blood Venipuncture / Unknown 02/20/2021 11:44 PM DATA PROCESSING MECHANIC 02/20/2021 11:48 PM DATA PROCESSING MECHANIC us Onesimo Farr MD HEMATOLOGY ORDERABLES Fin al Result [facility] [address] [place] [address] * (ABNORMAL) CMP (Comprehensive Metabolic Panel) (02/20/2021 11:44 PM DATA PROCESSING MECHANIC) SODIUM 133(L) 136 - 144 mmol/L 02/21/2021 12:16 AM [facility] POTASSIUM 4.1 3.5 - 5.1 mmol/L 02/21/2021 12:16 AM [facility] CHLORIDE 100 100 - 110 mmol/L 02/21/2021 12:16 AM [facility] CO2, VENOUS 25 22 - 32 mmol/L 02/21/2021 12:16 AM [facility] ANION GAP 12.1 8.0 - 20.0 mmol/L 02/21/2021 12:16 AM [facility] GLUCOSE 75 70 - 99 mg/dL 02/21/2021 12:16 AM [facility] BUN 7 6 - 20 mg/dL 02/21/2021 12:16 AM [facility] CREATININE, BLOOD 0.68 0.60 - 1.10 mg/dL 02/21/2021 12:16 AM [facility] BUN/CREATININE RATIO 10(L) 12 - 20 ratio 02/21/2021 12:16 AM [facility] TOTAL PROTEIN 6.6 6.0 - 8.3 g/dL 02/21/2021 12:16 AM [facility] ALBUMIN 3.8 3.5 - 5.2 g/dL 02/21/2021 12:16 AM [facility] Comment: The colormetric methods used for the determination of Albumin may lead to falsely elevated test results in patients suffering from renal failure or insufficiency due to interference with other proteins. A/G RATIO 1.4 1.0 - 2.0 02/21/2021 12:16 AM [facility] CALCIUM 8.9 8.9 - 10.3 mg/dL 02/21/2021 12:16 AM [facility] T BILI <0.3 <=1.2 mg/dL 02/21/2021 12:16 AM [facility] SGOT (AST) 21 <=32 U/L 02/21/2021 12:16 AM DATA PROCESSING MECHANIC [facility] SGPT (ALT) 15 <=41 U/L 02/21/2021 12:16 AM DATA PROCESSING MECHANIC [facility] ALKALINE PHOSPHATASE 55 35 - 105 U/L 02/21/2021 12:16 AM DATA PROCESSING MECHANIC [facility] GFR, EST. NONAFRICAN >60 >=60 02/21/2021 12:16 AM DATA PROCESSING MECHANIC [facility] GFR, EST. >60 >=60 12:16 AM DATA PROCESSING MECHANIC [facility] Comment: Creatinine Clearance is the preferred criteria for selecting drug dose adjustments in renally impaired patients. ??The GFR is provided as additional pertinent clinical information. GFR is reported in mL/min/1.73 sq m. Blood Venipuncture / Unknown 02/20/2021 11:44 PM DATA PROCESSING MECHANIC 02/20/2021 11:48 PM DATA PROCESSING MECHANIC Onesimo Farr MD CHEMISTRY ORDERABLES Sarita l Result [facility] [place] [address] * POCT Urine HCG () (02/20/2021 11:06 PM DATA PROCESSING MECHANIC) POC URINE Negative POC URINE CONTROL [employer] Pass Urine 02/20/2021 11:0 6 PM DATA PROCESSING MECHANIC Onesimo Farr MD POINT OF CARE TESTING (MA NUAL) Final Result * Culture, Urine (02/20/2021 11:04 PM DATA PROCESSING MECHANIC) CULTURE RESULTS MIXED GROWTH OF 3 OR MORE ORGANISMS, PROBABLE COLLECTION CONTAMINATION, SUGGEST REPEAT URINE CULTURE. 02/22/2021 10:55 AM DATA PROCESSING MECHANIC [facility] Urine URINE SPECIMEN / Unknown Non-Phlebotomy Collection / Unknown 02/20/2021 11:04 PM DATA PROCESSING MECHANIC 02/20/2021 11:30 PM DATA PROCESSING MECHANIC us Onesimo Farr MD MICROBIOLOGY - GENERAL OR DERABLES Final Result [facility] [address] [place] [address], * (ABNORMAL) URINALYSIS REFLEX IF INDICATED BY ABNORMAL RESULTS (02/20/2021 11:04 PM DATA PROCESSING MECHANIC) SPECIFIC GRAVITY 1.015 1.003 - 1.030 02/20/2021 11:47 PM DATA PROCESSING MECHANIC [facility] URINE PH 7.0 5.0 - 9.0 02/20/2021 11:47 PM [facility] WBC ESTERASE 25 /uL(A) Negative 02/20/2021 11:47 PM [facility] NITRITE Negative Negative 02/20/2021 11:47 PM [facility] PROTEIN, RANDOM URINE 15 mg/dL(A) Negative 02/20/2021 11:47 PM [facility] URINE GLUCOSE, QUAL Negative Negative 02/20/2021 11:47 PM DATA PROCESSING MECHANIC [facility] URINE KETONES Negative Negative 02/20/2021 11:47 PM [facility] UROBILINOGEN Normal Normal mg/dL 02/20/2021 11:47 PM [facility] URINE BLOOD Negative Negative karla/ul 02/20/2021 11:47 PM [facility] URINALYSIS COLOR Yellow 02/21/20 11:47 PM [facility] URINALYSIS CLARITY Slightly Cloudy 02/20/2021 11:47 PM [facility] WBC (Urine) 6-10(A) Negative, 0-5 /hpf 02/20/2021 11:47 PM [facility] URINE RBC'S 0-2 Negative, 0-2 /hpf 02/20/2021 11:47 PM [facility] EPITHELIAL CELLS Moderate amount /lpf 02/20/2021 11:47 PM [facility] BACTERIA, URINE Few(A) Negative /hpf 02/20/2021 11:47 PM DATA PROCESSING MECHANIC [facility] Urine URINE SPECIMEN / Unknown Non-Phlebotomy Collection / Unknown 02/20/2021 11:04 PM DATA PROCESSING MECHANIC 02/20/2021 11:30 PM DATA PROCESSING MECHANIC us Onesimo Farr MD URINE ORDERABLES Final Re sult [facility] [place] [address] documented in this encounter Visit Diagnoses Diagnosis Nephrolithiasis on left with mild hydronephrosis- Primary Calculus of kidney documented in this encounter Administered Medications Inactive Administered Medications - up to 3 most recent administrations Medication Order MAR Action Action Date Dose Rate Site 0.9 % sodium chloride solution at 500 mL/hr, Intravenous, ONCE, 1 dose, On 02/21/21 at 0000 New Bag 02/21/2021 12:00 AM DATA PROCESSING MECHANIC 1,000 mL 500 mL/hr iopamidol (ISOVUE-370) 76 % injection 75 mL 75 mL, Intravenous, ONCE, 1 dose, On 02/21/21 at 0130 Given 02/21/2021 1:41 AM DATA PROCESSING MECHANIC 70 mL ketorolac (TORADOL) injection 30 mg 30 mg, Intravenous, ONCE, 1 dose, On 02/21/21 at 0130 Given 02/21/2021 1:05 AM DATA PROCESSING MECHANIC 30 mg Prochlorperazine Edisylate (COMPAZINE) injection 5 mg 5 mg, Intravenous, ONCE, 1 dose, On 02/21/21 at 0130 Given 02/21/2021 1:04 AM DATA PROCESSING MECHANIC 5 mg tamsulosin (FLOMAX) capsule 0.4 mg 0.4 mg, Oral, ONCE, 1 dose, On 02/21/21 at 0400, Tamsulosin capsules may be opened and the contents administered to a patient in a small quantity of acidic fruit juice (e.g. orange, grape) or acidic soft food (e.g. applesauce, yogurt). The granules within the capsule should NOT be crushed. Administration through a nasogastric, gastric, or jejunostomy tube is possible, however, doing so may cause the granules to adhere to the sides of the tube, making administration difficult and increasing the risk of the tube clogging. Given 02/21/2021 3:42 AM DATA PROCESSING MECHANIC 0.4 mg documented in this encounter Active and Recently Administered Medications Times are shown in DATA PROCESSING MECHANIC. Scheduled Medication Order 02/19/2021 02/20/2021 02/21/2021 0.9 % sodium chloride solution (COMPLETED) at 500 mL/hr, Intravenous, ONCE, 1 dose, On 02/21/21 at 0000 0000 (New Bag - Prov ider: Tata Wharton RN)[id number] (Stopped - Provider: Audrey Farris RN) iopamidol (ISOVUE-370) 76 % injection 75 mL (COMPLETED) 75 mL, Intravenous, ONCE, 1 dose, On 02/21/21 at 0130 0141 (Given - Provid er: Segundo Francisco, RTR) ketorolac (TORADOL) injection 30 mg (COMPLETED) 30 mg, Intravenous, ONCE, 1 dose, On 02/21/21 at 0130 0105 (Given - Provid er: Tata Wharton RN) Prochlorperazine Edisylate (COMPAZINE) injection 5 mg (COMPLETED) 5 mg, Intravenous, ONCE, 1 dose, On 02/21/21 at 0130 0104 (Given - Provid er: Tata Wharton RN) tamsulosin (FLOMAX) capsule 0.4 mg (COMPLETED) 0.4 mg, Oral, ONCE, 1 dose, On 02/21/21 at 0400, Tamsulosin capsules may be opened and the contents administered to a patient in a small quantity of acidic fruit juice (e.g. orange, grape) or acidic soft food (e.g. applesauce, yogurt). The granules within the capsule should NOT be crushed. Administration through a nasogastric, gastric, or jejunostomy tube is possible, however, doing so may cause the granules to adhere to the sides of the tube, making administration difficult and increasing the risk of the tube clogging. 0342 (Given - Provid er: Tata Wharton RN) documented in this encounter Care Teams Cloth Wire Weaver Relationship Specialty Start Date End Date Provider, None [place] PCP - General 09/27/20 09/17/22 documented as of this encounter
--- OUTSIDE RECORDS SUMMARY | 2024-03-29 00:20 | XMS_ITS | Encounter Summary ---
Author Organization [facility] Address [address] [place] 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 Name Role Phone Provider, None Primary Care Provider Unavailabl e Provider, None Unavailable Unavailable Reason for Visit * Reason Comments Drug Overdose Alcohol Intoxication * Auth/Cert (Routine) Specialty Diagnoses / Procedures Referred By Contac t Referred To Contact Diagnoses Drug overdose of undetermined intent, initial encounter Yaya Sellers MD [address] [place] [address] Phone: tel: fax: Referral ID Status Reason Start Date Expiration Date Visits Re quested Visits Authorized [id number] 1 1 Encounter Details Date Type Department Care Team (Late st Contact Info) Description 11/02/2022 6:00 AM CDT - 11/10/2022 10:45 AM CDT Hospital Encounter [facility] Med Surg [address] [place] [phone] Sarah Fiore MD [address] [place] [address] Yaya Sellers MD [address] [place] [address] Gilberto Blackman MD [address] [place] [id number] Acute encephalopathy Discharge Disposition: Dis/Trans to Psych Hosp/Psych Unit Social History Tobacco Use Types Packs/Day Years [...] Exposure Response Date Recorded In the last 10 days, have yo u been in contact with someone who was confirmed or suspected to have Coronavirus/COVID-19? No / Unsure 11/02/2022 5:44 PM CDT documented as of this encounter Last Filed [...] Mass Index 25.75 11/02/2022 6:01 AM CDT documented in this encounter Discharge Summaries * Yaya Sellers MD - 11/10/2022 9:42 AM CDT Images from the original note were not included. [facility] DISCHARGE SUMMARY Name: Mariam Quintana Age: 26 y.o. : 1995 Attending Physician: Yaya Sellers MD Admission Date/Time: 11/02/2022 Discharge Date: 11/10/2022 Primary Care Physician: NONE PROVIDER Discharging Provider: Yaya Sellers MD INSTRUCTIONS FOR PHYSICIANS ON FOLLOW UP AFTER DISCHARGE: Follow-up Information None Discharge Instructions: Discharge Condition: improved Disposition: Acute psychiatric hospital Diet: Regular Diet Activity: activity as tolerated Discharge Diagnoses: Suicidal attempt with polypharmacy, acute metabolic encephalopathy Present on Admission: ??? Drug overdose of undetermined intent, initial encounter ??? Acute encephalopathy ??? Aspiration pneumonia (HCC) ??? Polysubstance abuse (HCC) ??? Bipolar 2 disorder (HCC) Admitting Diagnoses: Acute metabolic encephalopathy HOSPITAL COURSE: Mariam Quintana was admitted 11/02/2022 with decreased mental status and severe encephalopathy secondary to consumption of multiple different illicit drugs and medications. The patient was admitted to the intensive care unit. She did not require intubation. She was put on IV fluid resuscitation and detoxified from the acute intoxications progressively. She had done this in an attempt to self- harm. The patient had also vomited and aspirated and had developed aspiration pneumonia for which she was treated with IV antibiotics with Unasyn which was secondarily switched to Augmentin. She had a rather significant rhabdomyolysis with a CPK level which had increased to 7500. The patient was continuedon IV fluid resuscitation until the problem was fully resolved. By the time of discharge, she was back to her baseline status without any pain or discomfort and even from the psychiatric standpoint was very calm and cooperative however she is agreeable to going to a psychiatric facility for furtherevaluation and optimization of her medications. The only issue that was not completely resolved from the medical standpoint was a transaminitis. The patient had an elevation of AST an ALT but the alkaline phosphatase and bilirubin level were within the normal range. She did not have any right upper quadrant pain or tenderness and there was no issue with Tylenol or any other hepatotoxic agents toxicity. She will need another liver function teststudy done next week to make sure that this is a transitional condition and the liver enzymes are improving. Disposition. The patient will be transferred to an acute psychiatric hospital. She may benefit froma longer term admission to a psychiatric facility to address her different polypharmacy and polysubstance and bipolar issues. Surgeries performed during stay: * No surgery found * Consults: Code status at discharge: Full code Exam Day of Discharge: Temp Av.8 ??F (36.6 ??C) Min: 97.1 ??F (36.2 ??C) Max: 98.4 ??F (36.9 ??C) BP Min: 90/44 Max: 113/59 Pulse Av Min: 66 Max: 94 Resp Av Min: 18 Max: 22 SpO2 Av % Min: 98 % Max: 98 % O2 Flow Rate (l/min): 3 l/min (decreased to 2L) Body mass index is 25.75 kg/m??. Exam: General: Well developed, well nourished, resting in the bed comfortably Skin: Normal appearance, normal turgor, no rashes HEENT: Normocephalic, atraumatic, no flaring Eyes: nonicteric, intact extra occular movement, PERRL Neck: normal, supple, no lymphadenopathy Cardiovascular: regular rate and rhythm, S1, S2 normal, no murmur, click, rub or gallop Lungs: clear to ausculation, normal respirations, normal precautions Abdominal: soft, non-tender; bowel sounds normal; no masses, no organomegaly Musculoskeletal: no deformities, joint mobility appears intact, no clubbing Neuro: Non-focal, CN intact, sensory and motor intact Psychological: alert and oriented X3,pleasant and cooperative Lab / Imaging Review: Lab Results Component Value Date WBC 10.52 11/10/2022 HEMOGLOBIN 13.5 11/10/2022 HEMATOCRIT 41.4 11/10/2022 PLATELETCNT 328 11/10/2022 MCV 91.8 11/10/2022 Lab Results Component Value Date SODIUM 138 11/10/2022 POTASSIUM 4.9 11/10/2022 CHLORIDE 100 11/10/2022 CO2VEN 29 11/10/2022 ANIONGAP 13.9 11/10/2022 GLUCOSE 92 11/10/2022 BUN 13 11/10/2022 CREATININE 0.75 11/10/2022 BCRATIO8 17 11/10/2022 TOTALPROTEIN 7.3 11/10/2022 ALBUMIN 4.1 11/10/2022 CALCIUM 9.1 11/10/2022 TBIL 0.3 11/10/2022 SGOTAST 426 (H) 11/10/2022 SGPTALT 456 (H) 11/10/2022 ALKALINEPHO 82 11/10/2022 GFRNA >60 11/10/2022 GFRA >60 11/10/2022 Lab Results Component Value Date GLUCOSEPOCT 92 11/03/2022 Lab Results Component Value Date CPK 252 (H) 11/09/2022 CPK 365 (H) 11/08/2022 CPK 471 (H) 11/08/2022 XR ABDOMEN KUB FLAT PLATE Result Date: 11/05/2022 IMPRESSION: No acute abnormality XR CHEST SINGLE VIEW PORTABLE Result Date: 11/02/2022 IMPRESSION: Hazy interstitial and airspace opacities throughout the lungs suspicious for aspiration. XR WRIST 3 OR MORE VIEWS LEFT Result Date: 11/06/2022 IMPRESSION: No acute findings left wrist. Pending results: None DISCHARGE MEDICATION LIST: Medication List START taking these medications LORazepam 2 MG Tabs Commonly known as: ATIVAN Take 1 Tablet by mouth every 2 hours as needed for Other or Anxiety (agitation). nicotine 21 MG/24HR Pt24 Commonly known as: NICODERM CQ 1 Patch by Transdermal route daily as needed for Other (Nicotine dependency). CONTINUE taking these medications escitalopram 20 MG Tabs Commonly known as: LEXAPRO Take 1 Tablet by mouth daily. * lamoTRIgine 100 MG Tabs Commonly known as: LaMICtal Take 1 Tablet by mouth daily. Take along with Lamotrigine 200mg to equal 300mg daily. * lamoTRIgine 200 MG Tabs Commonly known as: LaMICtal Take 1 Tablet by mouth daily. Take along with Lamotrigine 100mg to equal 300mg daily. QUEtiapine Fumarate 300 MG Tabs Take 1 Tablet by mouth daily. traZODone 150 MG Tabs Commonly known as: DESYREL Take 1 Tablet by mouth nightly. * This list has 2 medication(s) that are the same as other medications prescribed for you. Read thedirections carefully, and ask your doctor or other care provider to review them with you. STOP taking these medications busPIRone 10 MG Tabs Commonly known as: BUSPAR Focalin 5 MG Tabs Generic drug: Dexmethylphenidate HCl Where to Get Your Medications These medications were sent to [facility] [address] [facility] [facility] [id number] ?? nicotine 21 MG/24HR Pt24 You can get these medications from any pharmacy Bring a paper prescription for each of these medications ?? LORazepam 2 MG Tabs Information about where to get these medications is not yet available Ask your nurse or doctor about these medications ?? escitalopram 20 MG Tabs ?? lamoTRIgine 100 MG Tabs ?? lamoTRIgine 200 MG Tabs ?? QUEtiapine Fumarate 300 MG Tabs ?? traZODone 150 MG Tabs I have spent time coordinating care for this hospital discharge: Greater than 30 minutes spent in coordinating care Thank you very much for allowing the [facility] Adult Hospitalist Service to participate in the care of this patient. If you have any questions, please don't hesitate to call. Signed: Yaya Sellers MD, 11/10/2022, 9:42 AM CDT documented in this encounter Discharge Instructions * Discharge Instructions* Heather Solano RN - 11/05/2022 11:28 PM CDT Wound Care Instructions: Left lateral plantar: Cleanse with wound cleanser or normal saline, apply therahoney, and cover with optifoam. Change 3 times weekly and as needed. * Appointments* Harriet Terry - 11/10/2022 9:08 AM CDT Patient is being discharged to [facility]. documented in this encounter Medications at Time of Discharge escitalopram (LEXAPRO) 20 MG Tablet Take 1 Tablet by mouth daily. 90 Tablet 11/10/2022 lamoTRIgine (LaMICtal) 100 MG Tablet Take 1 Tablet by mouth daily. Take along with Lamotrigine 200mg to equal 300mg daily. 30 Tablet 11/10/2022 lamoTRIgine (LaMICtal) 200 MG Tablet Take 1 Tablet by mouth daily. Take along with Lamotrigine 100mg to equal 300mg daily. 30 Tablet 11/10/2022 LORazepam (ATIVAN) 2 MG TabletIndication s:Bipolar 2 disorder (HCC) Take 1 Tablet by mouth every 2 hours as needed for Other or Anxiety (agitation). 30 Tablet 11/09/2022 nicotine (NICODERM CQ) 21 MG/24HR PATCH 24 HR 1 Patch by Transdermal route daily as needed for Other (Nicotine dependency). 30 Patch 11/10/2022 QUEtiapine Fumarate 300 MG Tablet Take 1 Tablet by mouth daily. 60 Tablet 11/10/2022 traZODone (DESYREL) 150 MG Tablet Take 1 Tablet by mouth nightly. 30 Tablet 11/10/2022 documented as of this encounter Progress Notes * Yaya Sellers MD - 11/09/2022 2:58 PM CDT [facility] DAILY PROGRESS NOTE Mariam Quintana is a 26 y.o. female at Hospital LOS: 7 days Subjective: Interval History: The patient is significantly better. She is alert and more communicative and is not agitated anymore. From the medical standpoint she is ready to be discharged to the psychiatric facility and now we are waiting for acceptance. Review of Systems: A 14 point comprehensive review of systems was negative except what is documented in interval history above. Objective: Exam: General: Well developed, well nourished, resting in the bed comfortably Skin: Normal appearance, normal turgor, no rashes HEENT: Normocephalic, atraumatic, no flaring Eyes: nonicteric, intact extra occular movement, PERRL Neck: normal, supple, no lymphadenopathy Cardiovascular: regular rate and rhythm, S1, S2 normal, no murmur, click, rub or gallop Lungs: clear to ausculation, normal respirations, normal precautions Abdominal: soft, non-tender; bowel sounds normal; no masses, no organomegaly Musculoskeletal: no deformities, joint mobility appears intact, no clubbing Neuro: Non-focal, CN intact, sensory and motor intact Psychological: alert and oriented X3,pleasant and cooperative Current Medications: I will restart her home medications Medication Modifications: Home medications are held for the moment. We will continue Precedex for agitation control Lab Results: Lab Results Component Value Date WBC 7.00 11/09/2022 HEMOGLOBIN 13.5 11/09/2022 HEMATOCRIT 41.5 11/09/2022 PLATELETCNT 287 11/09/2022 MCV 91.8 11/09/2022 Lab Results Component Value Date SODIUM 134 (L) 11/09/2022 POTASSIUM 4.0 11/09/2022 CHLORIDE 99 11/09/2022 CO2VEN 27 11/09/2022 ANIONGAP 12.0 11/09/2022 GLUCOSE 93 11/09/2022 BUN 9 11/09/2022 CREATININE 0.67 11/09/2022 BCRATIO8 13 11/09/2022 TOTALPROTEIN 6.9 11/09/2022 ALBUMIN 3.9 11/09/2022 CALCIUM 9.1 11/09/2022 TBIL 0.2 11/09/2022 SGOTAST 375 (H) 11/09/2022 SGPTALT 316 (H) 11/09/2022 ALKALINEPHO 75 11/09/2022 GFRNA >60 11/09/2022 GFRA >60 11/09/2022 Lab Results Component Value Date CPK 252 (H) 11/09/2022 Lab Results Component Value Date GLUCOSEPOCT 92 11/03/2022 EKG: EKG 12 LEAD Result Date: 11/02/[address] and changes Abnormal ECG No previous ECGs available Confirmed by Ten Treadwell ([id number]) on 11/02/2022 10:24:49 AM Imaging: No results found. I independently reviewed images and test results. My personal interpretation is: No cardiomegaly, suspicion of right parahilar infiltrate Assessment: Active Hospital Problems Diagnosis Date Noted ??? Drug overdose of undetermined intent, initial encounter 11/02/2022 ??? Acute encephalopathy 11/02/2022 ??? Aspiration pneumonia (HCC) 11/02/2022 ??? Polysubstance abuse (HCC) 11/02/2022 ??? Bipolar 2 disorder (HCC) Resolved Hospital Problems No resolved problems to display. Vitals: 11/08/22 1352 11/08/22 2227 11/09/22 0536 11/09/22 0827 Temp: 97.2 ??F (36.2 ??C) 97.4 ??F (36.3 ??C) 96.8 ??F (36 ??C) 96.8 ??F (36 ??C) TempSrc: Tympanic Tympanic Tympanic Heart Rate (Monitor): 71 Pulse: 69 71 70 Resp: 16 18 18 BP: 106/55 111/56 106/50 Height: Weight: SpO2: 99% 99% 97% O2 Flow Rate (l/min): 3 l/min (decreased to 2L) O2 Device: None (Room air) I/O last 3 completed shifts: In: 887.5 [I.V.:887.5] Out: - BMI: Body mass index is 25.75 kg/m??. Lines: Peripheral Tubes: None Catheters: None Other providers notes reviewed: No other providers on board Plan: 1. Acute meta the problem is resolved and the patient's mental status is back to baseline. The encephalopathy was secondary to intoxication with multiple substance since and medications and is now resolved. 11/09/2022. The patient is much better from the mental standpoint and is pleasant and cooperative. 2. Aspiration pneumonia. The patient is started on Unasyn. Same treatment will be continued for themoment. This was associated with vomiting. The problem is resolved and the patient has completed the antibiotic course. 11/09/2022. The patient does not have any respiratory symptoms and the problem is resolved. No further antibiotics are required. 3. Underlying polysubstance abuse. The patient would benefit from going to a Psychiatric Service for further management of the situation. We are still waiting for acceptance and transfer. 11/09/2022. We are still waiting for acceptance to a psychiatric facility. Her urine drug screen onadmission was positive for amphetamine, benzodiazepines, THC, phencyclidine, tricyclic antidepressants and cocaine. 4. History of bipolar mood disorder. The patient has been on multiple medications. The patient willbe transferred to psychiatric facility. 11/09/2022. I have resumed her home antipsychotic medications. Her symptoms appear to be relativelywell controlled at the moment however she is with a sitter and her is also in the room almost all the time. 5. Mild transaminitis. This is mostly associated with the rhabdomyolysis rather than a primary liver issue. The patient is not on any hepatotoxic medications and the alkaline phosphatase and bilirubin levels are completely normal. We will follow the evolution of the transaminases in the upcoming days as outpatient. 6. Rhabdomyolysis. Her CPK level was more than 7500 on admission which is now down to 250. The problem is resolved and the patient does not require any further IV fluid resuscitation. Care plan discussed with: ICU team and the patient's family Activity: Bed Rest IV fluids: Normal saline Diet: NPO Level of Care: Continue same care. Anticipated Disposition at discharge: Acute psychiatric facility Social Determinants: Transferred to psychiatric facility for the moment. VTE Prophylaxis: Lovenox 40 mg subQ daily Expected discharge date: 11/09/2022 to psychiatric facility pending clearance, the patient is readyfrom the medical standpoint to be discharged but we do not have an accepting facility yet. By: Yaya Sellers MD, 11/09/2022 2:58 PM CDT * Yaya Sellers MD - 11/08/2022 6:28 PM CDT [facility] DAILY PROGRESS NOTE Mariam Quintana is a 26 y.o. female at Hospital LOS: 6 days Subjective: Interval History: The patient is significantly better and is transferred to the medical floor. She is not agitated anymore and is agreeable to going to a psychiatric facility and also to a longer psychiatric support system. We are still waiting for placement and normalization of the labs. Review of Systems: A 14 point comprehensive review of systems was negative except what is documented in interval history above. Objective: Exam: General: Well developed, well nourished, Skin: Normal appearance, normal turgor, no rashes HEENT: Normocephalic, atraumatic, no flaring Eyes: nonicteric, intact extra occular movement, PERRL Neck: normal, supple, no lymphadenopathy Cardiovascular: regular rate and rhythm, S1, S2 normal, no murmur, click, rub or gallop Lungs: clear to ausculation, normal respirations, normal precautions Abdominal: soft, non-tender; bowel sounds normal; no masses, no organomegaly Musculoskeletal: no deformities, joint mobility appears intact, no clubbing Neuro: Non-focal, CN intact, sensory and motor intact Psychological: alert and oriented X3,pleasant and cooperative Current Medications: I will restart her home medications Medication Modifications: Home medications are held for the moment. We will continue Precedex for agitation control Lab Results: Lab Results Component Value Date WBC 7.55 11/08/2022 HEMOGLOBIN 12.9 11/08/2022 HEMATOCRIT 40.4 11/08/2022 PLATELETCNT 290 11/08/2022 MCV 92.2 11/08/2022 Lab Results Component Value Date SODIUM 133 (L) 11/08/2022 POTASSIUM 4.6 11/08/2022 CHLORIDE 101 11/08/2022 CO2VEN 26 11/08/2022 ANIONGAP 10.6 11/08/2022 GLUCOSE 91 11/08/2022 BUN 8 11/08/2022 CREATININE 0.65 11/08/2022 BCRATIO8 12 11/08/2022 TOTALPROTEIN 6.4 11/08/2022 ALBUMIN 3.6 11/08/2022 CALCIUM 9.0 11/08/2022 TBIL 0.2 11/08/2022 SGOTAST 211 (H) 11/08/2022 SGPTALT 153 (H) 11/08/2022 ALKALINEPHO 65 11/08/2022 GFRNA >60 11/08/2022 GFRA >60 11/08/2022 Lab Results Component Value Date CPK 365 (H) 11/08/2022 Lab Results Component Value Date GLUCOSEPOCT 92 11/03/2022 EKG: EKG 12 LEAD Result Date: 11/02/[address] and changes Abnormal ECG No previous ECGs available Confirmed by Ten Treadwell ([id number]) on 11/02/2022 10:24:49 AM Imaging: No results found. I independently reviewed images and test results. My personal interpretation is: No cardiomegaly, suspicion of right parahilar infiltrate Assessment: Active Hospital Problems Diagnosis Date Noted ??? Drug overdose of undetermined intent, initial encounter 11/02/2022 ??? Acute encephalopathy 11/02/2022 ??? Aspiration pneumonia (HCC) 11/02/2022 ??? Polysubstance abuse (HCC) 11/02/2022 ??? Bipolar 2 disorder (HCC) Resolved Hospital Problems No resolved problems to display. Vitals: 11/07/22 0553 11/07/22 1400 11/08/22 0829 11/08/22 1352 Temp: 97.5 ??F (36.4 ??C) 97.6 ??F (36.4 ??C) 97.3 ??F (36.3 ??C) 97.2 ??F (36.2 ??C) TempSrc: Tympanic Tympanic Tympanic Heart Rate (Monitor): 65 Pulse: 69 67 69 Resp: 18 18 16 16 BP: 109/53 111/56 100/54 106/55 Height: Weight: SpO2: 99% 99% 99% 99% O2 Flow Rate (l/min): 3 l/min (decreased to 2L) O2 Device: None (Room air) I/O last 3 completed shifts: In: 1790 [P.O.:790; I.V.:1000] Out: - BMI: Body mass index is 25.75 kg/m??. Lines: Peripheral Tubes: None Catheters: None Other providers notes reviewed: No other providers on board Plan: 1. Acute meta the problem is resolved and the patient's mental status is back to baseline. The encephalopathy was secondary to intoxication with multiple substance since and medications and is now resolved. 2. Aspiration pneumonia. The patient is started on Unasyn. Same treatment will be continued for themoment. This was associated with vomiting. The problem is resolved and the patient has completed the antibiotic course. 3. Underlying polysubstance abuse. The patient would benefit from going to a Psychiatric Service for further management of the situation. We are still waiting for acceptance and transfer. 4. History of bipolar mood disorder. The patient has been on multiple medications. The patient willbe transferred to psychiatric facility. Care plan discussed with: ICU team and the patient's family Activity: Bed Rest IV fluids: Normal saline Diet: NPO Level of Care: Continue same care. Anticipated Disposition at discharge: Acute psychiatric facility Social Determinants: Transferred to psychiatric facility for the moment. VTE Prophylaxis: Lovenox 40 mg subQ daily Expected discharge date: 11/09/2022 to psychiatric facility pending clearance By: Yaya Sellers MD, 11/08/2022 6:28 PM CDT * Gilberto Blackman MD - 11/07/2022 3:04 PM CDT [facility] DAILY PROGRESS NOTE Mariam Quintana is a 26 y.o. female at Hospital LOS: 5 days Subjective: Interval History: Pain resolved. No compaints. Denies F/C/CP/SOB/N/V/D. Objective: Vitals: 11/06/22 1810 11/06/22 2106 11/06/22 2120 11/07/22 0553 Temp: 98.1 ??F (36.7 ??C) 97.8 ??F (36.6 ??C) 97.5 ??F (36.4 ??C) TempSrc: Tympanic Heart Rate (Monitor): 80 62 65 Pulse: 85 Resp: 16 18 18 BP: 113/82 100/51 109/53 Height: Weight: SpO2: 98% 99% 97% 99% I/O last 3 completed shifts: In: 36734 [P.O.:2340; I.V.:9185] Out: - Exam: General: Alert, tired, NAD HEENT: Normocephalic, atraumatic. Pupils equal, round and reactive to light. MMM Neck: Supple. No JVD. CVS: RRR, no MRG. Chest: CTAB, no wheezes or crackles. Abdominal: Soft, mild TTP in epigastrium, normoactive BS. No rebound/guarding. No organomegaly. Extremities: Trace edema. TTP L wrist, scaphoid TTP, limited due to hypersensitivity Skin: No rashes. Psych: Full affect. Neuro: CN II-XII grossly intact, normal speech. Gait not tested. Lab Results: No results found for: PHARTERIAL, PO2ART, [id number], CO2ART, O2ART Lab Results Component Value Date WBC 8.10 11/07/2022 HEMOGLOBIN 12.7 11/07/2022 HEMATOCRIT 39.3 11/07/2022 PLATELETCNT 290 11/07/2022 MCV 92.7 11/07/2022 Lab Results Component Value Date SODIUM 136 11/07/2022 POTASSIUM 3.8 11/07/2022 CHLORIDE 104 11/07/2022 CO2VEN 25 11/07/2022 ANIONGAP 10.8 11/07/2022 GLUCOSE 105 (H) 11/07/2022 BUN 8 11/07/2022 CREATININE 0.72 11/07/2022 BCRATIO8 11 (L) 11/07/2022 TOTALPROTEIN 6.0 (L) 11/07/2022 ALBUMIN 3.4 (L) 11/07/2022 CALCIUM 8.2 (L) 11/07/2022 TBIL 0.2 11/07/2022 SGOTAST 82 (H) 11/07/2022 SGPTALT 58 (H) 11/07/2022 ALKALINEPHO 63 11/07/2022 GFRNA >60 11/07/2022 GFRA >60 11/07/2022 Lab Results Component Value Date CPK 1,368 (H) 11/07/2022 No results found for: FOLATE No results found for: LACACIDPOCT, LACTICA No results found for: [id number] No results found for: FERRITIN Lab Results Component Value Date GLUCOSEPOCT 92 11/03/2022 EKG: EKG 12 LEAD Result Date: 11/02/[address] and changes Abnormal ECG No previous ECGs available Confirmed by Ten Treadwell ([id number]) on 11/02/2022 10:24:49 AM Imaging: No results found. Assessment: Active Hospital Problems Diagnosis Date Noted ??? Drug overdose of undetermined intent, initial encounter 11/02/2022 ??? Acute encephalopathy 11/02/2022 ??? Aspiration pneumonia (HCC) 11/02/2022 ??? Polysubstance abuse (HCC) 11/02/2022 ??? Bipolar 2 disorder (HCC) Resolved Hospital Problems No resolved problems to display. Plan: ?? 1. Acute metabolic encephalopathy secondary to Intentional Overdose, w intoxication with multiple substance since and medications complicated by Asp PNA and Rhabdomyolysis. The patient had elevated levels for alcohol and her urine drug screen was positive for benzodiazepines, amphetamines, tricyclic antidepressants and cocaine. She is now getting agitated as she is withdrawing from the substancesand we will keep her on the Precedex drip. 11/04/2022. The patient has recovered from the encephalopathy. We will resume her home medications.She has a labile mood and affect and will need to be transferred to a psychiatric facility at discharge. 11/07 CK 1368 from 3590 from 6400s, from 6900s, monitor trend cont IVF at 150. Neg L Wrist Xray, resolved pain KUB was unremarkable. Cont 1:1 sitter, requesting home clothing Total critical care time spent: 48 minutes ?? 2. Aspiration pneumonia. The patient is started on Unasyn. Same treatment will be continued for themoment. This was associated with vomiting. 11/04/2022. Continue antibiotic therapy with Unasyn. Her white blood cell count is decreasing. She can be discharged on Augmentin or even off antibiotics based on the clinical evolution. ?? 3. Underlying polysubstance abuse. The patient would benefit from going to a Psychiatric Service for further management of the situation. 11/04/2022. We will resume her antipsychotic medications. The patient has to be transferred to the psychiatric facility. Potentially as soon as tomorrow. ?? 4. History of bipolar mood disorder. The patient has been on multiple medications. 11/04/2022. Her home medications are resumed. She needs further management at the psychiatric facility to optimize treatment. ?? Care plan discussed with: ICU team and the patient's family ?? Activity: Bed Rest IV fluids: Normal saline Diet: NPO Level of Care: Continue same care. Anticipated Disposition at discharge: Acute psychiatric facility Social Determinants: The patient has an underlying bipolar mood disorder and polysubstance abuse. This will make it very complicated were to go back home. She may need more support for long-term. VTE Prophylaxis: Heparin 5000u Q8h Expected discharge date: 11/05/2022 to psychiatric facility ?? By: Gilberto Blackman MD, 11/07/2022 3:04 PM CDT * Gilberto Blackman MD - 11/06/2022 9:12 AM CDT [facility] DAILY PROGRESS NOTE Mariam Quintana is a 26 y.o. female at Hospital LOS: 4 days Subjective: Interval History: Pain is improving. Notes L wrist pain, that is variable with palpation. Denies F/C/CP/SOB/N/V/D. Review of Systems: Objective: Vitals: 11/06/22 0443 11/06/22 0444 11/06/22 0700 11/06/22 0746 Temp: 98.1 ??F (36.7 ??C) TempSrc: Heart Rate (Monitor): 83 95 73 Pulse: Resp: BP: Height: Weight: SpO2: 98% I/O last 3 completed shifts: In: 2718.3 [P.O.:1640; I.V.:1078.3] Out: 1300 [Urine:1300] Exam: General: Alert, tired, NAD HEENT: Normocephalic, atraumatic. Pupils equal, round and reactive to light. MMM Neck: Supple. No JVD. CVS: RRR, no MRG. Chest: CTAB, no wheezes or crackles. Abdominal: Soft, mild TTP in epigastrium, normoactive BS. No rebound/guarding. No organomegaly. Extremities: Trace edema. TTP L wrist, scaphoid TTP, limited due to hypersensitivity Skin: No rashes. Psych: Full affect. Neuro: CN II-XII grossly intact, normal speech. Gait not tested. Lab Results: No results found for: PHARTERIAL, PO2ART, WTK4TPY, CO2ART, O2ART Lab Results Component Value Date WBC 6.69 11/06/2022 HEMOGLOBIN 11.3 (L) 11/06/2022 HEMATOCRIT 34.6 (L) 11/06/2022 PLATELETCNT 287 11/06/2022 MCV 91.3 11/06/2022 Lab Results Component Value Date SODIUM 140 11/06/2022 POTASSIUM 3.9 11/06/2022 CHLORIDE 105 11/06/2022 CO2VEN 27 11/06/2022 ANIONGAP 11.9 11/06/2022 GLUCOSE 90 11/06/2022 BUN 5 11/06/2022 CREATININE 0.64 11/06/2022 BCRATIO8 8 (L) 11/06/2022 TOTALPROTEIN 5.7 (L) 11/06/2022 ALBUMIN 3.3 (L) 11/06/2022 CALCIUM 8.4 (L) 11/06/2022 TBIL 0.2 11/06/2022 SGOTAST 81 (H) 11/06/2022 SGPTALT 48 11/06/2022 ALKALINEPHO 56 11/06/2022 GFRNA >60 11/06/2022 GFRA >60 11/06/2022 Lab Results Component Value Date CPK 3,590 (H) 11/06/2022 No results found for: FOLATE No results found for: LACACIDPOCT, LACTICA No results found for: [id number] No results found for: FERRITIN Lab Results Component Value Date GLUCOSEPOCT 92 11/03/2022 EKG: EKG 12 LEAD Result Date: 11/02/[address] and changes Abnormal ECG No previous ECGs available Confirmed by Ten Treadwell ([id number]) on 11/02/2022 10:24:49 AM Imaging: XR ABDOMEN KUB FLAT PLATE Result Date: 11/05/2022 IMPRESSION: No acute abnormality Assessment: Active Hospital Problems Diagnosis Date Noted ??? Drug overdose of undetermined intent, initial encounter 11/02/2022 ??? Acute encephalopathy 11/02/2022 ??? Aspiration pneumonia (HCC) 11/02/2022 ??? Polysubstance abuse (HCC) 11/02/2022 ??? Bipolar 2 disorder (HCC) Resolved Hospital Problems No resolved problems to display. Plan: ?? 1. Acute metabolic encephalopathy secondary to intoxication with multiple substance since and medications complicated by Asp PNA and Rhabdomyolysis. The patient had elevated levels for alcohol and her urine drug screen was positive for benzodiazepines, amphetamines, tricyclic antidepressants and cocaine. She is now getting agitated as she is withdrawing from the substances and we will keep her onthe Precedex drip. 11/04/2022. The patient has recovered from the encephalopathy. We will resume her home medications.She has a labile mood and affect and will need to be transferred to a psychiatric facility at discharge. 11/05 CK 3590 from 6400s, from 6900s, monitor trend cont IVF at 150. Check L Wrist Xray given pain KUB was unremarkable. Total critical care time spent: 48 minutes ?? 2. Aspiration pneumonia. The patient is started on Unasyn. Same treatment will be continued for themoment. This was associated with vomiting. 11/04/2022. Continue antibiotic therapy with Unasyn. Her white blood cell count is decreasing. She can be discharged on Augmentin or even off antibiotics based on the clinical evolution. ?? 3. Underlying polysubstance abuse. The patient would benefit from going to a Psychiatric Service for further management of the situation. 11/04/2022. We will resume her antipsychotic medications. The patient has to be transferred to the psychiatric facility. Potentially as soon as tomorrow. ?? 4. History of bipolar mood disorder. The patient has been on multiple medications. 11/04/2022. Her home medications are resumed. She needs further management at the psychiatric facility to optimize treatment. ?? Care plan discussed with: ICU team and the patient's family ?? Activity: Bed Rest IV fluids: Normal saline Diet: NPO Level of Care: Continue same care. Anticipated Disposition at discharge: Acute psychiatric facility Social Determinants: The patient has an underlying bipolar mood disorder and polysubstance abuse. This will make it very complicated were to go back home. She may need more support for long-term. VTE Prophylaxis: Heparin 5000u Q8h Expected discharge date: 11/05/2022 to psychiatric facility ?? By: Gilberto Blackman MD, 11/06/2022 9:12 AM CDT * Gilberto Blackman MD - 11/05/2022 1:34 PM CDT [facility] DAILY PROGRESS NOTE Mariam Quintana is a 26 y.o. female at Hospital LOS: 3 days Subjective: Interval History: C/o vague abd pain, intermittent. Hx limited by pt pain. Review of Systems: Objective: Vitals: 11/05/22 0805 11/05/22 0900 11/05/22 1000 11/05/22 1200 Temp: TempSrc: Heart Rate (Monitor): 88 94 89 Pulse: 94 Resp: BP: 113/73 Height: Weight: SpO2: 99% 97% I/O last 3 completed shifts: In: 7705 [P.O.:1380; I.V.:5775; IV Piggyback:550] Out: 1325 [Urine:1325] Exam: General: Alert, uncomfortable, restless HEENT: Normocephalic, atraumatic. Pupils equal, round and reactive to light. MMM Neck: Supple. No JVD. CVS: RRR, no MRG. Chest: CTAB, no wheezes or crackles. Abdominal: Soft, mild TTP in epigastrium, normoactive BS. No rebound/guarding. No organomegaly. Extremities: Trace edema. Skin: No rashes. Psych: Full affect. Neuro: CN II-XII grossly intact, normal speech. Gait not tested. Lab Results: No results found for: PHARTERIAL, PO2ART, JBN4OHK, CO2ART, O2ART Lab Results Component Value Date WBC 6.50 11/05/2022 HEMOGLOBIN 11.4 (L) 11/05/2022 HEMATOCRIT 34.7 (L) 11/05/2022 PLATELETCNT 282 11/05/2022 MCV 90.8 11/05/2022 Lab Results Component Value Date SODIUM 143 11/05/2022 POTASSIUM 3.7 11/05/2022 CHLORIDE 112 (H) 11/05/2022 CO2VEN 24 11/05/2022 ANIONGAP 10.7 11/05/2022 GLUCOSE 107 (H) 11/05/2022 BUN <3 (L) 11/05/2022 CREATININE 0.72 11/05/2022 BCRATIO8 <4 (L) 11/05/2022 TOTALPROTEIN 5.3 (L) 11/05/2022 ALBUMIN 3.3 (L) 11/05/2022 CALCIUM 8.0 (L) 11/05/2022 TBIL 0.3 11/05/2022 SGOTAST 112 (H) 11/05/2022 SGPTALT 45 11/05/2022 ALKALINEPHO 53 11/05/2022 GFRNA >60 11/05/2022 GFRA >60 11/05/2022 Lab Results Component Value Date CPK 6,967 (H) 11/05/2022 No results found for: FOLATE No results found for: LACACIDPOCT, LACTICA No results found for: [id number] No results found for: FERRITIN Lab Results Component Value Date GLUCOSEPOCT 92 11/03/2022 EKG: EKG 12 LEAD Result Date: 11/02/[address] and changes Abnormal ECG No previous ECGs available Confirmed by Ten Treadwell ([id number]) on 11/02/2022 10:24:49 AM Imaging: No results found. Assessment: Active Hospital Problems Diagnosis Date Noted ??? Drug overdose of undetermined intent, initial encounter 11/02/2022 ??? Acute encephalopathy 11/02/2022 ??? Aspiration pneumonia (HCC) 11/02/2022 ??? Polysubstance abuse (HCC) 11/02/2022 ??? Bipolar 2 disorder (HCC) Resolved Hospital Problems No resolved problems to display. Plan: ?? 1. Acute metabolic encephalopathy secondary to intoxication with multiple substance since and medications complicated by Asp PNA and Rhabdomyolysis. The patient had elevated levels for alcohol and her urine drug screen was positive for benzodiazepines, amphetamines, tricyclic antidepressants and cocaine. She is now getting agitated as she is withdrawing from the substances and we will keep her onthe Precedex drip. 11/04/2022. The patient has recovered from the encephalopathy. We will resume her home medications.She has a labile mood and affect and will need to be transferred to a psychiatric facility at discharge. 11/05 CK 6000s, repeat level and start IVF at 150. Check KUB as she c/o abd pain. Total critical care time spent: 43 minutes ?? 2. Aspiration pneumonia. The patient is started on Unasyn. Same treatment will be continued for themoment. This was associated with vomiting. 11/04/2022. Continue antibiotic therapy with Unasyn. Her white blood cell count is decreasing. She can be discharged on Augmentin or even off antibiotics based on the clinical evolution. ?? 3. Underlying polysubstance abuse. The patient would benefit from going to a Psychiatric Service for further management of the situation. 11/04/2022. We will resume her antipsychotic medications. The patient has to be transferred to the psychiatric facility. Potentially as soon as tomorrow. ?? 4. History of bipolar mood disorder. The patient has been on multiple medications. 11/04/2022. Her home medications are resumed. She needs further management at the psychiatric facility to optimize treatment. ?? Care plan discussed with: ICU team and the patient's family ?? Activity: Bed Rest IV fluids: Normal saline Diet: NPO Level of Care: Continue same care. Anticipated Disposition at discharge: Acute psychiatric facility Social Determinants: The patient has an underlying bipolar mood disorder and polysubstance abuse. This will make it very complicated were to go back home. She may need more support for long-term. VTE Prophylaxis: Heparin 5000u Q8h Expected discharge date: 11/05/2022 to psychiatric facility ?? By: Gilberto Blackman MD, 11/05/2022 1:34 PM CDT * Yaya Sellers MD - 11/04/2022 2:49 PM CDT [facility] DAILY PROGRESS NOTE Mariam Quintana is a 26 y.o. female at Hospital LOS: 2 days Subjective: Interval History: The patient could be taken off the Precedex drip yesterday. She is more alert although she is crying constantly. We did a bedside swallow evaluation and she is able to swallow and therefore I will restart her on her home medications. Review of Systems: A 14 point comprehensive review of systems was negative except what is documented in interval history above. Objective: Exam: General: Well developed, well nourished, bursts into tears frequently, restless and agitated Skin: Normal appearance, normal turgor, no rashes HEENT: Normocephalic, atraumatic, no flaring Eyes: nonicteric, intact extra occular movement, PERRL Neck: normal, supple, no lymphadenopathy Cardiovascular: regular rate and rhythm, S1, S2 normal, no murmur, click, rub or gallop Lungs: clear to ausculation, normal respirations, normal precautions Abdominal: soft, non-tender; bowel sounds normal; no masses, no organomegaly Musculoskeletal: no deformities, joint mobility appears intact, no clubbing Neuro: Non-focal, CN intact, sensory and motor intact Psychological: alert and oriented X3, fluctuating and lab I mood and affect, Current Medications: I will restart her home medications Medication Modifications: Home medications are held for the moment. We will continue Precedex for agitation control Lab Results: Lab Results Component Value Date WBC 10.02 11/04/2022 HEMOGLOBIN 11.1 (L) 11/04/2022 HEMATOCRIT 34.4 (L) 11/04/2022 PLATELETCNT 255 11/04/2022 MCV 92.0 11/04/2022 Lab Results Component Value Date SODIUM 141 11/04/2022 POTASSIUM 3.2 (L) 11/04/2022 CHLORIDE 110 (H) 11/04/2022 CO2VEN 20 (L) 11/04/2022 ANIONGAP 14.2 11/04/2022 GLUCOSE 75 11/04/2022 BUN 5 11/04/2022 CREATININE 0.72 11/04/2022 BCRATIO8 7 (L) 11/04/2022 TOTALPROTEIN 5.7 (L) 11/04/2022 ALBUMIN 3.4 (L) 11/04/2022 CALCIUM 7.5 (L) 11/04/2022 TBIL 0.4 11/04/2022 SGOTAST 89 (H) 11/04/2022 SGPTALT 35 11/04/2022 ALKALINEPHO 62 11/04/2022 GFRNA >60 11/04/2022 GFRA >60 11/04/2022 Lab Results Component Value Date CPK 5,529 (H) 11/04/2022 Lab Results Component Value Date GLUCOSEPOCT 92 11/03/2022 EKG: EKG 12 LEAD Result Date: 11/02/[address] and changes Abnormal ECG No previous ECGs available Confirmed by Ten Treadwell ([id number]) on 11/02/2022 10:24:49 AM Imaging: No results found. I independently reviewed images and test results. My personal interpretation is: No cardiomegaly, suspicion of right parahilar infiltrate Assessment: Active Hospital Problems Diagnosis Date Noted ??? Drug overdose of undetermined intent, initial encounter 11/02/2022 ??? Acute encephalopathy 11/02/2022 ??? Aspiration pneumonia (HCC) 11/02/2022 ??? Polysubstance abuse (HCC) 11/02/2022 ??? Bipolar 2 disorder (HCC) Resolved Hospital Problems No resolved problems to display. Vitals: 11/04/22 0400 11/04/22 0500 11/04/22 0620 11/04/22 0736 Temp: TempSrc: Heart Rate (Monitor): 92 71 82 66 Pulse: 88 70 83 Resp: 20 20 20 22 BP: 123/81 (!) 131/93 (!) 122/94 Height: Weight: SpO2: 95% 97% 95% 95% O2 Flow Rate (l/min): 3 l/min (decreased to 2L) O2 Device: Nasal cannula I/O last 3 completed shifts: In: 6637.6 [I.V.:5937.6; IV Piggyback:700] Out: 2925 [Urine:2925] BMI: Body mass index is 25.75 kg/m??. Lines: Peripheral Tubes: None Catheters: None Other providers notes reviewed: No other providers on board Plan: 1. Acute metabolic encephalopathy secondary to intoxication with multiple substance since and medications. The patient had elevated levels for alcohol and her urine drug screen was positive for benzodiazepines, amphetamines, tricyclic antidepressants and cocaine. She is now getting agitated as she is withdrawing from the substances and we will keep her on the Precedex drip. 11/04/2022. The patient has recovered from the encephalopathy. We will resume her home medications.She has a labile mood and affect and will need to be transferred to a psychiatric facility at discharge. 2. Aspiration pneumonia. The patient is started on Unasyn. Same treatment will be continued for themoment. This was associated with vomiting. 11/04/2022. Continue antibiotic therapy with Unasyn. Her white blood cell count is decreasing. She can be discharged on Augmentin or even off antibiotics based on the clinical evolution. 3. Underlying polysubstance abuse. The patient would benefit from going to a Psychiatric Service for further management of the situation. 11/04/2022. We will resume her antipsychotic medications. The patient has to be transferred to the psychiatric facility. Potentially as soon as tomorrow. 4. History of bipolar mood disorder. The patient has been on multiple medications. 11/04/2022. Her home medications are resumed. She needs further management at the psychiatric facility to optimize treatment. Care plan discussed with: ICU team and the patient's family Activity: Bed Rest IV fluids: Normal saline Diet: NPO Level of Care: Continue same care. Anticipated Disposition at discharge: Acute psychiatric facility Social Determinants: The patient has an underlying bipolar mood disorder and polysubstance abuse. This will make it very complicated were to go back home. She may need more support for long-term. VTE Prophylaxis: Heparin 5000u Q8h Expected discharge date: 11/05/2022 to psychiatric facility Total critical care time spent: 40 minutes By: Yaya Sellers MD, 11/04/2022 2:49 PM CDT * Yaya Sellers MD - 11/03/2022 8:10 AM CDT [facility]IENT DAILY PROGRESS NOTE Mariam Quintana is a 26 y.o. female at Hospital LOS: 1 day Subjective: Interval History: The patient is still sedated on precedex. She became more agitated when sedation was decreased. Review of Systems: A 14 point comprehensive review of systems was negative except what is documented in interval history above. Objective: Exam: General: Well developed, well nourished, in no distress, obtunded Skin: Normal appearance, normal turgor, no rashes HEENT: Normocephalic, atraumatic, no flaring Eyes: nonicteric, intact extra occular movement, PERRL Neck: normal, supple, no lymphadenopathy Cardiovascular: regular rate and rhythm, S1, S2 normal, no murmur, click, rub or gallop Lungs: clear to ausculation, normal respirations, normal precautions Abdominal: soft, non-tender; bowel sounds normal; no masses, no organomegaly Musculoskeletal: no deformities, joint mobility appears intact, no clubbing Neuro: Non-focal, CN intact, sensory and motor intact Psychological: alert and oriented X3, appropriate mood and affect, Intact judgement and memory Current Medications: No recently discontinued medications to reconcile Medication Modifications: Home medications are held for the moment. We will continue Precedex for agitation control Lab Results: Lab Results Component Value Date WBC 12.39 (H) 11/03/2022 HEMOGLOBIN 11.9 (L) 11/03/2022 HEMATOCRIT 37.4 11/03/2022 PLATELETCNT 271 11/03/2022 MCV 93.7 11/03/2022 Lab Results Component Value Date SODIUM 145 11/03/2022 POTASSIUM 3.6 11/03/2022 CHLORIDE 115 (H) 11/03/2022 CO2VEN 22 11/03/2022 ANIONGAP 11.6 11/03/2022 GLUCOSE 95 11/03/2022 BUN 6 11/03/2022 CREATININE 0.80 11/03/2022 BCRATIO8 8 (L) 11/03/2022 TOTALPROTEIN 5.9 (L) 11/03/2022 ALBUMIN 3.7 11/03/2022 CALCIUM 7.7 (L) 11/03/2022 TBIL 0.4 11/03/2022 SGOTAST 93 (H) 11/03/2022 SGPTALT 29 11/03/2022 ALKALINEPHO 62 11/03/2022 GFRNA >60 11/03/2022 GFRA >60 11/03/2022 Lab Results Component Value Date CPK 7,546 (H) 11/03/2022 Lab Results Component Value Date GLUCOSEPOCT 96 11/02/2022 EKG: EKG 12 LEAD Result Date: 11/02/[address] and changes Abnormal ECG No previous ECGs available Confirmed by Ten Treadwell ([id number]) on 11/02/2022 10:24:49 AM Imaging: XR CHEST SINGLE VIEW PORTABLE Result Date: 11/02/2022 IMPRESSION: Hazy interstitial and airspace opacities throughout the lungs suspicious for aspiration. I independently reviewed images and test results. My personal interpretation is: No cardiomegaly, suspicion of right parahilar infiltrate Assessment: Active Hospital Problems Diagnosis Date Noted ??? Drug overdose of undetermined intent, initial encounter 11/02/2022 ??? Acute encephalopathy 11/02/2022 ??? Aspiration pneumonia (HCC) 11/02/2022 ??? Polysubstance abuse (HCC) 11/02/2022 ??? Bipolar 2 disorder (HCC) Resolved Hospital Problems No resolved problems to display. Vitals: 11/03/22 0500 11/03/22 0600 11/03/22 0700 11/03/22 0727 Temp: 98.3 ??F (36.8 ??C) TempSrc: Heart Rate (Monitor): 86 83 87 Pulse: 86 81 Resp: 24 BP: 115/88 119/82 Height: Weight: SpO2: 93% 96% 92% O2 Flow Rate (l/min): 4 l/min O2 Device: Nasal cannula I/O last 3 completed shifts: In: 3881.9 [I.V.:3481.9; IV Piggyback:400] Out: 700 [Urine:700] BMI: Body mass index is 25.75 kg/m??. Lines: Peripheral Tubes: None Catheters: None Other providers notes reviewed: No other providers on board Plan: 1. Acute metabolic encephalopathy secondary to intoxication with multiple substance since and medications. The patient had elevated levels for alcohol and her urine drug screen was positive for benzodiazepines, amphetamines, tricyclic antidepressants and cocaine. She is now getting agitated as she is withdrawing from the substances and we will keep her on the Precedex drip. 2. Aspiration pneumonia. The patient is started on Unasyn. Same treatment will be continued for themoment. This was associated with vomiting. 3. Underlying polysubstance abuse. The patient would benefit from going to a Psychiatric Service for further management of the situation. 4. History of bipolar mood disorder. The patient has been on multiple medications. Care plan discussed with: ICU team and the patient's family Activity: Bed Rest IV fluids: Normal saline Diet: NPO Level of Care: Continue same care. Anticipated Disposition at discharge: Acute psychiatric facility Social Determinants: The patient has an underlying bipolar mood disorder and polysubstance abuse. This will make it very complicated were to go back home. She may need more support for long-term. VTE Prophylaxis: Heparin 5000u Q8h Expected discharge date: 11/05/2022 Total critical care time spent: 40 minutes By: Yaya Sellers MD, 11/03/2022 8:10 AM CDT documented in this encounter H&P Notes * Cherie Bobby APRN, [employer]UFF CONTAINER INSPECTOR - 11/02/2022 11:38 AM CDT HOSPITALIST ADMISSION HISTORY & PHYSICAL EXAM PATIENT NAME: Mariam Quintana, : 1995, MR#[id number] CHIEF COMPLAINT Altered mental status HPI Mariam Quintana is a 26 y.o. female with a PMHx of polysubstance abuse, psychosis, and bipolar disorder who presented to the ED with complaints of altered mental status. HPI limited due to altered mental status. Information obtained per chart review. The patient presented to the ED early this morning with complaints of possible alcohol intoxicationand overdose. Per EMS, the patient was found by her ???arriving?? on the floor. reported the patient had been drinking all night, and he found her this morning with several empty pill bottles surrounding her. It is unknown what she took or how much. The patient does have a history o f bipolar type 2 disorder and unspecified psychosis, and is on multiple medications including Focalin, Lexapro, Atarax, Lamictal, Seroquel, trazodone, and BuSpar. Any prior history of abnormal behavior preceding today's event is unknown. The patient arrived to the ED in his state of agitation consistent with being under the influence of a substance, possibly alcohol and illicit drugs. During the ED evaluation, the patient required multiple doses of chemical restraint including IV Ativan 4 mg, IV Versed 17 mg, and IM Geodon 20 mg. Despite having received the aforementioned medications, the patient continued to be significantly agitated/restless. Lab analysis was pertinent for venous CO2 21, anion gap 20, CK 510, WBC 12.2, H/H 11.3/35.5, and ETOH 53. The urine drug screen was positive for amphetamines, benzodiazepines, cannabis, PCP, tricyclic antidepressants, and cocaine. A chest xray was obtained showing hazy interstitial and airspace opacities throughout the lungs suspicious for aspiration. The patient has subsequently be admitted to ICU for further management. ?? HOME MEDICATIONS: Prior to Admission Medications Prescriptions Last Dose Informant Patient Reported? Taking? Dexmethylphenidate HCl (FOCALIN XR PO) Yes No Sig: Take by mouth. Escitalopram Oxalate (LEXAPRO PO) Yes No Sig: Take by mouth nightly. Escitalopram Oxalate (LEXAPRO PO) Yes No Sig: Take by mouth. HYDROcodone-acetaminophen (NORCO) 5-325 MG Tablet No No Sig: Take 1-2 Tablets by mouth every 4 hours as needed for Moderate or more severe pain. LAMOTRIGINE PO Yes No Sig: Take by mouth 2 times daily. QUEtiapine Fumarate (SEROQUEL PO) Yes No Sig: Take by mouth. TRAZODONE HCL PO Yes No Sig: Take by mouth. hydrOXYzine (ATARAX) 10 MG Tablet Yes No Sig: Take 25 mg by mouth 4 times daily as needed for Anxiety. lamoTRIgine (LAMICTAL PO) Yes No Sig: Take by mouth. polyethylene glycol (MiraLax) 17 GM/SCOOP Powder No No Sig: Take 17 g by mouth daily. 17 g = 1 scoop. Dissolve in 4 -8 oz of water or other liquid. tamsulosin (FLOMAX) 0.4 MG Capsule No No Sig: Take 1 Capsule by mouth daily. traZODone (DESYREL) 50 MG Tablet Yes No Sig: Take 50 mg by mouth nightly. Facility-Administered Medications: None ALLERGIES: Allergies There is no known ICA information for this patient. REVIEW OF SYSTEMS: Review of Systems Unable to perform ROS: Mental status change PAST MEDICAL HISTORY She has a past medical history of Bipolar 2 disorder (HCC), Ovarian cyst, and Psychosis (HCC). PAST SURGICAL HISTORY: has a past surgical history that includes removal of fallopian tube (Left, 2019). FAMILY HISTORY: Family history is unknown by patient. SOCIAL HISTORY : reports that she has been smoking cigarettes. She has been smoking an average of .5 packs per day. She has never used smokeless tobacco. She reports current alcohol use. She reports that she does notcurrently use drugs after having used the following drugs: Marijuana. PHYSICAL EXAM : VITALS: BP 114/88 Pulse (!) 123 Temp 97.8 ??F (36.6 ??C) (Tympanic) Resp 16 Ht 5' 4 (1.626m) Wt 150 lb (68 kg) LMP 08/25/2022 SpO2 100% BMI 25.75 kg/m?? Temp (24hrs), Av.2 ??F (36.8 ??C), Min:97.8 ??F (36.6 ??C), Max:98.6 ??F (37 ??C) Weight: Wt Readings from Last 1 Encounters: 11/02/22 150 lb (68 kg) Body mass index is 25.75 kg/m??. EXAM: Physical Exam Constitutional: General: She is awake. Appearance: She is well-developed. She is ill-appearing. HENT: Head: Normocephalic and atraumatic. Mouth/Throat: Mouth: Mucous membranes are dry. Eyes: General: Lids are normal. Extraocular Movements: Extraocular movements intact. Comments: Pupils 3-4 mm, equal, round. Cardiovascular: Rate and Rhythm: Regular rhythm. Tachycardia present. Heart sounds: Normal heart sounds. Pulmonary: Effort: Pulmonary effort is normal. Breath sounds: Decreased breath sounds present. Abdominal: General: Bowel sounds are decreased. There is no distension. Palpations: Abdomen is soft. Tenderness: There is no abdominal tenderness. Musculoskeletal: Cervical back: Normal range of motion and neck supple. Right lower leg: No edema. Left lower leg: No edema. Skin: General: Skin is warm and dry. Neurological: GCS: GCS eye subscore is 4. GCS verbal subscore is 1. GCS motor subscore is 5. Comments: Awake, not speaking, not following commands, does not track with eyes. Psychiatric: Behavior: Behavior is uncooperative and agitated. Comments: Restless. DATA REVIEW : XR CHEST SINGLE VIEW PORTABLE Result Date: 11/02/2022 IMPRESSION: Hazy interstitial and airspace opacities throughout the lungs suspicious for aspiration. EKG: UA: Results for orders placed or performed during the hospital encounter of 11/02/22 Urinalysis with Reflex if Indicated Result Value Ref Range Status SPECIFIC GRAVITY 1.030 1.003 - 1.030 Final URINE PH 5.0 5.0 - 9.0 Final WBC ESTERASE Negative Negative Final NITRITE Negative Negative Final PROTEIN, RANDOM URINE 30 mg/dL (A) Negative Final URINE GLUCOSE, QUAL Negative Negative Final URINE KETONES 5 mg/dL (A) Negative Final UROBILINOGEN Normal Normal mg/dL Final URINE BLOOD Negative Negative karla/ul Final URINALYSIS COLOR Yellow Final URINALYSIS CLARITY Clear Final WBC (Urine) 0-5 Negative, 0-5 /hpf Final URINE RBC'S Negative Negative, 0-2 /hpf Final EPITHELIAL CELLS Small amount /lpf Final BACTERIA, URINE Negative Negative /hpf Final URINE MUCOUS Few Final Results for orders placed or performed during the hospital encounter of 02/20/21 Culture, Urine Specimen: Urine Result Value Ref Range Status CULTURE RESULTS Final MIXED GROWTH OF 3 OR MORE ORGANISMS, PROBABLE COLLECTION CONTAMINATION, SUGGEST REPEAT URINE CULTURE. CBC: Lab Results Component Value Date WBC 12.17 (H) 11/02/2022 RBC 3.78 (L) 11/02/2022 HEMOGLOBIN 11.3 (L) 11/02/2022 HEMATOCRIT 35.5 (L) 11/02/2022 PLATELETCNT 292 11/02/2022 CMP: Lab Results Component Value Date SODIUM 144 11/02/2022 POTASSIUM 3.5 11/02/2022 CHLORIDE 106 11/02/2022 CO2VEN 21 (L) 11/02/2022 ANIONGAP 20.5 (H) 11/02/2022 GLUCOSE 111 (H) 11/02/2022 BUN 7 11/02/2022 CREATININE 0.77 11/02/2022 BCRATIO8 9 (L) 11/02/2022 TOTALPROTEIN 6.8 11/02/2022 ALBUMIN 4.4 11/02/2022 CALCIUM 8.0 (L) 11/02/2022 TBIL 0.2 11/02/2022 SGPTALT 11 11/02/2022 ALKALINEPHO 67 11/02/2022 GFRNA >60 11/02/2022 GFRA >60 11/02/2022 Coagulation: No results found for: PTP, INR, PTT Cardiac markers: Lab Results Component Value Date CPK 510 (H) 11/02/2022 ABGs: No results found for: PHARTERIAL, CO2ART, HUL4UVE, PO2ART, O2ART Mg: Lab Results Component Value Date MAGNESIUM 2.0 11/02/2022 BNP: No results found for: NTPROBNP Thyroid: Lab Results Component Value Date TSH 0.667 11/02/2022 Anti-Epileptics: No results found for: DILANTIN, ADJUSTEDDILA, PHENOBARBITA, VALP2, VALPROICACTT, CARBAM, LAMI1, ETHO1, FEL1, GABAPENTIN, LEVET1, PRPH1, TOPAR1, ZONI1, CLONS1, OXCAM1 Rheumatology: No results found for: CRP, ESR, JIMENA Calcium-Ionized: No results found for: CALCIUMIONIZ Outside reports reviewed: ER records, radiology reports, lab reports, xray reports, historical medical records. Previous studies include: Echo Summary/Findings: ASSESSMENT: Active Hospital Problems Diagnosis Date Noted ??? Drug overdose of undetermined intent, initial encounter 11/02/2022 ??? Acute encephalopathy 11/02/2022 ??? Aspiration pneumonia (HCC) 11/02/2022 ??? Polysubstance abuse (HCC) 11/02/2022 ??? Bipolar 2 disorder (HCC) Resolved Hospital Problems No resolved problems to display. PLAN: Acute encephalopathy, suspect toxic etiology Possible drug overdose of undetermined intent -Most likely related to toxic etiology with alcohol use and suspected drug overdose. -ETOH 53. -Urine drug screen positive for amphetamines, benzodiazepines, cannabis, PCP, tricyclic antidepressants, and cocaine. -While in ED, received midazolam 17 mg IV, lorazepam 4 mg IV, and Geodon 20 mg IM without change/improvement in agitation/restlessness. -Admit to ICU. -Precedex gtt with PRN IV Ativan. -Neuro checks. -Telemetry monitoring. -Continuous pulse oximetry. -NPO. Aspiration pneumonia -Suspected d/t AMS, possible emesis, and leukocytosis. -CXR showed hazy interstitial and airspace opacities throughout the lungs suspicious for aspiration. -Will cover with Unasyn IV. -Blood cultures pending. -Sputum cx ordered. -PRN nebs ordered. -Supportive treatment with PRN O2, titrate to maintain sats >92%. -Keep NPO until mental status improves and can undergo swallow evaluation by SHOOTER HELPER. Polysubstance use -ETOH 53. -Urine drug screen as above. -Once mental status improves, may need to be placed on CIWA protocol. -Monitor for signs of withdrawal. Bipolar disorder type 2- has prescriptions for Focalin, Lexapro, Atarax, Lamictal, Seroquel, trazodone, and BuSpar. Some empty bottles found on floor, next to patient, unsure what or how much she took. Home meds on hold at this time. Home meds to be resumed as appropriate. Other changes to meds to be made based on progress during hospitalization. Code Status: CPR-Full Treatment DVT Prophylaxis: Heparin 5000u Q8h Consult with: None Advance Care Planning: Aggregate face to face time discussing end of life advance care planning with patient and/or family and/or Power of Inspector Clip On Sunglasses approximately 16 minutes. Discussed CPR/Intubation/Treatment Goals/Quality of life/Intensity of Care. Patient desires: CPR-Full Treatment Total critical care/time spent: 45 minutes Cherie Bobby APRN, CNP 11/02/2022 2:19 PM CDT Primary Care Physician: NONE PROVIDER Cosigned by Yaya Sellers MD at 11/03/2022 8:09 AM CDT Associated attestation - Yaya Sellers MD - 11/03/2022 8:09 AM CDT ADULT HOSPITALIST ATTENDING I have seen and evaluated the patient and discussed the patient's management with WASH BARREL LEADER Cherie Bobby. I agree with the history, physical, assessment, and plan as outlined in the attached note. Yaya Sellers MD 11/03/2022 8:09 AM CDT documented in this encounter ED Notes * Amy Bennett RN - 11/02/2022 10:07 AM CDT Patient is now sleeping. Patient is being transferred to ICU 4 at this time. Patient transferred via stretcher. Belongings sent with patient. Normal saline infusion continued. * Amy Bennett RN - 11/02/2022 10:03 AM CDT Patient is agitated and thrashing in bed. IV versed administered. * Amy Bennett RN - 11/02/2022 9:40 AM CDT Patient is becoming agitated and thrashing around while trying to prepare her for transfer. Give 2mg IVP per Dr. Fiore verbal orders. * Amy Bennett RN - 11/02/2022 9:06 AM CDT Xray at bedside. * Amy Bennett RN - 11/02/2022 8:28 AM CDT Patient remains asleep. 1:1 monitoring continued. * Amy Bennett RN - 11/02/2022 7:15 AM CDT Per significant other, he and patient recently separate. They remain living together but stay in separate bedrooms. He heard patient snoring which prompted him to check on patient. He found her altered and thrashing around on the floor with an empty pill bottle beside her. Per significant other, patient had been drinking all night and had been drinking heavily lately. It is unknown what pills patient may have ingested. Patient has hx of intentional overdose in the past. At this time patient is sedated with no response to painful stimuli. Patient is maintaining airway. SpO2 100% on 2L/NC. Patient belongings secure in locker #3. Patient is on 1:1 observation. * Sarah Fiore MD - 11/02/2022 7:07 AM CDTAssociated Order(s): Critical Care Chief Complaint Patient presents with ??? Drug Overdose ??? Alcohol Intoxication Patient is a 26-year-old white female with past medical history of bipolar type 2 disorder, unspecified psychosis, on multiple medications including Focalin, Lexapro, Atarax, Lamictal, Seroquel, trazodone and BuSpar. According to she was drinking all night and may have overdosed on an unknown number of her medications. Prior history of any abnormal behavior preceding the event are unknown. Patient arrived in his state of agitation and intoxication and required physical hold followed by chemical restraint as noted. No current facility-administered medications for this encounter. Current Outpatient Medications Medication Sig Dispense Refill ??? Dexmethylphenidate HCl (FOCALIN XR PO) Take by mouth. ??? Escitalopram Oxalate (LEXAPRO PO) Take by mouth. ??? Escitalopram Oxalate (LEXAPRO PO) Take by mouth nightly. ??? HYDROcodone-acetaminophen (NORCO) 5-325 MG Tablet Take 1-2 Tablets by mouth every 4 hours as needed for Moderate or more severe pain. 20 Tablet 0 ??? hydrOXYzine (ATARAX) 10 MG Tablet Take 25 mg by mouth 4 times daily as needed for Anxiety. ??? lamoTRIgine (LAMICTAL PO) Take by mouth. ??? LAMOTRIGINE PO Take by mouth 2 times daily. ??? polyethylene glycol (MiraLax) 17 GM/SCOOP Powder Take 17 g by mouth daily. 17 g = 1 scoop. Dissolve in 4 -8 oz of water or other liquid. 1 Bottle 0 ??? QUEtiapine Fumarate (SEROQUEL PO) Take by mouth. ??? tamsulosin (FLOMAX) 0.4 MG Capsule Take 1 Capsule by mouth daily. 10 Capsule 0 ??? traZODone (DESYREL) 50 MG Tablet Take 50 mg by mouth nightly. ??? TRAZODONE HCL PO Take by mouth. No Known Allergies Past Medical History Positives Diagnosis Date ??? Bipolar 2 disorder (HCC) ??? Ovarian cyst ??? Psychosis (HCC) Past Surgical History: Procedure Laterality Date ??? REMOVAL OF FALLOPIAN TUBE Left 2019 Social History Socioeconomic History ??? Marital status: Spouse name: Not on file ??? Number of children: Not on file ??? Years of education: Not on file ??? Highest education level: Not on file Occupational History ??? Not on file Tobacco Use ??? Smoking status: Every Day Packs/day: 0.50 Types: Cigarettes ??? Smokeless tobacco: Never Vaping Use ??? Vaping Use: Never used Substance and Sexual Activity ??? Alcohol use: Yes Comment: socially ??? Drug use: Not Currently Types: Marijuana ??? Sexual activity: Not on file Other Topics Concern ??? Not on file Social History Narrative Merged History Encounter BP 92/53 Pulse 109 Temp 98.6 ??F (37 ??C) (Tympanic) Resp 18 Ht 5' 4 (1.626 m) Wt 150 lb(68 kg) LMP 08/25/2022 SpO2 100% BMI 25.75 kg/m?? Review of Systems Unable to perform ROS: Mental status change Physical Exam Vitals and nursing note reviewed. Constitutional: Comments: Thinly built 26-year-old white female, very agitated and diaphoretic. At this time nonverbal except saying occasional 1-2 words. Patient is highly uncooperative. HENT: Head: Normocephalic. Nose: Nose normal. Mouth/Throat: Comments: Periodontal disease Cardiovascular: Rate and Rhythm: Tachycardia present. Pulses: Normal pulses. Heart sounds: Normal heart sounds. Pulmonary: Comments: Rapid breathing due to agitation Abdominal: General: Abdomen is flat. Musculoskeletal: General: Normal range of motion. Skin: Capillary Refill: Capillary refill takes 2 to 3 seconds. Comments: Diaphoretic, cool and clammy Neurological: General: No focal deficit present. Psychiatric: Comments: Severe agitation, nonverbal, no insight, obviously under the influence of alcohol and/or other chemical Critical Care Performed by: Sarah Fiore MD Authorized by: Sarah Fiore MD Critical care provider statement: Critical care time (minutes): 60 Critical care was necessary to treat or prevent imminent or life-threatening deterioration of the following conditions: Toxidrome and AIR BAG BUILDER failure or compromise Critical care was time spent personally by me on the following activities: Ordering and performing treatments and interventions, ordering and review of laboratory studies, ordering and review of radiographic studies, re-evaluation of patient's condition, review of old charts and examination of patient Care discussed with: admitting provider Imaging Results XR CHEST SINGLE VIEW PORTABLE (No Result on File) Labs Reviewed CMP (COMPREHENSIVE METABOLIC PANEL) - Abnormal; Notable for the following components: Result Value CO2, VENOUS 21 (*) ANION GAP 20.5 (*) GLUCOSE 111 (*) BUN/CREATININE RATIO 9 (*) CALCIUM 8.0 (*) All other components within normal limits ETHYL ALCOHOL (ETHANOL) - Abnormal; Notable for the following components: ETHANOL 53 (*) All other components within normal limits URINE DRUG SCREEN - Abnormal; Notable for the following components: UR AMPHETAMINE DETECTED (*) UR BENZODIAZEPINES DETECTED (*) UR COCAINE METABOLITE DETECTED (*) UR PHENCYCLIDINE DETECTED (*) UR CANNABINOID DETECTED (*) UR TRICYCLIC ANTIDEPRESS SCREEN DETECTED (*) All other components within normal limits URINALYSIS REFLEX IF INDICATED BY ABNORMAL RESULTS - Abnormal; Notable for the following components: PROTEIN, RANDOM URINE 30 mg/dL (*) URINE KETONES 5 mg/dL (*) All other components within normal limits ACETAMINOPHEN (TYLENOL) - Abnormal; Notable for the following components: ACETAMINOPHEN <6 (*) All other components within normal limits CBC WITH AUTO DIFFERENTIAL - Abnormal; Notable for the following components: WBC 12.17 (*) RBC 3.78 (*) HEMOGLOBIN (HGB) 11.3 (*) HEMATOCRIT (HCT) 35.5 (*) NEUTROPHILS 89.7 (*) LYMPHOCYTES 7.1 (*) MONOCYTES 3.0 (*) ABSOLUTE NEUTROPHILS 10.93 (*) ABSOLUTE LYMPHOCYTES 0.86 (*) All other components within normal limits SARS-COV-2 BY MOLECULAR - Normal Narrative: This test has been authorized by the FDA under an Emergency Use Authorization (EUA) only. Negative results should be treated as presumptive and, if inconsistent with clinical signs and symptoms or necessary for patient management, the patient should be tested with an alternative molecularassay. Negative results do not preclude SARS-CoV-2 infection or any other respiratory pathogen. Additional information for Clinicians can be found at: https://www.fda.gov/media/823215/download Additional information for Patients can be found at: https://www.fda.gov/media/615142/download MAGNESIUM (MG) - Normal THYROID STIMULATING HORMONE (TSH) - Normal SALICYLATE LEVEL - Normal COMPLETE BLOOD COUNT (CBC) WITH DIFF Narrative: The following orders were created for panel order Complete Blood Count (CBC) WITH Diff. Procedure Abnormality Status --------- ------ CBC with Auto Differential[[id number]] Abnormal Final result Please view results for these tests on the individual orders. EXTRA TUBES Narrative: The following orders were created for panel order Extra Tubes. Procedure Abnormality Status --------- ------ Blue Top Tube[[id number]] In process Gold Top Tube[[id number]] In process Please view results for these tests on the individual orders. POCT URINE HCG () BLUE TOP TUBE GOLD TOP TUBE MDM Clinical Impression 1. Drug overdose of undetermined intent, initial encounter Disposition: Admitted ED Course as of 11/02/22 0848 TueNov 02, 2022 0842 Patient's labs reviewed, she is positive for amphetamines, benzos, cocaine, phencyclidine, cannabis tricyclics. Patient is currently heavily sedated and maintaining her airway. Further history obtained from nursing staff from indicated that patient lives separate from her and he noted that she was drinking all night. It is not clear if she took any of her medications other than all the recreational substances that were found in her urine screen. Discussed with hospitalist Dr. Sellers, who accepted patient to ICU. Sarah Fiore MD [KS] ED Course User Index [KS] Sarah Fiore MD Kalugotla N Shivaram, MD * Germaine Desouza RN - 11/02/2022 6:50 AM CDT Report given to ROBERT Reyes. * Germaine Desouza RN - 11/02/2022 6:48 AM CDT Patient medicated per provider's orders. Patient unable to provide teach back due to current alteration in mental status. * Amy Bennett RN - 11/02/2022 6:45 AM CDT Restriction Of Rights I have directly observed, and/or obtained history from Mariam Quintana and spouse who directly observed, the following behaviors exhibited by the patient. Intentional overdose. Because of these behaviors, I have ordered the restriction of rights to include (LIST ALL) Searching of the patient's personal property or removing belongings and Retaining personal property. I have explained the restriction of right to the patient, ensured completion of the Notice Regarding Restriction of Rights of Individual Form, and given the form to Patient and Family. * Precious Roca RN - 11/02/2022 6:15 AM CDT Patient required security at bedside for physical hold due to thrashing around and swinging at staff. Patient required physical hold for medication administration as well. * Germaine Desouza RN - 11/02/2022 6:12 AM CDT Patient medicated per provider's orders. Patient unable to provide teach back due to current alteration in mental status. * Precious Roca RN - 11/02/2022 6:10 AM CDT Restriction Of Rights I have directly observed, and/or obtained history from EMS who directly observed, the following behaviors exhibited by the patient.Because of these behaviors, I have ordered the restriction of rightsto include (LIST ALL) Placing the patient in a physical hold. For safety and medical care I have explained the restriction of right to the patient, ensured completion of the Notice Regarding Restriction of Rights of Individual Form, and given the form to Patient. * Germaine Desouza RN - 11/02/2022 6:06 AM CDT ERP at bedside. Patient uncooperative at this time. * Germaine Desouza RN - 11/02/2022 6:04 AM CDT Patient presents to ED room 12 via [facility] with complaint of alcohol intoxication and possible overdose. Per EMS patient was found by her writhing on the floor. EMS states said patient has been drinking all night and when he found her she had empty pill bottles around her. It is unknown how much she took or what she took. Patient uncooperative at this time. Unable to obtain vitals. Patient not answering questions at this time. * Summer Samson - 11/02/2022 6:00 AM CDT Bed: ED12-01 Expected date: 11/02/22 Expected time: 5:51 AM Means of arrival: Ambulance ([facility]) Comments: [facility]F ETOH OD PILLS documented in this encounter Miscellaneous Notes * Malik - Val Rahman - 11/10/2022 10:45 AM CDT Case Management Discharge Readiness Note Mariam's readmission risk level (if calculated) is: 1-Low Patient Class: Inpatient Consecutive Inpatient Midnights 8 Actual day(s) of hospital stay (compare to working DRG): 8 [facility] [address]) Patient will be discharged on 11/10/22 at 1030 by [facility] Please call report to [phone] and ask for the nurse. Please fax PACT (Post Acute Care Transition) document to [phone]. Dr. Sammie Núñez is accepting; please call Provider to Provider report to [phone] Additional Information regarding DC Plan:Patient spouse at bedside -patient discharging to [place], [place] Prior Authorization Number for Transportation, if applicable: Patient paid privately for transport. Prior Authorization Number for SNF, if applicable: N/A Notifications of Discharge Plan: The following person at the receiving facility was notified of this patient's discharge: Herve Information for bedside nurse to call report and fax PACT (Post Acute Care Transition) document in Sticky Note? No, informed verbally Nursing notified: YES Sravanthi Patient/ Decision Maker and family notified: Mariam Pre-Admission Screen & [place] Background Check Information IM Letter Documentation, if applicable N/A - Payor is not Medicare Decision Maker / Caregiver Information Medical Decision Maker Assessment: Patient is medical decision-maker * Interdisciplinary - Sravanthi Camp RN - 11/10/2022 10:43 AM CDT [facility] here to transport pt to facility. Discharged in stable condition with personal belongings. * Plan of Care - Sravanthi Camp RN - 11/10/2022 10:40 AM CDT Problem: Violence Risk or Actual Goal: Anger and Impulse Control Outcome: Outcome Achieved Problem: Restraint, Kcastxs-[id number]-[id number] Goal: Absence of Harm or Injury Outcome: Outcome Achieved Problem: Adult Inpatient Plan of Care Goal: Plan of Care Review Outcome: Outcome Achieved Goal: Patient-Specific Goal (Individualized) Outcome: Outcome Achieved Goal: Absence of Hospital-Acquired Illness or Injury Outcome: Outcome Achieved Goal: Optimal Comfort and Wellbeing Outcome: Outcome Achieved Goal: Readiness for Transition of Care Outcome: Outcome Achieved Problem: Fall Injury Risk Goal: Absence of Fall and Fall-Related Injury Outcome: Outcome Achieved Problem: Skin Injury Risk Increased Goal: Skin Health and Integrity Outcome: Outcome Achieved Problem: Excessive Substance Use Goal: Optimized Energy Level (Excessive Substance Use) Outcome: Outcome Achieved Goal: Improved Behavioral Control (Excessive Substance Use) Outcome: Outcome Achieved Goal: Increased Participation and Engagement (Excessive Substance Use) Outcome: Outcome Achieved Goal: Improved Physiologic Symptoms (Excessive Substance Use) Outcome: Outcome Achieved Goal: Enhanced Social, Occupational or Functional Skills (Excessive Substance Use) Outcome: Outcome Achieved Problem: Suicidal Behavior Goal: Suicidal Behavior is Absent or Managed Outcome: Outcome Achieved Problem: Wound Healing Progression Goal: Optimal Wound Healing Outcome: Outcome Achieved * Interdisciplinary - Sravanthi Camp RN - 11/10/2022 8:00 AM CDT A&O. Pleasant and cooperative. Resp unlabored. Skin W/D. SL patent. See flow sheet for completeassessment. Resting per bed, at bedside. 1:1 observation continues. Denies any suicidal ideations this shift. Plan to discharge to [facility] today. Pt and aware. * Interdisciplinary - Florence Arellano RN - 11/10/2022 5:47 AM CDT Patient refused labs. WASH BARREL LEADER Bhaskar notified. * Plan of Care - Sravanthi aCmp RN - 11/09/2022 4:58 PM CDT Problem: Violence Risk or Actual Goal: Anger and Impulse Control Outcome: Ongoing (see interventions/notes) Intervention: Minimize Safety Risk Flowsheets (Taken 11/09/20221648) Behavior Management: impulse control promoted Sensory Stimulation Regulation: care clustered diversional activities provided family presence promoted music/television provided for relaxation music/television provided for stimulation De-Escalation Techniques: (1:1 continues) other (see comments) Enhanced Safety Measures: (1:1 Observation) other (see comments) Intervention: Promote Self-Control Flowsheets (Taken 11/09/20221648) Supportive Measures: active listening utilized counseling provided decision-making supported goal-setting facilitated relaxation techniques promoted self-care encouraged self-reflection promoted self-responsibility promoted verbalization of feelings encouraged Environmental Support: calm environment promoted rest periods encouraged Problem: Restraint, [id number]-[id number] Goal: Absence of Harm or Injury Outcome: Ongoing (see interventions/notes) Intervention: Implement Least Restrictive Safety Strategies Flowsheets Taken 11/09/2022 1649 Less Restrictive Alternative: 1:1 observation maintained appropriate expression promoted coping techniques promoted emotional support provided counseling provided family presence promoted positive reinforcement provided problem-solving encouraged self-care activities encouraged spiritual support provided Taken 11/09/2022826 Diversional Activities: tablet television Intervention: Protect Dignity, Rights and Personal Wellbeing Flowsheets Taken 11/09/20221648 De-Escalation Techniques: (1:1 continues) other (see comments) Taken 11/09/2022826 Trust Relationship/Rapport: care explained choices provided emotional support provided empathic listening provided questions answered questions encouraged reassurance provided respect patient/family decisions provided thoughts/feelings acknowledged safe/supportive environment facilitated Intervention: Protect Skin and Joint Integrity Flowsheets Taken 11/09/20221648 Skin Protection: (Dressing to foot changed) other (see comments) Taken 11/09/2022826 Body Position: position changed independently Problem: Adult Inpatient Plan of Care Goal: Plan of Care Review Outcome: Ongoing (see interventions/notes) Flowsheets Taken 11/09/20221648 Progress: improving Outcome Evaluation: Pt's CPK is 252. Plan to transfer to [facility] tomorrow. pt and aware. Transport per EMS Does the patient need assistance with discharge and/or transitioning to the next level of care?: Yes, case management already following Taken 11/09/2022826 Plan of Care Reviewed With: patient spouse Today's Goal: CK < 250 Goal: Patient-Specific Goal (Individualized) Outcome: Ongoing (see interventions/notes) Flowsheets (Taken 11/09/2022826) Today's Goal: CK < 250 Individualized Care Needs: Discharge to facility Goal: Absence of Hospital-Acquired Illness or Injury Outcome: Ongoing (see interventions/notes) Intervention: Prevent and Manage VTE (Venous Thromboembolism) Risk Flowsheets (Taken 11/09/2022826) VTE Prevention/Management: patient refused intervention Goal: Optimal Comfort and Wellbeing Outcome: Ongoing (see interventions/notes) Intervention: Monitor Pain and Promote Comfort Flowsheets (Taken 11/09/2022826) Pain Management Interventions: care clustered pain management plan reviewed with patient/caregiver Intervention: Provide Person-Centered Care Flowsheets (Taken 11/09/2022826) Trust Relationship/Rapport: care explained choices provided emotional support provided empathic listening provided questions answered questions encouraged reassurance provided respect patient/family decisions provided thoughts/feelings acknowledged safe/supportive environment facilitated Goal: Readiness for Transition of Care Outcome: Ongoing (see interventions/notes) Intervention: Mutually Develop Transition Plan Flowsheets (Taken 11/09/20221648) Readmission Within the Last 30 Days: no previous admission in last 30 days Problem: Fall Injury Risk Goal: Absence of Fall and Fall-Related Injury Outcome: Ongoing (see interventions/notes) Intervention: Identify and Manage Contributors Flowsheets (Taken 11/09/2022826) Medication Review/Management: medications reviewed Self-Care Promotion: independence encouraged BADL personal objects within reach BADL personal routines maintained Intervention: Promote Injury-Free Environment Flowsheets (Taken 11/09/2022826) Safety Promotion/Fall Prevention: nonskid shoes/slippers when out of bed Problem: Skin Injury Risk Increased Goal: Skin Health and Integrity Outcome: Ongoing (see interventions/notes) Intervention: Optimize Skin Protection Flowsheets Taken 11/09/20221648 Activity Management: activity adjusted per tolerance activity encouraged up ad lokesh Pressure Reduction Devices: (Independent) other (see comments) Skin Protection: (Dressing to foot changed) other (see comments) Taken 11/09/2022826 Pressure Reduction Techniques: independent Head of Bed (HOB) Positioning: (Independent) other (see comments) Intervention: Promote and Optimize Oral Intake Flowsheets (Taken 11/09/20221648) Oral Nutrition Promotion: rest periods promoted social interaction promoted Problem: Excessive Substance Use Goal: Optimized Energy Level (Excessive Substance Use) Outcome: Ongoing (see interventions/notes) Flowsheets (Taken 11/09/20221648) Mutually Determined Action Steps (Optimized Energy Level): grooms self without prompting dresses/ready for morning activity participates in exercise activity Intervention: Optimize Energy Level Flowsheets Taken 11/09/20221648 Patient Performed Hygiene: shampoo shower teeth brushed Taken 11/09/2022826 Activity (Behavioral Health): up ad lokesh Diversional Activity: (Tablet) television other (see comments) Goal: Improved Behavioral Control (Excessive Substance Use) Outcome: Ongoing (see interventions/notes) Flowsheets (Taken 11/09/20221648) Mutually Determined Action Steps (Improved Behavioral Control): verbalizes safe alternatives identifies major stressors identifies risky behavior Intervention: Promote Behavior and Impulse Control Flowsheets (Taken 11/09/20221648) Behavior Management: impulse control promoted Goal: Increased Participation and Engagement (Excessive Substance Use) Outcome: Ongoing (see interventions/notes) Flowsheets (Taken 11/09/20221648) Mutually Determined Action Steps (Increased Participation and Engagement): identifies support resources discusses ongoing recovery plan Intervention: Facilitate Participation and Engagement Flowsheets Taken 11/09/20221648 Supportive Measures: active listening utilized counseling provided decision-making supported goal-setting facilitated relaxation techniques promoted self-care encouraged self-reflection promoted self-responsibility promoted verbalization of feelings encouraged Taken 11/09/2022826 Diversional Activity: (Tablet) television other (see comments) Goal: Improved Physiologic Symptoms (Excessive Substance Use) Outcome: Ongoing (see interventions/notes) Flowsheets (Taken 11/09/20221648) Mutually Determined Action Steps (Improved Physiologic Symptoms): identifies change motive Goal: Enhanced Social, Occupational or Functional Skills (Excessive Substance Use) Outcome: Ongoing (see interventions/notes) Flowsheets (Taken 11/09/20221648) Mutually Determined Action Steps (Enhanced Social, Occupational or Functional Skills): identifies personal strengths identifies support resources participates in social skills training Intervention: Promote Social, Occupational and Functional Ability Flowsheets Taken 11/09/20221648 Social Functional Ability Promotion: self-expression encouraged social interaction promoted Taken 11/09/2022826 Trust Relationship/Rapport: care explained choices provided emotional support provided empathic listening provided questions answered questions encouraged reassurance provided respect patient/family decisions provided thoughts/feelings acknowledged safe/supportive environment facilitated Problem: Suicidal Behavior Goal: Suicidal Behavior is Absent or Managed Outcome: Ongoing (see interventions/notes) Flowsheets (Taken 11/09/20221648) Mutually Determined Action Steps (Suicidal Behavior Absent/Managed): sets future-oriented goal Problem: Wound Healing Progression Goal: Optimal Wound Healing Outcome: Ongoing (see interventions/notes) Intervention: Promote Wound Healing Flowsheets Taken 11/09/20221648 Activity Management: activity adjusted per tolerance activity encouraged up ad lokesh Oral Nutrition Promotion: rest periods promoted social interaction promoted Pressure Reduction Devices: (Independent) other (see comments) Taken 11/09/2022826 Pressure Reduction Techniques: independent Pain Management Interventions: care clustered pain management plan reviewed with patient/caregiver Sleep/Rest Enhancement: awakenings minimized regular sleep/rest pattern promoted * Plan of Cecilia - Heather Solano RN - 11/09/2022 3:30 PM CDT Problem: Wound Healing Progression Goal: Optimal Wound Healing Outcome: Ongoing (see interventions/notes) Note: Patient seen for dressing change to left plantar foot, tolerated well. Discharge dressing changes reviewed with patient, who voiced understanding. * Interdisciplinary - Sravanthi Camp RN - 11/09/2022 2:28 PM CDT Pt got up to shower and washed hair and brushed teeth, changed into clean paper scrubs. Sitting up in bed watching tablet. remains at bedside. Remains pleasant and cooperative. 1:1 observation continues. * Interdisciplinary - Sravanthi Camp RN - 11/09/2022 12:51 PM CDT Pt sitting up in bed, Visiting with . Had lunch. Pt is pleasant and cooperative. Denies any suicidal ideations and is looking forward to discharging to facility. 1:1 observation continues. * Malik - Val Rahman - 11/09/2022 11:43 AM CDT Case Management Patient / Patient [employer] Mdm Developer Contact Note Mariam's readmission risk level (if calculated) is: 1-Low Patient Class: Inpatient Consecutive Inpatient Midnights 7 Actual day(s) of hospital stay (compare to working DRG):7 New Consult for Case Management? No Summary: Met with Mariam and introduced self and role and discussed plan of care. FEDE met with patient and her Onesimo at bedside to discuss the discharge process to a mental health hospital for further mental health treatment. Patient reports understanding and is agreeable to going to facility voluntary. Patient was able to speak to [facility] and give them verbal medical release of information for further assistance with discharge process. CM spoke to Monique from [facility] in [place], [place] in regards to their open availability. Monique reports they have a bed available and that a pipe recovery specialist will call CM back ifthey are able to accept patient. 1528: CM spoke to Herve at [facility] in [place]. Herve informed CM that they a have tentatively accepted the patient and will confirm with CM in the morning at around 8:00am. Herve asked that all patient prescriptions be faxed to their pharmacy of [facility] [phone]. CM informed patient and her of plan and that they will have to cover out of pocket cost for transportation. Patient reports understanding. Plan of Care:(Problem/ situation/ barrier + goals/ milestones + interventions + evaluation of progress = Plan of Care) Mariam's primary medical problem this hospitalization is Acute encephalopathy. Hospital Plan:Discharge Planing Inpatient Behavioral Health. Anticipated Discharge Plan: Inpatient Behavioral Health IM Letter Documentation, if applicable N/A - Payor is not Medicare Decision Maker / Inspector Filters Information Medical Decision Maker Assessment: Patient is medical decision-maker No new referrals for School [employer] at this time. * Malik - Hermelindo Hebert, OCTAVIO - 11/09/2022 9:02 AM CDT ASSESSMENT: Nutrition Assessment triggered by: Eleazar result 16 with probably inadequate nutrition on risk assessment ?? PROBLEM: (resolved) Increased nutrient needs, related pressure injury risk as evidenced by Eleazar result. ?? Principal Problem: Acute encephalopathy Past Medical History: Past Medical History Positives Diagnosis Date ??? Bipolar 2 disorder (HCC) ? Ovarian cyst ? Psychosis (HCC) ? Diet: DIET GENERAL Supplement order: Ensure Plus High Protein lunch and dinner meals Chew/swallow: None reported Intake Adequacy: 100% oral intake Skin/Wound: Intact Edema: none reported Eleazar result: 23 Labs noted: Na+ 134. K+ 4.0, Bun 9, creatinine 0/67, albumin 3.9, GFR >60, glucose 93 Education needs: Not planned Height: Ht Readings from Last 1 Encounters: 11/02/22 5' 4 (1.626 m) Weight: Wt Readings from Last 1 Encounters: 11/02/22 150 lb (68 kg) BMI weight range for height: 110-144# BMI: Body mass index is 25.75 kg/m??. No prior EMR weights to review Requested update body weight. ?? NEEDS: Calories: 2000 (30 cals/kg/bw) Protein: 68g(1g/kg/bw) Fluid: 2000 ml ?? GOAL: To promote intake adequacy INTERVENTION: Diet was advanced to general, patient is consuming 100% intake of all meals. Patient is drinking Ensure Plus High Protein lunch and dinner meals, will continue sending on meal trays to promote nutrition adequacy. Patient stated that her appetite at home has decreased over the past fewmonths but reports that appetite has improved during her hospital stay. Diet order is tolerated andaccepetable at this time. Admission for possible alcohol intoxication, drug overdose and aspiration pneumonia. Reassess 11/15/22 ?? HERMELINDO HEBERT RD Cosigned by Zelda Savage RD at 11/09/2022 9:18 AM CDT * Interdisciplinary - Sravanthi Camp RN - 11/09/2022 8:35 AM CDT A&O. Resp unlabored. RA. Ceja W/D. SL patent. See flow sheet for complete assessment. at bedside Breakfast ordered. Pt pleasant and calm. Requesting to speak to Hawa MISTRY to come and talk to pt. No suicidal ideations voiced. Pt CK 252. 1:1 observation continues. * Interdisciplinary - Sravanthi Camp RN - 11/09/2022 6:30 AM CDT Received report from Nhi. Pt resting per bed with eyes closed. Appears to be asleep. No S/S of distress noted. 1:1 observation continues. * Interdisciplinary - Nhi Cain RN - 11/09/2022 5:34 AM CDT Pt rested this shift, alert and oriented Xs 4, no reports of suicide ideation, no complaints voiced, call light within reach, sitter at bedside * Plan of Care - Nhi Cain RN - 11/09/2022 2:53 AM CDT Problem: Violence Risk or Actual Goal: Anger and Impulse Control Outcome: Ongoing (see interventions/notes) Intervention: Minimize Safety Risk Flowsheets (Taken 11/09/2022244) Behavior Management: impulse control promoted Sensory Stimulation Regulation: care clustered lighting decreased quiet environment promoted relaxation techniques promoted De-Escalation Techniques: 1:1 observation initiated appropriate behavior reinforced Intervention: Promote Self-Control Flowsheets (Taken 11/08/2022132 by HERMINIA) Supportive Measures: self-care encouraged relaxation techniques promoted verbalization of feelings encouraged Environmental Support: calm environment promoted rest periods encouraged Problem: Restraint, Txojtwn-Xopf-Dhqoxflsdwm Goal: Absence of Harm or Injury Outcome: Ongoing (see interventions/notes) Intervention: Implement Least Restrictive Safety Strategies Flowsheets Taken 11/08/20221925 by [facility]I Diversional Activities: television tablet Taken 11/08/2022132 by HERMINIA Less Restrictive Alternative: 1:1 observation maintained Intervention: Protect Dignity, Rights and Personal Wellbeing Flowsheets Taken 11/09/2022244 De-Escalation Techniques: 1:1 observation initiated appropriate behavior reinforced Taken 11/08/20221925 Trust Relationship/Rapport: care explained questions answered questions encouraged safe/supportive environment facilitated thoughts/feelings acknowledged Intervention: Protect Skin and Joint Integrity Flowsheets (Taken 11/08/2022132 by HERMINIA) Body Position: position changed independently Skin Protection: adhesive use limited tubing/devices free from skin contact incontinence pads utilized Problem: Adult Inpatient Plan of Care Goal: Plan of Care Review Outcome: Ongoing (see interventions/notes) Flowsheets Taken 11/09/2022 0245 by NHI Outcome Evaluation: pt has rested this shift, sitter at bedside, call light within reach, pleasant and compliant with care Taken 11/08/20221517 by YESSI Plan of Care Reviewed With: patient Progress: improving Today's Goal: CK <250 Goal: Patient-Specific Goal (Individualized) Outcome: Ongoing (see interventions/notes) Flowsheets Taken 11/08/20221517 by YESSI Today's Goal: CK <250 Taken 11/08/2022132 by HERMINIA Anxieties, Fears or Concerns: none Individualized Care Needs: none Goal: Absence of Hospital-Acquired Illness or Injury Outcome: Ongoing (see interventions/notes) Goal: Optimal Comfort and Wellbeing Outcome: Ongoing (see interventions/notes) Intervention: Monitor Pain and Promote Comfort Flowsheets (Taken 11/08/2022828 by YESSI) Pain Management Interventions: care clustered pain management plan reviewed with patient/caregiver Intervention: Provide Person-Centered Care Flowsheets (Taken 11/08/20221925) Trust Relationship/Rapport: care explained questions answered questions encouraged safe/supportive environment facilitated thoughts/feelings acknowledged Goal: Readiness for Transition of Care Outcome: Ongoing (see interventions/notes) Problem: Fall Injury Risk Goal: Absence of Fall and Fall-Related Injury Outcome: Ongoing (see interventions/notes) Intervention: Identify and Manage Contributors Flowsheets Taken 11/08/20221925 by NHI Medication Review/Management: medications reviewed Taken 11/08/2022828 by YESSI Self-Care Promotion: independence encouraged BADL personal objects within reach BADL personal routines maintained Intervention: Promote Injury-Free Environment Flowsheets (Taken 11/08/20221925) Safety Promotion/Fall Prevention: nonskid shoes/slippers when out of bed sitter at bedside Problem: Skin Injury Risk Increased Goal: Skin Health and Integrity Outcome: Ongoing (see interventions/notes) Intervention: Optimize Skin Protection Flowsheets Taken 11/09/2022244 by NHI Activity Management: ambulated to bathroom back to bed up ad lokesh Taken 11/08/2022132 by HERMINIA Skin Protection: adhesive use limited tubing/devices free from skin contact incontinence pads utilized Problem: Excessive Substance Use Goal: Optimized Energy Level (Excessive Substance Use) Outcome: Ongoing (see interventions/notes) Flowsheets (Taken 11/08/2022132 by HERMINIA) Mutually Determined Action Steps (Optimized Energy Level): grooms self without prompting Intervention: Optimize Energy Level Flowsheets Taken 11/09/2022244 by NHI Activity (Behavioral Health): up ad lokesh Taken 11/08/2022132 by HERMINIA Diversional Activity: television Goal: Improved Behavioral Control (Excessive Substance Use) Outcome: Ongoing (see interventions/notes) Intervention: Promote Behavior and Impulse Control Flowsheets (Taken 11/09/2022244) Behavior Management: impulse control promoted Goal: Increased Participation and Engagement (Excessive Substance Use) Outcome: Ongoing (see interventions/notes) Intervention: Facilitate Participation and Engagement Flowsheets (Taken 11/08/2022132 by HERMINIA) Supportive Measures: self-care encouraged relaxation techniques promoted verbalization of feelings encouraged Diversional Activity: television Goal: Improved Physiologic Symptoms (Excessive Substance Use) Outcome: Ongoing (see interventions/notes) Goal: Enhanced Social, Occupational or Functional Skills (Excessive Substance Use) Outcome: Ongoing (see interventions/notes) Flowsheets (Taken 11/08/2022132 by HERMINIA) Mutually Determined Action Steps (Enhanced Social, Occupational or Functional Skills): participatesin social skills training Intervention: Promote Social, Occupational and Functional Ability Flowsheets (Taken 11/08/20221925) Trust Relationship/Rapport: care explained questions answered questions encouraged safe/supportive environment facilitated thoughts/feelings acknowledged Problem: Suicidal Behavior Goal: Suicidal Behavior is Absent or Managed Outcome: Ongoing (see interventions/notes) Problem: Wound Healing Progression Goal: Optimal Wound Healing Outcome: Ongoing (see interventions/notes) Intervention: Promote Wound Healing Flowsheets Taken 11/09/2022244 by NHI Activity Management: ambulated to bathroom back to bed up ad lokesh Sleep/Rest Enhancement: awakenings minimized Taken 11/08/2022 08 by YESSI Pain Management Interventions: care clustered pain management plan reviewed with patient/caregiver * Interdisciplinary - Nhi Cain RN - 11/08/2022 7:00 PM CDT Pt resting in bed, alert and oriented Xs 4, call light within reach, IV fluids infusing, no complants voiced at this time * Interdisciplinary - Yessi Resendez RN - 11/08/2022 5:58 PM CDT Pt. Is resting in bed with call light in reach and sitter at bedside. Pt. Has IV fluids infusing. Pt. Pending CK level to be below 250 pending discharge. * Interdisciplinary - Hawa Ramos - 11/08/2022 4:01 PM CDT IVF continued. Awaiting CPK to get below 250. * Plan of Care - Yessi Resendez RN - 11/08/2022 3:25 PM CDT Problem: Violence Risk or Actual Goal: Anger and Impulse Control Outcome: Ongoing (see interventions/notes) Problem: Restraint, Mqfvjdp-Yxjr-Iidlhotxzuv Goal: Absence of Harm or Injury Outcome: Ongoing (see interventions/notes) Problem: Adult Inpatient Plan of Care Goal: Plan of Care Review Outcome: Ongoing (see interventions/notes) Flowsheets (Taken 11/08/2022 4668) Plan of Care Reviewed With: patient Progress: improving Today's Goal: CK <250 Outcome Evaluation: Pt. is resting in bed with call light in reach, family at bedside, and sitter at bedside. Pt. has IV fluids infuisng at this time. Pt. to be discharging to a facility pending CK levels. Does the patient need assistance with discharge and/or transitioning to the next level of care?: Yes, case management already following Goal: Patient-Specific Goal (Individualized) Outcome: Ongoing (see interventions/notes) Goal: Absence of Hospital-Acquired Illness or Injury Outcome: Ongoing (see interventions/notes) Goal: Optimal Comfort and Wellbeing Outcome: Ongoing (see interventions/notes) Goal: Readiness for Transition of Care Outcome: Ongoing (see interventions/notes) Problem: Fall Injury Risk Goal: Absence of Fall and Fall-Related Injury Outcome: Ongoing (see interventions/notes) Intervention: Identify and Manage Contributors Flowsheets (Taken 11/08/2022828) Medication Review/Management: medications reviewed Self-Care Promotion: independence encouraged BADL personal objects within reach BADL personal routines maintained Intervention: Promote Injury-Free Environment Flowsheets (Taken 11/08/2022 1518) Safety Promotion/Fall Prevention: bed alarm family at bedside lighting adjusted for task/safety nonskid shoes/slippers when out of bed low bed fall reduction program maintained Problem: Skin Injury Risk Increased Goal: Skin Health and Integrity Outcome: Ongoing (see interventions/notes) Intervention: Optimize Skin Protection Flowsheets Taken 11/08/2022828 by YESSI Activity Management: activity adjusted per tolerance Taken 11/08/2022132 by HERMINIA Head of Bed (HOB) Positioning: HOB at 30-45 degrees Skin Protection: adhesive use limited tubing/devices free from skin contact incontinence pads utilized Problem: Excessive Substance Use Goal: Optimized Energy Level (Excessive Substance Use) Outcome: Ongoing (see interventions/notes) Intervention: Optimize Energy Level Flowsheets (Taken 11/08/2022132 by HERMINIA) Activity (Behavioral Health): activity adjusted per tolerance Goal: Improved Behavioral Control (Excessive Substance Use) Outcome: Ongoing (see interventions/notes) Goal: Increased Participation and Engagement (Excessive Substance Use) Outcome: Ongoing (see interventions/notes) Intervention: Facilitate Participation and Engagement Flowsheets (Taken 11/08/2022132 by HERMINIA) Supportive Measures: self-care encouraged relaxation techniques promoted verbalization of feelings encouraged Goal: Improved Physiologic Symptoms (Excessive Substance Use) Outcome: Ongoing (see interventions/notes) Goal: Enhanced Social, Occupational or Functional Skills (Excessive Substance Use) Outcome: Ongoing (see interventions/notes) Intervention: Promote Social, Occupational and Functional Ability Flowsheets (Taken 11/08/2022828) Trust Relationship/Rapport: care explained thoughts/feelings acknowledged Problem: Suicidal Behavior Goal: Suicidal Behavior is Absent or Managed Outcome: Ongoing (see interventions/notes) Problem: Wound Healing Progression Goal: Optimal Wound Healing Outcome: Ongoing (see interventions/notes) Intervention: Promote Wound Healing Flowsheets (Taken 11/08/2022 0829) Activity Management: activity adjusted per tolerance Pain Management Interventions: care clustered pain management plan reviewed with patient/caregiver Sleep/Rest Enhancement: awakenings minimized * Plan of Care - Carleen Perry RN - 11/08/2022 1:31 PM CDT Problem: Wound Healing Progression Goal: Optimal Wound Healing Outcome: Ongoing (see interventions/notes) Intervention: Promote Wound Healing Note: Patient resting in bed and alert. Visitor at bedside. Wound to foot open to air - cleansed and new dressing applied. Denies further needs. Patient instructed to call for a new dressing if the dressing falls off again - verbalized understanding. * Interdisciplinary - Yessi Resendez RN - 11/08/2022 8:35 AM CDT Pt. Is resting in bed with call light in reach and sitter at bedside. Pt. Has IV fluids infusing atthis time. Pt. Has no complaints. Pt. Full assessment complete see flow sheet. * Interdisciplinary - Sammie Yee RN - 11/08/2022 4:20 AM CDT Received bedside shift report at this time. Sitter present at bedside. Patient is resting in bed, no distress noted. Plan of care continued. * Plan of Care - Herminia Rosado RN - 11/08/2022 4:11 AM CDT Problem: Violence Risk or Actual Goal: Anger and Impulse Control Outcome: Ongoing (see interventions/notes) Intervention: Minimize Safety Risk Flowsheets (Taken 11/08/2022 0133) Behavior Management: impulse control promoted boundaries reinforced Sensory Stimulation Regulation: care clustered calming techniques promoted music/television provided for relaxation reality orientation provided De-Escalation Techniques: 1:1 observation initiated appropriate behavior reinforced Enhanced Safety Measures: bed alarm set Intervention: Promote Self-Control Flowsheets (Taken 11/08/2022132) Supportive Measures: self-care encouraged relaxation techniques promoted verbalization of feelings encouraged Environmental Support: calm environment promoted rest periods encouraged Problem: Restraint, Jylzqjs-Xone-Xsmapjjftls Goal: Absence of Harm or Injury Outcome: Ongoing (see interventions/notes) Intervention: Implement Least Restrictive Safety Strategies Flowsheets (Taken 11/08/2022132) Fitting Room Attendant Protection: IV pole/bag removed from visual field Less Restrictive Alternative: 1:1 observation maintained Diversional Activities: television Intervention: Protect Dignity, Rights and Personal Wellbeing Flowsheets (Taken 11/08/2022132) Trust Relationship/Rapport: care explained choices provided emotional support provided empathic listening provided questions answered questions encouraged reassurance provided De-Escalation Techniques: 1:1 observation initiated appropriate behavior reinforced Intervention: Protect Skin and Joint Integrity Flowsheets (Taken 11/08/2022132) Body Position: position changed independently Skin Protection: adhesive use limited tubing/devices free from skin contact incontinence pads utilized Problem: Adult Inpatient Plan of Care Goal: Plan of Care Review Outcome: Ongoing (see interventions/notes) Flowsheets (Taken 11/08/2022132) Plan of Care Reviewed With: patient Progress: progress toward functional goals is gradual Today's Goal: patient will have decrease CK Levels Outcome Evaluation: patient has fluids running at this time. patient has sitter at bedside. Does the patient need assistance with discharge and/or transitioning to the next level of care?: Yes, case management already following Goal: Patient-Specific Goal (Individualized) Outcome: Ongoing (see interventions/notes) Flowsheets (Taken 11/08/2022132) Today's Goal: patient will have decrease CK Levels Anxieties, Fears or Concerns: none Individualized Care Needs: none Goal: Absence of Hospital-Acquired Illness or Injury Outcome: Ongoing (see interventions/notes) Intervention: Prevent and Manage VTE (Venous Thromboembolism) Risk Flowsheets (Taken 11/08/2022132) VTE Prevention/Management: anticoagulant therapy maintained Goal: Optimal Comfort and Wellbeing Outcome: Ongoing (see interventions/notes) Intervention: Monitor Pain and Promote Comfort Flowsheets (Taken 11/08/2022132) Pain Management Interventions: care clustered no interventions per patient request position adjusted medication offered but refused pillow support provided Intervention: Provide Person-Centered Care Flowsheets (Taken 11/08/2022132) Trust Relationship/Rapport: care explained choices provided emotional support provided empathic listening provided questions answered questions encouraged reassurance provided Goal: Readiness for Transition of Care Outcome: Ongoing (see interventions/notes) Problem: Fall Injury Risk Goal: Absence of Fall and Fall-Related Injury Outcome: Ongoing (see interventions/notes) Intervention: Identify and Manage Contributors Flowsheets (Taken 11/08/2022132) Medication Review/Management: medications reviewed Self-Care Promotion: independence encouraged BADL personal objects within reach Intervention: Promote Injury-Free Environment Flowsheets (Taken 11/08/2022132) Safety Promotion/Fall Prevention: lighting adjusted for task/safety low bed seizure precautions nonskid shoes/slippers when out of bed bed alarm Problem: Skin Injury Risk Increased Goal: Skin Health and Integrity Outcome: Ongoing (see interventions/notes) Intervention: Optimize Skin Protection Flowsheets (Taken 11/08/2022132) Activity Management: activity adjusted per tolerance activity encouraged Pressure Reduction Techniques: turned/repositioned Head of Bed (HOB) Positioning: HOB at 30-45 degrees Pressure Reduction Devices: positioning supports utilized Skin Protection: adhesive use limited tubing/devices free from skin contact incontinence pads utilized Intervention: Promote and Optimize Oral Intake Flowsheets (Taken 11/08/2022132) Oral Nutrition Promotion: rest periods promoted Problem: Excessive Substance Use Goal: Optimized Energy Level (Excessive Substance Use) Outcome: Ongoing (see interventions/notes) Flowsheets (Taken 11/08/2022132) Mutually Determined Action Steps (Optimized Energy Level): grooms self without prompting Intervention: Optimize Energy Level Flowsheets (Taken 11/08/2022132) Activity (Behavioral Health): activity adjusted per tolerance Diversional Activity: television Goal: Improved Behavioral Control (Excessive Substance Use) Outcome: Ongoing (see interventions/notes) Intervention: Promote Behavior and Impulse Control Flowsheets (Taken 11/08/2022132) Behavior Management: impulse control promoted boundaries reinforced Goal: Increased Participation and Engagement (Excessive Substance Use) Outcome: Ongoing (see interventions/notes) Intervention: Facilitate Participation and Engagement Flowsheets (Taken 11/08/2022132) Supportive Measures: self-care encouraged relaxation techniques promoted verbalization of feelings encouraged Diversional Activity: television Goal: Improved Physiologic Symptoms (Excessive Substance Use) Outcome: Ongoing (see interventions/notes) Flowsheets (Taken 11/08/2022132) Mutually Determined Action Steps (Improved Physiologic Symptoms): identifies change motive Goal: Enhanced Social, Occupational or Functional Skills (Excessive Substance Use) Outcome: Ongoing (see interventions/notes) Flowsheets (Taken 11/08/2022132) Mutually Determined Action Steps (Enhanced Social, Occupational or Functional Skills): participatesin social skills training Intervention: Promote Social, Occupational and Functional Ability Flowsheets (Taken 11/08/2022132) Trust Relationship/Rapport: care explained choices provided emotional support provided empathic listening provided questions answered questions encouraged reassurance provided Problem: Suicidal Behavior Goal: Suicidal Behavior is Absent or Managed Outcome: Ongoing (see interventions/notes) Problem: Wound Healing Progression Goal: Optimal Wound Healing Outcome: Ongoing (see interventions/notes) Intervention: Promote Wound Healing Flowsheets (Taken 11/08/2022132) Activity Management: activity adjusted per tolerance activity encouraged Oral Nutrition Promotion: rest periods promoted Pressure Reduction Techniques: turned/repositioned Pain Management Interventions: care clustered no interventions per patient request position adjusted medication offered but refused pillow support provided Pressure Reduction Devices: positioning supports utilized Sleep/Rest Enhancement: awakenings minimized * Interdisciplinary - Herminia Rosado RN - 11/07/2022 7:00 PM CDT Bedside shift report received from Laverne JONES. Patient continued to be one on one monitoring at thistime. Patient denies suicidial ideations at this time. IV medications continue to infuse. Patient is alert and oriented x4. Patient denies any questions at this time. Patient also denies needs at this time. Patient plan of care continued. * Plan of Care - Laverne Flood RN - 11/07/2022 2:18 PM CDT Problem: Adult Inpatient Plan of Care Goal: Plan of Care Review Flowsheets Taken 11/07/2022 014 by YESSI Plan of Care Reviewed With: patient Progress: progress toward functional goals is gradual Today's Goal: Decrease in CK levels Outcome Evaluation: Pt. is resting in bed with IV fluids infusing at this time and sitter at bedside. Pt. has had no complaints at this time. Taken 11/05/2022 1630 by TAB Does the patient need assistance with discharge and/or transitioning to the next level of care?: Yes, case management already following Goal: Patient-Specific Goal (Individualized) Flowsheets (Taken 11/07/2022 0144 by YESSI) Today's Goal: Decrease in CK levels Goal: Absence of Hospital-Acquired Illness or Injury Intervention: Prevent and Manage VTE (Venous Thromboembolism) Risk Flowsheets (Taken 11/07/2022 09) VTE Prevention/Management: anticoagulant therapy maintained Goal: Optimal Comfort and Wellbeing Intervention: Monitor Pain and Promote Comfort Flowsheets (Taken 11/07/2022 09) Pain Management Interventions: care clustered Intervention: Provide Person-Centered Care Flowsheets (Taken 11/07/2022 09) Trust Relationship/Rapport: care explained choices provided nonverbal communication acknowledged questions encouraged questions answered safe/supportive environment facilitated * Interdisciplinary - Yessi Resendez RN - 11/07/2022 6:02 AM CDT Pt. Is resting in bed with call light in reach and sitter at bedside. Pt. Has IV fluids infusing. Pt. Has no complaints at this time. * Plan of Care - Yessi Resendez RN - 11/07/2022 1:52 AM CDT Problem: Violence Risk or Actual Goal: Anger and Impulse Control Outcome: Ongoing (see interventions/notes) Problem: Restraint, Qwlshxl-Dvxt-[id number] Goal: Absence of Harm or Injury Outcome: Ongoing (see interventions/notes) Problem: Adult Inpatient Plan of Care Goal: Plan of Care Review Outcome: Ongoing (see interventions/notes) Flowsheets Taken 11/07/2022 014 by YESSI Plan of Care Reviewed With: patient Progress: progress toward functional goals is gradual Today's Goal: Decrease in CK levels Outcome Evaluation: Pt. is resting in bed with IV fluids infusing at this time and sitter at bedside. Pt. has had no complaints at this time. Taken 11/05/2022 1630 by TAB Does the patient need assistance with discharge and/or transitioning to the next level of care?: Yes, case management already following Goal: Patient-Specific Goal (Individualized) Outcome: Ongoing (see interventions/notes) Goal: Absence of Hospital-Acquired Illness or Injury Outcome: Ongoing (see interventions/notes) Goal: Optimal Comfort and Wellbeing Outcome: Ongoing (see interventions/notes) Goal: Readiness for Transition of Care Outcome: Ongoing (see interventions/notes) Problem: Fall Injury Risk Goal: Absence of Fall and Fall-Related Injury Outcome: Ongoing (see interventions/notes) Problem: Skin Injury Risk Increased Goal: Skin Health and Integrity Outcome: Ongoing (see interventions/notes) Intervention: Optimize Skin Protection Flowsheets Taken 11/07/2022143 by YESSI Activity Management: activity adjusted per tolerance ambulated in room Head of Bed (HOB) Positioning: HOB at 20 degrees Taken 11/06/2022 0700 by NIKITA Pressure Reduction Techniques: independent Problem: Excessive Substance Use Goal: Optimized Energy Level (Excessive Substance Use) Outcome: Ongoing (see interventions/notes) Intervention: Optimize Energy Level Flowsheets (Taken 11/07/2022143) Activity (Behavioral Health): activity adjusted per tolerance Diversional Activity: television Goal: Improved Behavioral Control (Excessive Substance Use) Outcome: Ongoing (see interventions/notes) Intervention: Promote Behavior and Impulse Control Flowsheets (Taken 11/06/2022 07 by NIKITA) Behavior Management: impulse control promoted Goal: Increased Participation and Engagement (Excessive Substance Use) Outcome: Ongoing (see interventions/notes) Intervention: Facilitate Participation and Engagement Flowsheets Taken 11/07/2022143 by YESSI Diversional Activity: television Taken 11/06/2022 07 by NIKITA Supportive Measures: self-responsibility promoted verbalization of feelings encouraged Goal: Improved Physiologic Symptoms (Excessive Substance Use) Outcome: Ongoing (see interventions/notes) Goal: Enhanced Social, Occupational or Functional Skills (Excessive Substance Use) Outcome: Ongoing (see interventions/notes) Intervention: Promote Social, Occupational and Functional Ability Flowsheets (Taken 11/06/20222119) Trust Relationship/Rapport: care explained thoughts/feelings acknowledged Problem: Suicidal Behavior Goal: Suicidal Behavior is Absent or Managed Outcome: Ongoing (see interventions/notes) Problem: Wound Healing Progression Goal: Optimal Wound Healing Outcome: Ongoing (see interventions/notes) Intervention: Promote Wound Healing Flowsheets Taken 11/07/2022 0144 by YESSI Activity Management: activity adjusted per tolerance ambulated in room Taken 11/06/2022 2120 by YESSI Pain Management Interventions: care clustered pain management plan reviewed with patient/caregiver Sleep/Rest Enhancement: awakenings minimized Taken 11/06/2022 0700 by NIKITA Pressure Reduction Techniques: independent * Yessi Pacheco RN - 11/06/2022 9:57 PM CDT Pt. Is resting in bed with call light in reach and sitter at bedside. Pt. Has IV fluids infusing atthis time. Pt. Full assessment complete see flow sheet. * Nikita Alva - 11/06/2022 7:03 PM CDT Patient transferred to Med/Surg room 232 per wheelchair. Report called to ROBERT Hernandez prior to transfer. Patient A&Ox4, pleasant and cooperative, VSS. 1:1 sitter with patient at this time. * Nikita Alva - 11/06/2022 4:48 PM CDT Patient has been awake and alert most of the day. Sitting up in bed, brushing her hair, visiting with and aunt. No complaints of pain, no dizziness, tolerating getting up and down to the bedside commode. No distress noted. * Nikita Alva - 11/06/2022 11:49 AM CDT Poison Control called for an update. Update, labs, and vital signs given. Poison control signed offof the patients case at this time. * Interdisciplinary - Nikita Angelo - 11/06/2022 9:37 AM CDT Xray in room at this time to obtain x ray of left hand/wrist. * Interdisciplinary - Nikita Angelo - 11/06/2022 8:38 AM CDT Patient awake and alert. States she feels better today. Talking with . Denies any complaintsat this time. Up to bedside commode. Tolerated well. Patient compliant. 1:1 sitter continues. Seizure precautions continue. No obvious signs of distress noted. Will monitor. * Plan of Care - Kitty Rowan RN - 11/06/2022 7:41 AM CDT Problem: Violence Risk or Actual Goal: Anger and Impulse Control Outcome: Ongoing (see interventions/notes) Problem: Restraint, Eebnjpz-Jjoy-Ncrwncumvyi Goal: Absence of Harm or Injury Outcome: Ongoing (see interventions/notes) Problem: Adult Inpatient Plan of Care Goal: Plan of Care Review Outcome: Ongoing (see interventions/notes) Flowsheets Taken 11/06/2022 0701 by KITTY Today's Goal: decreased agitation this shift Outcome Evaluation: pt did well through the night. pt did not sleep very much due to some anxiety she said. pt snacked all night long with apple sauce, jello, cookies, soda, water, etc. pt up to bedside commode with 1 assist to void. fluids still running. pt remains over flow. will cont to monitor at this time. Taken 11/05/2022 1630 by TAB Plan of Care Reviewed With: patient Progress: progress toward functional goals as expected Goal: Patient-Specific Goal (Individualized) Outcome: Ongoing (see interventions/notes) Goal: Absence of Hospital-Acquired Illness or Injury Outcome: Ongoing (see interventions/notes) Goal: Optimal Comfort and Wellbeing Outcome: Ongoing (see interventions/notes) Goal: Readiness for Transition of Care Outcome: Ongoing (see interventions/notes) Problem: Fall Injury Risk Goal: Absence of Fall and Fall-Related Injury Outcome: Ongoing (see interventions/notes) Intervention: Promote Injury-Free Environment Flowsheets (Taken 11/05/20221999) Safety Promotion/Fall Prevention: bed alarm room near unit station Problem: Skin Injury Risk Increased Goal: Skin Health and Integrity Outcome: Ongoing (see interventions/notes) Problem: Excessive Substance Use Goal: Optimized Energy Level (Excessive Substance Use) Outcome: Ongoing (see interventions/notes) Goal: Improved Behavioral Control (Excessive Substance Use) Outcome: Ongoing (see interventions/notes) Goal: Increased Participation and Engagement (Excessive Substance Use) Outcome: Ongoing (see interventions/notes) Goal: Improved Physiologic Symptoms (Excessive Substance Use) Outcome: Ongoing (see interventions/notes) Goal: Enhanced Social, Occupational or Functional Skills (Excessive Substance Use) Outcome: Ongoing (see interventions/notes) Problem: Suicidal Behavior Goal: Suicidal Behavior is Absent or Managed Outcome: Ongoing (see interventions/notes) Problem: Wound Healing Progression Goal: Optimal Wound Healing Outcome: Ongoing (see interventions/notes) * Plan of Care - Heather Solano RN - 11/05/2022 9:00 PM CDT Problem: Wound Healing Progression Goal: Optimal Wound Healing Outcome: Ongoing (see interventions/notes) Note: Patient seen for initial wound assessment this evening, tolerated well. Prior to admission, patient had been walking outside barefoot, and it appears that she stepped on something while barefoot that caused the wound on her left lateral plantar. Will plan to follow up with patient next week if she has not yet discharged. * Interdisciplinary - Tab Vega RN - 11/05/2022 6:50 PM CDT Patient report given to 4, RN. Patient resting in bed. Patient A&Ox4. Vital Signs per flowsheet. Call light within reach. Bed alarm on. Patient updated to plan of care. No acute distress noted. TAB VEGA RN * Plan of Care - Tab Vega RN - 11/05/2022 4:32 PM CDT Problem: Violence Risk or Actual Goal: Anger and Impulse Control Outcome: Ongoing (see interventions/notes) Intervention: Minimize Safety Risk Flowsheets (Taken 11/05/2022699) Behavior Management: impulse control promoted Intervention: Promote Self-Control Flowsheets (Taken 11/05/2022699) Supportive Measures: relaxation techniques promoted Environmental Support: distractions minimized Problem: Adult Inpatient Plan of Care Goal: Plan of Care Review Outcome: Ongoing (see interventions/notes) Flowsheets (Taken 11/05/2022 1630) Plan of Care Reviewed With: patient Progress: progress toward functional goals as expected Does the patient need assistance with discharge and/or transitioning to the next level of care?: Yes, case management already following Goal: Patient-Specific Goal (Individualized) Outcome: Ongoing (see interventions/notes) Goal: Absence of Hospital-Acquired Illness or Injury Outcome: Ongoing (see interventions/notes) Intervention: Prevent and Manage VTE (Venous Thromboembolism) Risk Flowsheets (Taken 11/05/2022699) VTE Prevention/Management: anticoagulant therapy maintained Goal: Optimal Comfort and Wellbeing Outcome: Ongoing (see interventions/notes) Intervention: Monitor Pain and Promote Comfort Flowsheets (Taken 11/05/2022 0955) Pain Management Interventions: relaxation techniques promoted Intervention: Provide Person-Centered Care Flowsheets (Taken 11/05/2022699) Trust Relationship/Rapport: care explained choices provided Problem: Fall Injury Risk Goal: Absence of Fall and Fall-Related Injury Outcome: Ongoing (see interventions/notes) Intervention: Promote Injury-Free Environment Flowsheets (Taken 11/05/2022 0941) Safety Promotion/Fall Prevention: nonskid shoes/slippers when out of bed Problem: Skin Injury Risk Increased Goal: Skin Health and Integrity Outcome: Ongoing (see interventions/notes) Problem: Excessive Substance Use Goal: Optimized Energy Level (Excessive Substance Use) Outcome: Ongoing (see interventions/notes) Goal: Improved Behavioral Control (Excessive Substance Use) Outcome: Ongoing (see interventions/notes) Intervention: Promote Behavior and Impulse Control Flowsheets (Taken 11/05/2022 0700) Behavior Management: impulse control promoted Goal: Increased Participation and Engagement (Excessive Substance Use) Outcome: Ongoing (see interventions/notes) Intervention: Facilitate Participation and Engagement Flowsheets (Taken 11/05/2022 0700) Supportive Measures: relaxation techniques promoted Goal: Improved Physiologic Symptoms (Excessive Substance Use) Outcome: Ongoing (see interventions/notes) Goal: Enhanced Social, Occupational or Functional Skills (Excessive Substance Use) Outcome: Ongoing (see interventions/notes) Problem: Suicidal Behavior Goal: Suicidal Behavior is Absent or Managed Outcome: Ongoing (see interventions/notes) * Malik - Elba Ford RN - 11/05/2022 3:30 PM CDT CM spoke to [facility] and inquired what CK level they need to accept patient. They state CK needs to be 250 or less. They have accepted patients with CK in the 400's but need 3 lab showing a trend in decreasing value. Physician notified. CM discussed with patient that the plan was to transfer to an acute facility with inpatient psychiatric services, as we do not have that here. She was very tearful about this. CM attempted to listen and offer support. * Malik - Elba Ford RN - 11/05/2022 9:30 AM CDT CM attempted to complete a mental health assessment however patient was not comfortable. She was moaning, rolling in bed, and verbalizing she was in pain. CM notified attending provider. Patient was intermittently closing her eyes and rolling away. She would not answer questions at this time. * Malik - Maya Sanchez RN - 11/05/2022 6:40 AM CDT Patient report given to ROBERT Reilly. Patient resting in bed. Vital Signs per flowsheet. Sitter at bedside. Call light within reach. Bed alarm on. Patient updated to plan of care. No acute distress noted. MAYA SANCHEZ RN * Interdisciplinary - Maya Sanchez RN - 11/04/2022 6:45 PM CDT Report received from ROBERT Morris. Assumed patient care at this time. Patient A&Ox2. Patient turned/repositioned and skin assessed with off going RN. Vital signs per flowsheet. IV drip rates verified. Family at bedside. Call light in reach, alarms on. No acute distress noted. Patient updated to plan of care. MAYA SANCHEZ RN * Interdisciplinary - Alexandra Flannery RN - 11/04/2022 6:03 PM CDT [facility] [place] and Roly Rivera ARE NOT allowed to visit or obtain information about patient per Onesimo(). * Malik - Val Rahman - 11/04/2022 3:45 PM CDT Case Management Patient / Patient [employer] Mdm Developer Contact Note Mariam's readmission risk level (if calculated) is: 1-Low Patient Class: Inpatient Consecutive Inpatient Midnights 3 Actual day(s) of hospital stay (compare to working DRG):3 LATE ENTRY New Consult for Case Management? No Summary: Met with spouse Onesimo and introduced self and role and discussed plan of care. CM met with patient in regards to patient discharge plan. Patient Onesimo reports patient was recently at [facility] in [place] and he would like for her to be able to go there as her psychiatrist Dr Jaime are there. FEDE explained self harm placement procedures. He requested CM called facility and see if patient can go there once she is medically cleared. CM called [facility] [phone] and spoke to Laly who informed CM that patient name on file is Miguel not Lilian. Laly informed CM that patient would need to be medically cleared with a within normal range of CK level. CM reports understanding. CM informed patient spouse who reports understanding. CM will continue to follow. Plan of Care:(Problem/ situation/ barrier + goals/ milestones + interventions + evaluation of progress = Plan of Care) Mariam's primary medical problem this hospitalization is Acute encephalopathy. Hospital Plan:Correction of CK level, restart home medications, Discharge planning Anticipated Discharge Plan: Inpatient Behavioral Health IM Letter Documentation, if applicable N/A - Payor is not Medicare Decision Maker / Inspector Filters Information Medical Decision Maker Assessment: Patient is medical decision-maker No new referrals for School Cleaner at this time. * Interdisciplinary - Alhaji Stein, FLOORPERSON - 11/04/2022 8:06 AM CDT Respiratory Therapy Assessment And Education Points 0 1 2 3 4 Score Pulmonary History No Smoking Smokes <1 ppd Smokes 1 ppd or more Pulmonary impairment (acute or chronic) Severe or Chronic exacerbation 1 Surgical Status None General Surgery Lower Abdominal Surgery Thoracic or Upper Abdominal Surgery Thoracic with Pulmonary Disease 0 CXR (from last 24 hrs) Clear Unavailable Infiltrates, Atelectasis or Pleural effusion Infiltrates in more than 1 lobe Infiltrates plus Atelectasis or Pleural effusion 1 Respirations Regular Pattern, RR 8-20 Increased, RR 21-25 Dyspnea on exertion, irregular pattern, RR 26-30 Use of accessory muscles, prolonged expiration, RR 31-35 Severe SOB with use of accessory muscles, RR >35 0 BS Clear Diminished Unilaterally Diminished Bilaterally Crackles in Bases Wheezing and/or Rhonchi 0 Cough Strong, Non- productive cough Strong, productive cough Weak, Non- productive cough Weak, productive cough No cough, may require suctioning 0 Mental status Alert and oriented Lethargic, follows commands Confused, does not follow commands Obtunded Comatose 0 Level of Activity Ambulatory Ambulatory with assistance Temporarily non-Ambulatory Bed rest, able to position self Bed rest, unable to position self 1 O2 required to keep SpO2 >=92% (or ordered goal) None 1-3 L/M or FiO2 25-35% 4-6 L/M or FiO2 35-50% >50% 100% 1 Total Score 4 Treatment Scoring Guide Frequency Utilize ORDER SET for all changes Severity Level 5 > 20 points Q2 and Q4 Albuterol Q2 and Ipratropium Q4 *Discontinue previous orders* Severity Level 4 16-20 points Q4 and PRN Duoneb Q4 and Albuterol Q2 PRN *Discontinue previous orders* Severity Level 3 11-15 points QID and PRN Duoneb QID and Albuterol Q4 PRN *Discontinue previous orders* Severity Level 2 6-10 points TID and Q6 PRN Albuterol only *Discontinue previous orders* Severity Level 1 0-5 points Q6 PRN Albuterol only *Discontinue previous orders* Home Regimen Home medication orders As per reconciled home medications Patient RTA Severity Level Is: level 1 Patient Progression Since Admission: not changed Treatment Plan Adjusted: No: Education Documented (within Education Tab): Yes Education Provided To: patient Comments: By: ALHAJI STEIN CRT; 11/04/2022, 8:06 AM CDT * Malik - Maya Sanchez RN - 11/04/2022 7:16 AM CDT Patient report given to ROBERT Morris. Patient resting in bed. Patient alert to self. Patient turned/repositioned and skin assessed with oncoming RN. Vital Signs per flowsheet. Sitter at bedside. Call light within reach. Bed alarm on. Patient updated to plan of care. No acute distress noted. MAYA SANCHEZ RN * Maya Anthony RN - 11/03/2022 6:44 PM CDT Report received from ROBERT Reilly. Assumed patient care at this time. Patient turned/repositioned and skin assessed with off going RN. Vital signs per flowsheet. IV drip rates verified. Call light in reach, alarms on. Family at bedside. No acute distress noted. Patient updated to plan of care. 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 Patient is sedated and information is provided by her at bedside. Hestates they live together in their own single story home with no stairs to enter. She is independent with all ADL's and does not use assistive devices. 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 She does not have a PCP and does not have health insurance. Per her , she does not qualify for Medicaid because she makes too much money, and adding her to his health insurance would cost them $475 monthly because she is a smoker and that is not affordable for them. She does have a therapist Sammie Thao abena psychiatrist Dr. Jaime through [facility]. She has no barriers to affording or obtaining medications through her pharmacy [facility]. She does not have advanced directives. Mariam is not a 30 day re-hospitalization. 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 Plan is to discharge to a mental health facility. CM provide spouse with an [facility] application. Following for discharge planning when patient is medically cleared. IM Letter Documentation, if applicable N/A - Payor is not Medicare Decision Maker / Inspector Filters Information Patient is medical decision-maker No new referrals for School Cleaner at this time. * Interdisciplinary - Zelda Savage, OCTAVIO - 11/03/2022 9:08 AM CDT ASSESSMENT: Nutrition Assessment triggered by: Eleazar result 16 with probably inadequate nutrition on risk assessment PROBLEM: Increased nutrient needs, related pressure injury risk as evidenced by Eleazar result Principal Problem: Acute encephalopathy Past Medical History: Past Medical History Positives Diagnosis Date ??? Bipolar 2 disorder (HCC) ??? Ovarian cyst ??? Psychosis (HCC) Diet: DIET NPO EFFECTIVE NOW Chew/swallow: NPO Intake Adequacy: NPO Skin/Wound: Intact Eleazar result 16 with probably inadequate nutrition on risk assessment Labs noted: Na+ 145. K+ 3.6, Bun 6, creatinine .8, albumin 3.7, GFR >60, glucose 95 Education needs: Not planned Height: Ht Readings from Last 1 Encounters: 11/02/22 5' 4 (1.626 m) Weight: Wt Readings from Last 1 Encounters: 11/02/22 150 lb (68 kg) BMI weight range for height: 110-144# BMI: Body mass index is 25.75 kg/m??. No prior EMR weights to review NEEDS: Calories: 2000 (30 cals/kg/bw) Protein: 68g(1g/kg/bw) Fluid: 2000 ml GOAL: To promote intake adequacy INTERVENTION: Admission for possible alcohol intoxication, drug overdose, aspiration pneumonia. Diet to remains NPO at this time. Will monitor for diet progression and intake adequacy. Will start Ensue PlusHigh Protein lunch and dinner meals on diet advancement. Reassess 11/09/[address] * Interdisciplinary - Alhaji Stein, FLOORPERSON - 11/03/2022 8:39 AM CDT Respiratory Therapy Assessment And Education Points 0 1 2 3 4 Score Pulmonary History No Smoking Smokes <1 ppd Smokes 1 ppd or more Pulmonary impairment (acute or chronic) Severe or Chronic exacerbation 1 Surgical Status None General Surgery Lower Abdominal Surgery Thoracic or Upper Abdominal Surgery Thoracic with Pulmonary Disease 0 CXR (from last 24 hrs) Clear Unavailable Infiltrates, Atelectasis or Pleural effusion Infiltrates in more than 1 lobe Infiltrates plus Atelectasis or Pleural effusion 1 Respirations Regular Pattern, RR 8-20 Increased, RR 21-25 Dyspnea on exertion, irregular pattern, RR 26-30 Use of accessory muscles, prolonged expiration, RR 31-35 Severe SOB with use of accessory muscles, RR >35 0 BS Clear Diminished Unilaterally Diminished Bilaterally Crackles in Bases Wheezing and/or Rhonchi 0 Cough Strong, Non- productive cough Strong, productive cough Weak, Non- productive cough Weak, productive cough No cough, may require suctioning 0 Mental status Alert and oriented Lethargic, follows commands Confused, does not follow commands Obtunded Comatose 0 Level of Activity Ambulatory Ambulatory with assistance Temporarily non-Ambulatory Bed rest, able to position self Bed rest, unable to position self 0 O2 required to keep SpO2 >=92% (or ordered goal) None 1-3 L/M or FiO2 25-35% 4-6 L/M or FiO2 35-50% >50% 100% 2 Total Score 4 Treatment Scoring Guide Frequency Utilize ORDER SET for all changes Severity Level 5 > 20 points Q2 and Q4 Albuterol Q2 and Ipratropium Q4 *Discontinue previous orders* Severity Level 4 16-20 points Q4 and PRN Duoneb Q4 and Albuterol Q2 PRN *Discontinue previous orders* Severity Level 3 11-15 points QID and PRN Duoneb QID and Albuterol Q4 PRN *Discontinue previous orders* Severity Level 2 6-10 points TID and Q6 PRN Albuterol only *Discontinue previous orders* Severity Level 1 0-5 points Q6 PRN Albuterol only *Discontinue previous orders* Home Regimen Home medication orders As per reconciled home medications Patient RTA Severity Level Is: level 1 Patient Progression Since Admission: not changed Treatment Plan Adjusted: No: Education Documented (within Education Tab): Yes Education Provided To: patient Comments: By: ALHAJI STEIN CRT; 11/03/2022, 8:39 AM CDT * Interdisciplinary - Maya Sanchez RN - 11/03/2022 6:51 AM CDT Patient report given to ROBERT Reilly. Patient resting in bed. Patient A&Ox2. Patient turned/repositioned and skin assessed with oncoming RN. Vital Signs per flowsheet. Call light within reach. Bed alarm on. Sitter at bedside. Patient updated to plan of care. No acute distress noted. MAYA SANCHEZ RN * Interdisciplinary - Maya Sanchez RN - 11/02/2022 6:53 PM CDT Report received from Maya Head RN. Assumed patient care at this time. Patient responds to repeated stimulation. Patient turned/repositioned and skin assessed with off going RN. Vital signs per flowsheet. IV drip rates verified. at bedside. Call light in reach, alarms on. No acute distressnoted. Patient updated to plan of care. MAYA SANCHEZ RN * Interdisciplinary - Maya Manley RN - 11/02/2022 6:49 PM CDT Patient report given to ROBERT Woods. Patient resting in bed. Patient is sedated with a Rass goal of -2-0. Vital Signs per flowsheet. is at bedside and updated on plan of care. Patient was given a warm blanket. Personal belongings at nurses desk with empty pill bottles and pill packets, and jewelry. is aware and verbalized to leave jewelry in bag. No acute distress noted at this time. MAYA MANLEY RN * Interdisciplinary - Zach Santamaria, JESSI - 11/02/2022 4:00 PM CDT Respiratory Therapy Assessment And Education Points 0 1 2 3 4 Score Pulmonary History No Smoking Smokes <1 ppd Smokes 1 ppd or more Pulmonary impairment (acute or chronic) Severe or Chronic exacerbation 1 Surgical Status None General Surgery Lower Abdominal Surgery Thoracic or Upper Abdominal Surgery Thoracic with Pulmonary Disease 0 CXR (from last 24 hrs) Clear Unavailable Infiltrates, Atelectasis or Pleural effusion Infiltrates in more than 1 lobe Infiltrates plus Atelectasis or Pleural effusion 2 Respirations Regular Pattern, RR 8-20 Increased, RR 21-25 Dyspnea on exertion, irregular pattern, RR 26-30 Use of accessory muscles, prolonged expiration, RR 31-35 Severe SOB with use of accessory muscles, RR >35 0 BS Clear Diminished Unilaterally Diminished Bilaterally Crackles in Bases Wheezing and/or Rhonchi 0 Cough Strong, Non- productive cough Strong, productive cough Weak, Non- productive cough Weak, productive cough No cough, may require suctioning 0 Mental status Alert and oriented Lethargic, follows commands Confused, does not follow commands Obtunded Comatose 0 Level of Activity Ambulatory Ambulatory with assistance Temporarily non-Ambulatory Bed rest, able to position self Bed rest, unable to position self 0 O2 required to keep SpO2 >=92% (or ordered goal) None 1-3 L/M or FiO2 25-35% 4-6 L/M or FiO2 35-50% >50% 100% 1 Total Score 4 Treatment Scoring Guide Frequency Utilize ORDER SET for all changes Severity Level 5 > 20 points Q2 and Q4 Albuterol Q2 and Ipratropium Q4 *Discontinue previous orders* Severity Level 4 16-20 points Q4 and PRN Duoneb Q4 and Albuterol Q2 PRN *Discontinue previous orders* Severity Level 3 11-15 points QID and PRN Duoneb QID and Albuterol Q4 PRN *Discontinue previous orders* Severity Level 2 6-10 points TID and Q6 PRN Albuterol only *Discontinue previous orders* Severity Level 1 0-5 points Q6 PRN Albuterol only *Discontinue previous orders* Home Regimen Home medication orders As per reconciled home medications Patient RTA Severity Level Is: level 1 per protocol Patient Progression Since Admission: not changed Treatment Plan Adjusted: Yes Education Documented (within Education Tab): Yes Education Provided To: patient Comments: changed to level 1 per protocol By: ZACH SANTAMARIA CRT; 11/02/2022, 4:00 PM CDT * Interdisciplinary - Suellen Salazar RN - 11/02/2022 2:18 PM CDT Spoke to Edin with Poison Control, all information given. Advised continued supportive therapy, monitor for seizures (tx with benzos) keep core temperature cooled and monitor HR/BP. Reviewed electrolytes, had recommended keeping K+ at 4.0-4.5. * Interdisciplinary - Suellen Salazar RN - 11/02/2022 12:57 PM CDT Patient (Onesimo) remains at bedside and she seems somewhat calm when he speaks. He notes that she was in a normal mood yesterday and had done some things around the house. She then went out with 2 friends which he states Are into a lot of different things . He also states she has been sneaking around and lying drinking more than usual. She has a job which she is a reliable worker and has 2 dogs that she cares for. He also claims they have been going to marriage counseling so he felt that she a purpose and things to live for. She does have a previous h/o intentional OD and has been at IP treatment at [facility] in [place]. She routinely f/u with behavioral therapy at [facility]. * Interdisciplinary - Suellen Salazar RN - 11/02/2022 11:27 AM CDT Looked through belongings and did find empty bottles of Trazadone (100mg), Lamictal 100 mg, Focalin(10 mg). * Interdisciplinary - Suellen Salazar RN - 11/02/2022 10:40 AM CDT Received patient from INTERNET MARKETING INTERN, Patient transferred to hospital bed. Pt. Is easily excitable with minimal movement or touching. Began to thrash on the bed with inability to re-direct. Does calm once stimuli stops. When patient was thrashing eyes wide open but no clear tracking. Patient is in no obvious distress, unclear what medication she took at home. Will remain on monitor and sitter at bedside. Safety precautions in place and will await any new orders. * Interdisciplinary - Suellen Salazar RN - 11/02/2022 10:21 AM CDT If patient is touched or repositioned then she begins to thrash throughout the bed with no re-direction. Once she settles she then remains asleep * Restraint / Restriction of Rights - Sarah Fiore MD - 11/02/2022 7:08 AM CDT Placing the patient in a physical hold Searching of the patient's personal property or removing belongings Retaining personal property Patient is a 26-year-old female who presented with severe agitation in a nonverbal state. She was unable to verbalize but was very agitated diaphoretic and was thrashing about. She was obviously under the influence of alcohol and other unknown substances. reported that patient was drinking and possibly overdosed on unknown number of her medications. Medication list is reviewed separately. Upon arrival patient required physical restraint by several staff members. She was given 20 mg Geodon and 2 mg Ativan IM which only had marginal affect. She was continued to be restrained and was given intranasal Versed following which she was given IV Versed which finally took affect and patient was able to be released from physical hold. Patient required initial physical hold and later chemical restraints for her own safety as well as for the safety of staff members caring for her. Sarah Fiore MD * Restraint / Restriction of Rights - Sarah Fiore MD - 11/02/2022 6:49 AM CDT Placing the patient in a physical hold Searching of the patient's personal property or removing belongings Retaining personal property Patient presented to ED, with severe impairment to communicate and inability to communicate due to intoxication/overdose. Patient is violently thrashing around, was very confused and needed 5 or morestaff members to physically restrain her. Several pharmacological agents were used to restrain her behavior. She was initially started with the Geodon and Versed which only marginally affected her behavior, she was still fighting and was very agitated though she was nonverbal. She was obviously intoxicated and possibly under the influence of other substances. She was then given intranasal Versed following which IV was started on IV Versed was given. Current plan is to have ketamine and IV Versed on standby to use p.r.n.. It was very clear that patient would be a significant risk to herself and staff members without physical and our chemical restraints. Once chemical restraints were effective patient was released from physical hold. Sarah Fioer MD documented in this encounter Plan of Treatment Not on file documented as of this encounter Procedures Procedure Name Priority Date/Time Associated Diagnosis Comments CBC WITH AUTO DIFFERENTIAL Routine 11/10/2022 8:39 AM CDT CREATINE KINASE (CK) TOTAL Routine 11/10/2022 8:39 AM CDT CMP (COMPREHENSIVE METABOLIC PANEL) Routine 11/10/2022 8:39 AM CDT COMPLETE BLOOD COUNT (CBC) WITH DIFF Routine 11/10/2022 8:39 AM CDT CBC WITH AUTO DIFFERENTIAL Routine 11/09/2022 4:42 AM CDT CREATINE KINASE (CK) TOTAL Routine 11/09/2022 4:42 AM CDT CMP (COMPREHENSIVE METABOLIC PANEL) Routine 11/09/2022 4:42 AM CDT COMPLETE BLOOD COUNT (CBC) WITH DIFF Routine 11/09/2022 4:42 AM CDT MRSA NASAL PCR Routine 11/08/2022 5:35 PM CDT MRSA NASAL BY PCR Routine 11/08/2022 5:3 5 PM CDT BASIC METABOLIC PANEL W/ CALCIUM TOTAL Routine 11/08/2022 4:08 PM CDT CREATINE KINASE (CK) TOTAL Routine 11/08/2022 4:07 PM CDT CBC WITH AUTO DIFFERENTIAL Routine 11/08/2022 7:53 AM CDT CREATINE KINASE (CK) TOTAL Routine 11/08/2022 7:53 AM CDT CMP (COMPREHENSIVE METABOLIC PANEL) Routine 11/08/2022 7:53 AM CDT COMPLETE BLOOD COUNT (CBC) WITH DIFF Routine 11/08/2022 7:53 AM CDT CBC WITH AUTO DIFFERENTIAL Routine 11/07/2022 5:27 AM CDT CREATINE KINASE (CK) TOTAL Routine 11/07/2022 5:27 AM CDT CMP (COMPREHENSIVE METABOLIC PANEL) Routine 11/07/2022 5:27 AM CDT COMPLETE BLOOD COUNT (CBC) WITH DIFF Routine 11/07/2022 5:27 AM CDT XR WRIST 3 OR MORE VIEWS LEFT Routine 11/06/2022 9:43 AM CDT CBC WITH AUTO DIFFERENTIAL Routine 11/06/2022 5:19 AM CDT CREATINE KINASE (CK) TOTAL Routine 11/06/2022 5:19 AM CDT CMP (COMPREHENSIVE METABOLIC PANEL) Routine 11/06/2022 5:19 AM CDT COMPLETE BLOOD COUNT (CBC) WITH DIFF Routine 11/06/2022 5:19 AM CDT RHYTHM STRIP 11/06/2022 12:00 AM CDT RHYTHM STRIP 11/06/2022 12:00 AM CDT CREATINE KINASE (CK) TOTAL Routine 11/05/2022 2:12 PM CDT XR ABDOMEN KUB FLAT PLATE Routine 11/05/2022 1:58 PM CDT CBC WITH AUTO DIFFERENTIAL Routine 11/05/2022 4:27 AM CDT CREATINE KINASE (CK) TOTAL Routine 11/05/2022 4:27 AM CDT CMP (COMPREHENSIVE METABOLIC PANEL) Routine 11/05/2022 4:27 AM CDT COMPLETE BLOOD COUNT (CBC) WITH DIFF Routine 11/05/2022 4:27 AM CDT RHYTHM STRIP 11/05/2022 12:00 AM CDT RHYTHM STRIP 11/05/2022 12:00 AM CDT RHYTHM STRIP 11/05/2022 12:00 AM CDT CBC WITH AUTO DIFFERENTIAL Routine 11/04/2022 4:04 AM CDT CREATINE KINASE (CK) TOTAL Routine 11/04/2022 4:04 AM CDT CMP (COMPREHENSIVE METABOLIC PANEL) Routine 11/04/2022 4:04 AM CDT COMPLETE BLOOD COUNT (CBC) WITH DIFF Routine 11/04/2022 4:04 AM CDT RHYTHM STRIP 11/04/2022 12:00 AM CDT RHYTHM STRIP 11/04/2022 12:00 AM CDT RHYTHM STRIP 11/04/2022 12:00 AM CDT POCT GLUCOSE Routine 11/03/2022 10:55 AM CDT CBC WITH AUTO DIFFERENTIAL Routine 11/03/2022 4:54 AM CDT CREATINE KINASE (CK) TOTAL Routine 11/03/2022 4:54 AM CDT CMP (COMPREHENSIVE METABOLIC PANEL) Routine 11/03/2022 4:54 AM CDT COMPLETE BLOOD COUNT (CBC) WITH DIFF Routine 11/03/2022 4:54 AM CDT RHYTHM STRIP 11/03/2022 12:00 AM CDT RHYTHM STRIP 11/03/2022 12:00 AM CDT RHYTHM STRIP 11/03/2022 12:00 AM CDT POCT GLUCOSE Routine 11/02/2022 11:57 PM CDT POCT GLUCOSE Routine 11/02/2022 7:13 PM CDT XR CHEST SINGLE VIEW PORTABLE STAT 11/02/2022 9:14 AM CDT URINALYSIS REFLEX IF INDICATED BY ABNORMAL RESULTS STAT 11/02/2022 7:15 AM CDT URINE DRUG SCREEN STAT 11/02/2022 7:1 5 AM CDT POCT URINE HCG () STAT 11/02/2022 7:15 AM CDT CRITICAL CARE Routine 11/02/2022 7:07 AM CDT EXTRA TUBES STAT 11/02/2022 7:05 AM CDT SARS-COV-2 BY MOLECULAR STAT 11/02/2022 7:05 AM CDT GOLD TOP TUBE STAT 11/02/2022 7:05 AM CDT BLUE TOP TUBE STAT 11/02/2022 7:05 AM CDT CBC WITH AUTO DIFFERENTIAL STAT 11/02/2022 7:05 AM CDT ACETAMINOPHEN (TYLENOL) STAT 11/02/2022 7:05 AM CDT THYROID STIMULATING HORMONE (TSH) STAT 11/02/2022 7:05 AM CDT SALICYLATE LEVEL STAT 11/02/2022 7:05 AM CDT MAGNESIUM (MG) STAT 11/02/2022 7:05 AM CDT ETHYL ALCOHOL (ETHANOL) STAT 11/02/2022 7:05 AM CDT CREATINE KINASE (CK) TOTAL Routine 11/02/2022 7:05 AM CDT CMP (COMPREHENSIVE METABOLIC PANEL) STAT 11/02/2022 7:05 AM CDT COMPLETE BLOOD COUNT (CBC) WITH DIFF STAT 11/02/2022 7:05 AM CDT EKG 12 LEAD STAT 11/02/2022 6:58 AM CDT RHYTHM STRIP 11/02/2022 12:00 AM CDT RHYTHM STRIP 11/02/2022 12:00 AM CDT EKG SCAN 11/02/2022 12:00 AM CDT documented in this encounter Results * (ABNORMAL) CBC with Auto Differential (11/10/2022 8:39 AM CDT) Only the most recent of9 resultswithin the time period is included. WBC 10.52 4.00 - 12.00 10(3)/mcL 11/10/2022 8:51 AM CDT [facility] RBC 4.51 3.80 - 5.30 10(6)/mcL 11/10/2022 8:51 AM CDT [facility] HEMOGLOBIN (HGB) 13.5 12.0 - 15.8 g/dL 11/10/2022 8:51 AM CDT [facility] HEMATOCRIT (HCT) 41.4 36.0 - 47.0 % 11/10/2022 8:51 AM CDT [facility] MCV 91.8 82.0 - 96.0 fL 11/10/2022 8:51 AM CDT [facility] MCH 29.9 26.0 - 34.0 pg 11/10/2022 8:51 AM CDT [facility] MCHC 32.6 31.0 - 36.0 g/dL 11/10/2022 8:51 AM CDT [facility] PLATELET COUNT 328 140 - 440 10(3)/mcL 11/10/2022 8:51 AM CDT [facility] RDW 13.3 11.8 - 15.5 % 11/10/2022 8:51 AM CDT [facility] MPV 10.2 9.7 - 12.4 fL 11/10/2022 8:51 AM CDT [facility] NEUTROPHILS 62.0 47.0 - 73.0 % 11/10/2022 8:51 AM CDT [facility] LYMPHOCYTES 22.9 18.0 - 42.0 % 11/10/2022 8:51 AM CDT [facility] MONOCYTES 10.7 4.0 - 12.0 % 11/10/2022 8:51 AM CDT [facility] EOSINOPHILS 3.9 0.0 - 5.0 % 11/10/2022 8:51 AM CDT [facility] BASOPHILS 0.5 0.0 - 1.0 % 11/10/2022 8:51 AM CDT [facility] ABSOLUTE NEUTROPHILS 6.52 1.60 - 7.70 10(3)/mcL 11/10/2022 8:51 AM CDT [facility] ABSOLUTE LYMPHOCYTES 2.41 1.30 - 3.20 10(3)/mcL 11/10/2022 8:51 AM CDT [facility] ABSOLUTE MONOCYTES 1.13(H) 0.20 - 1.00 10(3)/mcL 11/10/2022 8:51 AM CDT [facility] ABSOLUTE EOSINOPHIL 0.41(H) 0.00 - 0.40 10(3)/mcL 11/10/2022 8:51 AM CDT [facility] ABSOLUTE BASOPHILS 0.05 0.00 - 0.10 10(3)/[facility] 11/10/2022 8:51 AM CDT [facility] NRBC PER 100 WBC 0 11/11/19 8:51 AM CDT [facility] Blood Venipuncture / Unknown 11/10/2022 8:39 AM CDT 11/10/2022 8:48 AM CDT us Cherie Bobby NURSE RECRUITER, SNUFF CONTAINER INSPECTOR HEMATOLOGY ORDERABLES Final Result [facility] [address] [place] [address] * (ABNORMAL) Comprehensive Metabolic Panel (CMP) (11/10/2022 8:39 AM CDT) Only the most recent of9 resultswithin the time period is included. SODIUM 138 136 - 145 mmol/L 11/10/2022 9:11 AM CDT [facility] POTASSIUM 4.9 3.5 - 5.1 mmol/L 11/10/2022 9:11 AM CDT [facility] CHLORIDE 100 98 - 107 mmol/L 11/10/2022 9:11 AM CDT [facility] CO2, VENOUS 29 22 - 30 mmol/L 11/10/2022 9:11 AM CDT [facility] ANION GAP 13.9 <18.0 mmol/L 11/10/2022 9:11 AM CDT [facility] GLUCOSE 92 70 - 99 mg/dL 11/10/2022 9:11 AM CDT [facility] BUN 13 5 - 18 mg/dL 11/10/2022 9:11 AM CDT [facility] CREATININE, BLOOD 0.75 0.60 - 1.00 mg/dL 11/10/2022 9:11 AM CDT [facility] BUN/CREATININE RATIO 17 12 - 20 ratio 11/10/2022 9:11 AM CDT [facility] TOTAL PROTEIN 7.3 6.3 - 8.2 g/dL 11/10/2022 9:11 AM CDT [facility] ALBUMIN 4.1 3.5 - 5.0 g/dL 11/10/2022 9:11 AM CDT [facility] A/G RATIO 1.3 1.0 - 2.2 11/10/2022 9:11 AM CDT [facility] CALCIUM 9.1 8.7 - 10.5 mg/dL 11/10/2022 9:11 AM CDT [facility] T BILI 0.3 0.2 - 1.2 mg/dL 11/10/2022 9:11 AM CDT [facility] SGOT (AST) 426(H) 5 - 34 U/L 11/10/2022 9:11 AM CDT [facility] SGPT (ALT) 456(H) 0 - 55 U/L 11/10/2022 9:11 AM CDT [facility] ALKALINE PHOSPHATASE 82 40 - 150 U/L 11/10/2022 9:11 AM CDT [facility] GFR, ESTIMATED >60 >=60 11/10/2022 9:11 AM CDT [facility] Comment: Creatinine Clearance is the preferred criteria for selecting drug dose adjustments in renally impaired patients. ??The GFR is provided as additional pertinent clinical information. GFR is reported in mL/min/1.73 sq m. Calculation based on the Chronic Kidney Disease Epidemiology Collaboration (CKD- EPI) equation refit without adjustment for race. GFR, EST. >60 >=60 023 9:11 AM CDT [facility] GFR, EST. NONAFRICAN >60 >=60 11/10/2022 9:11 AM CDT [facility] Blood Venipuncture / Unknown 11/10/2022 8:39 AM CDT 11/10/2022 8:48 AM CDT us Cherie Bobby APRN, CNP CHEMISTRY ORDERABLES Final Result Performing Organization Address [facility]/State/ZIP Co de Phone Number [facility] [place] [address] * Creatine Kinase (CK) Total (11/10/2022 8:39 AM CDT) Only the most recent of11 resultswithin the time period is included. CK (CPK) 134 29 - 168 U/L 11/10/2022 10:23 AM CDT [facility] Blood Venipuncture / Unknown 11/10/2022 8:39 AM CDT 11/10/2022 8:48 AM CDT us Gilberto Martinez MD HEMATOLOGY ORDERABLES Final Result [facility] [address] [place] [address] * MRSA NASAL PCR (11/08/2022 5:35 PM CDT) Pathologist [facility] [place] MRSA PCR RESULT Negative Negative, Indeterminate [facility] CEPHEID GENEXPERT 11/09/2022 3:22 PM CDT [facility] Other NASAL STRUCTURE / Unknown Non-Phlebotomy Collection / Unknown 11/08/2022 5:35 PM CDT 11/08/2022 5:39 PM CDT us Cherie Bobby APRN, BANDAR MICROBIOLOGY - GENERA L ORDERABLES Final Result Performing Organization Address City/[facility]/ZIP Co de Phone Number [facility] [address] [place] [address], * (ABNORMAL) BMP (11/08/2022 4:08 PM CDT) Pathologist [facility] SODIUM 133(L) 136 - 145 mmol/L 11/08/2022 4:28 PM CDT [facility] POTASSIUM 4.6 3.5 - 5.1 mmol/L 11/08/2022 4:28 PM CDT [facility] CHLORIDE 101 98 - 107 mmol/L 11/08/2022 4:28 PM CDT [facility] CO2, VENOUS 26 22 - 30 mmol/L 11/08/2022 4:28 PM CDT [facility] ANION GAP 10.6 <18.0 mmol/L 11/08/2022 4:28 PM CDT [facility] GLUCOSE 91 70 - 99 mg/dL 11/08/2022 4:28 PM CDT [facility] BUN 8 5 - 18 mg/dL 11/08/2022 4:28 PM CDT [facility] CREATININE, BLOOD 0.65 0.60 - 1.00 mg/dL 11/08/2022 4:28 PM CDT [facility] BUN/CREATININE RATIO 12 12 - 20 ratio 11/08/2022 4:28 PM CDT [facility] CALCIUM 9.0 8.7 - 10.5 mg/dL 11/08/2022 4:28 PM CDT [facility] GFR, ESTIMATED >60 >=60 11/08/2022 4:28 PM CDT [facility] Comment: Creatinine Clearance is the preferred criteria for selecting drug dose adjustments in renally impaired patients. ??The GFR is provided as additional pertinent clinical information. GFR is reported in mL/min/1.73 sq m. Calculation based on the Chronic Kidney Disease Epidemiology Collaboration (CKD- EPI) equation refit without adjustment for race. GFR, EST. >60 >=60 023 4:28 PM CDT [facility] GFR, EST. NONAFRICAN >60 >=60 11/08/2022 4:28 PM CDT [facility] Blood BLOOD SPECIMEN / Unknown Venipuncture / Unknown 11/08/2022 4:08 PM CDT 11/08/2022 4:08 PM CDT Yaya Sellers MD CHEMISTRY ORDERABLES Final Res ult [facility] [address] [place] [address] * XR WRIST 3 OR MORE VIEWS LEFT (11/06/2022 9:43 AM CDT) Anatomical Region Laterality Modality UPPER EXTREMITY, wrist Left Digital R adiography 11/06/2022 10:2 6 AM CDT Impressions 11/06/2022 10:29 AM CDT IMPRESSION: No acute findings left wrist. Narrative 11/06/2022 10:29 AM CDT EXAM DESCRIPTION: ?? XR WRIST 3 OR MORE VIEWS LEFT REASON FOR STUDY: ?? Left wrist pain noted this morning that increases with palpation- pain to lateral wrist at base of 1st digit metacarpal ?? TECHNIQUE: ??Three views COMPARISON: ??None available FINDINGS: ??No acute fracture or dislocation. ??No lytic or destructive process. Joint spaces are maintained. Soft tissues are unremarkable. THIS IS AN ELECTRONICALLY VERIFIED FINAL REPORT 11/06/2022 10:26 AM - Electronically signed by ??Benigno John M.D. RB: MACO D: ??11/06/2022 10:26 AM T: ??11/06/2022 10:26 AM Report ID: [id number] Reading Location: ??[id number] Procedure Note Benigno John MD - 11/06/2022 EXAM DESCRIPTION: XR WRIST 3 OR MORE VIEWS LEFT REASON FOR STUDY: Left wrist pain noted this morning that increases with palpation- pain to lateral wrist at base of 1st digit metacarpal TECHNIQUE: Three views COMPARISON: None available FINDINGS: No acute fracture or dislocation. No lytic or destructive process. Joint spaces are maintained. Soft tissues are unremarkable. THIS IS AN ELECTRONICALLY VERIFIED FINAL REPORT 11/06/2022 10:26 AM - Electronically signed by Benigno John M.D. RB: MACO Report ID: [id number] Reading Location: [id number] IMPRESSION: No acute findings left wrist. Gilberto Martinez MD IMG DIAGNOSTIC ORDERABLES F inal Result * RHYTHM STRIP (11/06/2022 12:00 AM CDT) Only the most recent of13 resultswithin the time period is included. 11/06/2022 us Provider Scan IMG ECG ORDERABLES Final Result SCAN * XR ABDOMEN KUB FLAT PLATE (11/05/2022 1:58 PM CDT) Anatomical Region Laterality Modality Abdomen N/A Digital Radiogra phy 11/05/2022 2:45 PM CDT Impressions 11/05/2022 2:48 PM CDT IMPRESSION: ?? No acute abnormality Narrative 11/05/2022 2:48 PM CDT EXAM DESCRIPTION: ?? XR ABDOMEN KUB FLAT PLATE REASON FOR STUDY: ?? Abdominal pain today ?? TECHNIQUE: 1 ??radiographic view of the abdomen. COMPARISON: ?? None FINDINGS: BOWEL: ??Nonobstructive gas pattern. ?? SOFT TISSUES: ??No abnormal calcifications. LINES/TUBES: ??None. BONES: ??No acute osseous abnormality. The superior aspects of the hemidiaphragms are excluded from the field of view. THIS IS AN ELECTRONICALLY VERIFIED FINAL REPORT 11/05/2022 2:45 PM - Electronically signed by ??Larry Rivas M.D. KR: DARRYL D: ??11/05/2022 2:45 PM T: ??11/05/2022 2:45 PM Report ID: [id number] Reading Location: ??[id number] Procedure Note Larry Rivas MD - 11/05/2022 EXAM DESCRIPTION: XR ABDOMEN KUB FLAT PLATE REASON FOR STUDY: Abdominal pain today TECHNIQUE: 1 radiographic view of the abdomen. COMPARISON: None FINDINGS: BOWEL: Nonobstructive gas pattern. SOFT TISSUES: No abnormal calcifications. LINES/TUBES: None. BONES: No acute osseous abnormality. The superior aspects of the hemidiaphragms are excluded from the field of view. THIS IS AN ELECTRONICALLY VERIFIED FINAL REPORT 11/05/2022 2:45 PM - Electronically signed by Larry Rivas M.D. KR: DARRYL Report ID: [id number] Reading Location: [id number] IMPRESSION: No acute abnormality us Gilberto Martinez MD [facility] DIAGNOSTIC ORDERABLES F inal Result * POCT Glucose (11/03/2022 10:55 AM CDT) Only the most recent of3 resultswithin the time period is included. [facility] GLUCOSE,BEDSIDE POCT 92 70 - 99 mg/dL 11/03/2022 11:01 AM CDT [facility] Blood 11/03/2022 10:5 5 AM CDT 11/03/2022 11:01 AM CDT us None Provider POINT OF CARE TESTING Final Resu lt [facility] [address] [place] [address] * XR CHEST SINGLE VIEW PORTABLE (11/02/2022 9:14 AM CDT) Anatomical Region Laterality Modality Chest N/A Digital Radiogra phy 11/02/2022 10:1 3 AM CDT Impressions 11/02/2022 10:16 AM CDT IMPRESSION: Hazy interstitial and airspace opacities throughout the lungs suspicious for aspiration. Narrative 11/02/2022 10:16 AM CDT EXAM DESCRIPTION: XR CHEST SINGLE VIEW PORTABLE REASON FOR STUDY: Alcohol insoxication and posible overdose ??today ?? TECHNIQUE: 1 ??radiographic view(s) of the chest. COMPARISON: None available FINDINGS: LUNGS: ??Hazy interstitial and airspace opacities are seen throughout the lungs suspicious for aspiration. ??No pneumothorax. ?? No pleural effusion. ?? HEART/MEDIASTINUM: ??Cardiac silhouette normal in size. Mediastinal and hilar contours appear normal. LINES/TUBES: ??None. BONES: ??No acute osseous abnormality. THIS IS AN ELECTRONICALLY VERIFIED FINAL REPORT 11/02/2022 10:13 AM - Electronically signed by ??Larry Carvalho M.D. KN: LY D: ??11/02/2022 10:13 AM T: ??11/02/2022 10:13 AM Report ID: [id number] Reading Location: ??[id number] Procedure Note Larry Carvalho MD - 11/02/2022 EXAM DESCRIPTION: XR CHEST SINGLE VIEW PORTABLE REASON FOR STUDY: Alcohol insoxication and posible overdose today TECHNIQUE: 1 radiographic view(s) of the chest. COMPARISON: None available FINDINGS: LUNGS: Hazy interstitial and airspace opacities are seen throughout the lungs suspicious for aspiration. No pneumothorax. No pleural effusion. HEART/MEDIASTINUM: Cardiac silhouette normal in size. Mediastinal and hilar contours appear normal. LINES/TUBES: None. BONES: No acute osseous abnormality. THIS IS AN ELECTRONICALLY VERIFIED FINAL REPORT 11/02/2022 10:13 AM - Electronically signed by Larry Carvalho M.D. KN: LY Report ID: [id number] Reading Location: [id number] IMPRESSION: Hazy interstitial and airspace opacities throughout the lungs suspicious for aspiration. us Sarah Fiore MD IMG DIAGNOSTIC ORDERABLE S Final Result * POCT Urine HCG () (11/02/2022 7:15 AM CDT) Pathologist [facility] [place] POC URINE Negative POC URINE CONTROL Outsole [place] Urine 11/02/2022 7:15 AM CDT us Sarah Fiore MD POINT OF CARE TESTING (M ANUAL) Final Result * (ABNORMAL) Urinalysis with Reflex if Indicated (11/02/2022 7:15 AM CDT) SPECIFIC GRAVITY 1.030 1.003 - 1.030 11/02/2022 7:54 AM CDT [facility] URINE PH 5.0 5.0 - 9.0 11/02/2022 7:54 AM CDT [facility] WBC ESTERASE Negative Negative 11/02/2022 7:54 AM CDT [facility] NITRITE Negative Negative 11/02/2022 7:54 AM CDT [facility] PROTEIN, RANDOM URINE 30 mg/dL(A) Negative 11/02/2022 7:54 AM CDT [facility] URINE GLUCOSE, QUAL Negative Negative 11/02/2022 7:54 AM CDT [facility] URINE KETONES 5 mg/dL(A) Negative 11/02/2022 7:54 AM CDT [facility] UROBILINOGEN Normal Normal mg/dL 11/02/2022 7:54 AM CDT [facility] URINE BLOOD Negative Negative karla/ul 11/02/2022 7:54 AM CDT [facility] URINALYSIS COLOR Yellow 11/03/19 7:54 AM CDT [facility] URINALYSIS CLARITY Clear 11/02/2022 7:54 AM CDT [facility] WBC (Urine) 0-5 Negative, 0-5 /hpf 11/02/2022 7:54 AM CDT [facility] URINE RBC'S Negative Negative, 0-2 /hpf 11/02/2022 7:54 AM CDT [facility] EPITHELIAL CELLS Small amount /lpf 2022 7:54 AM CDT [facility] BACTERIA, URINE Negative Negative /hpf 11/02/2022 7:54 AM CDT [facility] URINE MUCOUS Few 11/02/2022 7:54 AM CDT [facility] Urine (Straight Catheter) Non-Phlebotomy Collection / Unknown 11/02/2022 7:15 AM CDT 11/02/2022 7:36 AM CDT us Sarah Fiore MD URINE ORDERABLES Final R esult [facility] [place] [address] * (ABNORMAL) Urine Drug Screen (11/02/2022 7:15 AM CDT) UR AMPHETAMINE DETECTED(A) NON DETECTED 11/02/2022 8:33 AM CDT [facility] Comment: FOR MEDICAL USE ONLY. CUTOFF CONCENTRATION FOR DETECTED RESULT: AMPHETAMINE: ??500 NG/ML UR BENZODIAZEPINES DETECTED(A) NON DETECTED 11/02/2022 8:33 AM CDT [facility] Comment: FOR MEDICAL USE ONLY. CUTOFF CONCENTRATION FOR DETECTED RESULT: BENZODIAZAPINE: ??100 NG/ML UR COCAINE METABOLITE DETECTED(A) NON DETECTED 11/02/2022 8:33 AM CDT [facility] Comment: FOR MEDICAL USE ONLY. CUTOFF CONCENTRATION FOR DETECTED RESULT: COCAINE: ??300 NG/ML UR OPIATES NON DETECTED NON DETECTED 11/02/2022 8:33 AM CDT [facility] Comment: FOR MEDICAL USE ONLY. CUTOFF CONCENTRATION FOR DETECTED RESULT: OPIATES: ? 300 NG/ML UR PHENCYCLIDINE DETECTED(A) NON DETECTED 11/02/2022 8:33 AM CDT [facility] Comment: FOR MEDICAL USE ONLY. CUTOFF CONCENTRATION FOR DETECTED RESULT: PCP: ? 25 NG/ML UR CANNABINOID DETECTED(A) NON DETECTED 11/02/2022 8:33 AM CDT [facility] Comment: FOR MEDICAL USE ONLY. CUTOFF CONCENTRATION FOR DETECTED RESULT: THC (MARIJUANA): 50 NG/ML UR TRICYCLIC ANTIDEPRESS SCREEN DETECTED(A) NON DETECTED 11/02/2022 8:33 AM CDT [facility] Comment: FOR MEDICAL USE ONLY. CUTOFF CONCENTRATION FOR DETECTED RESULT: TCA: ??300 NG/ML UR BARBITURATE NON DETECTED NON DETECTED 11/02/2022 8:33 AM CDT [facility] Comment: FOR MEDICAL USE ONLY. CUTOFF CONCENTRATION FOR DETECTED RESULT: BARBITUATES: ? 200 NG/ML Urine Non-Phlebotomy Collection / Unknown 11/02/2022 7:15 AM CDT 11/02/2022 7:36 AM CDT us Sarah Fiore MD URINE ORDERABLES Final R esult [facility] [address] [place] [address] * Critical Care (11/02/2022 7:07 AM CDT) Narrative Sarah Fiore MD - 11/02/2022 7:07 AM CDT Sarah Fiore MD ? 11/02/2022 ??8:48 AM Critical Care Performed by: Sarah Fiore MD Authorized by: Sarah Fiore MD Critical care provider statement: ??Critical care time (minutes): ??60 ??Critical care was necessary to treat or prevent imminent or life-threatening deterioration of the following conditions: ??Toxidrome and [employer] failure or compromise ??Critical care was time spent personally by me on the following activities: ??Ordering and performing treatments and interventions, ordering and review of laboratory studies, ordering and review of radiographic studies, re-evaluation of patient's condition, review of old charts and examination of patient ??Care discussed with: admitting provider ?? Sarah Fiore MD PROCEDURE/MINOR SURGICAL ORDERABLES Final Result * Gold Top Tube (11/02/2022 7:05 AM CDT) Blood No Phlebotomy Charged / Unknown 11/02/2022 7:05 AM CDT 11/02/2022 7:31 AM CDT Sarah Fiore MD CHEMISTRY ORDERABLES Fin al Result Performing Organization Address City/[facility]/ZIP Co de Phone Number [facility] [place] [address] * Blue Top Tube (11/02/2022 7:05 AM CDT) Blood No Phlebotomy Charged / Unknown 11/02/2022 7:05 AM CDT 11/02/2022 7:31 AM CDT Sarah Fiore MD HEMATOLOGY ORDERABLES Fi nal Result Performing Organization Address City/[facility]/ZIP Co de Phone Number [facility] [address] [place] [address] * SARS-COV-2 BY MOLECULAR (11/02/2022 7:05 AM CDT) SARSCOV2 NOT DETECTED (Referenc e Range for this test is Not Detected) [facility] ID NOW B 11/02/2022 7:47 AM CDT [facility] Comment:This test was perfor med by a MOLECULAR, NON-PCR method Other NASAL STRUCTURE / Unknown Non-Phlebotomy Collection / Unknown 11/02/2022 7:05 AM CDT 11/02/2022 7:23 AM CDT Narrative [facility] - 11/02/2022 7:47 AM CDT This test has been authorized by the FDA under an Emergency Use Authorization (EUA) only. Negative results should be treated as presumptive and, if inconsistent with clinical signs and symptoms or necessary for patient management, the patient should be tested with an alternative molecular assay. Negative results do not preclude SARS-CoV-2 infection or any other respiratory pathogen. Additional information for Clinicians can be found at: https://www.fda.gov/media/225244/download Additional information for Patients can be found at: https://www.fda.gov/media/852284/download Sarah Fiore MD MICROBIOLOGY - GENERAL O RDERABLES Final Result Performing Organization Address City/[facility]/ZIP Co de Phone Number [facility] [address] [place] [address] * Salicylate Level (11/02/2022 7:05 AM CDT) SALICYLATE <0.4 0.3 - 30.0 mg/dL 11/02/2022 7:56 AM CDT [facility] Blood Venipuncture / Unknown 11/02/2022 7:05 AM CDT 11/02/2022 7:23 AM CDT Sarah Fiore MD CHEMISTRY ORDERABLES Fin al Result Performing Organization Address [facility]/ZIP Co de Phone Number [facility] [address] [place] [address] * (ABNORMAL) Acetaminophen Level (11/02/2022 7:05 AM CDT) ACETAMINOPHEN <6(L) 10 - 30 mcg/mL 11/02/2022 8:00 AM CDT [facility] Blood Venipuncture / Unknown 11/02/2022 7:05 AM CDT 11/02/2022 7:23 AM CDT Sarah Fiore MD CHEMISTRY ORDERABLES Fin al Result Performing Organization Address City/[facility] Co de Phone Number [facility] [address] [place] [address] * Thyroid Stimulating Hormone (TSH) (11/02/2022 7:05 AM CDT) TSH 0.667 0.300 - 5.000 mIU/L 11/02/2022 7:56 AM CDT [facility] Blood Venipuncture / Unknown 11/02/2022 7:05 AM CDT 11/02/2022 7:23 AM CDT Sarah Fiore MD CHEMISTRY ORDERABLES Fin al Result Performing Organization Address [facility] Co de Phone Number [facility] [address] [place] [address] * Magnesium (MG) (11/02/2022 7:05 AM CDT) MAGNESIUM 2.0 1.8 - 2.5 mg/dL 11/02/2022 7:56 AM CDT [facility] Blood Venipuncture / Unknown 11/02/2022 7:05 AM CDT 11/02/2022 7:23 AM CDT us Sarah Fiore MD CHEMISTRY ORDERABLES Fin al Result Performing Organization Address City/[facility] Co de Phone Number [facility] [address] [place] [address] * (ABNORMAL) ETOH Level (11/02/2022 7:05 AM CDT) ETHANOL 53(H) <11 mg/dL 11/02/2022 7:5 6 AM CDT [facility] Blood Venipuncture / Unknown 11/02/2022 7:05 AM CDT 11/02/2022 7:23 AM CDT Sarah Fiore MD CHEMISTRY ORDERABLES Fin al Result Performing Organization Address City/[facility]/ZIP Co de Phone Number [facility] [address] [place] [address] * EKG 12 LEAD (11/02/2022 6:58 AM CDT) Ventricular Rate 123 BPM EXTERNAL EKG Atrial Rate 123 BPM EXTERNAL EKG P-R Interval 148 ms EXTERNAL EKG QRS Duration 92 ms EXTERNAL EKG Q-T Duration 338 ms EXTERNAL EKG QTC CALCULATION 483 ms EXTERNAL EKG P [place] 49 degrees EXTERNAL EKG R [place] 85 degrees EXTERNAL EKG T [place] 10 degrees EXTERNAL EKG 11/02/2022 6:58 AM CDT Impressions EXTERNAL EKG - 11/02/2022 10:24 AM CDT Sinus tachycardia nonspecific ST and changes Abnormal ECG No previous ECGs available Confirmed by Ten Treadwell ([id number]) on 11/02/2022 10:24:49 AM Narrative Procedure Note Ten Peters MD - 11/02/2022 IMPRESSION: Sinus tachycardia nonspecific ST and changes Abnormal ECG No previous ECGs available Confirmed by Ten Treadwell ([id number]) on 11/02/2022 10:24:49 AM us Sarah Fiore MD IMG ECG ORDERABLES Final Result Performing Organization Address City/[facility]/ZIP Co de Phone Number EXTERNAL EKG * EKG SCAN (11/02/2022 12:00 AM CDT) 11/02/2022 us Provider Scan IMG ECG ORDERABLES Final Result SCAN documented in this encounter Visit Diagnoses Diagnosis Acute encephalopathy- Primary Encephalopathy, unspecified Drug overdose of undetermined intent, initial encounter Bipolar 2 disorder (HCC) Other bipolar disorders Drug overdose of undetermined intent, initial encounter Aspiration pneumonia (HCC) Pneumonitis due to inhalation of food or vomitus Polysubstance abuse (HCC) Other, mixed, or unspecified nondependent drug abuse, unspecified Bipolar 2 disorder (HCC) Other bipolar disorders documented in this encounter Admitting Diagnoses Diagnosis Drug overdose of undetermined intent, initial encounter documented in this encounter Administered Medications Inactive Administered Medications - up to 3 most recent administrations Medication Order MAR Action Action Date Dose Rate Site 0.9 % sodium chloride solution at 999 mL/hr, Intravenous, ONCE, 1 dose, On Tue11/02/22 at 0800 11/02/2022 7:00 AM CDT 1,000 mL 999 mL/hr 0.9 % sodium chloride solution at 100 mL/hr, Intravenous, ONCE, 1 dose, On Tue11/02/22 at 0830 New 11/02/2022 8:17 AM CDT 1,000 mL 100 mL/hr 0.9 % sodium chloride solution at 125 mL/hr, Intravenous, CONTINUOUS, Starting on Tue11/02/22 at 1200, Until Tue11/04/22 at 0830 11/04/2022 12:07 AM CDT 125 mL/hr New 11/03/2022 3:22 PM CDT 125 mL/hr New 11/03/2022 6:02 AM CDT 125 mL/hr 0.9 % sodium chloride solution at 150 mL/hr, Intravenous, CONTINUOUS, Starting on Tue11/08/22 at 1100, Until Tue11/08/22 at 1827 New 11/08/2022 11:05 AM CDT 150 mL/hr 0.9 % sodium chloride with potassium chloride 20 mEq/L infusion at 150 mL/hr, Intravenous, CONTINUOUS, Starting on Tue11/05/22 at 0900, Until Tue11/08/22 at 1827 New 11/08/2022 8:26 AM CDT 150 mL/hr 11/07/2022 6:21 PM CDT 150 mL/hr New Bag 11/07/2022 3:51 AM CDT 150 mL/hr acetaminophen (TYLENOL) suppository 650 mg 650 mg, Rectal, EVERY 6 HOURS PRN, Starting on Tue11/02/22 at 1137, Until Tue11/10/22 at 1248, Mild pain or more severe pain if patient requests, Fever, If patient is taking oral intake without complications and both PO/MS orders are active, administer through the oral route. acetaminophen (TYLENOL) tablet 650 mg 650 mg, Oral, EVERY 6 HOURS PRN, Starting on Tue11/02/22 at 1137, Until Tue11/10/22 at 1248, Mild pain or more severe pain if patient requests, Fever, If patient is taking oral intake without complications and both PO/MS orders are active, administer through the oral route. Given 11/05/2022 8:56 AM CDT 650 mg amoxicillin-clavulanate (AUGMENTIN) 875-125 MG per tablet 1 Tablet 1 Tablet, Oral, 2 TIMES DAILY, 9 doses, First dose on Tue11/04/22 at 2100, Last dose on Tue11/08/22 at 2100, If unable to swallow, may crush., Indications: Aspiration PneumoniaIndications:Aspiration Pneumonia Given 11/08/2022 8:15 PM CDT 1 Tablet Given 11/08/2022 8:22 AM CDT 1 Tablet Given 11/07/2022 8:48 PM CDT 1 Tablet ampicillin-sulbactam (UNASYN) 3 g in sodium chloride 0.9 % 100 mL IVPB 3 g, Intravenous, EVERY 6 HOURS, 20 doses, First dose on Tue11/02/22 at 1230, Last dose on Tue11/07/22 at 0630, Administer over 30 Minutes, Indications: Aspiration Pneumonia, at 200 mL/hrIndications:Aspiration Pneumonia New Bag 11/04/2022 12:09 PM CDT 3 g 200 mL/hr New Bag 11/04/2022 8:11 AM CDT 3 g 200 mL/hr New Bag 11/03/2022 11:48 PM CDT 3 g 200 mL/hr dexmedetomidine HCl in NaCl (PRECEDEX) 400 MCG/100ML infusion 0-1 mcg/kg/hr ? 68 kg (0-17 mL/hr), Intravenous, CONTINUOUS, Starting on Tue11/02/22 at 1200, Until 11/06/22 at 0815, 1) Start infusion at 0.2 mcg/kg/hour. 2) Goal for Sedation is a RASS Score of -2 to 0. 3) Titrate infusion by 0.1 mcg/kg/hour every 30 minutes to Sedation Goal 4) Call physician if not at Sedation Goal at maximum of ordered dose range, for Hypotension, and for Bradycardia. Rate Change 11/04/2022 2:55 AM CDT 1 mcg/kg/hr 17 mL/hr New Bag 11/04/2022 1:21 AM CDT 0.9 mcg/kg/hr 15.3 mL/hr New Bag 11/03/2022 6:04 PM CDT 0.9 mcg/kg/hr 15.3 mL/hr DEXMEDETOMIDINE HCL IN NACL 400 MCG/100ML IV SOLN 1 dose, Starting on Tue11/02/22 at 1139, Until Tue11/02/22 at 1130, Created by cabinet override dextrose 5% and 0.9 % sodium chloride with KCl 40 mEq/L infusion at 100 mL/hr, Intravenous, CONTINUOUS, Starting on Tue11/04/22 at 0830, Until Tue11/05/22 at 0829 New Bag 11/05/2022 6:39 AM CDT 100 mL/hr New Bag 11/04/2022 8:17 PM CDT 100 mL/hr New Bag 11/04/2022 10:14 AM CDT 100 mL/hr enoxaparin (LOVENOX) injection 40 mg 40 mg, Subcutaneous, EVERY 24 HOURS SCHEDULED (Daily), First dose on Tue11/04/22 at 0900, Until Discontinued Given 11/04/2022 8:11 AM CDT 40 mg Right Abdomen enoxaparin (LOVENOX) injection 40 mg 40 mg, Subcutaneous, EVERY 24 HOURS SCHEDULED (Daily), First dose on Tue11/04/22 at 0900, Until Discontinued Given 11/08/2022 8:22 AM CDT 40 mg Right Abdomen Given 11/07/2022 9:04 AM CDT 40 mg Ri ght Abdomen Given 11/06/2022 9:14 AM CDT 40 mg Le ft Abdomen escitalopram (LEXAPRO) tablet 20 mg 20 mg, Oral, NIGHTLY, First dose on Tue11/04/22 at 1530, Until Discontinued Given 11/09/2022 9:22 PM CDT 20 mg Given 11/08/2022 8:15 PM CDT 20 mg Given 11/07/2022 8:49 PM CDT 20 mg HEParin (porcine) injection 5,000 Units 5,000 Units, Subcutaneous, EVERY 8 HOURS SCHEDULED (3 times per day), First dose on Tue11/02/22 at 1600, Until Discontinued Given 11/03/2022 11:48 PM CDT 5,000 Units Left Abdomen Given 11/03/2022 4:32 PM CDT 5,000 Units L eft Abdomen Given 11/03/2022 9:14 AM CDT 5,000 Units R ight Abdomen lamoTRIgine (LaMICtal) tablet 300 mg 300 mg, Oral, DAILY, First dose on Tue11/04/22 at 1530, Until Discontinued Given 11/10/2022 8:08 AM CDT 300 mg Given 11/09/2022 8:25 AM CDT 300 mg Given 11/08/2022 8:22 AM CDT 300 mg LORazepam (ATIVAN) injection 2 mg 2 mg, Intramuscular, ONCE, 1 dose, On Tue11/02/22 at 0630, For intramuscular administration: Administer undiluted. For intravenous administration: Dilute with an equal volume of NS prior to administration. Gently invert to mix. Maximum rate of IV administration is 2mg/min. Given 11/02/2022 6:12 AM CDT 2 mg Left Vastus Laterali s LORazepam (ATIVAN) injection 2 mg 2 mg, Intravenous, ONCE, 1 dose, On Tue11/02/22 at 1130, For intramuscular administration: Administer undiluted. For intravenous administration: Dilute with an equal volume of NS prior to administration. Gently invert to mix. Maximum rate of IV administration is 2mg/min. Given 11/02/2022 11:30 AM CDT 2 mg LORazepam (ATIVAN) injection 2 mg 2 mg, Intravenous, EVERY 2 HOURS PRN, Starting on Tue11/02/22 at 1143, Until Tue11/05/22 at 1220, agitation, For intramuscular administration: Administer undiluted. For intravenous administration: Dilute with an equal volume of NS prior to administration. Gently invert to mix. Maximum rate of IV administration is 2mg/min. Given 11/05/2022 4:44 AM CDT 2 mg Given 11/04/2022 3:57 PM CDT 2 mg Given 11/04/2022 2:40 AM CDT 2 mg LORazepam (ATIVAN) tablet 2 mg 2 mg, Oral, EVERY 2 HOURS PRN, Starting on Tue11/05/22 at 1219, Until Tue11/10/22 at 1248, Other, agitation Given 11/05/2022 2:19 PM CDT 2 mg LORAZEPAM 2 MG/ML IJ SOLN 1 dose, Starting on Tue11/02/22 at 0605, Until Tue11/02/22 at 0612, Created by cabinet override magnesium hydroxide (MILK OF MAGNESIA) 400 MG/5ML suspension 30 mL 30 mL, Oral, DAILY PRN, Starting on Tue11/02/22 at 1135, Until Tue11/10/22 at 1248, Constipation - 3rd line, Magnesium hydroxide 400 mg/5 ml = 166.7 mg elemental magnesium/5ml. Hold for loose stools (loose, liquid, mucoid, soft, watery stool that takes the shape of the container) or greater than 2 moderate or larger stools in 24hrsIndications:Constipation midazolam (VERSED) injection 2 mg 2 mg, Intravenous, ONCE, 1 dose, On Tue11/02/22 at 1030 Given 11/02/2022 10:02 AM CDT 2 mg midazolam (VERSED) injection 5 mg 5 mg, Nasal, ONCE, 1 dose, On Tue11/02/22 at 0700 Given 11/02/2022 6:30 AM CDT 5 mg midazolam (VERSED) injection 5 mg 5 mg, Intravenous, ONCE, 1 dose, On Tue11/02/22 at 0700 Given 11/02/2022 6:36 AM CDT 5 mg midazolam (VERSED) injection 5 mg 5 mg, Nasal, ONCE, 1 dose, On Tue11/02/22 at 0730 Given 11/02/2022 6:32 AM CDT 5 mg MIDAZOLAM HCL 5 MG/ML IJ SOLN 1 dose, Starting on Tue11/02/22 at 0628, Until Tue11/02/22 at 0636, Created by cabinet override MIDAZOLAM HCL 5 MG/ML IJ SOLN 1 dose, Starting on Tue11/02/22 at 0632, Until Tue11/10/22 at 1248, Created by cabinet override MIDAZOLAM HCL 5 MG/ML IJ SOLN 1 dose, Starting on Tue11/02/22 at 0942, Until Tue11/10/22 at 1248, Created by cabinet override nicotine (NICODERM CQ) 21 MG/24HR patch 1 Patch 1 Patch, Transdermal, DAILY PRN, Starting on Tue11/02/22 at 1135, Until Tue11/10/22 at 1248, Administer over 24 Hours, Other, Nicotine dependency ondansetron (ZOFRAN) injection 4 mg 4 mg, Intravenous, EVERY 6 HOURS PRN, Starting on Tue11/02/22 at 1135, Until Tue11/10/22 at 1248, Nausea - 1st line, 1. First Line Antiemetic. 2. Use Injection only if patient unable to tolerate oral medications. ondansetron (ZOFRAN-ODT) disintegrating tablet 4 mg 4 mg, Oral, EVERY 6 HOURS PRN, Starting on Tue11/02/22 at 1135, Until Tue11/10/22 at 1248, Nausea - 1st line, 1. First Line Antiemetic. 2. Use PO form unless unable to tolerate PO medications, then use Injection polyethylene glycol (GLYCOLAX, MIRALAX) packet 17 g 17 g, Oral, 2 TIMES DAILY PRN, Starting on Tue11/02/22 at 1135, Until Tue11/10/22 at 1248, Constipation - 1st line, Dilute dose in 120 - 240 mL of beverage.Hold for loose stools (loose, liquid, mucoid, soft, watery stool that takes the shape of the container) or greater than 2 moderate or larger stools in 24hrsIndications:Constipation Prochlorperazine Edisylate (COMPAZINE) injection 10 mg 10 mg, Intravenous, EVERY 6 HOURS PRN, Starting on Tue11/02/22 at 1137, Until Tue11/10/22 at 1248, Nausea - 2nd line, Second Line Antiemetic Give if nausea/vomiting recurs after ondansetron. QUEtiapine (SEROquel) tablet 100 mg 100 mg, Oral, 3 TIMES DAILY, First dose on Tue11/04/22 at 1530, Until Discontinued Given 11/10/2022 8:08 AM CDT 100 mg Given 11/09/2022 9:22 PM CDT 100 mg Given 11/09/2022 2:31 PM CDT 100 mg senna (SENOKOT) tablet 8.6 mg 8.6 mg (1 Tablet), Oral, 2 TIMES DAILY PRN, Starting on Tue11/02/22 at 1135, Until Tue11/10/22 at 1248, Constipation - 2nd line sodium chloride 0.9 % 1,000 mL IV bolus 1,000 mL, Intravenous, ONCE, 1 dose, On Tue11/02/22 at 1200, Administer over 1 Hours New Bag 11/02/2022 1:00 PM CDT 1,000 mL 1000 mL /hr sodium chloride tablet 1 g 1 g, Oral, ONCE, 1 dose, On Tue11/08/22 at 1100, For oral administration and unable to swallow the tablet whole, wet tablet to crush and further dilute in at least 2 ounces of water or juice to improve palatability. For enteral tube administration, wet tablet prior to crushing for ease of administration. Given 11/08/2022 11:04 AM CDT 1 g traZODone (DESYREL) tablet 150 mg 150 mg, Oral, NIGHTLY, First dose on Tue11/04/22 at 2100, Until Discontinued Given 11/09/2022 9:22 PM CDT 150 mg Given 11/08/2022 8:15 PM CDT 150 mg Given 11/07/2022 8:49 PM CDT 150 mg valproate (DEPACON) 250 mg in sodium chloride 0.9 % 50 mL IVPB 250 mg, Intravenous, EVERY 12 HOURS, First dose on Tue11/04/22 at 0900, Until Discontinued, Administer over 60 Minutes New Bag 11/04/2022 8:54 AM CDT 250 mg 50 mL/hr ziprasidone (GEODON) injection 10 mg 10 mg, Intramuscular, 2 times daily, First dose on Tue11/04/22 at 0900, Until Discontinued, IM: Reconstitute the 20 mg vial with 1.2 mL Sterile Water for Injection. Shake vigorously; forms a pale, pink solution containing 20 mg/mL Given 11/04/2022 8:35 AM CDT 10 mg Right Deltoid ziprasidone (GEODON) injection 20 mg 20 mg, Intramuscular, ONCE, 1 dose, On Tue11/02/22 at 0630, IM: Reconstitute the 20 mg vial with 1.2 mL Sterile Water for Injection. Shake vigorously; forms a pale, pink solution containing 20 mg/mL Given 11/02/2022 6:12 AM CDT 20 mg Right Vastus Lateralis ZIPRASIDONE MESYLATE 20 MG IM SOLR 1 dose, Starting on Tue11/02/22 at 0606, Until Tue11/02/22 at 0612, Created by cabinet override documented in this encounter Active and Recently Administered Medications Times are shown in CDT. Scheduled Medication Order 11/08/2022 11/09/2022 11/10/2022 amoxicillin-clavulanate (AUGMENTIN) 875-125 MG per tablet 1 Tablet (COMPLETED) 1 Tablet, Oral, 2 TIMES DAILY, 9 doses, First dose on Tue11/04/22 at 2100, Last dose on Tue11/08/22 at 2100, If unable to swallow, may crush., Indications: Aspiration Pneumonia 821 (Given - Provider: Yessi Resendez, ROBERT)2014 (Given - Provider: Nhi Cain, ROBERT) enoxaparin (LOVENOX) injection 40 mg (CANCELED) 40 mg, Subcutaneous, EVERY 24 HOURS SCHEDULED (Daily), First dose on Tue11/04/22 at 0900, Until Discontinued 821 (Given - Provider: Yessi Resendez RN) 0900 (Not Given - Provider: Sravanthi Camp RN - Reason: Patient/family refused) escitalopram (LEXAPRO) tablet 20 mg 20 mg, Oral, NIGHTLY, First dose on Tue11/04/22 at 1530, Until Discontinued 2014 (Given - Provider: Nhi Cain, ROBERT) 2121 (Given - Provider: Florence Arellano RN) lamoTRIgine (LaMICtal) tablet 300 mg 300 mg, Oral, DAILY, First dose on Tue11/04/22 at 1530, Until Discontinued 821 (Given - Provider: Yessi Resendez RN) 08 (Given - Provider: Sravanthi Camp RN) 08 (Given - Provider: Sravanthi Camp RN) QUEtiapine (SEROquel) tablet 100 mg 100 mg, Oral, 3 TIMES DAILY, First dose on Tue11/04/22 at 1530, Until Discontinued 821 (Given - Provider: Yessi Resendez RN)143 (Given - Provider: Yessi Resendez RN)2014 (Given - Provider: Nhi Cain, ROBERT) 08 (Given - Provider: Sravanthi Camp, RN)143 (Given - Provider: Sravanthi Camp RN)2121 (Given - Provider: Florence Arellano RN) 08 (Given - Provider: Sravanthi Camp RN) sodium chloride tablet 1 g (COMPLETED) 1 g, Oral, ONCE, 1 dose, On Tue11/08/22 at 1100, For oral administration and unable to swallow the tablet whole, wet tablet to crush and further dilute in at least 2 ounces of water or juice to improve palatability. For enteral tube administration, wet tablet prior to crushing for ease of administration. 1104 (Given - Provider: Yessi Resendez RN) traZODone (DESYREL) tablet 150 mg 150 mg, Oral, NIGHTLY, First dose on Tue11/04/22 at 2100, Until Discontinued 2014 (Given - Provider: Nhi Cain RN) 2121 (Given - Provider: Florence Arellano RN) Continuous Medication Order 11/08/2022 11/09/2022 11/10/2022 0.9 % sodium chloride solution (CANCELED) at 150 mL/hr, Intravenous, CONTINUOUS, Starting on Tue11/08/22 at 1100, Until Tue11/08/22 at 1827 1105 (New Bag - Provider: Yessi Resendez RN)1748 (Stopped - Provider: Nhi Cain RN) 0.9 % sodium chloride with potassium chloride 20 mEq/L infusion (CANCELED) at 150 mL/hr, Intravenous, CONTINUOUS, Starting on Tue11/05/22 at 0900, Until Tue11/08/22 at 1827 0826 (New Bag - Provider: Yessi Resendez RN)1100 (Stopped - Provider: Yessi Resendez RN) PRN Medication Order 11/08/2022 11/09/2022 11/10/2022 acetaminophen (TYLENOL) suppository 650 mg(Linked Group 1) 650 mg, Rectal, EVERY 6 HOURS PRN, Starting on Tue11/02/22 at 1137, Until Tue11/10/22 at 1248, Mild pain or more severe pain if patient requests, Fever, If patient is taking oral intake without complications and both PO/MS orders are active, administer through the oral route. acetaminophen (TYLENOL) tablet 650 mg(Linked Group 1) 650 mg, Oral, EVERY 6 HOURS PRN, Starting on Tue11/02/22 at 1137, Until Tue11/10/22 at 1248, Mild pain or more severe pain if patient requests, Fever, If patient is taking oral intake without complications and both PO/MS orders are active, administer through the oral route. LORazepam (ATIVAN) tablet 2 mg 2 mg, Oral, EVERY 2 HOURS PRN, Starting on Tue11/05/22 at 1219, Until Tue11/10/22 at 1248, Other, agitation magnesium hydroxide (MILK OF MAGNESIA) 400 MG/5ML suspension 30 mL 30 mL, Oral, DAILY PRN, Starting on Tue11/02/22 at 1135, Until Tue11/10/22 at 1248, Constipation - 3rd line, Magnesium hydroxide 400 mg/5 ml = 166.7 mg elemental magnesium/5ml. Hold for loose stools (loose, liquid, mucoid, soft, watery stool that takes the shape of the container) or greater than 2 moderate or larger stools in 24hrs nicotine (NICODERM CQ) 21 MG/24HR patch 1 Patch 1 Patch, Transdermal, DAILY PRN, Starting on Tue11/02/22 at 1135, Until Tue11/10/22 at 1248, Administer over 24 Hours, Other, Nicotine dependency ondansetron (ZOFRAN) injection 4 mg(Linked Group 2) 4 mg, Intravenous, EVERY 6 HOURS PRN, Starting on Tue11/02/22 at 1135, Until Tue11/10/22 at 1248, Nausea - 1st line, 1. First Line Antiemetic. 2. Use Injection only if patient unable to tolerate oral medications. ondansetron (ZOFRAN-ODT) disintegrating tablet 4 mg(Linked Group 2) 4 mg, Oral, EVERY 6 HOURS PRN, Starting on Tue11/02/22 at 1135, Until Tue11/10/22 at 1248, Nausea - 1st line, 1. First Line Antiemetic. 2. Use PO form unless unable to tolerate PO medications, then use Injection polyethylene glycol (GLYCOLAX, MIRALAX) packet 17 g 17 g, Oral, 2 TIMES DAILY PRN, Starting on Tue11/02/22 at 1135, Until Tue11/10/22 at 1248, Constipation - 1st line, Dilute dose in 120 - 240 mL of beverage.Hold for loose stools (loose, liquid, mucoid, soft, watery stool that takes the shape of the container) or greater than 2 moderate or larger stools in 24hrs Prochlorperazine Edisylate (COMPAZINE) injection 10 mg 10 mg, Intravenous, EVERY 6 HOURS PRN, Starting on Tue11/02/22 at 1137, Until Tue11/10/22 at 1248, Nausea - 2nd line, Second Line Antiemetic Give if nausea/vomiting recurs after ondansetron. senna (SENOKOT) tablet 8.6 mg 8.6 mg (1 Tablet), Oral, 2 TIMES DAILY PRN, Starting on Tue11/02/22 at 1135, Until Tue11/10/22 at 1248, Constipation - 2nd line No Frequency Medication Order 11/08/2022 11/09/2022 11/10/2022 MIDAZOLAM HCL 5 MG/ML IJ SOLN 1 dose, Starting on Tue11/02/22 at 0632, Until Tue11/10/22 at 1248, Created by cabinet override MIDAZOLAM HCL 5 MG/ML IJ SOLN 1 dose, Starting on Tue11/02/22 at 0942, Until Tue11/10/22 at 1248, Created by cabinet override Linked Groups Order Group 1: acetaminophen (TYLENOL) tablet 650 mgJump to med 650 mg, Oral, EVERY 6 HOURS PRN, Starting on Tue11/02/22 at 1137, Until Tue11/10/22 at 1248, Mild pain or more severe pain if patient requests, Fever, If patient is taking oral intake without complications and both PO/MS orders are active, administer through the oral route. Or acetaminophen (TYLENOL) suppository 650 mgJump to med 650 mg, Rectal, EVERY 6 HOURS PRN, Starting on Tue11/02/22 at 1137, Until Tue11/10/22 at 1248, Mild pain or more severe pain if patient requests, Fever, If patient is taking oral intake without complications and both PO/MS orders are active, administer through the oral route. Group 2: ondansetron (ZOFRAN-ODT) disintegrating tablet 4 mgJump to med 4 mg, Oral, EVERY 6 HOURS PRN, Starting on Tue11/02/22 at 1135, Until Tue11/10/22 at 1248, Nausea - 1st line, 1. First Line Antiemetic. 2. Use PO form unless unable to tolerate PO medications, then use Injection Or ondansetron (ZOFRAN) injection 4 mgJump to med 4 mg, Intravenous, EVERY 6 HOURS PRN, Starting on Tue11/02/22 at 1135, Until Tue11/10/22 at 1248, Nausea - 1st line, 1. First Line Antiemetic. 2. Use Injection only if patient unable to tolerate oral medications. documented in this encounter Care Teams Commercial Shrimping Captain Relationship Specialty Start Date End Date Provider, None [place] PCP - General 09/18/22 Provider, None [place] 09/18/22 documented as of this encounter
--- OUTSIDE RECORDS SUMMARY | 2024-03-29 00:20 | XMS_ITS | Encounter Summary ---
Author Organization [employer] Care Team Providers Care Program Coordinator Executive Education Name Role Phone Provider, None Primary Care Provider Unavailabl e Provider, None Unavailable Unavailable Encounter Details Date Type Department Care Team (Latest Contact Info) Description 09/18/2022 Travel Social History Tobacco Use Types Packs/Day Years Used Date Smoking Tobacco: Every Day Cigarettes Alcohol Use Standard Drinks/Week Comments Yes 0 [...] suspected to have Coronavirus/COVID-19? No / Unsure 09/18/2022 10:42 PM CDT documented as of this encounter Plan of Treatment Not on file documented as of this encounter Visit Diagnoses Not on filedocumented in this encounter Care Teams Program Coordinator Executive Education Relationship Specialty Start Date End Date Provider, None [place] PCP - General 09/18/22 Provider, None [place] 09/18/22 documented as of this encounter
--- OUTSIDE RECORDS SUMMARY | 2024-03-29 00:20 | XMS_ITS | Encounter Summary ---
Author Organization [employer] [facility] Care Team Providers Care Supervisor Agricultural Education Name Role Phone Provider, None Primary Care Provider Unavailabl e Encounter Details Date Type Department Care Team (Latest Contact Info) Description 09/27/2020 Travel Social History Tobacco Use Types Packs/Day Years Used Date Smoking Tobacco: Every Day Cigarettes Alcohol Use Standard Drinks/Week Comments Yes 0 (1 standard drink = 0.6 oz pur e alcohol) 7 drinks Comments Unknown Sex and Gender Information Value Date Recorded Sex Assigned at Not on file Legal Sex Female 3:33 PM CDT Gender Identity Not on file Sexual Orientation Not on file COVID-19 Exposure Response Date Recorded In the last month, have you been in contact with someone who was confirmed or suspected to have Coronavirus / COVID-19? No / Unsure 09/27/2020 3:37 PM CDT documented as of this encounter Plan of Treatment Not on file documented as of this encounter Visit Diagnoses Not on filedocumented in this encounter Care Teams Supervisor Agricultural Education Relationship Specialty Start Date End Date Provider, None [place] PCP - General 09/27/20 09/17/22 documented as of this encounter
--- OUTSIDE RECORDS SUMMARY | 2024-03-29 00:20 | XMS_ITS | Encounter Summary ---
Author Organization [employer] Care Team Providers Care Shot Blaster Name Role Phone Provider, None Primary Care Provider Unavailabl e Encounter Details Date Type Department Care Team (Latest Contact Info) Description 02/20/2021 Travel Social History Tobacco Use Types Packs/Day [...] COVID-19? No / Unsure 02/20/2021 10:44 PM ELDERLY SITTER documented as of this encounter Plan of Treatment Not on file documented as of this encounter Visit Diagnoses Not on filedocumented in this encounter Care Teams Shot Blaster Relationship Specialty Start Date End Date Provider, None [place] PCP - General 09/27/20 09/17/22 documented as of this encounter
--- OUTSIDE RECORDS SUMMARY | 2024-03-29 00:20 | XMS_ITS | Encounter Summary ---
Author Organization [facility] Address [address] [place] [address] Phone Care Team Providers Care Geophysical Party Chief Name Role Phone Provider, None Primary Care Provider Unavailabl e Reason for Visit * Reason Comments Abdominal Pain Encounter Details Date Type Department Care Team ([facility] st Contact Info) Description 09/27/2020 3:33 PM CDT - 09/27/2020 8:51 PM CDT Emergency [facility] Emergency [address] [place] [id number] Amy Verdugo, PAC [address] [place] [address] RLQ abdominal pain Discharge Disposition: Discharged to home or Selfcare [...] Sign Reading Time Taken Comments Blood Pressure 121/79 09/27/2020 8:15 PM CDT Pulse 69 09/27/2020 8:15 PM CDT Temperature 36.5 ??C (97.7 ??F) 09/27/2020 3:35 PM CD T Respiratory Rate 20 09/27/2020 3:35 PM CDT Oxygen Saturation 98% 09/27/2020 8:15 PM CDT Inhaled Oxygen Concentration - - Weight 62.6 kg (138 lb) 09/27/2020 3:35 PM CDT Height 162.6 cm (5' 4 ) 09/27/2020 3:35 PM CDT Body Mass Index 23.69 09/27/2020 3:35 PM CDT documented in this encounter Discharge Instructions * Discharge Instructions* Amy Verdugo PAC - 09/27/2020 7:45 PM CDT Please follow up with your primary care provider. Return if you have any worsening symptoms. * Attachments The following attachments cannot be sent through Care Everywhere. * Constipation, Treating (Mauritian) documented in this encounter Medications at Time of Discharge Escitalopram Oxalate (LEXAPRO PO) Take by mouth nightly. 11/06/2022 hydrOXYzine (ATARAX) 10 MG Tablet Take 25 mg by mouth 4 times daily as needed for Anxiety. 11/06/2022 LAMOTRIGINE PO Take by mouth 2 times daily. 11/06/2022 polyethylene glycol (MiraLax) 17 GM/SCOOP Powder Take 17 g by mouth daily. 17 g = 1 scoop. Dissolve in 4 -8 oz of water or other liquid. 1 Bottle 09/27/2020 11/06/2022 traZODone (DESYREL) 50 MG Tablet Take 50 mg by mouth nightly. 11/06/2022 documented as of this encounter ED Notes * Audrey Farris RN - 09/27/2020 8:20 PM CDT Patient discharged. Discharge instructions and patient educational material reviewed with patient; questions and concerns addressed; patient verbalizes understanding, using teach back. Patient was given 1 prescription. Patient discharged per ambulatory mode with steady gait. SL D/C'ed with Donald cath intact. * Gale Deleon RN - 09/27/2020 7:20 PM CDT Urine specimen collected and sent to lab. * Gale Deleon RN - 09/27/2020 7:14 PM CDT Pt ambulated to restroom in attempt to collect urine specimen. * Samuel Noyola RN - 09/27/2020 7:05 PM CDT k page talking with pt about test results and need for ua. she explained an ultrasound is not indicated at this time based on details of ct scan. pt states she cannot give urine sample yet. * Samuel Noyola RN - 09/27/2020 6:30 PM CDT pt denies relief from toradol. she is laying on cart with lights out in room. call light on rail. * Samuel Noyola RN - 09/27/2020 6:05 PM CDT pt c/o's pain returning as earlier, but not as strong toradol per order. pt concerned a ct is not enough for her and feels she needs an ultrasound. explained a ct is detailed and radiologist did not suggest further imaging at this time. call light on rail. * Samuel Noyola RN - 09/27/2020 5:15 PM CDT pt tolerated ct well. no new questions or c/o's. estimated time frame on test results. * Amy Verdugo, KATJA - 09/27/2020 4:30 PM CDT Chief Complaint Patient presents with ??? Abdominal Pain HPI Mariam Rivera is a 24 y.o. female who presents via EMS due to RLQ abdominal pain with associated nausea and lightheadedness which started at 1330 when she was at work. Patient denies any fever, nausea, vomiting, diarrhea, constipation, chest pain or sob. 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 She is a smoker. She reports she had her L fallopian tube surgical excised due to a cyst and alsoreports surgery to her R ovary for a twisted cyst in the past. She is not on any control. Her LMP was one week ago. No current facility-administered medications for this encounter. Current Outpatient Medications Medication Sig Dispense Refill ??? Escitalopram Oxalate (LEXAPRO PO) Take by mouth nightly. ??? hydrOXYzine (ATARAX) 10 MG Tablet Take 25 mg by mouth 4 times daily as needed for Anxiety. ??? LAMOTRIGINE PO Take by mouth 2 times daily. ??? polyethylene glycol (MiraLax) 17 GM/SCOOP Powder Take 17 g by mouth daily. 17 g = 1 scoop. Dissolve in 4 -8 oz of water or other liquid. 1 Bottle 0 ??? traZODone (DESYREL) 50 MG Tablet Take 50 mg by mouth nightly. No Known Allergies No past medical history on file. No past surgical history on file. Social History Socioeconomic History ??? Marital status: Single Spouse name: Not on file ??? Number of children: Not on file ??? Years of education: Not on file ??? Highest education level: Not on file Occupational History ??? Not on file Tobacco Use ??? Smoking status: Current Every Day Smoker Packs/day: 0.50 Types: Cigarettes Substance and Sexual Activity ??? Alcohol use: Yes Comment: 7 drinks ??? Drug use: Yes Types: Marijuana ??? Sexual activity: Not on file Other Topics Concern ??? Not on file Social History Narrative ??? Not on file Social Determinants of Health Social determinant risk not applicable to this patient. BP 103/69 Pulse 74 Temp 97.7 ??F (36.5 ??C) (Tympanic) Resp 20 Ht 5' 4 (1.626 m) Wt 138lb (62.6 kg) LMP 09/20/2020 SpO2 98% BMI 23.69 kg/m?? Review of Systems Constitutional: Negative for chills and fever. HENT: Negative for congestion, ear pain and sore throat. Eyes: Negative for pain and discharge. Respiratory: Negative for cough, chest tightness and shortness of breath. Cardiovascular: Negative for chest pain, palpitations and leg swelling. Gastrointestinal: Positive for abdominal pain (RLQ abdominal pain ) and nausea. Negative for abdominal distention, blood in stool, constipation, diarrhea and vomiting. Genitourinary: Negative for dysuria, frequency and vaginal discharge. Musculoskeletal: Negative for arthralgias and back pain. Skin: Negative for color change and rash. Neurological: Positive for light-headedness. Negative for dizziness, weakness and headaches. Psychiatric/Behavioral: Negative for suicidal ideas. All other systems reviewed and are negative. Physical Exam Vitals and nursing note reviewed. Constitutional: General: She is not in acute distress. Appearance: She is well-developed. She is not diaphoretic. Comments: Tearful HENT: Head: Normocephalic and atraumatic. Right Ear: [...] Palpations: Abdomen is soft. Tenderness: There is abdominal tenderness in the right lower quadrant. There is no guarding or rebound. Musculoskeletal: General: Normal range of motion. Cervical back: Normal range of motion. Skin: General: Skin is warm and dry. Neurological: Mental Status: She is alert and oriented to person, place, and time. Cranial Nerves: No cranial nerve deficit. Labs Reviewed CMP (COMPREHENSIVE METABOLIC PANEL) - Abnormal; Notable for the following components: Result Value GLUCOSE 106 (*) All other components within normal limits URINALYSIS REFLEX IF INDICATED BY ABNORMAL RESULTS - Abnormal; Notable for the following components: PROTEIN, RANDOM URINE 15 mg/dL (*) URINE BLOOD 25 /uL (*) URINE RBC'S 6-10 (*) All other components within normal limits CBC WITH AUTO DIFFERENTIAL - Abnormal; Notable for the following components: HEMOGLOBIN (HGB) 11.8 (*) HEMATOCRIT (HCT) 35.8 (*) EOSINOPHILS 6.3 (*) ABSOLUTE LYMPHOCYTES 4.08 (*) ABSOLUTE EOSINOPHIL 0.69 (*) All other components within normal limits LIPASE - Normal COMPLETE BLOOD COUNT (CBC) WITH DIFF Narrative: The following orders were created for panel order CBC with Diff REG104. Procedure Abnormality Status --------- ------ CBC with Auto Differential[[id number]] Abnormal Final result Please view results for these tests on the individual orders. EXTRA TUBES Narrative: The following orders were created for panel order Extra Tubes. Procedure Abnormality Status --------- ------ Gold Top Tube[[id number]] Final result Lavender Top Tube[[id number]] Final result MINT GREEN, MAGNOLIA HEPARIN/S...[[id number]] Final result Please view results for these tests on the individual orders. HUMAN CHORIONIC GONADOTROPIN SCRN SERUM GOLD TOP TUBE LAVENDER TOP TUBE MINT GREEN, LI HEPARIN/SST TOP TUBE URINALYSIS REFLEX IF INDICATED BY ABNORMAL RESULTS Final Result CT ABDOMEN PELVIS W/ CONTRAST Final Result IMPRESSION: 1. No acute finding. Appendix is normal. Moderate stool burden seen throughout the colon may indicate constipation. 2. Questionable punctate nonobstructing renal stones measuring 1-2 mm, which may represent true stones versus excreted contrast. If further evaluation is needed, a noncontrast enhanced, renal stone protocol CT would be needed. CMP (Comprehensive Metabolic Panel) Final Result CBC with Diff [id number] Final Result Lipase [id number] Final Result Extra Tubes Final Result Human Chorionic Gonadotropin Scrn Serum [id number] Final Result Procedures Imaging Results CT ABDOMEN PELVIS W/ CONTRAST (Final result) Result time 09/27/20 17:22:44 Final result by David Mcmahan MD (09/27/20 17:22:44) Impression: IMPRESSION: 1. No acute finding. Appendix is normal. Moderate stool burden seen throughout the colon may indicate constipation. 2. Questionable punctate nonobstructing renal stones measuring 1-2 mm, which may represent true stones versus excreted contrast. If further evaluation is needed, a noncontrast enhanced, renal stone protocol CT would be needed. Narrative: EXAM DESCRIPTION: CT ABDOMEN PELVIS W/ CONTRAST REASON FOR STUDY: Right lower quadrant abdominal pain. History of ovarian cysts and left ovarian tube removal. TECHNIQUE: CT scan of the abdomen and pelvis performed with intravenous and without oral contrast using helical scanning technique with dynamic intravenous contrast injection. Reconstructed coronal and sagittal MPR images reviewed. All images stored on PACS. Automated exposure control was used as a dose optimization technique for this examination. CONTRAST TYPE/DOSE: 70 mL Isovue 370 injected via left antecubital fossa, 20 gauge IV COMPARISON: None available. FINDINGS: LOWER CHEST: No significant pulmonary abnormalities. No effusion. LIVER: Normal size. No identified cystic or solid masses. GALLBLADDER: No stones identified. No wall thickening or inflammatory changes. BILE DUCTS: No intrahepatic or extrahepatic ductal dilatation. SPLEEN: Normal size. No focal lesions. PANCREAS: No identified cystic or solid masses. No significant calcifications. No adjacent inflammation or peripancreatic fluid collections. Pancreatic duct not dilated. ADRENALS: Normal. KIDNEYS/URINARY TRACT: No identified significant cystic or solid masses. Contrast is seen within the collecting system, limiting evaluation for stones. However, a couple high density foci in the collecting system appear more focal, including a 2 mm focus in the left upper pole kidney and 1 mm focus in the right midpole kidney.. No hydronephrosis or hydroureter. Symmetric enhancement. A 2 mm calcific density in the right hemipelvis on series 2, image 153 is most compatible with a phlebolith. Urinary bladder is unremarkable. GI: No dilated bowel loops. No obvious wall thickening. Normal appendix. No significant diverticular disease. Moderate stool burden seen throughout the colon. PERITONEUM: No ascites or free air. RETROPERITONEUM: No mass or adenopathy. REPRODUCTIVE: No significant abnormality. VASCULATURE: No abdominal aortic aneurysm. MUSCULOSKELETAL: No significant abnormality. OTHER: No other abnormality. THIS IS AN ELECTRONICALLY VERIFIED FINAL REPORT 09/27/2020 5:19 PM - Electronically signed by David Mcmahan M.D. ML: ML Report ID: [id number] Reading Location: [address] Coding Clinical Impression 1. RLQ abdominal pain 2. Constipation Patient was started on miralax. Encouraged close f/u with his pmd and to return if sx change or worsen. Patient expressed understanding and agreement to the tx plan. Cosigned by Michael Olivares MD at 09/28/2020 6:13 AM CDT * Samuel Noyola RN - 09/27/2020 4:30 PM CDT attempted to give urine sample without success. iv fluids infusing without difficulty. pt laying quietly on cart. resp unlabored. * Samuel Noyola RN - 09/27/2020 4:05 PM CDT explained purpose of meds and common side effects. pt stated she immediately started feeling effects of pain med with relief as soon as syringe screwed on to heplock, before med was given. by the endof morphine administration, pt was talking slowly and stating she had complete relief. * Samuel Noyola RN - 09/27/2020 3:41 PM CDT pt arrives by ems from work, c/o severe right lower quadrant abd pain that worsens with palpation. she reports hx ovarian cysts. she had left fallopian tube removed because of infection. pt is alert and tearful. * Ksenia Hancock - 09/27/2020 3:33 PM CDT Bed: [place] [id number] Expected date: 09/27/20 Expected time: 3:29 PM Means of arrival: Ambulance ([facility]) Comments: 4A25 [facility] 24F ABD PAIN documented in this encounter Plan of Treatment Not on file documented as of this encounter Procedures Procedure Name Priority Date/Time Associated Diagnosis Comments URINALYSIS REFLEX IF INDICATED BY ABNORMAL RESULTS STAT 09/27/2020 7:[address] ABDOMEN PELVIS W/ CONTRAST STAT 09/27/2020 4:58 PM CDT EXTRA TUBES STAT 09/27/2020 3:39 PM CDT MAGNOLIA GUERRERO HEPARIN/SST TOP TUBE STAT 09/27/2020 3:39 PM CDT GOLD TOP TUBE STAT 09/27/2020 3:39 PM CDT LAVENDER TOP TUBE STAT 09/27/2020 3:3 9 PM CDT CBC WITH AUTO DIFFERENTIAL STAT 09/27/2020 3:39 PM CDT HUMAN CHORIONIC GONADOTROPIN SCRN SERUM STAT 09/27/2020 3:39 PM CDT LIPASE STAT 09/27/2020 3:39 PM CDT CMP (COMPREHENSIVE METABOLIC PANEL) STAT 09/27/2020 3:39 PM CDT COMPLETE BLOOD COUNT (CBC) WITH DIFF STAT 09/27/2020 3:39 PM CDT documented in this encounter Results * (ABNORMAL) URINALYSIS REFLEX IF INDICATED BY ABNORMAL RESULTS (09/27/2020 7:18 PM CDT) SPECIFIC GRAVITY 1.015 1.003 - 1.030 09/27/2020 7:38 PM CDT [facility] URINE PH 5.0 5.0 - 9.0 09/27/2020 7:38 PM CDT [facility] WBC ESTERASE Negative Negative 09/27/2020 7:38 PM CDT [facility] NITRITE Negative Negative 09/27/2020 7:38 PM CDT [facility] PROTEIN, RANDOM URINE 15 mg/dL(A) Negative 09/27/2020 7:38 PM CDT [facility] URINE GLUCOSE, QUAL Negative Negative 09/27/2020 7:38 PM CDT [facility] URINE KETONES Negative Negative 09/27/2020 7:38 PM CDT [facility] UROBILINOGEN Normal Normal mg/dL 09/27/2020 7:38 PM CDT [facility] URINE BILIRUBIN Negative Negative 7:38 PM CDT [facility] URINE BLOOD 25 /uL(A) Negative karla/ul 09/27/2020 7:38 PM CDT [facility] URINALYSIS COLOR Yellow 09/28/19 7:38 PM CDT [facility] URINALYSIS CLARITY Clear 09/27/2020 7:38 PM CDT [facility] WBC (Urine) 0-5 Negative, 0-5 /hpf 09/27/2020 7:38 PM CDT [facility] URINE RBC'S 6-10(A) Negative, 0-2 /hpf 09/27/2020 7:38 PM CDT [facility] EPITHELIAL CELLS Small amount /lpf 2020 7:38 PM CDT [facility] BACTERIA, URINE Negative Negative /hpf 09/27/2020 7:38 PM CDT [facility] Urine URINE SPECIMEN / Unknown Non-Phlebotomy Collection / Unknown 09/27/2020 7:18 PM CDT 09/27/2020 7:23 PM CDT us Amy Jenkins Page PAC URINE ORDERABLES Final Resul t [facility] [address] [place] [address] * CT ABDOMEN PELVIS W/ CONTRAST (09/27/2020 4:58 PM CDT) Anatomical Region Laterality Modality Abdomen N/A Computed Tomogra phy 09/27/2020 5:19 PM CDT Impressions 09/27/2020 5:22 PM CDT IMPRESSION: ??1. ??No acute finding. ??Appendix is normal. ??Moderate stool burden seen throughout the colon may indicate constipation. 2. ??Questionable punctate nonobstructing renal stones measuring 1-2 mm, which may represent true stones versus excreted contrast. ??If further evaluation is needed, a noncontrast enhanced, renal stone protocol CT would be needed. Narrative 09/27/2020 5:22 PM CDT EXAM DESCRIPTION: ?? CT ABDOMEN PELVIS W/ CONTRAST REASON FOR STUDY: ?? Right lower quadrant abdominal pain. ??History of ovarian cysts and left ovarian tube removal. TECHNIQUE: ??CT scan of the abdomen and pelvis performed with intravenous and ??without oral contrast using helical scanning technique with dynamic intravenous contrast injection. Reconstructed coronal and sagittal MPR images reviewed. All images stored on PACS. Automated exposure control was used as a dose optimization technique for this examination. CONTRAST TYPE/DOSE: ?? 70 mL Isovue 370 injected via ??left antecubital fossa, 20 gauge IV COMPARISON: ?? None available. FINDINGS: ??LOWER CHEST: ??No significant pulmonary abnormalities. No effusion. LIVER: ??Normal size. ??No identified cystic or solid masses. GALLBLADDER: ??No stones identified. No wall thickening or inflammatory changes. BILE DUCTS: ??No intrahepatic or extrahepatic ductal dilatation. SPLEEN: ??Normal size. ??No focal lesions. PANCREAS: ??No identified cystic or solid masses. No significant calcifications. No adjacent inflammation or peripancreatic fluid collections. Pancreatic duct not dilated. ADRENALS: ??Normal. KIDNEYS/URINARY TRACT: ??No identified significant cystic or solid masses. ??Contrast is seen within the collecting system, limiting evaluation for stones. ??However, a couple high density foci in the collecting system appear more focal, including a 2 mm focus in the left upper pole kidney and 1 mm focus in the right midpole kidney.. ?? No hydronephrosis or hydroureter. Symmetric enhancement. ??A 2 mm calcific density in the right hemipelvis on series 2, image 153 is most compatible with a phlebolith. ??Urinary bladder is unremarkable. GI: ??No dilated bowel loops. No obvious wall thickening. ??Normal appendix. ??No significant diverticular disease. ??Moderate stool burden seen throughout the colon. PERITONEUM: ??No ascites or free air. RETROPERITONEUM: ??No mass or adenopathy. REPRODUCTIVE: ??No significant abnormality. VASCULATURE: ??No abdominal aortic aneurysm. MUSCULOSKELETAL: ??No significant abnormality. OTHER: ??No other abnormality. THIS IS AN ELECTRONICALLY VERIFIED FINAL REPORT 09/27/2020 5:19 PM - Electronically signed by David Mcmahan M.D. ML: ML D: ??09/27/2020 5:19 PM T: ??09/27/2020 5:19 PM Report ID: [id number] Reading Location: ??[id number] Procedure Note David Mcmahan MD - 09/27/2020 EXAM DESCRIPTION: CT ABDOMEN PELVIS W/ CONTRAST REASON FOR STUDY: Right lower quadrant abdominal pain. History of ovarian cysts and left ovarian tube removal. TECHNIQUE: CT scan of the abdomen and pelvis performed with intravenous and without oral contrast using helical scanning technique with dynamic intravenous contrast injection. Reconstructed coronal and sagittal MPR images reviewed. All images stored on PACS. Automated exposure control was used as a dose optimization technique for this examination. CONTRAST TYPE/DOSE: 70 mL Isovue 370 injected via left antecubital fossa, 20 gauge IV COMPARISON: None available. FINDINGS: LOWER CHEST: No significant pulmonary abnormalities. No effusion. LIVER: Normal size. No identified cystic or solid masses. GALLBLADDER: No stones identified. No wall thickening or inflammatory changes. BILE DUCTS: No intrahepatic or extrahepatic ductal dilatation. SPLEEN: Normal size. No focal lesions. PANCREAS: No identified cystic or solid masses. No significant calcifications. No adjacent inflammation or peripancreatic fluid collections. Pancreatic duct not dilated. ADRENALS: Normal. KIDNEYS/URINARY TRACT: No identified significant cystic or solid masses. Contrast is seen within the collecting system, limiting evaluation for stones. However, a couple high density foci in the collecting system appear more focal, including a 2 mm focus in the left upper pole kidney and 1 mm focus in the right midpole kidney.. No hydronephrosis or hydroureter. Symmetric enhancement. A 2 mm calcific density in the right hemipelvis on series 2, image 153 is most compatible with a phlebolith. Urinary bladder is unremarkable. GI: No dilated bowel loops. No obvious wall thickening. Normal appendix. No significant diverticular disease. Moderate stool burden seen throughout the colon. PERITONEUM: No ascites or free air. RETROPERITONEUM: No mass or adenopathy. REPRODUCTIVE: No significant abnormality. VASCULATURE: No abdominal aortic aneurysm. MUSCULOSKELETAL: No significant abnormality. OTHER: No other abnormality. THIS IS AN ELECTRONICALLY VERIFIED FINAL REPORT 09/27/2020 5:19 PM - Electronically signed by David Mcmahan M.D. ML: ML Report ID: [id number] Reading Location: [id number] IMPRESSION: 1. No acute finding. Appendix is normal. Moderate stool burden seen throughout the colon may indicate constipation. 2. Questionable punctate nonobstructing renal stones measuring 1-2 mm, which may represent true stones versus excreted contrast. If further evaluation is needed, a noncontrast enhanced, renal stone protocol CT would be needed. Amy Jenkins Page PAC IMG CT ORDERABLES Final Resu lt * Human Chorionic Gonadotropin Scrn Serum [id number] (09/27/2020 3:39 PM CDT) PREG-HCG Negative 09/27/2020 4:30 PM CDT [facility] Blood No Phlebotomy Charged / Unknown 09/27/2020 3:39 PM CDT 09/27/2020 3:50 PM CDT Amy Jenkins Page PAC CHEMISTRY ORDERABLES Final R esult [facility] [address] [place] [address] * MAGNOLIA GUERRERO HEPARIN/SST TOP TUBE (09/27/2020 3:39 PM CDT) Blood No Phlebotomy Charged / Unknown 09/27/2020 3:39 PM CDT 09/27/2020 3:50 PM CDT us Amy Jenkins Page PAC HEMATOLOGY ORDERABLES Final Result Performing Organization Address City/[facility] Co de Phone Number [facility] [address] [place] [address] * Lavender Top Tube (09/27/2020 3:39 PM CDT) Blood No Phlebotomy Charged / Unknown 09/27/2020 3:39 PM CDT 09/27/2020 3:50 PM CDT us Amy Jenkins Page PAC HEMATOLOGY ORDERABLES Final Result Performing Organization Address City/[facility] Co de Phone Number [facility] [address] [place] [address] * Gold Top Tube (09/27/2020 3:39 PM CDT) Blood No Phlebotomy Charged / Unknown 09/27/2020 3:39 PM CDT 09/27/2020 3:50 PM CDT us Amy Jenkins Page PAC CHEMISTRY ORDERABLES Final R esult Performing Organization Address [facility] Co de Phone Number [facility] [address] [place] [address] * (ABNORMAL) CBC with Auto Differential (09/27/2020 3:39 PM CDT) WBC 11.03 4.00 - 12.00 10(3)/mcL 09/27/2020 3:52 PM CDT [facility] RBC 3.95 3.80 - 5.30 10(6)/mcL 09/27/2020 3:52 PM CDT [facility] HEMOGLOBIN (HGB) 11.8(L) 12.0 - 15.8 g/dL 09/27/2020 3:52 PM CDT [facility] HEMATOCRIT (HCT) 35.8(L) 36.0 - 47.0 % 09/27/2020 3:52 PM CDT [facility] MCV 90.6 82.0 - 96.0 fL 09/27/2020 3:52 PM CDT [facility] MCH 29.9 26.0 - 34.0 pg 09/27/2020 3:52 PM CDT [facility] MCHC 33.0 31.0 - 36.0 g/dL 09/27/2020 3:52 PM CDT [facility] PLATELET COUNT 279 140 - 440 10(3)/mcL 09/27/2020 3:52 PM CDT [facility] RDW 13.2 11.8 - 15.5 % 09/27/2020 3:52 PM CDT [facility] MPV 10.1 9.7 - 12.4 fL 09/27/2020 3:52 PM CDT [facility] NEUTROPHILS 47.7 47.0 - 73.0 % 09/27/2020 3:52 PM CDT [facility] [facility] LYMPHOCYTES 37.0 18.0 - 42.0 % 09/27/2020 3:52 PM CDT [facility] MONOCYTES 8.3 4.0 - 12.0 % 09/27/2020 3:52 PM CDT [facility] EOSINOPHILS 6.3(H) 0.0 - 5.0 % 09/27/2020 3:52 PM CDT [facility] BASOPHILS 0.7 0.0 - 1.0 % 09/27/2020 3:52 PM CDT [facility] ABSOLUTE NEUTROPHILS 5.26 1.60 - 7.70 10(3)/mcL 09/27/2020 3:52 PM CDT [facility] ABSOLUTE LYMPHOCYTES 4.08(H) 1.30 - 3.20 10(3)/mcL 09/27/2020 3:52 PM CDT [facility] ABSOLUTE MONOCYTES 0.92 0.20 - 1.00 10(3)/mcL 09/27/2020 3:52 PM CDT [facility] ABSOLUTE EOSINOPHIL 0.69(H) 0.00 - 0.40 10(3)/mcL 09/27/2020 3:52 PM CDT [facility] ABSOLUTE BASOPHILS 0.08 0.00 - 0.10 10(3)/mcL 09/27/2020 3:52 PM CDT [facility] NRBC PER 100 WBC 0 09/28/19 3:52 PM CDT [facility] Blood Venipuncture / Unknown 09/27/2020 3:39 PM CDT 09/27/2020 3:48 PM CDT Amy Jenkins Page PAC HEMATOLOGY ORDERABLES Final Result Performing Organization Address City/[facility]/ZIP Co de Phone Number [facility] [place] [address] * Lipase [id number] (09/27/2020 3:39 PM CDT) LIPASE 20.6 13 - 60 U/L 09/27/2020 4:09 PM CDT [facility] Blood Venipuncture / Unknown 09/27/2020 3:39 PM CDT 09/27/2020 3:48 PM CDT Amy Verdugo PAC CHEMISTRY ORDERABLES Final R esult Performing Organization Address City/[facility]/ZIP Co de Phone Number [facility] [place] [address] * (ABNORMAL) CMP (Comprehensive Metabolic Panel) (09/27/2020 3:39 PM CDT) SODIUM 136 136 - 144 mmol/L 09/27/2020 4:09 PM CDT [facility] POTASSIUM 3.6 3.5 - 5.1 mmol/L 09/27/2020 4:09 PM CDT [facility] CHLORIDE 101 100 - 110 mmol/L 09/27/2020 4:09 PM CDT [facility] CO2, VENOUS 26 22 - 32 mmol/L 09/27/2020 4:09 PM [facility] ANION GAP 12.6 8.0 - 20.0 mmol/L 09/27/2020 4:09 PM [facility] GLUCOSE 106(H) 70 - 99 mg/dL 09/27/2020 4:09 PM T [facility] BUN 10 6 - 20 mg/dL 09/27/2020 4:09 PM [facility] CREATININE, BLOOD 0.68 0.60 - 1.10 mg/dL 09/27/2020 4:09 PM [facility] BUN/CREATININE RATIO 15 12 - 20 ratio 09/27/2020 4:09 PM [facility] TOTAL PROTEIN 6.7 6.0 - 8.3 g/dL 09/27/2020 4:09 PM [facility] ALBUMIN 4.2 3.5 - 5.2 g/dL 09/27/2020 4:09 PM [facility] Comment: The colormetric methods used for the determination of Albumin may lead to falsely elevated test results in patients suffering from renal failure or insufficiency due to interference with other proteins. A/G RATIO 1.7 1.0 - 2.0 09/27/2020 4:09 PM [facility] CALCIUM 9.1 8.9 - 10.3 mg/dL 09/27/2020 4:09 PM [facility] T BILI <0.3 <=1.2 mg/dL 09/27/2020 4:09 PM [facility] SGOT (AST) 25 <=32 U/L 09/27/2020 4:09 PM [facility] SGPT (ALT) 15 <=41 U/L 09/27/2020 4:09 PM [facility] ALKALINE PHOSPHATASE 75 35 - 105 U/L 09/27/2020 4:09 PM T [facility] GFR, EST. NONAFRICAN >60 >=60 09/27/2020 4:09 PM CDT [facility] GFR, EST. >60 >=60 021 4:09 PM CDT [facility] Comment: Creatinine Clearance is the preferred criteria for selecting drug dose adjustments in renally impaired patients. ??The GFR is provided as additional pertinent clinical information. GFR is reported in mL/min/1.73 sq m. Blood Venipuncture / Unknown 09/27/2020 3:39 PM CDT 09/27/2020 3:48 PM CDT us Amy Jenkins Page PAC CHEMISTRY ORDERABLES Final R esult [facility] [place] [address] documented in this encounter Visit Diagnoses Diagnosis RLQ abdominal pain- Primary Abdominal pain, right lower quadrant Constipation Unspecified constipation documented in this encounter Administered Medications Inactive Administered Medications - up to 3 most recent administrations Medication Order MAR Action Action Date Dose Rate Site 0.9 % sodium chloride solution at 1,000 mL/hr, Intravenous, ONCE, 1 dose, On 09/27/20 at 1630 New Bag 09/27/2020 4:06 PM CDT 1000 mL/hr iopamidol (ISOVUE-370) 76 % injection 70 mL 70 mL, Intravenous, ONCE, 1 dose, On 09/27/20 at 1700 Given 09/27/2020 4:57 PM CDT 70 mL ketorolac (TORADOL) injection 30 mg 30 mg, Intravenous, ONCE, 1 dose, On 09/27/20 at 1800 Given 09/27/2020 6:05 PM CDT 30 mg MORPHINE SULFATE (PF) 2 MG/ML IV SOLN 1 dose, Starting on 09/27/20 at 1553, Until 09/27/20 at 1603, Created by cabinet override morphine sulfate (PF) injection 2 mg 2 mg, Intravenous, ONCE, 1 dose, On 09/27/20 at 1630 Given 09/27/2020 4:03 PM CDT 2 mg ondansetron (ZOFRAN) injection 4 mg 4 mg, Intravenous, ONCE, 1 dose, On 09/27/20 at 1630 Given 09/27/2020 4:03 PM CDT 4 mg documented in this encounter Active and Recently Administered Medications Times are shown in CDT. Scheduled Medication Order 09/25/2020 09/26/2020 09/27/2020 0.9 % sodium chloride solution (COMPLETED) at 1,000 mL/hr, Intravenous, ONCE, 1 dose, On 09/27/20 at 1630 1606 (New Bag - Prov ider: Samuel Noyola RN)1705 (Stopped - Provider: Samuel Noyola RN) iopamidol (ISOVUE-370) 76 % injection 70 mL (COMPLETED) 70 mL, Intravenous, ONCE, 1 dose, On 09/27/20 at 1700 1657 (Given - Provid er: Carlin Oliveira, RT(R) (CT)) ketorolac (TORADOL) injection 30 mg (COMPLETED) 30 mg, Intravenous, ONCE, 1 dose, On 09/27/20 at 1800 1805 (Given - Provid er: Samuel Noyola RN) morphine sulfate (PF) injection 2 mg (COMPLETED) 2 mg, Intravenous, ONCE, 1 dose, On 09/27/20 at 1630 1603 (Given - Provid er: Samuel Noyola RN)1630 (Due) ondansetron (ZOFRAN) injection 4 mg (COMPLETED) 4 mg, Intravenous, ONCE, 1 dose, On 09/27/20 at 1630 1603 (Given - Provid er: Samuel Noyola RN) documented in this encounter Care Teams Geophysical Party Chief Relationship Specialty Start Date End Date Provider, None [place] PCP - General 09/27/20 09/17/22 documented as of this encounter
--- OUTSIDE RECORDS SUMMARY | 2024-03-29 00:20 | XMS_ITS | Encounter Summary ---
Author Organization [employer] Care Team Providers Care Escalation Engineer Name Role Phone Provider, None Primary Care Provider Unavailabl e Provider, None Unavailable Unavailable Encounter Details Date Type Department Care Team (Latest Contact Info) Description 11/02/2022 Travel Social History Tobacco Use Types Packs/Day [...] on filedocumented in this encounter Care Teams Escalation Engineer Relationship Specialty Start Date End Date Provider, None [place] PCP - General 09/18/22 Provider, None [place] 09/18/22 documented as of this encounter
--- OUTSIDE RECORDS SUMMARY | 2024-03-29 00:20 | XMS_ITS | Encounter Summary ---
Author Organization [facility] Address [address] [place] [address] Phone Care Team Providers Care School Age Program Associate Name Role Phone Provider, None Primary Care Provider Unavailabl e Provider, None Unavailable Unavailable Reason for Visit * Reason Comments Psychiatric Evaluation Encounter Details Date Type Department Care Team (Late st Contact Info) Description 09/18/2022 10:36 PM CDT - 09/19/2022 1:00 AM CDT Emergency [facility] Emergency [address] [place] [address] Fabian Salmeron MD [address] [place] [address] Adjustment disorder with mixed disturbance of emotions and conduct Discharge Disposition: Discharged to home or Selfcare Social History Tobacco Use Types Packs/Day Years Used Date Smoking Tobacco: Every Day Cigarettes Tobacco Cessation:Ready to Q uit: Not Asked; [...] Sign Reading Time Taken Comments Blood Pressure 119/86 09/18/2022 10:40 PM CDT Pulse 98 09/18/2022 10:40 PM CDT Temperature 37.3 ??C (99.1 ??F) 09/18/2022 10:40 PM C DT Respiratory Rate 20 09/18/2022 10:40 PM CDT Oxygen Saturation 97% 09/18/2022 10:40 PM CDT Inhaled Oxygen Concentration - - Weight 68 kg (150 lb) 09/18/2022 10:40 PM CDT Height 162.6 cm (5' 4 ) 09/18/2022 10:40 PM CDT Body Mass Index 25.75 09/18/2022 10:40 PM CDT documented in this encounter Discharge Instructions * Discharge Instructions* Fabian Salmeron - 09/19/2022 12:59 AM CDT Take your current medications as prescribed and [facility] for further evaluation and treatment and in the interim return immediately to the emergency department for any worsening symptoms or for any other reason * Attachments The following attachments cannot be sent through Care Everywhere. * Adjustment Disorder Adult (Thai) documented in this encounter Medications at Time of Discharge Dexmethylphenida te HCl (FOCALIN XR PO) Take by mouth. 11/06/2022 Escitalopram Oxalate (LEXAPRO PO) Take by mouth. 11/06/2022 Escitalopram Oxalate (LEXAPRO PO) Take by mouth nightly. 11/06/2022 HYDROcodone-acet aminophen (NORCO) 5-325 MG TabletIndication s:Nephrolithiasi s Take 1-2 Tablets by mouth every 4 hours as needed for Moderate or more severe pain. 20 Tablet 02/21/2021 11/06/2022 hydrOXYzine (ATARAX) 10 MG Tablet Take 25 mg by mouth 4 times daily as needed for Anxiety. 11/06/2022 lamoTRIgine (LAMICTAL PO) Take by mouth. 023 LAMOTRIGINE PO Take by mouth 2 times daily. 11/06/2022 polyethylene glycol (MiraLax) 17 GM/SCOOP Powder Take 17 g by mouth daily. 17 g = 1 scoop. Dissolve in 4 -8 oz of water or other liquid. 1 Bottle 09/27/2020 11/06/2022 QUEtiapine Fumarate (SEROQUEL PO) Take by mouth. 023 tamsulosin (FLOMAX) 0.4 MG Capsule Take 1 Capsule by mouth daily. 10 Capsule 02/21/2021 11/06/2022 traZODone (DESYREL) 50 MG Tablet Take 50 mg by mouth nightly. 11/06/2022 TRAZODONE HCL PO Take by mouth. 10/26 documented as of this encounter ED Notes * Germaine Desouza RN - 09/19/2022 1:06 AM CDT Patient discharged. Discharge instructions and patient educational material reviewed with patient; questions and concerns addressed; patient verbalizes understanding, using teach back. Patient discharged per ambulatory mode with as responsible democrat. * Fabian Salmeron - 09/19/2022 1:00 AM CDT Chief Complaint Patient presents with ??? Psychiatric Evaluation Patient is a 26-year-old female with a history bipolar 1 disorder who presents to the emergency department complaining mixed anxiety and depression. Patient reports she is having a hard time coping but is not able to give a specific reason for why. Patient reports she is not taken her behavioral health medications this afternoon and patient reports this has because she is been very busy. Patient reports she hears voices in her head but these are not specifically telling her to harm herself or anyone else at this time. Patient denies any visual hallucinations. Otherwise patient has been compliant with her medications and has no other specific complaints. Patient inquires about possible adjustment to her medications but realizes that she may have to be here during the weekend however she isuncertain if she wants to be here the entire weekend. Patient's corroborates the patient's story and states that she is had no expressions or thoughts of wanting to harm herself or anyone else No current facility-administered medications for this encounter. Current Outpatient Medications Medication Sig Dispense Refill ??? Dexmethylphenidate HCl (FOCALIN XR PO) Take by mouth. ??? Escitalopram Oxalate (LEXAPRO PO) Take by mouth. ??? lamoTRIgine (LAMICTAL PO) Take by mouth. ??? QUEtiapine Fumarate (SEROQUEL PO) Take by mouth. ??? TRAZODONE HCL PO Take by mouth. No Known Allergies Past Medical History Positives Diagnosis Date ??? Bipolar 2 disorder (HCC) ??? Psychosis (HCC) No past surgical history on file. Social History Socioeconomic History ??? Marital status: Spouse name: Not on file ??? Number of children: Not on file ??? Years of education: Not on file ??? Highest education level: Not on file Occupational History ??? Not on file Tobacco Use ??? Smoking status: Every Day Packs/day: 0.50 Types: Cigarettes ??? Smokeless tobacco: Not on file Vaping Use ??? Vaping Use: Never used Substance and Sexual Activity ??? Alcohol use: Yes Comment: socially ??? Drug use: Not Currently ??? Sexual activity: Not on file Other Topics Concern ??? Not on file Social History Narrative ??? Not on file BP 119/86 Pulse 98 Temp 99.1 ??F (37.3 ??C) (Tympanic) Resp 20 Ht 5' 4 (1.626 m) Wt 150 lb (68 kg) LMP 08/25/2022 SpO2 97% BMI 25.75 kg/m?? Review of Systems Constitutional: Negative. HENT: Negative. Eyes: Negative. Cardiovascular: Negative. Genitourinary: Negative. Musculoskeletal: Negative. Skin: Negative. Neurological: Negative. Psychiatric/Behavioral: Positive for agitation and hallucinations (Auditory). Negative for self-injury and suicidal ideas. The patient is nervous/anxious. Physical Exam Vitals and nursing note reviewed. Constitutional: General: She is not in acute distress. Appearance: Normal appearance. She is normal weight. She is not ill-appearing or toxic-appearing. HENT: Head: Normocephalic and atraumatic. Mouth/Throat: Pharynx: No oropharyngeal exudate or posterior oropharyngeal erythema. Eyes: Extraocular Movements: Extraocular movements intact. Conjunctiva/sclera: Conjunctivae normal. Pupils: Pupils are equal, round, and reactive to light. Cardiovascular: Rate and Rhythm: Normal rate and regular rhythm. Pulses: Normal pulses. Heart sounds: Normal heart sounds. No murmur heard. No friction rub. No gallop. Pulmonary: Effort: Pulmonary effort is normal. No respiratory distress. Breath sounds: Normal breath sounds. No wheezing, rhonchi or rales. Abdominal: General: Bowel sounds are normal. There is no distension. Palpations: There is no mass. Tenderness: There is abdominal tenderness. There is rebound. There is no guarding. Musculoskeletal: General: No swelling, tenderness or deformity. Normal range of motion. Cervical back: Normal range of motion and neck supple. No rigidity or tenderness. Right lower leg: No edema. Left lower leg: No edema. Skin: General: Skin is warm and dry. Capillary Refill: Capillary refill takes less than 2 seconds. Neurological: General: No focal deficit present. Mental Status: She is alert. Mental status is at baseline. Cranial Nerves: No cranial nerve deficit. Sensory: No sensory deficit. Motor: No weakness. Coordination: Coordination normal. Gait: Gait normal. Deep Tendon Reflexes: Reflexes normal. Psychiatric: Mood and Affect: Mood normal. Behavior: Behavior normal. Thought Content: Thought content normal. Judgment: Judgment normal. Procedures Imaging Results None Labs Reviewed - No data to display Medical Decision Making Patient is a 26-year-old female with a history of bipolar disorder who is compliant with her medications presents to the emergency department for concerns disturbance of conduct with mixed anxiety and depression which patient states she is uncertain as to what is causing this since she is been compliant with her medications. Patient denies SI/HI/VH however patient does report that she hears voices but none of these are telling her to harm herself or anyone else at this point in time and patientfeels like she just needs an adjustment to her behavioral health medications. Patient also reports that she is not taken since this afternoon. Patient denies thoughts SI and states she has no individual plan to harm herself and is not hearing voices telling her to harm herself. In his alert and oriented to person place time and event is able to answer all questions without difficulty. After discussion patient states she does not want to stay in the hospital for 24-48 hours and would rather contact her behavioral health provider on Delfino morning for adjustment to her medications. Clinical Impression 1. 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 States she has a history of Bipolar disorder and takes Trazodone and Seroquel and Lexapro andLamictal and Focalin. States she has not taken her meds tonight. Patient denies any SI of her own. Denies any thoughts to harm any others. States she loves her and her 2 dogs and her life anddoes not want to hurt herself. Alert and oriented x4. Respirations non labored. Sobbing presently. * Edith Aguilar - 09/18/2022 10:37 PM CDT Bed: ED12- Expected date: Expected time: Means of arrival: Ambulance Comments: [facility] documented in this encounter Plan of Treatment Not on file documented as of this encounter Visit Diagnoses Diagnosis Adjustment disorder with mixed disturbance of emotions and conduct- Primary documented in this encounter Care Teams School Age Program Associate Relationship Specialty Start Date End Date Provider, None [place] PCP - General 09/18/22 Provider, None [place] 09/18/22 documented as of this encounter
== END 2024-03-24 16:16 | disposition home or self-care (01) | DRG 812 ==
LOC: ANHED 03-22 00:12 → ANHICU 03-22 02:48
PROVIDERS: Internal Medicine; Admitting Provider Internal Medicine; Emergency Provider Emergency Medicine; Visit Provider Internal Medicine
DX: T43.211A Poisoning by selective serotonin and norepinephrine reuptake inhibitors, accidental (unintentional), initial encounter (principal); T43.591A Poisoning by other antipsychotics and neuroleptics, accidental (unintentional), initial encounter; T43.221A Poisoning by selective serotonin reuptake inhibitors, accidental (unintentional), initial encounter; J96.90 Respiratory failure, unspecified, unspecified whether with hypoxia or hypercapnia; J45.909 Unspecified asthma, uncomplicated; R45.89 Other symptoms and signs involving emotional state; F98.8 Other specified behavioral and emotional disorders with onset usually occurring in childhood and adolescence; F41.9 Anxiety disorder, unspecified; F31.9 Bipolar disorder, unspecified; F10.90 Alcohol use, unspecified, uncomplicated; F17.210 Nicotine dependence, cigarettes, uncomplicated; Z20.822 Contact with and (suspected) exposure to COVID-19
CPT/HCPCS: 36415; 36600; 71045; 80053; 80143; 80175; 80179; 80307; 81003; 81025; 82077; 82375; 82805; 82948; 83050; 83735; 84100; 84443; 84478; 85018; 85025; 87637; 87641; 92610; 93005; 94002; 94003; 96361; 96366; 96374; 99285; A9270; G0378; J0330; J1650; J1885; J2250; J2405; J2470; J2704; J7030; J7120